=== PATIENT | female | born 1935 | race Caucasian/White ===

== ENCOUNTER 2019-03-16 01:47 | Observation (INO) | payer OTHER ==
--- OUTSIDE RECORDS SUMMARY | 2019-03-16 01:55 | XMS REPORT | Continuity of Care Document ---
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 [facility] Shoulder pain Resolved 09/05/20 Problem 04/05/2018 [facility] 16 Group,[facility] Screening for Resolved 02/03/20 Problem 04/05/2018 [facility] breast cancer 16 Group,[facility] Screen for colon Resolved 02/03/20 Problem 04/05/2018 Medical cancer 16 Group,[facility] POSTSURGICAL Inactive 05/13/20 Condition 07/08/2015 [facility] CATARACT 15 Group EXTRACTION STATUS OS SCREENING, Active 04/12/20 Condition 07/08/2015 [facility] DIABETIC 15 Group RETINOPATHY CATARACT, SENILE, Inactive 04/12/20 Condition 07/08/2015 [facility] CORTICAL OS 15 Group PSEUDOPHAKIA OU Active 04/12/20 Condition 07/08/2015 Medical 15 Group ELBOW PAIN, LEFT Inactive 07/17/20 Condition 07/08/2015 Medical 14 Group Pain in Resolved 07/17/20 Problem 04/05/2018 Data [facility] elbow<sup>12</sup 14 migrated Group,MH > from [facility] on 03/27/15. ROTATOR CUFF Active 06/19/20 Condition 07/08/2015 Medical INJURY, RIGHT 14 Group SHOULDER Injury of tendon Active 06/19/20 Problem 04/05/2018 Data Medical of the rotator 14 migrated Group cuff of from shoulder<sup>8</s Centricity up> on 03/27/15. Injury of tendon Active 06/19/20 Problem 02/10/2017 Data of the rotator 14 migrated [place] cuff of from shoulder<sup>10</ Centricity sup> on 03/27/15. BODY MASS INDEX Active 05/21/20 Condition 07/08/2015 Medical 37.0-37.9, ADULT 14 Group PAIN IN JOINT Inactive 05/21/20 Condition 07/08/2015 Medical INVOLVING 14 Group SHOULDER REGION Shoulder joint Active 05/21/20 Problem 04/05/2018 Data Medical pain<sup>15</sup> 14 migrated Group,MH from [facility] on 03/27/15. Body mass index Active 05/21/20 Problem 02/10/2017 Data 30+ - 14 migrated [facility] obesity<sup>2</esquivel from GE p> Centricity on 03/27/15. COUGH Inactive 10/17/20 Condition 07/08/2015 Medical 13 Group GASTRITIS Inactive 10/03/20 Condition 07/08/2015 Medical 13 Group HELICOBACTER Inactive 10/03/20 Condition 07/08/2015 Medical PYLORI INFECTION 13 Group GASTRIC ULCER Inactive 10/03/20 Condition 07/08/2015 Medical 13 Group DUODENITIS Active 10/03/20 Condition 07/08/2015 Medical 13 Group Duodenitis<sup>5< Resolved 10/03/20 Problem 04/05/2018 Data Medical /sup> 13 migrated Group from [facility] on 03/27/15. Duodenitis<sup>6< Resolved 10/03/20 Problem 02/10/2017 Data /sup> 13 migrated [facility] from [facility] on 03/27/15. DYSPNEA ON Active 09/16/20 Condition 07/08/2015 Medical EXERTION 13 Group CHEST PAIN Inactive 09/16/20 Condition 07/08/2015 Medical 13 Group TIREDNESS Active 09/16/20 Condition 07/08/2015 Medical 13 Group ABDOMINAL PAIN Inactive 09/16/20 Condition 07/08/2015 [facility] RIGHT UPPER 13 Group QUADRANT ABDOMINAL PAIN, Inactive 09/16/20 Condition 07/08/2015 [facility] EPIGASTRIC 13 Group NAUSEA Inactive 09/16/20 Condition 07/08/2015 Medical 13 Group ESOPHAGEAL REFLUX Active 09/16/20 Condition 07/08/2015 Medical 13 Group HEARTBURN Inactive 09/16/20 Condition 07/08/2015 Medical 13 Group Epigastric Resolved 09/16/20 Problem 04/05/2018 Data Medical pain<sup>6</sup> 13 migrated Group from [facility] on 03/27/15. Heartburn<sup>7</ Active 09/16/20 Problem 04/05/2018 Data Medical sup> 13 migrated Group from [facility] on 03/27/15. Nausea<sup>11</esquivel Resolved 09/16/20 Problem 04/05/2018 Data Medical p> 13 migrated Group from [facility] on 03/27/15. Right upper Active 09/16/20 Problem 04/05/2018 Data Medical quadrant 13 migrated [facility]sup[facility]. Epigastric Resolved 09/16/20 Problem 02/10/2017 Data pain<sup>7</sup> 13 [facility]. Heartburn<sup>8</ Active 09/16/20 Problem 02/10/2017 Data sup> [facility] CHRONIC KIDNEY Active 01/22/20 Condition 07/08/2015 Medical DISEASE STAGE III 13 Group MORBID OBESITY Active 01/22/20 Condition 07/08/2015 Medical 13 Group URINARY TRACT Inactive 01/22/20 Condition 07/08/2015 Medical INFECTION, HX OF 13 Group Chronic kidney Active 01/22/20 Problem 04/05/2018 Data Medical disease stage 13 migrated Group 3<sup>[facility]sup[facility]. Morbid Resolved 01/22/20 Problem 04/05/2018 Data Medical obesity<sup>10</s 13 [facility]. Chronic kidney Active 01/22/20 Problem 02/10/2017 Data disease stage 13 migrated [place] 3<sup>3</sup> [facility]. NEED PROPHYLACTIC Inactive 09/12/20 Condition 07/08/2015 Medical VACCINATION&INOCU 12 Group LATION FLU NEED PROPH Inactive 09/12/20 Condition 07/08/2015 Medical VACCINATION 12 Group AGAINST STREP PNEUMONE ASTHMA Active 09/12/20 Condition 07/08/2015 Medical 12 Group Asthma<sup>1</sup Active 09/12/20 Problem 04/05/2018 Data Medical > 12 migrated Group, from [facility] on 03/27/15. LONG-TERM USE OF Active 04/17/20 Condition 07/08/2015 Medical OTHER MEDICATIONS 12 Group OTHER SCREENING Active 04/17/20 Condition 07/08/2015 Medical BREAST 12 Group EXAMINATION PNEUMONIA Inactive 04/17/20 Condition 07/08/2015 Medical 12 Group Long-term drug Resolved 04/17/20 Problem 04/05/2018 Data Medical therapy<sup>9</esquivel 12 migrated Group p> from [facility] on 03/27/15. Long-term drug Resolved 04/17/20 Problem 02/10/2017 Data therapy<sup>11</s 12 migrated [place] up> from [facility] on 03/27/15. BRONCHITIS, ACUTE Inactive 04/15/20 Condition 07/08/2015 Medical 12 Group DIABETES Inactive 04/15/20 Condition 07/08/2015 Medical MELLITUS, TYPE II 12 Group HYPERTENSION Active 04/15/20 Condition 07/08/2015 Medical 12 Group HYPERLIPIDEMIA Active 04/15/20 Condition 07/08/2015 Medical 12 Group Hyperlipidemia<esquivel Active 04/15/20 Problem 02/10/2017 Data p>9</sup> 12 migrated [place] from [facility] on 03/27/15. Type 2 diabetes Active 04/15/20 Problem 02/10/2017 Data mellitus<sup>16</ 12 migrated [place] sup> from [facility] on 03/27/15. CAROTID ARTERY Active 10/29/19 Condition 07/08/2015 Medical DISEASE 04 Group CORONARY HEART Active 10/29/19 Condition 07/08/2015 Medical DISEASE 03 Group 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 Condition 07/08/2015 Medical Group DIABETES, TYPE 2 Inactive Condition 07/08/2015 Medical Group DIABETES Active Condition 07/08/2015 Medical MELLITUS, TYPE Group II, CONTROLLED W/ VASCULAR COMPLICATIONS Asthma Active Problem 04/05/2018 [facility] Carpal tunnel Active Problem 04/05/2018 Medical syndrome Group,[facility] Chest pain Resolved Problem 04/05/2018 [facility] Chronic CHF Active Problem 04/05/2018 Medical Group CKD stage 3, GFR Active Problem 04/05/2018 Medical 30-59 Group, ml/min(<span [facility] ID="[id number]" >Confirmed</span> ) Coronary Active Problem 04/05/2018 Data Medical arteriosclerosis< migrated Group sup>3</sup> from [facility] on 03/27/15. Coronary heart Active Problem 04/05/2018 Medical disease Group,[facility] Diabetes Active Problem 04/05/2018 [facility] Disorder of Active Problem 04/05/2018 Data Medical carotid migrated Group artery<sup>4</sup from [facility] > [facility]ity on 03/27/15. Drug therapy Active Problem 04/05/2018 [facility] Gastric ulcer Active Problem 04/05/2018 [facility] Ischemic Active Problem 04/05/2018 Medical cardiomyopathy Group GERD (<span Active Problem 04/05/2018 Medical ID="[id number]" Group, >Confirmed</span> [facility] ) Heart failure Active Problem 04/05/2018 [facility] Hypertension Active Problem 04/05/2018 [facility] Heart attack Resolved Problem 04/05/2018 [facility] Mixed Active Problem 04/05/2018 [facility] hyperlipidemia Group Osteopenia Active Problem 04/05/2018 [facility] Group[facility] Peripheral Active Problem 04/05/2018 Data Medical circulatory migrated Group, disorder from [facility] associated with Cent[facility]ity type 2 diabetes on 03/27/15. mellitus<sup>13</ sup> Coronary Active Problem 02/10/2017 Data arteriosclerosis< migrated [facility] sup>4</sup> from [facility] on 03/27/15. Disorder of Active Problem 02/10/2017 Data carotid migrated [facility] artery<sup>5</sup from [facility] > [facility] on 03/27/15. ATHSCL HEART Active DISEASE OF [place] [facility] CORONARY Medications Medication Details Route Status Patient Ordering Order Source Instructions Provider Date Metoprolol See Active Medical Succinate ER 50 Instructions, 2018 Group mg oral tablet, # 60 tab, extended Refill(s) 5, release TAKE ONE TABLET BY MOUTH TWICE DAILY, Pharmacy: [facility] Fish Oil 1 gm, 1 cap, No Longer Route: PO, Active 2016 [facility] Drug form: CAP, Daily, Dosing Weight 91.364, kg, Start date: 02/08/17 9:00:00 CDT, Duration: 30 day, Stop date: 03/09/17 9:00:00 CDTNotes: (Same as: [facility], [place] 3 fish oil ) Non-Formular y Drug Losartan 100 mg, 2 No Longer tab, Route: Active 2016 [facility] PO, Drug form: TAB, Daily, Dosing Weight 91.364, kg, Start date: 02/08/17 9:00:00 CDT, Duration: 30 day, Stop date: 03/09/17 9:00:00 CDTNotes: (Same as: Cozaar) Furosemide 20 20 mg, 1 tab, No Longer MG Oral Tablet Route: PO, Active 2016 [facility] Drug form: TAB, Daily, Dosing Weight 91.364, kg, Start date: 02/08/17 9:00:00 CDT, Duration: 30 day, Stop date: 03/09/17 9:00:00 CDTNotes: (Same as: Lasix) May cause GI upset. Give with food or milk. clopidogrel 75 mg, 1 tab, No Longer Route: PO, Active 2016 [facility] Drug form: TAB, Daily, Dosing Weight 91.364, kg, Start date: 02/08/17 9:00:00 CDT, Duration: 30 day, Stop date: 03/09/17 9:00:00 CDTNotes: (Same As: Plavix) metoprolol 25 mg, 1 tab, Inactive tartrate Route: PO, 2016 [facility] Drug form: TAB, Q12H, Dosing Weight 91.364, kg, Start date: 02/07/17 21:00:00 CDT, Duration: 30 day, Stop date: 03/09/17 9:00:00 CDTNotes: (Same as: Lopressor) famotidine 20 mg, 1 tab, Inactive Route: PO, 2016 [facility] Drug form: TAB, ONCE, Start date: 02/07/17 18:30:00 CDT, Stop date: 02/07/17 18:30:00 CDTNotes: (Same as: Pepcid) Ranitidine 150 150 mg, 1 Inactive MG Oral Tablet tab, Route: 2016 [facility] PO, ONCE, Dosing Weight 91.364, kg, Priority: NOW, Start date: 02/07/17 18:07:00 CDT, Stop date: 02/07/17 18:07:00 CDT Sodium Chloride 250 mL, Inactive 0.9% IV Route: IVPB, 2016 [facility] Start date: 02/07/17 16:03:00 CDT, Duration: 30 day, Stop date: 03/09/17 16:02:00 CDT, PRN Line Flush BD Normal 10 mL, Route: Inactive Saline Flush IVP, Drug 2016 [facility] Form: INJ, PRN, PRN Line Flush, Start date: 02/07/17 16:03:00 CDT, Duration: 30 day, Stop date: 03/09/17 16:02:00 CDTNotes: (Same as: BD Posiflush) Furosemide 20 20 mg=1 tab, Active MG Oral Tablet PO, Daily, 0 2016 [facility] Refill(s) clopidogrel 75 75 mg, PO, Active mg oral tablet Daily, 0 2016 [facility] Refill(s) Acetaminophen 650 mg, 2 Inactive tab, Route: 2016 [facility] PO, Drug form: TAB, Q4H, Dosing Weight 91.364, kg, PRN Pain Score 1-3, Start date: 02/07/17 14:36:00 CDT, Duration: 30 day, Stop date: 03/09/17 14:35:00 CDTNotes: Do not exceed 4 gm/day. (Same as: Tylenol) Acetaminophen 1 tab, Route: Inactive 325 MG / PO, Drug 2016 [facility] Hydrocodone Form: TAB, Bitartrate 5 MG Dosing Weight Oral Tablet 91.364, kg, Q4H, PRN Pain Score 4-6, Start date: 02/07/17 14:36:00 CDT, Duration: 30 day, Stop date: 03/09/17 14:35:00 CDTNotes: (Same as: [place] 325/5) Do not exceed 4gm/day of acetaminophen . Ondansetron 4 mg, 2 mL, Inactive Route: IVP, 2016 [facility] Drug form: INJ, Q8H, Dosing Weight 91.364, kg, PRN Nausea & Vomiting, Start date: 02/07/17 14:36:00 CDT, Duration: 30 day, Stop date: 03/09/17 14:35:00 CDTNotes: (Same as: Zofran) MEDICATION WASTE Product Size: 4 mg Product Wasted: _0__ mg Sodium Chloride 750 mL, Rate: Inactive 0.154 MEQ/ML 75 ml/hr, 2016 [facility] Injectable Infuse over: Solution 10 hr, Route: IV, Dosing Weight 91.364 kg, Total Volume: 750, Start date: 02/07/17 14:36:00 CDT, Duration: 10 hr, Stop date: 02/08/17 0:35:00 CDT sodium chloride 1,000 mL, Inactive 0.9% 1000 ml Rate: 100 2017 [facility] INJ 1,000 mL ml/hr, Infuse over: 10 hr, Route: IV, Dosing Weight 91.364 kg, Total Volume: 1,000, Start date: 02/07/17 10:58:00 CDT, Duration: 30 day, Stop date: 03/09/17 10:57:[address] 2 drops No Longer Medical HCL 0.3 % SOLN in the Active 2014 Group affected eye every 6 hours for PRED FORTE 1 % Instill 1 No Longer Medical SUSP drop: 4 Active 2014 Group times a day for 1 week, 3 times a day for 1 week, 2 times a day for 1 week, Once a day for 1 week to both eyes KETOROLAC 1 drop 2 No Longer Medical TROMETHAMINE times daily Active 2014 Group 0.4 % SOLN CIPROFLOXACIN Place 2 drops No Longer Medical HCL 0.3 % SOLN in the Active 2014 Group affected eye every 6 hours for SINGULAIR 10 MG 1 tablet at Active Medical TABS night 2014 Group LEVAQUIN 500 MG 1 tablet No Longer Medical TABS daily Active 2014 Group LEVAQUIN 500 MG 1 tablet No Longer Medical TABS daily Active 2014 Group CIPRO 250 MG one bid for 7 No Longer Medical TABS days Active 2014 Group CORTISPORIN Apply 2 drops Active Medical [id number] in nail 2013 Group SOLN border 2-3 times a day VOLTAREN 1 % 2 grams No Longer Medical GEL topically q6h Active 2013 Group prn pain HYDROCODONE-MAINE 1 tablet Active Medical TAMINOPHEN every 4-6 2013 Group 5-325 MG TABS hours as needed for pain HYDROCODONE-MAINE 1 tablet Active Medical TAMINOPHEN every 4-6 2013 Group 5-325 MG TABS hours as needed for pain HYDROCODONE-MAINE 1 tablet Active Medical TAMINOPHEN every 4-2013 Group 5-325 MG TABS hours as needed for pain HYDROCODONE-MAINE 1 tablet No Longer Medical TAMINOPHEN every 4-6 2013 Group 5-325 MG TABS hours as needed for pain HYDROCODONE-MAINE 1 tablet Active Medical TAMINOPHEN every 4-2013 Group 5-325 MG TABS hours as needed for pain HYDROCODONE-MAINE 1 tablet No Longer Medical TAMINOPHEN every 4-6 2013 Group 5-325 MG TABS hours as needed for pain PREDNISONE 10 40 mg po q No Longer Medical MG TABS day for four 2013 Group days, then 30 mg for 4 days then 20 mg for 4 days then 10 mg for 4 days then discontinue PREDNISONE 10 40 mg po q No Longer Medical MG TABS day for four Active 2013 Group days, then 30 mg for 4 days then 20 mg for 4 days then 10 mg for 4 days then discontinue PREDNISONE 10 40 mg po q No Longer Medical MG TABS day for four 2013 Group days, then 30 mg for 4 days then 20 mg for 4 days then 10 mg for 4 days then discontinue PREDNISONE 10 40 mg po q No Longer Medical MG TABS day for four Active 2013 Group days, then 30 mg for 4 days then 20 mg for 4 days then 10 mg for 4 days then discontinue PREDNISONE 10 40 mg po q No Longer Medical MG TABS day for four Active 2013 Group days, then 30 mg for 4 days then 20 mg for 4 days then 10 mg for 4 days then discontinue PREDNISONE 10 40 mg po q No Longer Medical MG TABS day for four Active 2013 Group days, then 30 mg for 4 days then 20 mg for 4 days then 10 mg for 4 days then discontinue CEFTIN 500 MG 1 tablet No Longer Medical TABS twice daily X Active 2013 Group 10 days SPIRIVA Inhale one No Longer Medical HANDIHALER 18 capsule daily Active 2013 Group MCG CAPS SPIRIVA Inhale one No Longer Medical HANDIHALER 18 capsule daily Active 2013 Group MCG CAPS LEVAQUIN TABS 1 tablet No Longer Medical 500 MG daily Active 2013 Group LEVAQUIN TABS 1 tablet No Longer Medical 500 MG daily Active 2013 Group LEVAQUIN TABS 1 tablet No Longer Medical 500 MG daily Active 2013 Group PROTONIX 40 MG 1 PO daily AT Active Medical EC TAB NIGHT 2013 Group PROTONIX 40 MG 1 PO daily AT Active Medical EC TAB NIGHT 2013 Group PROTONIX 40 MG 1 PO daily AT Active Medical EC TAB NIGHT 2013 Group PROTONIX 40 MG 1 tablet No Longer Medical TBEC daily. Active 2012 Group PROTONIX 40 MG 1 tablet No Longer Medical TBEC daily. Active 2012 Group PROTONIX 40 MG 1 tablet No Longer Medical TBEC daily. Active 2012 Group LEVAQUIN 500 MG 1 PO Daily No Longer Medical TABS Active 2012 Group PROAIR HFA 108 2 puffs q 4-6 Active 10/21[facility] Medical (90 BASE) hours prn 2012 Group MCG/ACT AERS cough,wheezin g SYMBICORT 2 puff bid No Longer Medical 160-4.5 MCG/ACT Active 2012 Group AERO SPIRIVA one cap for No Longer Medical HANDIHALER 18 inhalation Active 2012 Group MCG CAPS daily PROAIR HFA 108 2 puffs q 4-6 Active 10/21[facility] Medical (90 BASE) hours prn 2012 Group MCG/ACT AERS cough,wheezin g LEVAQUIN 500 MG 1 PO Daily No Longer Medical TABS Active 2012 Group SYMBICORT 2 puff bid Active Medical 160-4.5 MCG/ACT 2012 Group AERO PROAIR HFA 108 2 puffs q 4-6 Active 10/21[facility] Medical (90 BASE) hours prn 2012 Group MCG/ACT AERS cough,wheezin g SPIRIVA one cap for No Longer Medical HANDIHALER 18 inhalation Active 2012 Group MCG CAPS daily LEVAQUIN 500 MG 1 PO Daily No Longer Medical TABS Active 2012 Group SYMBICORT 2 puff bid No Longer 10/21[facility] Medical 160-4.5 MCG/ACT Active 2012 Group AERO ALIGN 4 MG CAPS 1 capsule No Longer Medical daily. Active 2012 Group OMECLAMOX-TAVO Take as No Longer Medical 500-500-20 MG directed for Active 2012 Group MISC 10 days. DICYCLOMINE HCL 1 tablet 4 No Longer Medical 10 MG CAPS times a day Active 2012 Group as needed for pain. FLAGYL 500 MG 1 tablet 3 No Longer Medical TABS times a day Active 2012 Group for 10 days. DICYCLOMINE HCL 1 tablet 4 No Longer Medical 10 MG CAPS times a day Active 2012 Group as needed for pain. DICYCLOMINE HCL 1 tablet 4 No Longer Medical 10 MG CAPS times a day Active 2012 Group as needed for pain. DICYCLOMINE HCL 1 tablet 4 No Longer Medical 10 MG CAPS times a day Active 2012 Group as needed for pain. CIPRO 500 MG 1 bid x 10 No Longer Medical TABS days Active 2012 Group SUCRALFATE 1 GM Take 1 tablet Active Medical TABS 30 minutes 2012 Group before each meal and at bedtime. TRAMADOL HCL 50 1 tablet No Longer Medical MG TABS every 6 hrs Active 2012 Group as needed for pain. CIPRO 500 MG 1 bid x 10 No Longer Medical TABS days Active 2012 Group SUCRALFATE 1 GM Take 1 tablet Active Medical TABS 30 minutes 2012 Group before each meal and at bedtime. TRAMADOL HCL 50 1 tablet No Longer Medical MG TABS every 6 hrs Active 2012 Group as needed for pain. TRAMADOL HCL 50 1 tablet No Longer Medical MG TABS every 6 hrs Active 2012 Group as needed for pain. TRAMADOL HCL 50 1 tablet No Longer Medical MG TABS every 6 hrs Active 2012 Group as needed for pain. SUCRALFATE 1 GM Take 1 tablet No Longer Medical TABS 30 minutes Active 2012 Group before each meal and at bedtime. TRAMADOL HCL 50 1 tablet No Longer 09/16/ Medical MG TABS every 6 hrs Active 2012 Group as needed for pain. TRAMADOL HCL 50 1 tablet No Longer 09/16/ Medical MG TABS every 6 hrs Active 2012 Group as needed for pain. NITROSTAT 0.[address] PL[address] 1 No Longer Medical MG SUBL TABLET UNDER Active 2012 Group THE TONGUE EVERY 5 MINUTES FOR UP TO 3 DOSES NEEDED FOR CHEST PAIN.CALL 911 IF PAIN PERSISTS NITROSTAT 0.4 PL[address] 1 No Longer Medical MG SUBL TABLET UNDER Active 2012 Group THE TONGUE EVERY 5 MINUTES FOR UP TO 3 DOSES NEEDED FOR CHEST PAIN.CALL 911 IF PAIN PERSISTS NITROSTAT 0.4 PL[address] 1 No Longer Medical MG SUBL TABLET UNDER Active 2012 Group THE TONGUE EVERY 5 MINUTES FOR UP TO 3 DOSES NEEDED FOR CHEST PAIN.CALL 911 IF PAIN PERSISTS SYMBICORT one puff No Longer Medical 160-4.5 MCG/ACT twice daily Active 2012 Group AERO as needed SYMBICORT one puff No Longer Medical 160-4.5 MCG/ACT twice daily Active 2012 Group AERO as needed SYMBICORT one puff No Longer Medical 160-4.5 MCG/ACT twice daily Active 2012 Group AERO as needed VORTEX VALVED Use with MDI Active Medical 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 CHAMBER 2011 Group EVI DUONEB 0.5-2.5 one via No Longer Medical (3) MG/3ML SOLN nebulizer Active 2011 Group every 4 hours as needed DUONEB 0.5-2.5 one via No Longer Medical (3) MG/3ML SOLN nebulizer Active 2011 Group every 4 hours as needed VITAMIN C 200MG 1 PO QD Active 2011 Group METFORMIN HCL 1 tab bid No Longer Medical 500 MG TABS Active 2011 Group METFORMIN HCL 1 tab bid No Longer Medical 500 MG TABS Active 2011 Group METFORMIN HCL 1 tab bid No Longer Medical 500 MG TABS Active 2011 Group METFORMIN HCL 1 tab bid No Longer Medical 500 MG TABS Active 2011 Group METFORMIN HCL 1 tab bid No Longer Medical 500 MG TABS Active 2011 Group METFORMIN HCL 1 tab bid No Longer Medical 500 MG TABS Active 2011 Group METFORMIN HCL 1 tab bid No Longer Medical 500 MG TABS Active 2011 Group LOSARTAN 1 po qd Active Medical POTASSIUM 100 2011 Group MG TABS WELCHOL 625 MG 3 po twice a No Longer Medical TABS day Active 2011 Group LOSARTAN Take one (1) Active Medical POTASSIUM 100 tablet po qd 2011 Group MG TABS LOSARTAN Take one (1) Active Medical POTASSIUM 100 tablet po qd 2011 Group MG TABS PLAVIX 75 MG 1 po qd Active Medical TABS 2011 Group FISH OIL 1000 1 cap qd Active Medical MG CAPS 2011 Group OSCAL 500/200 1 tab qd Active Medical D-3 [phone] Group MG-UNIT TABS ASPIRIN TAB 1 po qd No Longer Medical 81MG EC Active 2011 Group ASPIRIN TAB 1 po qd No Longer Medical 81MG EC Active 2011 Group PLAVIX 75 MG 1 po qd Active Medical TABS 2011 Group ASPIRIN TAB 1 po qd No Longer Medical 81MG EC Active 2011 Group Allergies, Adverse Reactions, Alerts Substance Category Reaction Severity Reaction Status Date Comments Source type Reported ZOCOR Drug ZOCOR allergy 2 Medical Group CRESTOR Drug CRESTOR allergy 2 Medical Group PRAVASTATIN Drug PRAVASTATIN SODIUM allergy SODIUM 2 Medical Group LIVALO Drug LIVALO allergy 2 Medical Group SULFA Drug SULFA allergy 2 Medical Group AMPICILLIN Drug AMPICILLIN allergy 2 Medical Group sulfa Assertion Swelling, Drug Active Data drugs<sup>1, NOS, allergy 2 migrated Medical 2</sup> Rash, NOS from [facility] on 05/27/15. Originally documented as SULFA. rash or swelling, cannot remember pravastatin< Assertion Muscle Drug Active Data sup>5</sup> pain allergy 2 migrated Medical (finding) from [facility] on 02/25/15. Originally documented as PRAVASTATI N SODIUM. severe muscle pain simvastatin< Assertion Muscle Drug Active Data sup>6</sup> pain allergy 2 migrated Medical (finding) from [facility] on 02/25/15. Originally documented as ZOCOR. severe muscle pain rosuvastatin Assertion Muscle Drug Active Data <sup>8</sup> pain allergy 2 migrated Medical (finding) from [facility] on 02/25/15. Originally documented as CRESTOR. severe muscle pain pitavastatin Assertion Muscle Drug Active Data <sup>9</sup> pain allergy 2 migrated Medical (finding) from [facility] on 02/25/15. Originally documented as LIVALO. severe muscle pain pitavastatin Assertion Muscle Drug Active Data MH <sup>4</sup> pain allergy 2 migrated [place] (finding) from [facility] on 02/25/15. Originally documented as LIVALO. severe muscle pain rosuvastatin Assertion Muscle Drug Active Data MH <sup>6</sup> pain allergy 2 migrated [place] (finding) from [facility] on 02/25/15. Originally documented as CRESTOR. severe muscle pain simvastatin< Assertion Muscle Drug Active Data MH sup>7</sup> pain allergy 2 migrated [place] (finding) from [facility] on 02/25/15. Originally documented as ZOCOR. severe muscle pain sulfa Assertion Rash, Drug Active Data drugs<sup>8, NOS, allergy 2 migrated [place] 9</sup> Swelling, from [facility] on 05/27/15. Originally documented as SULFA. rash or swelling, cannot remember ampicillin<s Assertion Swelling, Drug Active Data MH up>3, NOS, allergy 4 migrated Medical 4</sup> Rash, NOS from [facility] on 02/25/15. Originally documented as AMPICILLIN . RASH OR SWELLING, PATIENT CANT REMEMBER ampicillin<s Assertion Rash, Drug Active Data MH up>1, NOS, allergy 4 migrated [place] 2</sup> Swelling, from [facility] on 02/25/15. Originally documented as AMPICILLIN . RASH OR SWELLING, PATIENT CANT REMEMBER VOLTAREN Drug VOLTAREN MH allergy 5 Medical Group VOLTAREN GEL Drug VOLTAREN allergy GEL 5 Medical Group diclofenac<s Assertion Rash, NOS Drug Active Data MH up>7</sup> allergy 5 migrated Medical from [facility] on 05/06/15. Originally documented as VOLTAREN. rash diclofenac<s Assertion Rash, NOS Drug Active Data up>3</sup> allergy 5 migrated [place] from [employer] [facility] [employer] on 05/06/15. Originally documented as VOLTAREN. rash NKFA Assertion Food Active allergy Medical Group Immunizations Immunization Date Site Status Last Comments Source Given Updated pneumococcal Left completed [facility] 13-valent 6 Delto[facility] Group, vaccine [place] pneumococcal completed Medical immunization 2 Group administered pneumococcal Right completed [facility] 23-valent 2 Deltoid Comment: Group, vaccine<sup>1</s pneumovax. [place] up> Migrated from [facility] ; Data migrated from [employer] on 11/30/2015. Results Order Name Results Value Reference Date Interpretation Comments Source Range Chest 2 Chest 2 CLINICAL HISTORY: CHF 02/05 - [facility] views DX views /2016 - [facility] AGE: 81 years GENDER: Female Read by: Gopal Parr MD Dictated Date/time: 02/05/17 15:15 Electronically Signed by: Gopal Parr MD 02/05/17 15:18 FINAL REPORT TECHNIQUE: PA and lateral chest radiographs, 2 views. COMPARISON: 10/26/2016 FINDINGS: The cardiomediastinal silhouette demonstrates mild cardiomegaly. There is moderate bilateral hilar fullness with mild basilar septal thickening. Small bilateral pleural effusions, right greater than left. No pneumothorax. Surgical clips are again noted in the right neck. Chronic thoracic spine compression fractures, unchanged. IMPRESSION: Mild pulmonary edema. Spine Spine EXAMINATION: Thoracic spine - AP and lateral 10/26 - [facility] thoracic 3 thoracic - [facility] views DX views DX HISTORY: Thoracic back pain; thoracic compression fracture Read by: Tomas Sosa MD Dictated Date/time: 10/26/16 12:27 Electronically Signed by: Tomas Sosa MD 10/26/16 12:29 FINAL REPORT FINDINGS: Frontal and lateral views of the thoracic spine are performed and compared to left rib radiographs dated 05/09/2016. There is a severe T7 compression fracture deformity which appears unchanged compared to prior radiographs of the left ribs dated 05/09/2016. The remaining thoracic vertebral body heights are normal. The re is no listhesis. There is mild to moderate multilevel degenerative disc disease of the thoracic spine. An old mid left clavicular fracture deformity is partially visualized. IMPRESSION: 1. Unchanged chronic severe T7 compression fracture deformity, unchanged compared to prior radiographs of the left ribs dated 05/09/2016. 2. Mild to moderate multilevel degenerative disc disease of the thoracic spine. 3. Old mid left clavicular fracture deformity partially visualized. Chest 2 Chest 2 EXAM: 10/26 - [facility] views DX views DX /2015 - [place] 2 view(s) of the chest. Read by: Ronald Sandy MD Dictated Date/time: 10/26/16 11:01 CLINICAL HX: Electronically Signed by: Ronald Sandy MD 10/26/16 12:30 FINAL REPORT Chest pain. Cough. . COMPARISON: Chest x-ray: None. Left ribs: 05/09/2016. FINDINGS: Support apparatus: None. Cardiac silhouette: Mildly enlarged. Colette: Unremarkable. Consolidation: Mild bibasilar interstitial thickening. Pleural effusion: Mild left lateral pleural effusion versus pleural thickening. Pneumothorax: Negative. Other: Negative. Bones: Remote, ununited mid left clavicular fracture. Moderate to severe mid thoracic vertebral body compression deformity. Mild compression deformity of a vertebral body near the level of the thoracolumbar junction. Other: None. IMPRESSION: 1. Mild left basilar interstitial thickening which probably represent atelectasis or scarring/fibrosis. Differential also includes atypical infectious process and mild interstitial edema. 2. Possible mild left pleural effusion. 3. Vertebral body compression deformities which are technically age indeterminate but probably chronic. Spine Spine lumbar EXAMINATION: Lumbar spine series 10/26 - [facility] lumbar series DX /2015 - [facility] series DX HISTORY: Lumbar spondylosis; lumbar compression fracture Read by: Tomas Sosa MD Dictated Date/time: 10/26/16 12:35 Electronically Signed by: Tomas Sosa MD 10/26/16 12:44 FINAL REPORT FINDINGS: Frontal, lateral, and coned lateral of the lumbar spine are performed and compared to radiographs of the left ribs dated 05/09/2016. Attempted bilateral oblique views of the lumbar spine are also performed, but are suboptimal. There is a moderate L1 compression fracture deformity with loss of approximately 50% vertebral body height. This appears unchanged compared to prior radiographs of the left ribs dated 05/09/2016. The re maining lumbar vertebral body heights are normal. There is no listhesis of the lumbar spine. There is mild to moderate multilevel degenerative disc disease throughout the lumbar spine with multilevel fa cet osteoarthritis. The sacral ala appear intact. Arterial atherosclerotic calcifications are noted. IMPRESSION: 1. Moderate L1 compression fracture deformity which appears unchanged compared to prior radiographs from April 2016; however, correlation for focal point tenderness is recommended and MR may be performed to assess for underlying bone marrow edema as clinically indicated. 2. Mild to moderate multilevel degenerative disc disease throughout the lumbar spine with multilevel facet osteoarthritis. 3. Atherosclerotic abdominal aorta. Bone Bone Density - Bone Density DXA [employer] MA 05/23 - [facility] Density DXA DXA - [facility] [employer] MA BONE DENSITY EVALUATION: 02/03/2016 MA Read by: Ronald Sandy MD Dictated Date/time: 06/01/16 09:05 FINDINGS: Electronically Signed by: Ronald Sandy MD 06/01/16 09:05 FINAL REPORT Bone density evaluation was performed 05/23/2016 on the AP L1-L4 region of spine using a Hologic unit. The BMD average for the exam is 0.917 g/cm2. The T- score is -1.20. This matches the World Health Organization's criteria for osteopenia and places the patient at a medium risk for fracture. An additional bone density evaluation was performed 05/23/2016 on the left femur neck using a Hologic unit. The BMD average for the exam is 0.582 g/cm2. The T-score is -2.40. This matches the World He alth Organization's criteria for osteopenia and places the patient at a medium risk for fracture. An additional bone density evaluation was performed 05/23/2016 on the left total femur area using a Hologic unit. The BMD average for the exam is 0.745 g/ cm2. The T-score is -1.60. This matches the Wo rld Health Organization's criteria for osteopenia and places the patient at a medium risk for fracture. IMPRESSION: OSTEOPENIA Patient is at medium risk for fracture. Patient consult w/primary care provider is recommended. This exam was dictated and interpreted by [id number] for [facility]. Ronald butts/eber:06/01/2016 09:05:37 Music Autographer: Elise Edwards, [facility] Digital Digital - DIGITAL MAMMO SCREENING JEAN-CLAUDE MA 05/23 - [facility] Mammo Mammo /2016 - [place] Screening Screening BILATERAL DIGITAL SCREENING MAMMOGRAM WITH CAD: 2015 Jean-Claude MA Jean-Claude MA CLINICAL: Screening V76.12 Routine/Screening. Read by: Ronald Sandy MD Dictated Date/time: 06/01/16 15:43 Electronically Signed by: Ronald Sandy MD 06/01/16 15:43 FINAL REPORT Current study was evaluated with a Computer Aided Detection (CAD) system. Comparison is made to exam dated: 05/11/2015 mammogram - [facility]. There are scattered fibroglandular densities in both breasts. There are benign vascular calcifications in both breasts. No significant masses, calcifications, or other findings are seen in either breast. There has been no significant interval change. IMPRESSION: BENIGN There is no mammographic evidence of malignancy. A 1 year screening mammogram is recommended. Ronald Sandy M.D. srp/penrad:06/01/2016 15:43:09 Music Autographer: Nimisha Norman, [facility] This exam was dictated and interpreted by [id number] for [facility]. letter sent: Normal exam Mammogram BI-RADS: 2 Benign Ribs Ribs EXAM: Ribs unilateral DX 05/09 - [facility] unilateral unilateral /2015 - [facility] DX DX HISTORY: CHEST PAIN, FALL COMPARISON: None Read by: Juan Manuel Le MD Dictated Date/time: 05/10/16 10:05 Electronically Signed by: Juan Manuel Le MD 05/10/16 10:09 FINAL REPORT Multiple views of the left-sided ribs. IMPRESSION: No fracture or rib lesion is identified. There is a remote nonunited left clavicular fracture at the mid aspect. Chemistry HGBA1C 7.0 % - 5.6 06/25 Medical Group Chemistry CHOLESTEROL 217 mg/dl - 199 06/25 [facility] Group Chemistry TRIGLYCERIDE 230 mg/dl - 149 06/25 Medical Group Chemistry HDL 39 mg/dl >=61 06/25 [facility] Group Chemistry LDL 132 mg/dl - 99 06/25 [facility] Group Chemistry SODIUM 140 MEQ/L 135 - 145 06/25 mmol/L /2014 [facility] Chemistry POTASSIUM 4.6 MEQ/L 3.5 - 5.1 06/25 mmol/L /2014 [facility] Chemistry CREATININE 1.2 mg/dL 0.5 - 1.4 06/25 [facility] Chemistry BUN 21 mg/dL 7 - 22 06/25 [facility] Group Chemistry BUN/CREAT 18 6 - 25 06/25 [facility] Group Chemistry ALBUMIN 3.7 g/dL 3.5 - 5.0 06/25 [facility] Chemistry CALCIUM 9.1 mg/dL 8.5 - 10.5 06/25 [facility] Group Chemistry SGPT (ALT) 23 U/L 0 - 65 06/25 [facility] Group Chemistry SGOT (AST) 16 U/L 0 - 37 06/25 [facility] Group Chemistry ALK PHOS 96 U/L 39 - 136 06/25 [facility] Group Chemistry TSH 2.890 0.360 - 06/25 uIU/mL 3.740 /2014 [facility] Group Hematology HGB 14.4 g/dL 12.0 - 06/25 16.0 [facility] Hematology HCT 42.3 % 36.0 - 06/25 48.0 /2014 [facility] Hematology PLATELETS 260 K/CMM 133 - 450 06/25 /mm3 /2014 [facility] Chemistry URIC ACID 5.3 mg/dL 2.5 - 7.0 05/18 [facility] Group Chemistry BUN 23 mg/dL 7 - 05/18 [facility] Group Chemistry CREATININE 1.1 mg/dL 0.5 - 1.4 05/18 [facility] Group Chemistry URIC ACID 5.3 mg/dL 2.5 - 7.0 05/18 [facility] Group Chemistry BUN 23 mg/dL 7 - 05/18 [facility] Group Chemistry CREATININE 1.1 mg/dL 0.5 - 1.4 05/18 [facility] Group Chemistry SODIUM 140 MEQ/L 135 - 145 05/18 mmol/L /2014 [facility] Group Chemistry POTASSIUM 4.4 MEQ/L 3.5 - 5.1 05/18 mmol/L Medical Group Chemistry URIC ACID 5.3 mg/dL 2.5 - 7.0 05/18 [facility] Group Chemistry BUN 23 mg/dL 7 - 05/18 [facility] Chemistry CREATININE 1.1 mg/dL 0.5 - 1.4 05/18 [facility] Group Chemistry URIC ACID 5.3 mg/dL 2.5 - 7.0 05/18 [facility] Group Chemistry BUN 23 mg/dL 7 - 05/18 [facility] Group Chemistry CREATININE 1.1 mg/dL 0.5 - 1.4 05/18 [facility] Group Chemistry SODIUM 140 MEQ/L 135 - 145 05/18 mmol/L Medical Group Chemistry POTASSIUM 4.4 MEQ/L 3.5 - 5.1 05/18 mmol/L [facility] Group Chemistry CALCIUM 9.0 mg/dL 8.5 - 10.5 05/18 [facility] Chemistry PO4 3.3 mg/dL 2.5 - 4.5 05/18 [facility] Chemistry ALBUMIN 3.7 g/dL 3.5 - 5.0 05/18 [facility] Chemistry CALCIUM 9.0 mg/dL 8.5 - 10.5 05/18 [facility] Chemistry PO4 3.3 mg/dL 2.5 - 4.5 05/18 [facility] Chemistry ALBUMIN 3.7 g/dL 3.5 - 5.0 05/18 [facility] Group Chemistry HGBA1C 6.5 % 3.0 - 6.0 03/25 Medical Group Chemistry HGBA1C 6.5 % 3.0 - 6.0 03/25 Medical Group Chemistry HGBA1C 6.5 % 3.0 - 6.0 03/25 [facility] Group Chemistry SODIUM 140 mmol/L 136 - 142 12/14 Medical Group Chemistry POTASSIUM 4.4 mmol/L 3.3 - 5.0 12/14 [facility] Group Chemistry BUN 28 mg/dL - 12/14 [facility] Group Chemistry SODIUM 140 mmol/L 136 - 142 12/14 [facility] Group Chemistry POTASSIUM 4.4 mmol/L 3.3 - 5.0 12/14 [facility] Group Chemistry BUN 28 mg/dL 8 - 12/14 [facility] Group Chemistry SODIUM 140 mmol/L 136 - 142 12/14 [facility] Group Chemistry POTASSIUM 4.4 mmol/L 3.3 - 5.0 12/14 [facility] Group Chemistry BUN 28 mg/dL 8 - 12/14 [facility] Group Chemistry CREATININE 1.00 mg/dL 0.46 - 12/14 1. [facility] Group Chemistry CALCIUM 9.1 mg/dL 8.8 - 10.0 12/14 Medical Group Chemistry HGBA1C 6.8 % 3.0 - 6.0 12/14 [facility] Chemistry CREATININE 1.00 mg/dL 0.46 - 12/14 1. [facility] Chemistry CALCIUM 9.1 mg/dL 8.8 - 10.0 12/14 [facility] Group Chemistry HGBA1C 6.8 % 3.0 - 6.0 12/14 [facility] Group Chemistry SODIUM 140 mmol/L 136 - 142 09/17 [facility] Group Chemistry POTASSIUM 4.1 mmol/L 3.3 - 5.0 09/17 [facility] Group Chemistry BUN 24 mg/dL 8 - 09/17 [facility] Group Chemistry SODIUM 140 mmol/L 136 - 142 09/17 [facility] Group Chemistry POTASSIUM 4.1 mmol/L 3.3 - 5.0 09/17 [facility] Group Chemistry BUN 24 mg/dL 8 - 09/17 [facility] Group Chemistry SODIUM 140 mmol/L 136 - 142 09/17 [facility] Group Chemistry POTASSIUM 4.1 mmol/L 3.3 - 5.0 09/17 [facility] Group Chemistry BUN 24 mg/dL 8 - 09/17 [facility] Group Chemistry CREATININE 0.91 mg/dL 0.46 - 09/17 . [facility] Group Chemistry CALCIUM 9.3 mg/dL 8.8 - 10.0 09/17 Medical Group Chemistry HGBA1C 6.6 % 3.0 - 6.0 09/17 [facility] Group Chemistry CREATININE 0.91 mg/dL 0.46 - 09/17 . [facility] Group Chemistry CALCIUM 9.3 mg/dL 8.8 - 10.0 09/17 Medical Group Chemistry HGBA1C 6.6 % 3.0 - 6.0 09/17 [facility] Group Chemistry SODIUM 139 mmol/L 136 - 142 05/29 Medical Group Chemistry POTASSIUM 4.2 mmol/L 3.3 - 5.0 05/29 Medical Group Chemistry BUN 22 mg/dL 8 - 20 05/29 Medical Group Chemistry CREATININE 0.98 mg/dL 0.46 - 05/29 . [facility] Group Chemistry CALCIUM 9.4 mg/dL 8.8 - 10.0 05/29 [facility] Chemistry CHOLESTEROL 234 mg/dl 120 - 200 05/29 [facility] Group Chemistry HDL 42 mg/dl 31 - 79 05/29 [facility] Group Chemistry LDL 151 mg/dl 0 - 130 05/29 [facility] Group Chemistry SODIUM 139 mmol/L 136 - 142 05/29 [facility] Group Chemistry POTASSIUM 4.2 mmol/L 3.3 - 5.0 05/29 [facility] Group Chemistry BUN 22 mg/dL 8 - 05/29 [facility] Group Chemistry SODIUM 139 mmol/L 136 - 142 05/29 [facility] Group Chemistry POTASSIUM 4.2 mmol/L 3.3 - 5.0 05/29 [facility] Group Chemistry BUN 22 mg/dL 8 - 05/29 [facility] Group Chemistry CREATININE 0.98 mg/dL 0.46 - 05/29 . [facility] Chemistry CALCIUM 9.4 mg/dL 8.8 - 10.0 05/29 [facility] Chemistry CHOLESTEROL 234 mg/dl 120 - 200 05/29 [facility] Group Chemistry HDL 42 mg/dl 31 - 79 05/29 [facility] Chemistry LDL 151 mg/dl 0 - 130 05/29 [facility] Chemistry ALBUMIN 3.8 g/dL 3.5 - 5.0 05/29 [facility] Chemistry ALK PHOS 84 U/L 26 - 102 05/29 [facility] Group Chemistry SGOT (AST) 19 U/L 10 - 42 05/29 [facility] Group Chemistry SGPT (ALT) 16 U/L 11 - 43 05/29 [facility] Group Chemistry CPK 51 U/L 41 - 145 05/29 [facility] Group Hematology HGB 13.3 g/dL 12.0 - 05/29 15.0 [facility] Group Hematology HCT 38.4 % 35.0 - 05/29 43.8 Medical Group Chemistry HGBA1C 6.5 % 3.0 - 6.0 05/21 Medical Group Chemistry HGBA1C 6.5 % 3.0 - 6.0 05/21 [facility] Group Chemistry HGBA1C 6.5 % 3.0 - 6.0 05/21 [facility] Group Chemistry HGBA1C 6.5 % 3.0 - 6.0 05/21 [facility] Group Chemistry HGBA1C 6.8 % 10/28 [facility] Group Chemistry TSH 2.21 10/28 uIU/mL [facility] Group Chemistry HGBA1C 6.8 % 10/28 [facility] Group Chemistry TSH 2.21 10/28 uIU/mL /2012 [facility] Chemistry CHOLESTEROL 240 mg/dl 10/28 [facility] Chemistry LDL 161 mg/dl 10/28 [facility] Chemistry HDL 37 mg/dl 10/28 [facility] Chemistry TRIGLYCERIDE 212 mg/dl 10/28 [facility] Group Chemistry HGBA1C 6.8 % 10/28 [facility] Group Chemistry TSH 2.21 10/28 uIU/mL /2012 [facility] Chemistry CHOLESTEROL 240 mg/dl 10/28 [facility] Group Chemistry HGBA1C 6.8 % 10/28 [facility] Group Chemistry TSH 2.21 10/28 uIU/mL /2012 [facility] Chemistry CHOLESTEROL 240 mg/dl 10/28 [facility] Group Chemistry LDL 161 mg/dl 10/28 [facility] Group Chemistry HDL 37 mg/dl 10/28 [facility] Chemistry TRIGLYCERIDE 212 mg/dl 10/28 [facility] Group Chemistry HGBA1C 6.3 % 05/20 [facility] Group Chemistry HGBA1C 6.3 % 05/20 [facility] Group Chemistry HGBA1C 6.3 % 05/20 [facility] Group Chemistry HGBA1C 6.3 % 05/20 [facility] Chemistry CREATININE 1.03 mg/dL 03/12 [facility] Chemistry CREATININE 1.03 mg/dL 03/12 [facility] Chemistry CREATININE 1.03 mg/dL 03/12 [facility] Chemistry CREATININE 1.03 mg/dL 03/12 [facility] Chemistry HGBA1C 6.2 % 03/07 [facility] Chemistry CREATININE 1.11 mg/dL 03/07 [facility] Group Chemistry HGBA1C 6.2 % 03/07 [facility] Chemistry CREATININE 1.11 mg/dL 03/07 [facility] Chemistry TSH 1.83 03/07 uIU/mL [facility] Chemistry CHOLESTEROL 178 mg/dl 03/07 [facility] Chemistry LDL 98 mg/dl 03/07 [facility] Chemistry HDL 36 mg/dl 03/07 [facility] Chemistry TRIGLYCERIDE 218 mg/dl 03/07 [facility] Chemistry HGBA1C 6.2 % 03/07 [facility] Chemistry CREATININE 1.11 mg/dL 03/07 [facility] Chemistry TSH 1.83 03/07 uIU/mL [facility] Group Chemistry HGBA1C 6.2 % 03/07 [facility] Chemistry CREATININE 1.11 mg/dL 03/07 [facility] Group Chemistry TSH 1.83 03/07 uIU/mL [facility] Chemistry CHOLESTEROL 178 mg/dl 03/07 [facility] Chemistry LDL 98 mg/dl 03/07 [facility] Chemistry HDL 36 mg/dl 03/07 [facility] Chemistry TRIGLYCERIDE 218 mg/dl 03/07 Medical Group Urinalysis MICROALB URN 30 mg/l 03/07 [facility] Group Urinalysis MICROALB URN 30 mg/l 03/07 Medical Group Urinalysis MICROALB URN 30 mg/l 03/07 Medical Group Vital Signs Vital Sign Value Date Comments Source Temperature Oral (F) 97.9 F 02/07/2017 [facility] Systolic (mm Hg) 173 02/07/2017 [facility] Diastolic (mm Hg) 56 02/07/2017 [facility] Respitory Rate 24 02/07/2017 [facility] Heart Rate 83 02/07/2017 [facility] Height 152.4 cm 02/06/2017 [facility] Weight 91.364 02/06/2017 [facility] BMI Calculated 39.34 02/06/2017 [facility] Height 62 04/01/2015 [facility] Weight 207 04/01/2015 [facility] Temperature Oral (F) 98.2 F 04/01/2015 [facility] Group Respitory Rate 15 04/01/2015 [facility] Group Heart Rate 68 04/01/2015 [facility] Systolic (mm Hg) 140 04/01/2015 [facility] Group Diastolic (mm Hg) 80 04/01/2015 [facility] Group Height 62 12/17/2014 [facility] Weight 205 12/17/2014 [facility] Group Temperature Oral (F) 98.2 F 12/17/2014 [facility] Group Respitory Rate 18 12/17/2014 [facility] Group Heart Rate 60 12/17/2014 [facility] Systolic (mm Hg) 146 12/17/2014 [facility] Group Diastolic (mm Hg) 80 12/17/2014 [facility] Group Weight 205 12/07/2014 [facility] Group Systolic (mm Hg) 120 12/07/2014 [facility] Group Diastolic (mm Hg) 60 12/07/2014 [facility] Group Heart Rate 80 12/07/2014 [facility] Group Temperature Oral (F) 99.7 F 12/07/2014 [facility] Group Height 62 09/17/2014 [facility] Weight 207 09/17/2014 [facility] Group Temperature Oral (F) 98.6 F 09/17/2014 [facility] Group Respitory Rate 17 09/17/2014 [facility] Group Heart Rate 80 09/17/2014 [facility] Group Systolic (mm Hg) 138 09/17/2014 [facility] Group Diastolic (mm Hg) 78 09/17/2014 [facility] Group Height 62 07/17/2014 [facility] Group Weight 205 07/17/2014 [facility] Group Height 62 06/19/2014 [facility] Weight 205.4 06/19/2014 [facility] Weight 208 06/01/2014 [facility] Group Respitory Rate 18 06/01/2014 [facility] Temperature Oral (F) 97.7 F 06/01/2014 [facility] Systolic (mm Hg) 164 06/01/2014 [facility] Diastolic (mm Hg) 60 06/01/2014 [facility] Heart Rate 76 06/01/2014 [facility] Weight 206 05/21/2014 [facility] Temperature Oral (F) 98.9 F 05/21/2014 [facility] Group Respitory Rate 18 05/21/2014 [facility] Group Heart Rate 80 05/21/2014 [facility] Systolic (mm Hg) 122 05/21/2014 [facility] Diastolic (mm Hg) 68 05/21/2014 [facility] Weight 199 12/30/2013 [facility] Temperature Oral (F) 97.9 F 12/30/2013 [facility] Group Respitory Rate 18 12/30/2013 [facility] Heart Rate 68 12/30/2013 [facility] Systolic (mm Hg) 118 12/30/2013 [facility] Diastolic (mm Hg) 62 12/30/2013 [facility] Weight 198 12/16/2013 [facility] Temperature Oral (F) 99 F 12/16/2013 [facility] Respitory Rate 19 12/16/2013 [facility] Heart Rate 88 12/16/2013 [facility] Systolic (mm Hg) 140 12/16/2013 [facility] Diastolic (mm Hg) 78 12/16/2013 [facility] Weight 201.2 12/01/2013 [facility] Systolic (mm Hg) 120 12/01/2013 [facility] Diastolic (mm Hg) 60 12/01/2013 [facility] Heart Rate 88 12/01/2013 [facility] Respitory Rate 18 12/01/2013 [facility] Weight 201 10/21/2013 [facility] Temperature Oral (F) 98.8 F 10/21/2013 [facility] Respitory Rate 19 10/21/2013 [facility] Heart Rate 68 10/21/2013 [facility] Systolic (mm Hg) 118 10/21/2013 [facility] Diastolic (mm Hg) 70 10/21/2013 [facility] Weight 203 10/17/2013 [facility] Temperature Oral (F) 100.9 F 10/17/2013 [facility] Heart Rate 100 10/17/2013 [facility] Systolic (mm Hg) 130 10/17/2013 [facility] Diastolic (mm Hg) 60 10/17/2013 [facility] Weight 207 10/03/2013 [facility] Heart Rate 108 10/03/2013 [facility] Systolic (mm Hg) 166 10/03/2013 [facility] Diastolic (mm Hg) 76 10/03/2013 [facility] Weight 213 09/16/2013 [facility] Heart Rate 88 09/16/2013 [facility] Systolic (mm Hg) 162 09/16/2013 [facility] Diastolic (mm Hg) 80 09/16/2013 [facility] Weight 212 09/16/2013 [facility] Systolic (mm Hg) 120 09/16/2013 [facility] Diastolic (mm Hg) 90 09/16/2013 [facility] Heart Rate 100 09/16/2013 [facility] Weight 218 05/12/2013 [facility] Systolic (mm Hg) 130 05/12/2013 [facility] Diastolic (mm Hg) 60 05/12/2013 [facility] Heart Rate 80 05/12/2013 [facility] Height 62 01/21/2013 [facility] Weight 206.4 09/27/2012 [facility] Heart Rate 84 09/27/2012 [facility] Systolic (mm Hg) 140 09/27/2012 [facility] Diastolic (mm Hg) 64 09/27/2012 [facility] Weight 207.6 09/12/2012 [facility] Systolic (mm Hg) 120 09/12/2012 [facility] Diastolic (mm Hg) 62 09/12/2012 [facility] Temperature Oral (F) 98.5 F 09/12/2012 [facility] Heart Rate 78 09/12/2012 [facility] Height 60.5 04/17/2012 [facility] Weight 203 04/17/2012 [facility] Temperature Oral (F) 98.9 F 04/17/2012 [facility] Respitory Rate 20 04/17/2012 [facility] Heart Rate 80 04/17/2012 [facility] Systolic (mm Hg) 112 04/17/2012 [facility] Diastolic (mm Hg) 60 04/17/2012 [facility] Encounters Location Location Encounter Encounter Reason Attending ADM DC Status Source Details Type Number For Provider Date Date Visit [facility] [id number] Sharon Badillo, 11/24 11/24 [place] [facility] Office [id number] Sharon Badillo, 12/01 12/01 [place] Medical Visit 7040 Medical [facility] Cardiology [facility] [id number] Sharon Badillo, 12/16 12/16 [place] Medical Visit 6980 Medical [facility] Family Practice [facility] [id number] H Leyla, 12/30 12/30 [place] Medical Visit 6970 Medical [facility] Practice [facility] Lab Report [id number] Sharon Badillo, 05/18 05/18 [place] 1820 [facility] Lab Report [id number] Sharon Badillo, 05/21 05/21 [place] [facility] 7570 Medical [facility] Office [id number] Sharon Badillo, 05/21 05/21 [place] Medical Visit 7450 Medical [facility] Lab Report [id number] H Leyla, 05/29 05/29 [facility] [place] Medical 7200 MD /2013 Medical [facility] Cardiology [facility] [id number] H Leyla, 06/01 06/01 [facility] [place] Medical Visit 3270 MD /2013 Medical [facility] Cardiology [facility] [id number] H Leyla, 06/19 06/19 [facility] [place] Medical Visit 4030 MD /2013 Medical [facility] Orthopedics [facility] [id number] H Leyla, 07/17 07/17 [facility] [place] Medical Visit 4640 /2013 Medical [facility] Orthopedics [facility] Lab Report [id number] H Leyla, 09/17 09/17 [facility] [place] Medical 0060 /2013 Medical [facility] Practice [facility] [facility] [id number] H Leyla, 09/17 09/17 [place] Medical Visit 9970 /2013 Medical [facility] Office [id number] H Leyla, 12/07 12/07 [place] Medical Visit 7320 MD /2014 Medical [facility] Cardiology [facility] South Lab Report [id number] H Leyla, 12/14 12/14 [place] Medical 7160 PR /2014 Medical [facility] Office [id number] Jaleel 12/17 12/17 [place] Medical Visit 0050 [place], /2014 Kaelyn Zarate MD [facility] Lab Report [id number] Jaleel 03/25 03/25 [place] Medical 7140 [place], /2014 Kaelyn Zarate MD [facility] South Office [id number] Jaleel 04/01 04/01 [place] Medical Visit 8040 [place], /2014 Kaelyn Zarate MD [facility] Family [facility] Lab Report [id number] Jaleel 05/18 05/18 [place] Medical 8010 [place], /2014 Kaelyn Zarate MD [facility] Nephrology Outpatient [id number] VIRA 06/01 [facility] Out[facility] [id number] DARI 06/03 Active [facility] ISAC /2014 Tj [facility] South Office [id number] Jaleel 06/17 06/17 [place] Medical Visit 1150 Sariah, /2014 Kaelyn Zarate MD Group Ophthalmolo gy Outpatient [id number] DARI 06/17 Active [facility] ISAC /2014 Tj Outpatient [id number] PEPITO 07/01 Active [facility] SARIAH [facility] Sugar Lab Report [id number] Atniya 07/08 07/08 MH [place] 9160 MD Malachi /2014 Medical [facility] Urology Outpatient [id number] TANIYA 07/08 Active [facility] MUCHER [facility] Outpatient [id number] JOSIAS 07/19 Active [facility] NELY Tj Outpatient [id number] SHAWNA 08/09 Active [facility] MARTINEZ [facility] Outpatient [id number] DANIEL 09/07 Active [facility] TEYKL /2014 [facility] Outpatient [id number] PEPITO 10/04 Active [facility] SARIAH [facility] Outpatient [id number] VIRA 11/30 Active [facility] LEYLA [facility] Outpatient [id number] BRENDA 01/09 Active [facility] VISIT /2015 [facility] Outpatient [id number] JOSIAS 01/16 Active [facility] NELY [facility] Outpatient [id number] PEPITO 02/02 Active [facility] SARIAH [facility] Outpatient [id number] XRAY VISIT 05/09 Active [facility] Outpatient [id number] XRAY VISIT 05/09 Active [facility] Outpatient [id number] PEPITO 05/09 Active [facility] SARIAH Tj Outpatient [id number] MAMMO 05/23 Active [facility] VISIT /2015 Tj Outpatient [id number] DEXA VISIT 05/23 Active [facility] /2015 [facility] Outpatient [id number] PEPITO 06/06 Active [facility] SAR[facility]H [facility] Outpatient [id number] VIRA 06/06 Active [facility] LEYLA [facility] Outpatient [id number] VIRA 07/11 Active [facility] LEYLA [facility] Outpatient [id number] JOSIAS 07/20 Active [facility] NELY [facility] Outpatient [id number] PEPITO 09/05 Active [facility] SARIAH [facility] Outpatient [id number] VIRA 10/03 Active [facility] LEYLA [facility] Outpatient [id number] PEPITO 10/26 Active [facility] SARIAH T[facility] Outpatient [id number] XRAY VISIT 10/26 Active [facility] Tj Outpatient [id number] XRAY VISIT 10/26 Active [facility] Tj Outpatient [id number] PEPITO 11/09 Active [facility] SARIAH T[facility] Outpatient [id number] PEPITO 12/05 Active [facility] SARIAH [facility] Outpatient [id number] JOSIAS 01/18 Active [facility] NELY Tj Outpatient [id number] PEPITO 01/23 Active [facility] SAR[facility]H [facility] Outpatient [id number] [facility] 01/23 Active [facility] VISIT /2016 Tj Outpatient [id number] JOSIAS 02/05 Active [facility] NELY Tj Outpatient [id number] XRAY VISIT 02/05 Active [facility] Outpatient [id number] XRAY VISIT 02/05 Active [facility] [id number] Josias 02/07 02/08 [facility] Outpatient Nely /2016 [facility] Outpatient [id number] JOSIAS 03/05 Active [facility] NELY Tj Outpatient [id number] JOSIAS 03/15 Active [facility] NELY [facility] Outpatient [id number] VIRA 04/03 Active [facility] LEYLA Tj Outpatient [id number] JOSIAS04/12 Active [facility] NELY Tj Outpatient [id number] VIRA 04/17 Active [facility] LEYLA Tj Outpatient [id number] PEPITO 04/24 Active [facility] SARIAH Tj Outpatient [id number] [facility] 05/10 Active [facility] VISIT /2016 Tj Outpatient [id number] JOSIAS 05/10 Active [facility] NELY Tj Outpatient [id number] JOSIAS 05/21 Active [facility] NELY [facility] Outpatient [id number] [facility] 06/18 Active [facility] VISIT /2016 Tj Outpatient [id number] JOSIAS 06/18 Active [facility] NELY [facility] Outpatient [id number] VIRA 07/17 Active [facility] LEYLA [facility] Outpatient [id number] JOSIAS 07/23 Active [facility] NELY Tj Outpatient [id number] PEPITO 07/24 Active [facility] SARIAH [facility] Outpatient [id number] JOSIAS 09/24 Active [facility] NELY [facility] [id number] Josias 09/24 09/24 Cardiology Pre-Reg [facility] Outpatient [id number] VIRA 10/30 Active [facility] [id number] H Leyla 10/30 10/30 Nephrology Pre-Reg /2017 Medical [facility] Phone [phone] 12/10 12/12 Cardiology Message /2017 Medical [facility] Phone [phone] 12/10 12/12 Cardiology Message /2017 Medical [facility] Outpatient [id number] PEPITO 12/28 [facility] [id number] Pepito 12/28 12/28 Medicine Pre-Reg Sariah [facility] Procedures Procedure Code Date Perfomer Comments Source Cardiac [id number] Medical catheterisation, 7 Group left heart Cataract [id number] LEFT EYE Medical surgery<sup>1</sup> 5 Group Cataract [id number] LEFT EYE [facility]<sup>1</sup> 5 mammogram 39956 Completed Medical 5 Group smoking/tobacco 14 no Medical cessation, patient 5 Group education and counseling diabetic foot check [id number] yes Medical 5 Group smoking/tobacco 14 no Medical cessation, patient 5 Group education and counseling smoking/tobacco 14 no Medical cessation, patient 5 Group education and counseling smoking/tobacco 14 no Medical cessation, patient 4 Group education and counseling smoking/tobacco 14 no Medical cessation, patient 4 Group education and counseling diabetic foot check [id number] yes Medical 4 Group smoking/tobacco 14 no Medical cessation, patient 4 Group education and counseling diabetic eye exam 23004.1 performed Medical 2 Group diabetic foot check [phone] Diabetic Foot Medical 2 Exam Done Group Today echocardiogram, 08245 Complete Medical complete 2 Group Cataract [id number] RIGHT EYE Medical surgery<sup>2</sup> 2 Group Cataract [id number] RIGHT EYE [facility] surgery<sup>2</sup> 2 colonoscopy 97807 Complete Medical 8 Group Incidental [id number] REMOVED WITH [facility] appendectomy<sup>3</ 7 CYST Group sup> Incidental [id number] REMOVED WITH [facility] appendectomy<sup>3</ CYST sup> Excision of cyst of [id number] LEFT OVARY [facility] ovary<sup>4</sup> 6 Group Excision of cyst of [id number] LEFT OVARY [facility] ovary<sup>4</sup> 6 Carotid [id number] Medical endarterectomy Group Insertion of [id number] [facility] arterial stent Group PTCA - Percutaneous [id number] [facility] transluminal Group coronary angioplasty Carotid [id number] [facility] endarterectomy Insertion of [id number] [facility] arterial stent PTCA - Percutaneous [id number] [facility] transluminal coronary angioplasty
--- OUTSIDE RECORDS SUMMARY | 2019-03-16 01:56 | XMS REPORT | Continuity of Care Document ---
:1935 Author Organization [facility] Care Team Providers Name Role Phone MD Badillo H Unavailable Unavailable Insurance Providers Payer name Policy type / Policy ID Covered alliance party ID Policy Theodore Coverage type MEDICARE PRIMARY [place] [place] [employer] Encounters Encounter Performer Location Date Lab Report Sharon Badillo MD [facility] Nov 24, 2013 Allergies, Adverse Reactions, Alerts Type Substance Reaction Status Drug allergy ZOCOR severe muscle pain Active Drug allergy CRESTOR severe muscle pain Active Drug allergy PRAVASTATIN SODIUM severe muscle pain Active Drug allergy LIVALO severe muscle pain Active Drug allergy SULFA rash or swelling, cannot remember Active Drug allergy AMPICILLIN rash or swelling, cannot remember Active Problems Problem Effective Dates Problem Status BRONCHITIS, ACUTE Apr 15, 2012 Active DIABETES MELLITUS, TYPE II Apr 15, 2012 Active HYPERTENSION Apr 15, 2012 Active HYPERLIPIDEMIA Apr 15, 2012 Active LONG-TERM (CURRENT) USE OF OTHER MEDICATIONS Apr 17, 2012 Active OTHER SCREENING BREAST EXAMINATION Apr 17, 2012 Active PNEUMONIA Apr 17, 2012 Active FH HEART DISEASE Active NEED PROPHYLACTIC VACCINATION&INOCULATION FLU Sep 12, 2012 Active NEED PROPH VACCINATION AGAINST STREP PNEUMONE Sep 12, 2012 Active ASTHMA Sep 12, 2012 Active DIABETES, TYPE 2 Active CORONARY HEART DISEASE Active CAROTID ARTERY DISEASE Active DIABETES MELLITUS, TYPE II, CONTROLLED W/ VASCULAR Active COMPLICATIONS CHRONIC KIDNEY DISEASE STAGE III (MODERATE) Jan 21, 2013 Active MORBID OBESITY Jan 21, 2013 Active URINARY TRACT INFECTION, HX OF Jan 21, 2013 Active DYSPNEA ON EXERTION Sep 16, 2013 Active CHEST PAIN Sep 16, 2013 Active TIREDNESS Sep 16, 2013 Active ABDOMINAL PAIN RIGHT UPPER QUADRANT Sep 16, 2013 Active ABDOMINAL PAIN, EPIGASTRIC Sep 16, 2013 Active NAUSEA Sep 16, 2013 Active ESOPHAGEAL REFLUX Sep 16, 2013 Active HEARTBURN Sep 16, 2013 Active GASTRITIS Oct 03, 2013 Active HELICOBACTER PYLORI INFECTION Oct 03, 2013 Active GASTRIC ULCER Oct 03, 2013 Active DUODENITIS Oct 03, 2013 Active COUGH Oct 17, 2013 Active Procedures Date Description Comments Apr 17, 2012 smoking status former smoker Apr 17, 2012 diabetic foot check Diabetic Foot Exam Done Today Sep 12, 2012 smoking status former smoker Jun 17, 2012 diabetic eye exam performed May 12, 2013 smoking status former smoker Sep 16, 2013 smoking status former smoker Medications Medication Instructions Start Date Status PLAVIX 75 MG TABS 1 po qd Apr 15, 2012 Active FISH OIL 1000 MG CAPS 1 cap qd Apr 15, 2012 Active OSCAL 500/200 D-3 500-200 1 tab qd Apr 15, 2012 Active MG-UNIT TABS [place]AN POTASSIUM 100 MG TABS 1 po qd Apr 17, 2012 Active VITAMIN C 200MG 1 PO QD Sep 02, 2012 Active WELCHOL 625 MG TABS 3 po twice a day Apr 17, 2012 Inactive 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 TRAMADOL HCL 50 MG TABS 1 tablet every 6 hrs as needed Sep 16, 2013 Inactive for pain. DICYCLOMINE HCL 10 MG CAPS 1 tablet 4 times a day as needed Oct 03, 2013 Active for pain. FLAGYL 500 MG TABS 1 tablet 3 times a day for 10 Oct 03, 2013 Inactive days. OMECLAMOX-TAVO 500-500-20 MG Take as directed for 10 days. Oct 06, 2013 Inactive MISC ASPIRIN TAB 81MG EC 1 po qd Apr 15, 2012 Inactive LEVAQUIN 500 MG TABS 1 PO Daily Oct 21, 2013 Active PROAIR HFA 108 (90 BASE) 2 puffs q 4-6 hours prn Oct 21, 2013 Active MCG/ACT AERS cough,wheezing SYMBICORT 160-4.5 MCG/ACT AERO 2 puff bid Oct 21, 2013 Active PROTONIX 40 MG TBEC 1 tablet daily. Oct 27, 2013 Inactive ALIGN 4 MG CAPS 1 capsule daily. Oct 17, 2013 Inactive SPIRIVA HANDIHALER 18 MCG CAPS one cap for inhalation daily Oct 21, 2013 Inactive Immunizations Vaccine Date Status pneumococcal immunization administered Sep 12, 2012 completed Vital Signs Date Description Test Result Apr 17, 2012 height E&M - 8302-2 HEIGHT 60.5 in Apr 17, 2012 weight Maureen&M - 3141-9 WEIGHT 203 lb Apr 17, 2012 temperature E&M TEMPERATURE 98.9 deg f Apr 17, 2012 respiratory rate E&M - 9279-1 RESP RATE 20 /min Apr 17, 2012 pulse rate E&M - 8867-4 PULSE RATE 80 /min Apr 17, 2012 blood pressure, systolic - 8480-6 BP SYSTOLIC 112 mm Hg Apr 17, 2012 blood pressure, diastolic - 8462-4 BP DIASTOLIC 60 mm Hg Sep 12, 2012 weight Maureen&M - 3141-9 WEIGHT 207.6 lb Sep 12, 2012 blood pressure, systolic - 8480-6 BP SYSTOLIC 120 mm Hg Sep 12, 2012 blood pressure, diastolic - 8462-4 BP DIASTOLIC 62 mm Hg Sep 12, 2012 temperature E&M TEMPERATURE 98.5 deg f Sep 12, 2012 pulse rate E&M - 8867-4 PULSE RATE 78 /min Sep 27, 2012 weight Maureen&M - 3141-9 WEIGHT 206.4 lb Sep 27, 2012 pulse rate E&M - 8867-4 PULSE RATE 84 /min Sep 27, 2012 blood pressure, systolic, sitting, left arm BP SYS SIT L 140 mm Hg Sep 27, 2012 blood pressure, diastolic, sitting, left arm BP CHOCO SIT L 64 mm Hg Sep 27, 2012 blood pressure, systolic - 8480-6 BP SYSTOLIC 140 mm Hg Sep 27, 2012 blood pressure, diastolic - 8462-4 BP DIASTOLIC 64 mm Hg Jan 21, 2013 height Maureen&M - 8302-2 HEIGHT 62 in May 12, 2013 weight Maureen&M - 3141-9 WEIGHT 218 lb May 12, 2013 blood pressure, systolic, sitting, right arm BP SYS SIT R 130 null May 12, 2013 blood pressure, diastolic, sitting, right arm BP CHOCO SIT R 60 mmHg May 12, 2013 blood pressure, systolic, sitting, left arm BP SYS SIT L 130 mm Hg May 12, 2013 blood pressure, diastolic, sitting, left arm BP CHOCO SIT L 60 mm Hg May 12, 2013 pulse rate, sitting, right PULSE SIT R 80 /min May 12, 2013 blood pressure, systolic - 8480-6 BP SYSTOLIC 130 mm Hg May 12, 2013 pulse rate E&M - 8867-4 PULSE RATE 80 /min May 12, 2013 blood pressure, diastolic - 8462-4 BP DIASTOLIC 60 mm Hg Sep 16, 2013 weight E&M - 3141-9 WEIGHT 212 lb Sep 16, 2013 blood pressure, systolic, sitting, left arm BP SYS SIT L 120 mm Hg Sep 16, 2013 blood pressure, diastolic, sitting, left arm BP CHOCO SIT L 90 mm Hg Sep 16, 2013 pulse rate, sitting, left PULSE SIT L 100 /min Sep 16, 2013 blood pressure, systolic - 8480-6 BP SYSTOLIC 120 mm Hg Sep 16, 2013 pulse rate E&M - 8867-4 PULSE RATE 100 /min Sep 16, 2013 blood pressure, diastolic - 8462-4 BP DIASTOLIC 90 mm Hg Sep 16, 2013 weight E&M - 3141-9 WEIGHT 213 lb Sep 16, 2013 pulse rate E&M - 8867-4 PULSE RATE 88 /min Sep 16, 2013 blood pressure, systolic - 8480-6 BP SYSTOLIC 162 mm Hg Sep 16, 2013 blood pressure, diastolic - 8462-4 BP DIASTOLIC 80 mm Hg Oct 03, 2013 weight E&M - 3141-9 WEIGHT 207 lb Oct 03, 2013 pulse rate E&M - 8867-4 PULSE RATE 108 /min Oct 03, 2013 blood pressure, systolic - 8480-6 BP SYSTOLIC 166 mm Hg Oct 03, 2013 blood pressure, diastolic - 8462-4 BP DIASTOLIC 76 mm Hg Oct 17, 2013 weight E&M - 3141-9 WEIGHT 203 lb Oct 17, 2013 temperature E&M TEMPERATURE 100.9 deg f Oct 17, 2013 pulse rate E&M - 8867-4 PULSE RATE 100 /min Oct 17, 2013 blood pressure, systolic - 8480-6 BP SYSTOLIC 130 mm Hg Oct 17, 2013 blood pressure, diastolic - 8462-4 BP DIASTOLIC 60 mm Hg Oct 21, 2013 weight E&M - 3141-9 WEIGHT 201 lb Oct 21, 2013 temperature E&M TEMPERATURE 98.8 deg f Oct 21, 2013 respiratory rate E&M - 9279-1 RESP RATE 19 /min Oct 21, 2013 pulse rate E&M - 8867-4 PULSE RATE 68 /min Oct 21, 2013 blood pressure, systolic - 8480-6 BP SYSTOLIC 118 mm Hg Oct 21, 2013 blood pressure, diastolic - 8462-4 BP DIASTOLIC 70 mm Hg Results Date Description Test Name Value Reference Interpretation Status March 07, microalbumin/total MICROALB URN 30 mg/l 2010 urine volume March 12, creatinine, serum CREATININE 1.03 mg/dL 2011March 07, hemoglobin A1C, HGBA1C 6.2 % 2010 blood, as % of total hemoglobin March 07, creatinine, serum CREATININE 1.11 mg/dL 2010March 07, thyroid TSH 1.83 uIU/mL 2010 stimulating hormone, serum March 07, cholesterol, serum CHOLESTEROL 178 mg/dl 2010March 07, LDL cholesterol, LDL 98 mg/dl 2010 serum March 07, HDL cholesterol, HDL 36 mg/dl 2010 serum March 07, triglyceride, TRIGLYCERIDE 218 mg/dl 2010 serum, fasting May 20, hemoglobin A1C, HGBA1C 6.3 % 2011 blood, as % of total hemoglobin Oct 27, hemoglobin A1C, HGBA1C 6.8 % 2012 blood, as % of total hemoglobin Oct 27, thyroid TSH 2.21 uIU/mL 2012 stimulating hormone, serum Oct 27, cholesterol, serum CHOLESTEROL 240 mg/dl 2012Oct 27, LDL cholesterol, LDL 161 mg/dl 2012 serum Oct 27, HDL cholesterol, HDL 37 mg/dl 2012 serum Oct 27, triglyceride, TRIGLYCERIDE 212 mg/dl 2012 serum, fasting
--- OUTSIDE RECORDS SUMMARY | 2019-03-16 01:57 | XMS REPORT | Continuity of Care Document ---
:1935 Author Organization [facility] Care Team Providers Name Role Phone MD Badillo H Unavailable Unavailable Insurance Providers Payer name Policy type / Policy ID Covered alliance party ID Policy Theodore Coverage type MEDICARE PRIMARY [place] MED[place]: [place] Encounters Encounter Performer Location Date Office Visit Sharon Badillo MD [facility] Medical [place] [facility] Dec 01, 2013 Allergies, Adverse Reactions, Alerts Type Substance [...] Sep 16, 2013 smoking status former smoker Dec 01, 2013 smoking status former smoker Medications Medication [...] Use with MDI Sep 12, 2012 Active EVI DUONEB 0.5-2.5 (3) MG/3ML SOLN one via [...] needed Sep 16, 2013 Inactive for pain. FLAGYL 500 MG TABS 1 tablet 3 times a day for 10 Oct 03, 2013 Inactive days. OMECLAMOX-TAVO 500-500-20 MG Take as directed for 10 days. Oct 06, 2013 Inactive MISC ASPIRIN TAB 81MG EC 1 po qd Apr 15, 2012 Inactive PROAIR HFA 108 (90 BASE) 2 puffs [...] for inhalation daily Oct 21, 2013 Inactive PROTONIX 40 MG EC TAB 1 PO daily AT NIGHT Nov 30, 2013 Active DICYCLOMINE HCL 10 MG CAPS 1 tablet 4 times a day as needed Oct 03, 2013 Inactive for pain. LEVAQUIN 500 MG TABS 1 PO Daily Oct 21, 2013 Inactive Immunizations Vaccine Date Status pneumococcal immunization administered Sep 12, 2012 completed Vital Signs Date Description Test Result Apr 17, 2012 height E&M - 8302-2 HEIGHT 60.5 in Apr 17, 2012 weight E&M - 3141-9 WEIGHT 203 lb Apr 17, [...] 60 mm Hg Sep 12, 2012 weight E&M - 3141-9 WEIGHT 207.6 lb Sep 12, 2012 blood pressure, systolic - 8480-6 BP SYSTOLIC 120 mm Hg Sep 12, 2012 blood pressure, diastolic - 8462-4 BP DIASTOLIC 62 mm Hg Sep 12, 2012 temperature E&M TEMPERATURE 98.5 deg f Sep 12, 2012 pulse rate E&M - 8867-4 PULSE RATE 78 /min Sep 27, 2012 weight E&M - 3141-9 WEIGHT 206.4 lb Sep 27, [...] 64 mm Hg Jan 21, 2013 height E&M - 8302-2 HEIGHT 62 in May 12, 2013 weight E&M - 3141-9 WEIGHT 218 lb May 12, [...] - 8462-4 BP DIASTOLIC 70 mm Hg Dec 01, 2013 weight E&M - 3141-9 WEIGHT 201.2 lb Dec 01, 2013 blood pressure, systolic, sitting, right arm BP SYS SIT R 120 null Dec 01, 2013 blood pressure, diastolic, sitting, right arm BP CHOCO SIT R 60 mmHg Dec 01, 2013 pulse rate, sitting, right PULSE SIT R 88 /min Dec 01, 2013 respiratory rate E&M - 9279-1 RESP RATE 18 /min Dec 01, 2013 blood pressure, systolic - 8480-6 BP SYSTOLIC 120 mm Hg Dec 01, 2013 pulse rate E&M - 8867-4 PULSE RATE 88 /min Dec 01, 2013 blood pressure, diastolic - 8462-4 BP DIASTOLIC 60 mm Hg Results Date Description Test Name [...]
--- OUTSIDE RECORDS SUMMARY | 2019-03-16 01:57 | XMS REPORT | Continuity of Care Document ---
:1935 Author Organization [facility] Care Team Providers Name Role Phone MD Badillo H Unavailable Unavailable Insurance Providers Payer name Policy type / Policy ID Covered constitution party ID Policy Theodore Coverage type MEDICARE PRIMARY [place] B-[place]: Room 21 [employer] MEDICARE [place]: [employer] Encounters Encounter Performer Location Date Office Visit Sharon Badillo MD [facility] Dec 16, 2013 Allergies, Adverse Reactions, Alerts Type Substance [...] 1 PO Daily Oct 21, 2013 Inactive LEVAQUIN TABS 500 MG 1 tablet daily Dec 16, 2013 Active Immunizations Vaccine Date Status pneumococcal immunization administered [...] - 8462-4 BP DIASTOLIC 60 mm Hg Dec 16, 2013 weight E&M - 3141-9 WEIGHT 198 lb Dec 16, 2013 temperature E&M TEMPERATURE 99 deg f Dec 16, 2013 respiratory rate E&M - 9279-1 RESP RATE 19 /min Dec 16, 2013 pulse rate E&M - 8867-4 PULSE RATE 88 /min Dec 16, 2013 blood pressure, systolic - 8480-6 BP SYSTOLIC 140 mm Hg Dec 16, 2013 blood pressure, diastolic - 8462-4 BP DIASTOLIC 78 mm Hg Results Date Description Test Name [...]
--- OUTSIDE RECORDS SUMMARY | 2019-03-16 01:58 | XMS REPORT | Continuity of Care Document ---
:1935 Author Organization [facility] Care Team Providers Name Role Phone MD Badillo H Unavailable Unavailable Insurance Providers Payer name Policy type / Policy ID Covered libertarian ID Policy Theodore Coverage type MEDICARE PRIMARY MEDIC[place]: [employer] MEDICARE [place]: [employer] Encounters Encounter Performer Location Date Lab Report Sharon Badillo MD [facility] Apr Allergies, Adverse Reactions, Alerts Type Substance Reaction Status Drug allergy ZOCOR severe muscle pain Active Drug allergy CRESTOR severe muscle pain Active Drug allergy PRAVASTATIN SODIUM severe muscle pain Active Drug allergy LIVALO severe muscle pain Active Drug allergy SULFA rash or swelling, cannot remember Active Drug allergy AMPICILLIN rash or swelling, cannot remember Inactive Drug allergy AMPICILLIN RASH OR SWELLING, 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 Problems Problem Effective Dates Problem Status [...] 2013 Active COUGH Oct 17, 2013 Active BODY MASS INDEX 37.0-37.9, ADULT May 21, 2014 Active PAIN IN JOINT INVOLVING SHOULDER REGION May 21, 2014 Active Procedures Date Description Comments Apr 17, 2012 smoking status former smoker Apr 17, 2012 diabetic foot check Diabetic Foot Exam Done Today Sep 12, 2012 smoking status former smoker Jun 17, 2012 diabetic eye exam performed May 12, 2013 smoking status former smoker Sep 16, 2013 smoking status former smoker Dec 01, 2013 smoking status former smoker March 22, 2012 echocardiogram, complete Complete May 21, 2014 smoking status Former smoker May 21, 2014 diabetic foot check yes May 21, 2014 smoking/tobacco cessation, patient no education and counseling Medications Medication Instructions Start Date Status PLAVIX [...] TABLET UNDER THE TONGUE May 12, 2013 Inactive EVERY 5 MINUTES FOR UP TO 3 [...] MG 1 tablet daily Dec 16, 2013 Inactive CEFTIN 500 MG TABS 1 tablet twice daily X 10 days Dec 30, 2013 Inactive SPIRIVA HANDIHALER 18 MCG CAPS Inhale one capsule daily Dec 30, 2013 Active PREDNISONE 10 MG TABS 40 mg po q day for four days, Jan 16, 2014 Inactive then 30 mg for 4 days then 20 mg for 4 days then 10 mg for 4 days then discontinue HYDROCODONE-ACETAMINOPHEN 5-325 1 tablet every 4-6 hours as May 21, 2014 Active MG TABS needed for pain Immunizations Vaccine Date Status pneumococcal immunization administered Sep 12, 2012 completed Vital Signs Date Description Test Result Apr 17, 2012 height E&M HEIGHT 60.5 in Apr 17, 2012 weight E&M WEIGHT 203 lb Apr 17, 2012 temperature E&M TEMPERATURE 98.9 deg f Apr 17, 2012 respiratory rate E&M RESP RATE 20 /min Apr 17, 2012 pulse rate E&M PULSE RATE 80 /min Apr 17, 2012 blood pressure, systolic BP SYSTOLIC 112 mm Hg Apr 17, 2012 blood pressure, diastolic BP DIASTOLIC 60 mm Hg Sep 12, 2012 weight E&M WEIGHT 207.6 lb Sep 12, 2012 blood pressure, systolic BP SYSTOLIC 120 mm Hg Sep 12, 2012 blood pressure, diastolic BP DIASTOLIC 62 mm Hg Sep 12, 2012 temperature E&M TEMPERATURE 98.5 deg f Sep 12, 2012 pulse rate E&M PULSE RATE 78 /min Sep 27, 2012 weight E&M WEIGHT 206.4 lb Sep 27, 2012 pulse rate E&M PULSE RATE 84 /min Sep 27, 2012 blood pressure, systolic, sitting, left arm BP SYS SIT L 140 mm Hg Sep 27, 2012 blood pressure, diastolic, sitting, left arm BP CHOCO SIT L 64 mm Hg Sep 27, 2012 blood pressure, systolic BP SYSTOLIC 140 mm Hg Sep 27, 2012 blood pressure, diastolic BP DIASTOLIC 64 mm Hg Jan 21, 2013 height E&M HEIGHT 62 in May 12, 2013 weight E&M WEIGHT 218 lb May 12, 2013 blood [...] /min May 12, 2013 blood pressure, systolic BP SYSTOLIC 130 mm Hg May 12, 2013 pulse rate E&M PULSE RATE 80 /min May 12, 2013 blood pressure, diastolic BP DIASTOLIC 60 mm Hg Sep 16, 2013 weight E&M WEIGHT 212 lb Sep 16, 2013 blood pressure, systolic, sitting, left arm BP SYS SIT L 120 mm Hg Sep 16, 2013 blood pressure, diastolic, sitting, left arm BP CHOCO SIT L 90 mm Hg Sep 16, 2013 pulse rate, sitting, left PULSE SIT L 100 /min Sep 16, 2013 blood pressure, systolic BP SYSTOLIC 120 mm Hg Sep 16, 2013 pulse rate E&M PULSE RATE 100 /min Sep 16, 2013 blood pressure, diastolic BP DIASTOLIC 90 mm Hg Sep 16, 2013 weight E&M WEIGHT 213 lb Sep 16, 2013 pulse rate E&M PULSE RATE 88 /min Sep 16, 2013 blood pressure, systolic BP SYSTOLIC 162 mm Hg Sep 16, 2013 blood pressure, diastolic BP DIASTOLIC 80 mm Hg Oct 03, 2013 weight E&M WEIGHT 207 lb Oct 03, 2013 pulse rate E&M PULSE RATE 108 /min Oct 03, 2013 blood pressure, systolic BP SYSTOLIC 166 mm Hg Oct 03, 2013 blood pressure, diastolic BP DIASTOLIC 76 mm Hg Oct 17, 2013 weight E&M WEIGHT 203 lb Oct 17, 2013 temperature E&M TEMPERATURE 100.9 deg f Oct 17, 2013 pulse rate E&M PULSE RATE 100 /min Oct 17, 2013 blood pressure, systolic BP SYSTOLIC 130 mm Hg Oct 17, 2013 blood pressure, diastolic BP DIASTOLIC 60 mm Hg Oct 21, 2013 weight E&M WEIGHT 201 lb Oct 21, 2013 temperature E&M TEMPERATURE 98.8 deg f Oct 21, 2013 respiratory rate E&M RESP RATE 19 /min Oct 21, 2013 pulse rate E&M PULSE RATE 68 /min Oct 21, 2013 blood pressure, systolic BP SYSTOLIC 118 mm Hg Oct 21, 2013 blood pressure, diastolic BP DIASTOLIC 70 mm Hg Dec 01, 2013 weight E&M WEIGHT 201.2 lb Dec 01, 2013 blood pressure, systolic, sitting, right arm BP SYS SIT R 120 null Dec 01, 2013 blood pressure, diastolic, sitting, right arm BP CHOCO SIT R 60 mmHg Dec 01, 2013 pulse rate, sitting, right PULSE SIT R 88 /min Dec 01, 2013 respiratory rate E&M RESP RATE 18 /min Dec 01, 2013 blood pressure, systolic BP SYSTOLIC 120 mm Hg Dec 01, 2013 pulse rate E&M PULSE RATE 88 /min Dec 01, 2013 blood pressure, diastolic BP DIASTOLIC 60 mm Hg Dec 16, 2013 weight E&M WEIGHT 198 lb Dec 16, 2013 temperature E&M TEMPERATURE 99 deg f Dec 16, 2013 respiratory rate E&M RESP RATE 19 /min Dec 16, 2013 pulse rate E&M PULSE RATE 88 /min Dec 16, 2013 blood pressure, systolic BP SYSTOLIC 140 mm Hg Dec 16, 2013 blood pressure, diastolic BP DIASTOLIC 78 mm Hg Dec 30, 2013 weight E&M WEIGHT 199 lb Dec 30, 2013 temperature E&M TEMPERATURE 97.9 deg f Dec 30, 2013 respiratory rate E&M RESP RATE 18 /min Dec 30, 2013 pulse rate E&M PULSE RATE 68 /min Dec 30, 2013 blood pressure, systolic BP SYSTOLIC 118 mm Hg Dec 30, 2013 blood pressure, diastolic BP DIASTOLIC 62 mm Hg May 21, 2014 weight E&M WEIGHT 206 lb May 21, 2014 temperature E&M TEMPERATURE 98.9 deg f May 21, 2014 respiratory rate E&M RESP RATE 18 /min May 21, 2014 pulse rate E&M PULSE RATE 80 /min May 21, 2014 blood pressure, systolic BP SYSTOLIC 122 mm Hg May 21, 2014 blood pressure, diastolic BP DIASTOLIC 68 mm Hg Results Date Description Test Name [...] triglyceride, TRIGLYCERIDE 212 mg/dl 2012 serum, fasting May 21, hemoglobin A1C, HGBA1C 6.5 % 3.0-6.0 High 2013 blood, as % of total hemoglobin
--- OUTSIDE RECORDS SUMMARY | 2019-03-16 01:58 | XMS REPORT | Continuity of Care Document ---
:1935 Author Organization [facility] Care Team Providers Name Role Phone MD Badillo H Unavailable Unavailable Insurance Providers Payer name Policy type / Policy ID Covered constitution party ID Policy Theodore Coverage type MEDICARE PRIMARY MEDIC[place]: [employer] MEDICARE [place]: [employer] Encounters Encounter Performer Location Date Lab Report Sharon Badillo MD [facility] May 18, 2014 Allergies, Adverse Reactions, Alerts Type Substance Reaction [...] smoker March 22, 2012 echocardiogram, complete Complete Medications Medication Instructions Start Date Status PLAVIX [...] 10 mg for 4 days then discontinue Immunizations Vaccine Date Status pneumococcal immunization administered [...] pressure, diastolic BP DIASTOLIC 62 mm Hg Results Date Description Test Name [...]
--- OUTSIDE RECORDS SUMMARY | 2019-03-16 01:58 | XMS REPORT | Continuity of Care Document ---
:1935 Author Organization [facility] Care Team Providers Name Role Phone MD Badillo H Unavailable Unavailable Insurance Providers Payer name Policy type / Policy ID Covered libertarian ID Policy Theodore Coverage type MEDICARE PRIMARY MEDIC[place]: [employer] MEDICARE [place]: [employer] Encounters Encounter Performer Location Date Office Visit Sharon Badillo MD [facility] Dec 30, 2013 Allergies, Adverse Reactions, Alerts Type Substance [...] daily X 10 days Dec 30, 2013 Active SPIRIVA HANDIHALER 18 MCG CAPS Inhale one capsule daily Dec 30, 2013 Active Immunizations Vaccine Date Status pneumococcal [...] 70 mm Hg Dec 01, 2013 weight Maureen&Rasheed - 3141-9 WEIGHT 201.2 lb Dec 01, [...] 60 mm Hg Dec 16, 2013 weight Maureen&Rasheed - 3141-9 WEIGHT 198 lb Dec 16, [...] - 8462-4 BP DIASTOLIC 78 mm Hg Dec 30, 2013 weight Maureen&Rasheed - 3141-9 WEIGHT 199 lb Dec 30, 2013 temperature E&M TEMPERATURE 97.9 deg f Dec 30, 2013 respiratory rate E&M - 9279-1 RESP RATE 18 /min Dec 30, 2013 pulse rate E&M - 8867-4 PULSE RATE 68 /min Dec 30, 2013 blood pressure, systolic - 8480-6 BP SYSTOLIC 118 mm Hg Dec 30, 2013 blood pressure, diastolic - 8462-4 BP DIASTOLIC 62 mm Hg Results Date [...]
--- OUTSIDE RECORDS SUMMARY | 2019-03-16 01:59 | XMS REPORT | Continuity of Care Document ---
:[address] [facility] Care Team Providers Name Role Phone MD Badillo H Unavailable Unavailable Insurance Providers Payer name Policy type / Policy ID Covered democrat ID Policy Theodore Coverage type MEDICARE PRIMARY MEDIC[place]: [employer] MEDICARE B-[place]: [employer] Encounters Encounter Performer Location Date Office Visit Sharon Badillo MD [facility] [place] [facility] Jun 01, 2014 Allergies, Adverse Reactions, Alerts Type Substance [...] smoking/tobacco cessation, patient no education and counseling Jun 01, 2014 smoking status Former smoker Jun 01, 2014 smoking/tobacco cessation, patient no education and [...] pressure, diastolic BP DIASTOLIC 68 mm Hg Jun 01, 2014 weight E&M WEIGHT 208 lb Jun 01, 2014 respiratory rate E&M RESP RATE 18 /min Jun 01, 2014 temperature E&M TEMPERATURE 97.7 deg f Jun 01, 2014 blood pressure, systolic, sitting, left arm BP SYS SIT L 164 mm Hg Jun 01, 2014 blood pressure, diastolic, sitting, left arm BP CHOCO SIT L 60 mm Hg Jun 01, 2014 pulse rate, sitting, left PULSE SIT L 76 /min Jun 01, 2014 blood pressure, systolic BP SYSTOLIC 164 mm Hg Jun 01, 2014 pulse rate E&M PULSE RATE 76 /min Jun 01, 2014 blood pressure, diastolic BP DIASTOLIC 60 mm Hg Results Date Description Test Name Value Reference Interpretation Status May 29, hemoglobin, blood HGB 13.3 g/dL 12.0-15.0 2013May 29, hematocrit, blood HCT 38.4 % 35.0-43.8 2013March 07, microalbumin/total MICROALB URN 30 mg/l 2010 urine volume March 12, creatinine, serum CREATININE 1.03 mg/dL 2011March 07, hemoglobin A1C, HGBA1C 6.2 % 2010 blood, as % of total hemoglobin March 07, creatinine, serum CREATININE 1.11 mg/dL 2010March 07, thyroid stimulating TSH 1.83 2010 hormone, serum uIU/mL March 07, cholesterol, serum CHOLESTEROL 178 mg/dl 2010March 07, LDL cholesterol, LDL 98 mg/dl 2010 serum March 07, HDL cholesterol, HDL 36 mg/dl 2010March 07, triglyceride, serum, TRIGLYCERIDE 218 mg/dl 2010 fasting May 20, hemoglobin A1C, HGBA1C 6.3 % 2011 blood, as % of total hemoglobin Oct 27, hemoglobin A1C, HGBA1C 6.8 % 2012 blood, as % of total hemoglobin Oct 27, thyroid stimulating TSH 2.21 2012 hormone, serum uIU/mL Oct 27, cholesterol, serum CHOLESTEROL 240 mg/dl 2012Oct 27, LDL cholesterol, LDL 161 mg/dl 2012 serum Oct 27, HDL cholesterol, HDL 37 mg/dl 2012 serum Oct 27, triglyceride, serum, TRIGLYCERIDE 212 mg/dl 2012 fasting May 21, hemoglobin A1C, HGBA1C 6.5 % 3.0-6.0 High 2013 blood, as % of total hemoglobin May 29, sodium, serum SODIUM 139 mmol/L [phone] May 29, potassium, serum POTASSIUM 4.2 mmol/L 3.3-5.0 2013May 29, urea nitrogen, blood BUN 22 mg/dL 8-20 High 2013May 29, creatinine, serum CREATININE 0.98 mg/dL 0.46-1.20 2013May 29, calcium, serum CALCIUM 9.4 mg/dL 8.8-10.0 2013May 29, cholesterol, serum CHOLESTEROL 234 mg/dl 120-200 High 2013May 29, HDL cholesterol, HDL 42 mg/dl 31-79 2013 serum May 29, LDL cholesterol, LDL 151 mg/dl 0-130 High 2014 serum May 29, albumin, serum ALBUMIN 3.8 g/dL 3.5-5.0 2013May 29, alkaline phosphatase, ALK PHOS 84 U/L 26-102 2013 serum May 29, aspartate SGOT (AST) 19 U/L 10-42 2013 aminotransferase (SGOT), serum May 29, alanine SGPT (ALT) 16 U/L 11-43 2013 aminotransferase (SGPT), serum May 29, creatine kinase, CPK 51 U/L 41-145 2013 serum
--- OUTSIDE RECORDS SUMMARY | 2019-03-16 01:59 | XMS REPORT | Continuity of Care Document ---
:[address] [facility] Care Team Providers Name Role Phone MD Badillo H Unavailable Unavailable Insurance Providers Payer name Policy type / Policy ID Covered constitution party ID Policy Theodore Coverage type MEDICARE PRIMARY MEDICARE [place]: [employer] MEDICARE B-[place]: [employer] Encounters Encounter Performer Location Date Lab Report Sharon Badillo MD [facility] [place] [facility] May 29, 2014 Allergies, Adverse Reactions, Alerts Type Substance [...] 36 mg/dl 2010 serum March 07, triglyceride, serum, TRIGLYCERIDE 218 mg/dl 2010 [...] hemoglobin A1C, HGBA1C 6.5 % 3.0-6.0 High 2014 blood, as % of total hemoglobin May 29, sodium, serum SODIUM 139 mmol/L [phone] May 29, potassium, serum POTASSIUM 4.2 mmol/L 3.3-5.0 2013May 29, urea nitrogen, blood BUN 22 mg/dL 8-20 High 2013May 29, creatinine, serum CREATININE 0.98 mg/dL 0.46-1.20 2013May 29, calcium, serum CALCIUM 9.4 mg/dL 8.8-10.0 2013May 29, cholesterol, serum CHOLESTEROL 234 mg/dl 120-200 High 2013May 29, HDL cholesterol, HDL 42 mg/dl 31-79 2013May 29, LDL cholesterol, LDL 151 mg/dl 0-130 High 2013May 29, albumin, serum ALBUMIN 3.8 g/dL 3.5-5.0 2013May 29, alkaline phosphatase, ALK PHOS 84 U/L 26-102 2013 serum May 29, aspartate SGOT (AST) 19 U/L 10-42 2013 aminotransferase (SGOT), serum May 29, alanine SGPT (ALT) 16 U/L 11-43 2013 aminotransferase (SGPT), serum May 29, creatine kinase, CPK 51 U/L 41-145 2013 serum
--- OUTSIDE RECORDS SUMMARY | 2019-03-16 01:59 | XMS REPORT | Continuity of Care Document ---
:1935 Author Organization [facility] Care Team Providers Name Role Phone MD Badillo H Unavailable Unavailable Insurance Providers Payer name Policy type / Policy ID Covered republican ID Policy Theodore Coverage type MEDICARE PRIMARY MEDICARE [place]: [employer] MEDICARE [place]: [employer] Encounters Encounter Performer Location Date Office Visit Sharon Badillo MD [facility] May 21, 2014 Allergies, Adverse Reactions, Alerts Type Substance [...]
--- OUTSIDE RECORDS SUMMARY | 2019-03-16 02:00 | XMS REPORT | Continuity of Care Document ---
:1935 Author Organization [facility] Care Team Providers Name Role Phone MD Badillo H Unavailable Unavailable Insurance Providers Payer name Policy type / Policy ID Covered constitution party ID Policy Theodore Coverage type MEDICARE PRIMARY MEDICARE B-[place]: [employer] MEDICARE B-[place]: [employer] Encounters Encounter Performer Location Date Office Visit Sharon Badillo MD [facility] Jun 19, 2014 Allergies, Adverse Reactions, Alerts Type Substance [...] INVOLVING SHOULDER REGION May 21, 2014 Active ROTATOR CUFF INJURY, RIGHT SHOULDER Jun 19, 2014 Active Procedures Date Description Comments Apr [...] 2014 Active MG TABS needed for pain VOLTAREN 1 % GEL 2 grams topically q6h prn pain Jun 19, 2014 Active Immunizations Vaccine Date Status pneumococcal immunization [...] blood pressure, diastolic, sitting, left arm BP COHCO SIT L 60 mm Hg Jun 01, 2014 pulse rate, sitting, left PULSE SIT L 76 /min Jun 01, 2014 blood pressure, systolic BP SYSTOLIC 164 mm Hg Jun 01, 2014 pulse rate E&M PULSE RATE 76 /min Jun 01, 2014 blood pressure, diastolic BP DIASTOLIC 60 mm Hg Jun 19, 2014 height E&M HEIGHT 62 in Jun 19, 2014 weight E&M WEIGHT 205.4 lb Results Date Description Test Name Value Reference [...] May 29, sodium, serum SODIUM 139 mmol/L [phone] May 29, potassium, serum POTASSIUM 4.2 mmol/L 3.3-5.0 2013May 29, urea nitrogen, blood BUN 22 mg/dL 8-20 High 2013May 29, creatinine, serum CREATININE 0.98 mg/dL 0.46-1.20 2013May 29, calcium, serum CALCIUM 9.4 mg/dL 8.8-10.0 2013May 29, cholesterol, serum CHOLESTEROL 234 mg/dl 120-200 High 2013May 29, HDL cholesterol, HDL 42 mg/dl 31-79 2013May 29, LDL cholesterol, LDL 151 mg/dl 0-130 High 2013 serum May 29, albumin, serum ALBUMIN 3.8 g/dL 3.5-5.0 2013May 29, alkaline phosphatase, ALK PHOS 84 U/L 26-102 2013 serum May 29, aspartate SGOT (AST) 19 U/L 10-42 2013 aminotransferase (SGOT), serum May 29, alanine SGPT (ALT) 16 U/L 11-43 2013 aminotransferase (SGPT), serum May 29, creatine kinase, CPK 51 U/L 41-145 2013 serum
--- OUTSIDE RECORDS SUMMARY | 2019-03-16 02:01 | XMS REPORT | Continuity of Care Document ---
:1935 Author Organization [facility] Care Team Providers Name Role Phone MD Badillo H Unavailable Unavailable Insurance Providers Payer name Policy type / Policy ID Covered libertarian ID Policy Theodore Coverage type MEDICARE PRIMARY MEDICARE B-[place]: [employer] MEDICARE B-[place]: [employer] Encounters Encounter Performer Location Date Lab Report Sharon Badillo MD [facility] Aug Allergies, Adverse Reactions, Alerts Type Substance Reaction [...] INJURY, RIGHT SHOULDER Jun 19, 2014 Active ELBOW PAIN, LEFT Jul 17, 2014 Active Procedures Date Description Comments Apr [...] smoking/tobacco cessation, patient no education and counseling Sep 17, 2014 smoking status Former smoker Sep 17, 2014 smoking/tobacco cessation, patient no education and [...] q6h prn pain Jun 19, 2014 Active CORTISPORIN 3.5-21045-3 SOLN Apply 2 drops in nail border 2-3 Sep 17, 2014 Active times a day Immunizations Vaccine Date Status pneumococcal immunization administered [...] mm Hg Dec 30, 2013 weight E&M - 3141-9 WEIGHT 199 lb Dec 30, [...] - 8462-4 BP DIASTOLIC 62 mm Hg May 21, 2014 weight E&M - 3141-9 WEIGHT 206 lb May 21, 2014 temperature E&M TEMPERATURE 98.9 deg f May 21, 2014 respiratory rate E&M - 9279-1 RESP RATE 18 /min May 21, 2014 pulse rate E&M - 8867-4 PULSE RATE 80 /min May 21, 2014 blood pressure, systolic - 8480-6 BP SYSTOLIC 122 mm Hg May 21, 2014 blood pressure, diastolic - 8462-4 BP DIASTOLIC 68 mm Hg Jun 01, 2014 weight E&M - 3141-9 WEIGHT 208 lb Jun 01, 2014 respiratory rate E&M - 9279-1 RESP RATE 18 /min Jun 01, 2014 temperature E&M TEMPERATURE 97.7 deg f Jun 01, 2014 blood pressure, systolic, sitting, left arm BP SYS SIT L 164 mm Hg Jun 01, 2014 blood pressure, diastolic, sitting, left arm BP CHOCO SIT L 60 mm Hg Jun 01, 2014 pulse rate, sitting, left PULSE SIT L 76 /min Jun 01, 2014 blood pressure, systolic - 8480-6 BP SYSTOLIC 164 mm Hg Jun 01, 2014 pulse rate E&M - 8867-4 PULSE RATE 76 /min Jun 01, 2014 blood pressure, diastolic - 8462-4 BP DIASTOLIC 60 mm Hg Jun 19, 2014 height E&M - 8302-2 HEIGHT 62 in Jun 19, 2014 weight E&M - 3141-9 WEIGHT 205.4 lb Jul 17, 2014 height E&M - 8302-2 HEIGHT 62 in Jul 17, 2014 weight E&M - 3141-9 WEIGHT 205 lb Sep 17, 2014 height E&M - 8302-2 HEIGHT 62 in Sep 17, 2014 weight E&M - 3141-9 WEIGHT 207 lb Sep 17, 2014 temperature E&M TEMPERATURE 98.6 deg f Sep 17, 2014 respiratory rate E&M - 9279-1 RESP RATE 17 /min Sep 17, 2014 pulse rate E&M - 8867-4 PULSE RATE 80 /min Sep 17, 2014 blood pressure, systolic - 8480-6 BP SYSTOLIC 138 mm Hg Sep 17, 2014 blood pressure, diastolic - 8462-4 BP DIASTOLIC [...] May 29, sodium, serum SODIUM 139 mmol/L [phone] May 29, potassium, serum POTASSIUM 4.2 mmol/L [...] alkaline phosphatase, ALK PHOS 84 U/L 26-102 2013May 29, aspartate SGOT (AST) 19 U/L 10-42 2013 aminotransferase (SGOT), serum May 29, alanine SGPT (ALT) 16 U/L 11-43 2013 aminotransferase (SGPT), serum May 29, creatine kinase, CPK 51 U/L 41-145 2013Sep 17, sodium, serum SODIUM 140 mmol/L [phone] Sep 17, potassium, serum POTASSIUM 4.1 mmol/L 3.3-5.0 2013Sep 17, urea nitrogen, blood BUN 24 mg/dL 8-20 High 2013Sep 17, creatinine, serum CREATININE 0.91 mg/dL 0.46-1.20 2013Sep 17, calcium, serum CALCIUM 9.3 mg/dL 8.8-10.0 2013Sep 17, hemoglobin A1C, HGBA1C 6.6 % 3.0-6.0 High 2013 blood, as % of total hemoglobin
--- OUTSIDE RECORDS SUMMARY | 2019-03-16 02:01 | XMS REPORT | Continuity of Care Document ---
:1935 Author Organization [facility] Care Team Providers Name Role Phone MD Badillo H Unavailable Unavailable Insurance Providers Payer name Policy type / Policy ID Covered republican ID Policy Theodore Coverage type MEDICARE PRIMARY MEDICARE B-[place]: [employer] MEDICARE B-[place]: [employer] Encounters Encounter Performer Location Date Office Visit Sharon Badillo MD [facility] Jul 17, 2014 Allergies, Adverse Reactions, Alerts Type Substance [...] 70 mm Hg Dec 01, 2013 weight Maureen&M - 3141-9 WEIGHT 201.2 lb Dec 01, [...] weight E&M - 3141-9 WEIGHT 205 lb Results Date Description Test Name Value [...] May 29, sodium, serum SODIUM 139 mmol/L [phone] May 29, potassium, serum POTASSIUM 4.2 mmol/L [...] May 29, alanine SGPT (ALT) 16 U/L -43 2013 aminotransferase (SGPT), serum May 29, creatine kinase, CPK 51 U/L 41-145 2013 serum
--- OUTSIDE RECORDS SUMMARY | 2019-03-16 02:02 | XMS REPORT | Continuity of Care Document ---
:1935 Author Organization [facility] Care Team Providers Name Role Phone MD Leblanc Tom Unavailable Unavailable Insurance Providers Payer name Policy type / Policy ID Covered republican ID Policy Theodore Coverage type MEDICARE PRIMARY MEDICARE B-[place]: [employer] MEDICARE B-[place]: CME Encounters Encounter Performer Location Date Office Visit Jaleel Leblanc MD [facility] [place] [facility] Dec 17, 2014 Practice Allergies, Adverse Reactions, Alerts Type Substance Reaction Status Drug allergy ZOCOR severe muscle pain Active Drug allergy CRESTOR severe muscle pain Active Drug allergy PRAVASTATIN SODIUM severe muscle pain Active Drug allergy LIVALO severe muscle pain Active Drug allergy AMPICILLIN rash or swelling, cannot remember Inactive Drug allergy SULFA rash or swelling, cannot remember Active Drug allergy AMPICILLIN RASH OR SWELLING, 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 Drug allergy VOLTAREN rash Active Problems Problem Effective Dates Problem Status [...] patient no education and counseling Jun 01, 2008 colonoscopy Complete Dec 07, 2014 smoking status Former smoker Dec 07, 2014 smoking/tobacco cessation, patient no education and counseling Dec 17, 2014 smoking status Former smoker Dec 17, 2014 smoking/tobacco cessation, patient no education and counseling Medications Medication Instructions Start Date Status PLAVIX 75 MG TABS 1 po qd Apr 15, 2012 Active FISH OIL 1000 MG CAPS 1 cap qd Apr 15, 2012 Active OSCAL 500/200 D-3 500-200 1 tab qd Apr 15, 2012 Active MG-UNIT TABS VITAMIN C 200MG 1 PO QD Sep [...] daily as needed Mar 29, 2013 Inactive TRAMADOL HCL 50 MG TABS 1 tablet [...] Oct 21, 2013 Active MCG/ACT AERS cough,wheezing PROTONIX 40 MG TBEC 1 tablet daily. [...] X 10 days Dec 30, 2013 Inactive PREDNISONE 10 MG TABS 40 mg po q day for four days, Jan 16, 2014 Inactive then 30 mg for 4 days then 20 mg for 4 days then 10 mg for 4 days then discontinue CORTISPORIN 3.5-45411-2 SOLN Apply 2 drops in nail border 2-3 Sep 17, 2014 Active times a day CIPRO 250 MG TABS one bid for 7 days Nov 17, 2014 Inactive LOSARTAN POTASSIUM 100 MG TABS Take one (1) tablet po qd Apr 17, 2012 Active SUCRALFATE 1 GM TABS Take 1 tablet 30 minutes before Sep 16, 2013 Inactive each meal and at bedtime. SYMBICORT 160-4.5 MCG/ACT AERO 2 puff bid Oct 21, 2013 Inactive SPIRIVA HANDIHALER 18 MCG CAPS Inhale one capsule daily Dec 30, 2013 Inactive HYDROCODONE-ACETAMINOPHEN 5-325 1 tablet every 4-6 hours as May 21, 2014 Inactive MG TABS needed for pain VOLTAREN 1 % GEL 2 grams topically q6h prn pain Jun 19, 2014 Inactive SINGULAIR 10 MG TABS 1 tablet at night Dec 17, 2014 Active LEVAQUIN 500 MG TABS 1 tablet daily Dec 17, 2014 Active Immunizations Vaccine Date Status pneumococcal [...] 8462-4 BP DIASTOLIC 78 mm Hg Dec 07, 2014 weight E&M - 3141-9 WEIGHT 205 lb Dec 07, 2014 blood pressure, systolic, sitting, right arm BP SYS SIT R 120 null Dec 07, 2014 blood pressure, diastolic, sitting, right arm BP CHOCO SIT R 60 mmHg Dec 07, 2014 blood pressure, systolic, sitting, left arm BP SYS SIT L 120 mm Hg Dec 07, 2014 blood pressure, diastolic, sitting, left arm BP CHOCO SIT L 60 mm Hg Dec 07, 2014 pulse rate, sitting, left PULSE SIT L 80 /min Dec 07, 2014 temperature E&M TEMPERATURE 99.7 deg f Dec 07, 2014 blood pressure, systolic - 8480-6 BP SYSTOLIC 120 mm Hg Dec 07, 2014 pulse rate E&M - 8867-4 PULSE RATE 80 /min Dec 07, 2014 blood pressure, diastolic - 8462-4 BP DIASTOLIC 60 mm Hg Dec 17, 2014 height E&M - 8302-2 HEIGHT 62 in Dec 17, 2014 weight E&M - 3141-9 WEIGHT 205 lb Dec 17, 2014 temperature E&M TEMPERATURE 98.2 deg f Dec 17, 2014 respiratory rate E&M - 9279-1 RESP RATE 18 /min Dec 17, 2014 pulse rate E&M - 8867-4 PULSE RATE 60 /min Dec 17, 2014 blood pressure, systolic - 8480-6 BP SYSTOLIC 146 mm Hg Dec 17, 2014 blood pressure, diastolic - 8462-4 BP DIASTOLIC 80 mm Hg Results Date Description Test Name [...] May 29, sodium, serum SODIUM 139 mmol/L [phone] May 29, potassium, serum POTASSIUM 4.2 mmol/L [...] 2013Sep 17, sodium, serum SODIUM 140 mmol/L [phone] Sep 17, potassium, serum POTASSIUM 4.1 mmol/L 3.3-5.0 2013Sep 17, urea nitrogen, blood BUN 24 mg/dL 8-20 High 2013Sep 17, creatinine, serum CREATININE 0.91 mg/dL 0.46-1.20 2013Sep 17, calcium, serum CALCIUM 9.3 mg/dL 8.8-10.0 2013Sep 17, hemoglobin A1C, HGBA1C 6.6 % 3.0-6.0 High 2013 blood, as % of total hemoglobin Dec 14, sodium, serum SODIUM 140 mmol/L [phone] Dec 14, potassium, serum POTASSIUM 4.4 mmol/L 3.3-5.0 2014Dec 14, urea nitrogen, blood BUN 28 mg/dL 8-20 High 2014Dec 14, creatinine, serum CREATININE 1.00 mg/dL 0.46-1.20 2014Dec 14, calcium, serum CALCIUM 9.1 mg/dL 8.8-10.0 2014Dec 14, hemoglobin A1C, HGBA1C 6.8 % 3.0-6.0 High 2014 blood, as % of total hemoglobin
--- OUTSIDE RECORDS SUMMARY | 2019-03-16 02:02 | XMS REPORT | Continuity of Care Document ---
:1935 Author Organization [facility] Care Team Providers Name Role Phone MD Badillo H Unavailable Unavailable Insurance Providers Payer name Policy type / Policy ID Covered green party ID Policy Theodore Coverage type MEDICARE PRIMARY MEDICARE B-[place]: [employer] MEDICARE B-[place]: [employer] Encounters Encounter Performer Location Date Office Visit Sharon Badillo MD [facility] Sep 17, 2014 Allergies, Adverse Reactions, Alerts Type [...] prn pain Jun 19, 2014 Active CORTISPORIN 3.5-33677-8 SOLN Apply 2 drops in nail border [...] May 29, sodium, serum SODIUM 139 mmol/L [phone] May 29, potassium, serum POTASSIUM 4.2 mmol/L [...] 2013Sep 17, sodium, serum SODIUM 140 mmol/L [phone] Sep 17, potassium, serum POTASSIUM 4.1 mmol/L 3.3-5.0 2013Sep 17, urea nitrogen, blood BUN 24 mg/dL 8-20 High 2013Sep 17, creatinine, serum CREATININE 0.91 mg/dL 0.46-1.20 2013Sep 17, calcium, serum CALCIUM 9.3 mg/dL 8.8-10.0 2013Sep 17, hemoglobin A1C, HGBA1C 6.6 % 3.0-6.0 High 2013 blood, as % of total hemoglobin
--- OUTSIDE RECORDS SUMMARY | 2019-03-16 02:02 | XMS REPORT | Continuity of Care Document ---
:1935 Author Organization [facility] Care Team Providers Name Role Phone MD Leblanc Tom Unavailable Unavailable Insurance Providers Payer name Policy type / Policy ID Covered constitution party ID Policy Theodore Coverage type MEDICARE PRIMARY MEDICARE B-[place]: [employer] MEDICARE B-[place]: [employer] Encounters Encounter Performer Location Date Lab Report Jaleel Leblanc MD [facility] [place] [facility] May 18, 2015 Allergies, Adverse Reactions, Alerts Type Substance Reaction [...] Problem Status BRONCHITIS, ACUTE Apr 15, 2012 Inactive DIABETES MELLITUS, TYPE II Apr 15, 2012 Inactive HYPERTENSION Apr 15, 2012 Active HYPERLIPIDEMIA Apr 15, 2012 Active LONG-TERM (CURRENT) USE OF OTHER MEDICATIONS Apr 17, 2012 Active OTHER SCREENING BREAST EXAMINATION Apr 17, 2012 Active PNEUMONIA Apr 17, 2012 Inactive 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 NEED PROPHYLACTIC VACCINATION&INOCULATION FLU Sep 12, 2012 Inactive NEED PROPH VACCINATION AGAINST STREP PNEUMONE Sep 12, 2012 Inactive ASTHMA Sep 12, 2012 Active DIABETES, TYPE 2 Inactive CORONARY HEART DISEASE Active CAROTID ARTERY DISEASE Active DIABETES MELLITUS, TYPE II, CONTROLLED W/ VASCULAR Active COMPLICATIONS CHRONIC KIDNEY DISEASE STAGE III (MODERATE) Jan 21, 2013 Active MORBID OBESITY Jan 21, 2013 Active URINARY TRACT INFECTION, HX OF Jan 21, 2013 Inactive DYSPNEA ON EXERTION Sep 16, 2013 Active CHEST PAIN Sep 16, 2013 Inactive TIREDNESS Sep 16, 2013 Active ABDOMINAL PAIN RIGHT UPPER QUADRANT Sep 16, 2013 Inactive ABDOMINAL PAIN, EPIGASTRIC Sep 16, 2013 Inactive NAUSEA Sep 16, 2013 Inactive ESOPHAGEAL REFLUX Sep 16, 2013 Active HEARTBURN Sep 16, 2013 Inactive GASTRITIS Oct 03, 2013 Inactive HELICOBACTER PYLORI INFECTION Oct 03, 2013 Inactive GASTRIC ULCER Oct 03, 2013 Inactive DUODENITIS Oct 03, 2013 Active COUGH Oct 17, 2013 Inactive BODY MASS INDEX 37.0-37.9, ADULT May 21, 2014 Active PAIN IN JOINT INVOLVING SHOULDER REGION May 21, 2014 Inactive ROTATOR CUFF INJURY, RIGHT SHOULDER Jun 19, 2014 Active ELBOW PAIN, LEFT Jul 17, 2014 Inactive SCREENING, DIABETIC RETINOPATHY Apr 12, 2015 Active CATARACT, SENILE, CORTICAL OS Apr 12, 2015 Inactive PSEUDOPHAKIA OU Apr 12, 2015 Active PREOPERATIVE EXAMINATION May 07, 2015 Inactive POSTSURGICAL CATARACT EXTRACTION STATUS OS May 13, 2015 Active Procedures Date Description Comments Apr 17, [...] smoking/tobacco cessation, patient no education and counseling Apr 01, 2015 smoking/tobacco cessation, patient no education and counseling Apr 01, 2015 smoking status Former smoker Apr 01, 2015 diabetic foot check yes May 11, 2015 mammogram Completed Medications Medication Instructions Start Date Status PLAVIX [...] 03, 2013 Inactive days. OMECLAMOX-TAVO 500-500-20 MG MISC Take as directed for 10 days. Oct 06, 2013 Inactive ASPIRIN TAB 81MG EC 1 po qd Apr 15, 2012 Inactive PROTONIX 40 MG TBEC 1 tablet daily. Oct 27, 2013 Inactive ALIGN 4 MG CAPS 1 capsule daily. Oct 17, 2013 Inactive SPIRIVA HANDIHALER 18 MCG CAPS one cap for inhalation daily Oct 21, 2013 Inactive PROTONIX 40 MG EC TAB 1 PO daily AT NIGHT Nov 30, 2013 Active DICYCLOMINE HCL 10 MG CAPS 1 tablet 4 times a day as Oct 03, 2013 Inactive needed for pain. LEVAQUIN 500 MG TABS 1 [...] mg for 4 days then discontinue CORTISPORIN 3.5-28410-8 SOLN Apply 2 drops in nail border Sep 17, 2014 Active 2-3 times a day CIPRO 250 MG TABS [...] TABS 1 tablet daily Dec 17, 2014 Inactive PROAIR HFA 108 (90 BASE) MCG/ACT 2 puffs q 4-6 hours prn Oct 21, 2013 Active AERS cough,wheezing CIPROFLOXACIN HCL 0.3 % SOLN Place 2 drops in the affected May 13, 2015 Inactive eye every 6 hours for PRED FORTE 1 % SUSP Instill 1 drop: 4 times a day May 13, 2015 Active for 1 week, 3 times a day for 1 week, 2 times a day for 1 week, Once a day for 1 week to both eyes KETOROLAC TROMETHAMINE 0.4 % 1 drop 4 times daily May 13, 2015 Active SOLN Immunizations Vaccine Date Status pneumococcal immunization administered [...] - 8462-4 BP DIASTOLIC 80 mm Hg Apr 01, 2015 height E&M - 8302-2 HEIGHT 62 in Apr 01, 2015 weight E&M - 3141-9 WEIGHT 207 lb Apr 01, 2015 temperature E&M TEMPERATURE 98.2 deg f Apr 01, 2015 respiratory rate E&M - 9279-1 RESP RATE 15 /min Apr 01, 2015 pulse rate E&M - 8867-4 PULSE RATE 68 /min Apr 01, 2015 blood pressure, systolic - 8480-6 BP SYSTOLIC 140 mm Hg Apr 01, 2015 blood pressure, diastolic - 8462-4 BP DIASTOLIC 80 mm Hg Results Date Description Test Name Value Reference Interpretation Status May 29, hemoglobin, blood HGB 13.3 g/dL 12.0-15.0 2013May 29, hematocrit, blood HCT 38.4 % 35.0-43.8 2013March 07, microalbumin/total MICROALB URN 30 mg/l 2010 urine volume May 18, uric acid, serum URIC ACID 5.3 mg/dL 2.5-7.0 2014May 18, urea nitrogen, blood BUN 23 mg/dL 7-22 High 2014May 18, creatinine, serum CREATININE 1.1 mg/dL 0.5-1.4 2014May 18, sodium, serum SODIUM 140 MEQ/L [phone] mmol/L May 18, potassium, serum POTASSIUM 4.4 MEQ/L 3.5-5.1 2014 mmol/L May 18, calcium, serum CALCIUM 9.0 mg/dL 8.5-10.5 2014May 18, phosphate, serum PO4 3.3 mg/dL 2.5-4.5 2014May 18, albumin, serum ALBUMIN 3.7 g/dL 3.5-5.0 2014March 12, creatinine, serum CREATININE 1.03 mg/dL 2011March 07, hemoglobin A1C, HGBA1C 6.2 % 2010 blood, as % of total hemoglobin March 07, creatinine, serum CREATININE 1.11 mg/dL 2010March 07, thyroid stimulating TSH 1.83 2010 hormone, serum uIU/mL March 07, cholesterol, serum CHOLESTEROL 178 mg/dl 2010March 07, LDL cholesterol, LDL 98 mg/dl 2010March 07, HDL cholesterol, HDL 36 mg/dl 2010March 07, triglyceride, serum, TRIGLYCERIDE 218 mg/dl 2010May 20, hemoglobin A1C, HGBA1C 6.3 % 2011 blood, as % of total hemoglobin Oct 27, hemoglobin A1C, HGBA1C 6.8 % 2012 blood, as % of total hemoglobin Oct 27, thyroid stimulating TSH 2.21 2012 hormone, serum uIU/mL Oct 27, cholesterol, serum CHOLESTEROL 240 mg/dl 2012Oct 27, LDL cholesterol, LDL 161 mg/dl 2012 serum Oct 27, HDL cholesterol, HDL 37 mg/dl 2012Oct 27, triglyceride, serum, TRIGLYCERIDE 212 mg/dl 2012 fasting May 21, hemoglobin A1C, HGBA1C 6.5 % 3.0-6.0 High 2013 blood, as % of total hemoglobin May 29, sodium, serum SODIUM 139 mmol/L [phone] May 29, potassium, serum POTASSIUM 4.2 mmol/L [...] 2013Sep 17, sodium, serum SODIUM 140 mmol/L [phone] Sep 17, potassium, serum POTASSIUM 4.1 mmol/L 3.3-5.0 2013Sep 17, urea nitrogen, blood BUN 24 mg/dL 8-20 High 2013Sep 17, creatinine, serum CREATININE 0.91 mg/dL 0.46-1.20 2013Sep 17, calcium, serum CALCIUM 9.3 mg/dL 8.8-10.0 2013Sep 17, hemoglobin A1C, HGBA1C 6.6 % 3.0-6.0 High 2013 blood, as % of total hemoglobin Dec 14, sodium, serum SODIUM 140 mmol/L [phone] Dec 14, potassium, serum POTASSIUM 4.4 mmol/L 3.3-5.0 2014Dec 14, urea nitrogen, blood BUN 28 mg/dL 8-20 High 2014Dec 14, creatinine, serum CREATININE 1.00 mg/dL 0.46-1.20 2014Dec 14, calcium, serum CALCIUM 9.1 mg/dL 8.8-10.0 2014Dec 14, hemoglobin A1C, HGBA1C 6.8 % 3.0-6.0 High 2014 blood, as % of total hemoglobin March 25, hemoglobin A1C, HGBA1C 6.5 % 3.0-6.0 High 2014 blood, as % of total hemoglobin May 18, uric acid, serum URIC ACID 5.3 mg/dL 2.5-7.0 2014May 18, urea nitrogen, blood BUN 23 mg/dL 7-22 High 2014May 18, creatinine, serum CREATININE 1.1 mg/dL 0.5-1.4 2014May 18, sodium, serum SODIUM 140 MEQ/L [phone] mmol/L May 18, potassium, serum POTASSIUM 4.4 MEQ/L 3.5-5.1 2014 mmol/L May 18, calcium, serum CALCIUM 9.0 mg/dL 8.5-10.5 2014May 18, phosphate, serum PO4 3.3 mg/dL 2.5-4.5 2014May 18, albumin, serum ALBUMIN 3.7 g/dL 3.5-5.0 2014
--- OUTSIDE RECORDS SUMMARY | 2019-03-16 02:03 | XMS REPORT | Continuity of Care Document ---
:1935 Author Organization [facility] Care Team Providers Name Role Phone MD Badillo H Unavailable Unavailable Insurance Providers Payer name Policy type / Policy ID Covered democrat ID Policy Theodore Coverage type MEDICARE PRIMARY MEDIC[place]: [employer] MEDICARE B-[place]: [employer] Encounters Encounter Performer Location Date Office Visit Sharon Badillo MD [facility] [place] [facility] Dec 07, 2014 Allergies, Adverse Reactions, Alerts Type Substance [...] 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 Drug allergy VOLTAREN GEL rash Active Problems Problem Effective Dates Problem [...] mg for 4 days then discontinue CORTISPORIN 3.5-64729-7 SOLN Apply 2 drops in nail border [...] q6h prn pain Jun 19, 2014 Inactive Immunizations Vaccine Date Status pneumococcal immunization [...] May 29, sodium, serum SODIUM 139 mmol/L [phone] May 29, potassium, serum POTASSIUM 4.2 mmol/L [...] 29, aspartate SGOT (AST) 19 U/L 10-42 2014 aminotransferase (SGOT), serum May 29, alanine SGPT (ALT) 16 U/L 11-43 2013 aminotransferase (SGPT), serum May 29, creatine kinase, CPK 51 U/L 41-145 2013Sep 17, sodium, serum SODIUM 140 mmol/L [phone] Sep 17, potassium, serum POTASSIUM 4.1 mmol/L 3.3-5.0 2013Sep 17, urea nitrogen, blood BUN 24 mg/dL 8-20 High 2013Sep 17, creatinine, serum CREATININE 0.91 mg/dL 0.46-1.20 2013Sep 17, calcium, serum CALCIUM 9.3 mg/dL 8.8-10.0 2013Sep 17, hemoglobin A1C, HGBA1C 6.6 % 3.0-6.0 High 2013 blood, as % of total hemoglobin
--- OUTSIDE RECORDS SUMMARY | 2019-03-16 02:03 | XMS REPORT | Continuity of Care Document ---
:1935 Author Organization [facility] Care Team Providers Name Role Phone MD Badillo H Unavailable Unavailable Insurance Providers Payer name Policy type / Policy ID Covered constitution party ID Policy Theodore Coverage type MEDICARE PRIMARY MEDIC[place]: [employer] MEDICARE [place]: [employer] Encounters Encounter Performer Location Date Lab Report Sharon Badillo MD [facility] Allergies, Adverse Reactions, Alerts Type Substance Reaction [...] mg for 4 days then discontinue CORTISPORIN 3.5-14079-0 SOLN Apply 2 drops in nail border [...] May 29, sodium, serum SODIUM 139 mmol/L [phone] May 29, potassium, serum POTASSIUM 4.2 mmol/L [...] 2013Sep 17, sodium, serum SODIUM 140 mmol/L [phone] Sep 17, potassium, serum POTASSIUM 4.1 mmol/L 3.3-5.0 2013Sep 17, urea nitrogen, blood BUN 24 mg/dL 8- High 2013Sep 17, creatinine, serum CREATININE 0.91 mg/dL 0.46-1.20 2013Sep 17, calcium, serum CALCIUM 9.3 mg/dL 8.8-10.0 2013Sep 17, hemoglobin A1C, HGBA1C 6.6 % 3.0-6.0 High 2013 blood, as % of total hemoglobin Dec 14, sodium, serum SODIUM 140 mmol/L [phone] Dec 14, potassium, serum POTASSIUM 4.4 mmol/L 3.3-5.0 2014Dec 14, urea nitrogen, blood BUN 28 mg/dL - High 2014Dec 14, creatinine, serum CREATININE 1.00 mg/dL 0.46-1.20 2014Dec 14, calcium, serum CALCIUM 9.1 mg/dL 8.8-10.0 2014Dec 14, hemoglobin A1C, HGBA1C 6.8 % 3.0-6.0 High 2014 blood, as % of total hemoglobin
--- OUTSIDE RECORDS SUMMARY | 2019-03-16 02:04 | XMS REPORT | Continuity of Care Document ---
:1935 Author Organization [facility] Care Team Providers Name Role Phone MD Leblanc Tom Unavailable Unavailable Insurance Providers Payer name Policy type / Policy ID Covered constitution party ID Policy Theodore Coverage type MEDICARE PRIMARY MEDIC[place]: [employer] MEDICARE [place]: [employer] Encounters Encounter Performer Location Date Office Visit Jaleel Leblanc MD [facility] [place] [facility] Apr 01, 2015 Practice Allergies, Adverse Reactions, Alerts Type Substance [...] Inactive HELICOBACTER PYLORI INFECTION Oct 03, 2013 Active [...] Apr 01, 2015 diabetic foot check yes Medications Medication Instructions Start Date Status PLAVIX [...] mg for 4 days then discontinue CORTISPORIN 3.5-72182-4 SOLN Apply 2 drops in nail border [...] 2014 Inactive PROAIR HFA 108 (90 BASE) 2 puffs q 4-6 hours prn Oct 21, 2013 Active MCG/ACT AERS cough,wheezing Immunizations Vaccine Date Status pneumococcal immunization administered [...] May 29, sodium, serum SODIUM 139 mmol/L [phone] May 29, potassium, serum POTASSIUM 4.2 mmol/L [...] 2013Sep 17, sodium, serum SODIUM 140 mmol/L [phone] Sep 17, potassium, serum POTASSIUM 4.1 mmol/L 3.3-5.0 2013Sep 17, urea nitrogen, blood BUN 24 mg/dL 8-20 High 2013Sep 17, creatinine, serum CREATININE 0.91 mg/dL 0.46-1.20 2013Sep 17, calcium, serum CALCIUM 9.3 mg/dL 8.8-10.0 2013Sep 17, hemoglobin A1C, HGBA1C 6.6 % 3.0-6.0 High 2013 blood, as % of total hemoglobin Dec 14, sodium, serum SODIUM 140 mmol/L [phone] Dec 14, potassium, serum POTASSIUM 4.4 mmol/L [...]
--- OUTSIDE RECORDS SUMMARY | 2019-03-16 02:04 | XMS REPORT | Continuity of Care Document ---
:1935 Author Organization [facility] Care Team Providers Name Role Phone MD Leblanc Tom Unavailable Unavailable Insurance Providers Payer name Policy type / Policy ID Covered green party ID Policy Theodore Coverage type MEDICARE PRIMARY MEDICARE [place]: [employer] MEDICARE B-[place]: [employer] Encounters Encounter Performer Location Date Lab Report Jaleel Leblanc MD [facility] March 25, 2015 Allergies, Adverse Reactions, Alerts Type Substance [...] mg for 4 days then discontinue CORTISPORIN 3.5-00128-5 SOLN Apply 2 drops in nail border [...] 1 tablet daily Dec 17, 2014 Inactive Immunizations Vaccine Date Status pneumococcal [...] May 29, sodium, serum SODIUM 139 mmol/L [phone] May 29, potassium, serum POTASSIUM 4.2 mmol/L [...] 2013Sep 17, sodium, serum SODIUM 140 mmol/L [phone] Sep 17, potassium, serum POTASSIUM 4.1 mmol/L 3.3-5.0 2013Sep 17, urea nitrogen, blood BUN 24 mg/dL 8-20 High 2013Sep 17, creatinine, serum CREATININE 0.91 mg/dL 0.46-1.20 2013Sep 17, calcium, serum CALCIUM 9.3 mg/dL 8.8-10.0 2013Sep 17, hemoglobin A1C, HGBA1C 6.6 % 3.0-6.0 High 2013 blood, as % of total hemoglobin Dec 14, sodium, serum SODIUM 140 mmol/L [phone] Dec 14, potassium, serum POTASSIUM 4.4 mmol/L [...]
[2019-03-16] MEDS ORDERED: ALBUTEROL 2.5 MG/3 ML NEB SOL ONE (02:05)
[2019-03-16] MEDS ORDERED: IPRATROPIUM BROM 0.5MG/2.5ML ONE (02:05)
--- OUTSIDE RECORDS SUMMARY | 2019-03-16 02:05 | XMS REPORT | Continuity of Care Document ---
:1935 Author Organization [facility] Care Team Providers Name Role Phone MD Leblanc Tom Unavailable Unavailable Insurance Providers Payer name Policy type / Policy ID Covered constitution party ID Policy Theodore Coverage type MEDICARE PRIMARY MEDICARE [place]: [employer] MEDICARE B-[place]: [employer] Encounters Encounter Performer Location Date Office Visit Jaleel Leblanc MD [facility] [place] [facility] Jun 17, 2015 Allergies, Adverse Reactions, Alerts Type Substance [...] CATARACT EXTRACTION STATUS OS May 13, 2015 Inactive Procedures Date Description Comments Apr 17, 2012 [...] mg for 4 days then discontinue CORTISPORIN 3.5-13733-9 SOLN Apply 2 drops in nail border [...] 2015 Inactive eye every 6 hours for days PRED FORTE 1 % SUSP Instill 1 drop: 4 times a day May 13, 2015 Inactive for 1 week, 3 times a day for 1 week, 2 times a day for 1 week, Once a day for 1 week to both eyes KETOROLAC TROMETHAMINE 0.4 % 1 drop 2 times daily May 13, 2015 Inactive SOLN Immunizations Vaccine Date Status pneumococcal immunization [...] 2014May 18, sodium, serum SODIUM 140 MEQ/L [phone] mmol/L May 18, potassium, serum POTASSIUM 4.4 [...] May 29, sodium, serum SODIUM 139 mmol/L [phone] May 29, potassium, serum POTASSIUM 4.2 mmol/L [...] 2013Sep 17, sodium, serum SODIUM 140 mmol/L [phone] Sep 17, potassium, serum POTASSIUM 4.1 mmol/L 3.3-5.0 2013Sep 17, urea nitrogen, blood BUN 24 mg/dL 8-20 High 2013Sep 17, creatinine, serum CREATININE 0.91 mg/dL 0.46-1.20 2013Sep 17, calcium, serum CALCIUM 9.3 mg/dL 8.8-10.0 2013Sep 17, hemoglobin A1C, HGBA1C 6.6 % 3.0-6.0 High 2013 blood, as % of total hemoglobin Dec 14, sodium, serum SODIUM 140 mmol/L [phone] Dec 14, potassium, serum POTASSIUM 4.4 mmol/L [...] 2014May 18, sodium, serum SODIUM 140 MEQ/L [phone] mmol/L May 18, potassium, serum POTASSIUM 4.4 MEQ/L 3.5-5.1 2014 mmol/L May 18, calcium, serum CALCIUM 9.0 mg/dL 8.5-10.5 2014May 18, phosphate, serum PO4 3.3 mg/dL 2.5-4.5 2014May 18, albumin, serum ALBUMIN 3.7 g/dL 3.5-5.0 2014
--- OUTSIDE RECORDS SUMMARY | 2019-03-16 02:05 | XMS REPORT | Continuity of Care Document ---
:1935 Author Organization [facility] Care Team Providers Name Role Phone MD Ly Zachary Unavailable Unavailable Insurance Providers Payer name Policy type / Policy ID Covered alliance party ID Policy Theodore Coverage type MEDICARE PRIMARY [place] Encounters Encounter Performer Location Date Lab Report Geronimo Ly MD [facility] Jul 08, 2015 ([facility]) Urology Allergies, Adverse Reactions, Alerts Type Substance Reaction [...] mg for 4 days then discontinue CORTISPORIN [id number] SOLN Apply 2 drops in nail border [...] 29, hematocrit, blood HCT 38.4 % 35.0-43.8 2013Jun 25, hemoglobin, blood HGB 14.4 g/dL 12.0-16.0 2014Jun 25, hematocrit, blood HCT 42.3 % 36.0-48.0 2014Jun 25, platelet count PLATELETS 260 K/CMM [phone] /mm3 March 07, microalbumin/total MICROALB URN 30 mg/l 2010 urine volume May 18, uric acid, serum URIC ACID 5.3 mg/dL 2.5-7.0 2014May 18, urea nitrogen, blood BUN 23 mg/dL 7-22 High 2014May 18, creatinine, serum CREATININE 1.1 mg/dL 0.5-1.4 2014May 18, sodium, serum SODIUM 140 MEQ/L [phone] mmol/L May 18, potassium, serum POTASSIUM 4.4 MEQ/L 3.5-5.1 2014 mmol/L May 18, calcium, serum CALCIUM 9.0 mg/dL 8.5-10.5 2014May 18, phosphate, serum PO4 3.3 mg/dL 2.5-4.5 2014May 18, albumin, serum ALBUMIN 3.7 g/dL 3.5-5.0 2014March 12, creatinine, serum CREATININE 1.03 2011 mg/dL March 07, hemoglobin A1C, HGBA1C 6.2 % 2010 blood, as % of total hemoglobin March 07, creatinine, serum CREATININE 1.11 2010 mg/dL March 07, thyroid stimulating TSH 1.83 2010 hormone, [...] hemoglobin May 29, sodium, serum SODIUM [phone] mmol/L May 29, potassium, serum POTASSIUM 4.2 3.3-5.0 2013 mmol/L May 29, urea nitrogen, blood BUN 22 mg/dL 8-20 High 2013May 29, creatinine, serum CREATININE 0.98 0.46-1.20 2013 mg/dL May 29, calcium, serum CALCIUM 9.4 mg/dL 8.8-10.0 2013May 29, cholesterol, serum CHOLESTEROL 234 mg/dl 120-200 High 2013May 29, HDL cholesterol, HDL 42 mg/dl 31-79 2013May 29, LDL cholesterol, LDL 151 mg/dl 0-130 High 2013May 29, albumin, serum ALBUMIN 3.8 g/dL 3.5-5.0 2013May 29, alkaline ALK PHOS 84 U/L 26-102 2013 phosphatase, serum May 29, aspartate SGOT (AST) 19 U/L 10-42 2013 aminotransferase (SGOT), serum May 29, alanine SGPT (ALT) 16 U/L 11-43 2013 aminotransferase (SGPT), serum May 29, creatine kinase, CPK 51 U/L 41-145 2013Sep 17, sodium, serum SODIUM [phone] 4955 mmol/L Sep 17, potassium, serum POTASSIUM 4.1 3.3-5.0 2013 mmol/L Sep 17, urea nitrogen, blood BUN 24 mg/dL -20 High 2013Sep 17, creatinine, serum CREATININE 0.91 0.46-1.20 2013 mg/dL Sep 17, calcium, serum CALCIUM 9.3 mg/dL 8.8-10.0 2013Sep 17, hemoglobin A1C, HGBA1C 6.6 % 3.0-6.0 High 2013 blood, as % of total hemoglobin Dec 14, sodium, serum SODIUM [phone] 6339 mmol/L Dec 14, potassium, serum POTASSIUM 4.4 3.3-5.0 2014 mmol/L Dec 14, urea nitrogen, blood BUN 28 mg/dL -20 High 2014Dec 14, creatinine, serum CREATININE 1.00 0.46-1.20 2014 mg/dL Dec 14, calcium, serum CALCIUM 9.1 mg/dL 8.8-10.0 [...] 2014May 18, sodium, serum SODIUM 140 MEQ/L [phone] mmol/L May 18, potassium, serum POTASSIUM 4.4 MEQ/L 3.5-5.1 2014 mmol/L May 18, calcium, serum CALCIUM 9.0 mg/dL 8.5-10.5 2014May 18, phosphate, serum PO4 3.3 mg/dL 2.5-4.5 2014May 18, albumin, serum ALBUMIN 3.7 g/dL 3.5-5.0 2014Jun 25, hemoglobin A1C, HGBA1C 7.0 % <=5.6 High 2014 blood, as % of total hemoglobin Jun 25, cholesterol, serum CHOLESTEROL 217 mg/dl <=199 High 2014Jun 25, triglyceride, serum, TRIGLYCERIDE 230 mg/dl <=149 High 2014 fasting Jun 25, HDL cholesterol, HDL 39 mg/dl >=61 Low 2014Jun 25, LDL cholesterol, LDL 132 mg/dl <=99 High 2014 serum Jun 25, sodium, serum SODIUM 140 MEQ/L [phone] mmol/L Jun 25, potassium, serum POTASSIUM 4.6 MEQ/L 3.5-5.1 2014 mmol/L Jun 25, creatinine, serum CREATININE 1.2 mg/dL 0.5-1.4 2014Jun 25, urea nitrogen, blood BUN 21 mg/dL -2014Jun 25, urea BUN/CREAT 18 null 6-25 2014 nitrogen/creatinine ratio, serum Jun 25, albumin, serum ALBUMIN 3.7 g/dL 3.5-5.0 2014Jun 25, calcium, serum CALCIUM 9.1 mg/dL 8.5-10.5 2014Jun 25, alanine SGPT (ALT) 23 U/L 0-65 2014 aminotransferase (SGPT), serum Jun 25, aspartate SGOT (AST) 16 U/L 0-37 2014 aminotransferase (SGOT), serum Jun 25, alkaline ALK PHOS 96 U/L 39-136 2014 phosphatase, serum Jun 25, thyroid stimulating TSH 2.890 0.360-3.740 2015 hormone, serum uIU/mL
--- OUTSIDE RECORDS SUMMARY | 2019-03-16 02:10 | XMS REPORT ---
:1935 Author Organization [facility] Address [address] [place] [address] [address]. Rangel [address] [place] [address] Care Team Providers Name Role Phone TIMOTHY, DR CRUZ Unavailable Unavailable DR NOREEN PADILLA Unavailable Unavailable Problems This patient has no known problems. Allergies, Adverse Reactions, Alerts This patient has no known allergies or adverse reactions. Medications This patient has no known medications. Encounters Start End Encounter Admission Attending Care Care Encounter Date/Time Date/Time Type Type Clinicians Facility Department ID 2017-12-31 2018-01-11 Inpatient Avi TIMOTHY [facility] [id number] 21:30:00 14:30:00 ANTHONY 2017-12-25 2017-12-31 Inpatient Avi AGUIRRE [facility] [id number] 07:44:00 18:00:00 ANTHONY 2017-12-19 2017-12-24 Inpatient Avi PADILLA [facility] [id number] 17:27:00 17:15:00 NOREEN 2017-12-16 2017-12-19 [facility] [id number] 21:47:00 17:33:00 NOREEN Results Test Description Test Time Test Comments Text Results Atomic Results Result Comments GLUCOMETER GLUCOSE- LAB USE ONLY 2018-01-11 12:08:00 Test Item Value Reference Range Comments GLUCOMETER (test code=GMG) 149 mg/dL 70-100 Meter ID: [id number]: 4170 FERNANDO MENDOZA GLUCOMETER GLUCOSE- LAB USE [id number] 07:53:00 Test Item Value Reference Range Comments GLUCOMETER (test code=GMG) 125 mg/dL 70-100 Meter ID: [id number]: 4170 FERNANDO MENDOZA BASIC METABOLIC [id number] 06:54:00 Test Item Value Reference Range Comments GLUCOSE (test code=06D) 106 mg/dL 75-100 SODIUM (test code=01A) 134 mmol/L 136-145 POTASSIUM (test code=01B) 3.9 mmol/L 3.6-5.1 CHLORIDE (test code=04A) 92 mmol/L 98-107 CO2 (test code=02A) 34 mmol/L 22-32 ANION GAP (test code=ANG) 11.9 mmol/L BUN (test code=05D) 25 mg/dL 7-18 CREATININE (test code=03E) 1.1 mg/dL 0.4-1.1 BUN/CREA (test code=BCR) 22 12-20 CALCIUM (test code=09D) 7.8 mg/dL 8.3-9.5 [id number] 06:34:00 Test Item Value Reference Range Comments MAGNESIUM (test code=48A) 1.7 mg/dL 1.8-2.4 HEMOGRAM (CBC WITHOUT DIFFERENTIAL)2018-01-11 06:29:00 Test Item Value Reference Range Comments WBC (test code=WBC) 9.9 10\S\3/uL 4.5-11.0 RBC (test code=RBC) 2.80 10\S\6/uL 3.80-5.80 HGB (test code=HBG) 8.8 g/dL 12.0-15.5 HCT (test code=HCT) 26.5 % 35.0-44.0 MCV (test code=MCV) 94.6 fL 81.0-99.0 MCH (test code=MCH) 31.4 pg 27.0-31.0 MCHC (test code=MCHC) 33.2 g/dL 32.0-36.0 RDW (test code=RDW) 14.6 % 11.5-14.5 PLT (test code=PLT) 442 10\S\3/uL 130-400 MPV (test code=MPV) 9.9 fL 9.4-12.4 GLUCOMETER GLUCOSE- LAB USE [id number] 20:41:00 Test Item Value Reference Range Comments GLUCOMETER (test code=GMG) 224 mg/dL 70-100 Meter ID: [id number]: 9130 CHEVYMARY FERMIN GLUCOMETER GLUCOSE- LAB USE [id number] 17:09:00 Test Item Value Reference Range Comments GLUCOMETER (test code=GMG) 163 mg/dL 70-100 CLEANED METERMeter ID: [id number]: 3950 DANN SHINE GLUCOMETER GLUCOSE- LAB USE [id number] 10:43:00 Test Item Value Reference Range Comments GLUCOMETER (test code=GMG) 186 mg/dL 70-100 CLEANED METERMeter ID: [id number]: 3950 DANN SHINE GLUCOMETER GLUCOSE- LAB USE [id number] 08:01:00 Test Item Value Reference Range Comments GLUCOMETER (test code=GMG) 118 mg/dL 70-100 CLEANED METERMeter ID: [id number]: 3950 DANN SHINE [id number] 06:37:00 Test Item Value Reference Range Comments MAGNESIUM (test code=48A) 1.3 mg/dL 1.8-2.4 BASIC METABOLIC [id number] 06:33:00 Test Item Value Reference Range Comments GLUCOSE (test code=06D) 126 mg/dL 75-100 SODIUM (test code=01A) 134 mmol/L 136-145 POTASSIUM (test code=01B) 3.9 mmol/L 3.6-5.1 CHLORIDE (test code=04A) 94 mmol/L 98-107 CO2 (test code=02A) 33 mmol/L 22-32 ANION GAP (test code=ANG) 10.9 mmol/L BUN (test code=05D) 24 mg/dL 7-18 CREATININE (test code=03E) 1.2 mg/dL 0.4-1.1 BUN/CREA (test code=BCR) 19 12-20 CALCIUM (test code=09D) 7.9 mg/dL 8.3-9.5 HEMOGRAM (CBC WITHOUT DIFFERENTIAL)2018-01-10 06:25:00 Test Item Value Reference Range Comments WBC (test code=WBC) 10.3 10\S\3/uL 4.5-11.0 RBC (test code=RBC) 2.95 10\S\6/uL 3.80-5.80 HGB (test code=HBG) 9.1 g/dL 12.0-15.5 HCT (test code=HCT) 28.1 % 35.0-44.0 MCV (test code=MCV) 95.3 fL 81.0-99.0 MCH (test code=MCH) 30.8 pg 27.0-31.0 MCHC (test code=MCHC) 32.4 g/dL 32.0-36.0 RDW (test code=RDW) 14.6 % 11.5-14.5 PLT (test code=PLT) 438 10\S\3/uL 130-400 MPV (test code=MPV) 9.7 fL 9.4-12.4 GLUCOMETER GLUCOSE- LAB USE [id number] 20:39:00 Test Item Value Reference Range Comments GLUCOMETER (test code=GMG) 210 mg/dL 70-100 Meter ID: [id number]: 3465 GORGE CADE GLUCOMETER GLUCOSE- LAB USE [id number] 15:41:00 Test Item Value Reference Range Comments GLUCOMETER (test code=GMG) 137 mg/dL 70-100 CLEANED METERMeter ID: [id number]: 3950 DANN SHINE GLUCOMETER GLUCOSE- LAB USE [id number] 11:25:00 Test Item Value Reference Range Comments GLUCOMETER (test code=GMG) 166 mg/dL 70-100 CLEANED METERMeter ID: [id number]: 3950 DANN SHINE GLUCOMETER GLUCOSE- LAB USE [id number] 08:08:00 Test Item Value Reference Range Comments GLUCOMETER (test code=GMG) 124 mg/dL 70-100 CLEANED METERMeter ID: [id number]: 3950 DANN SHINE HEMOGRAM (CBC WITHOUT DIFFERENTIAL)2018-01-09 05:06:00 Test Item Value Reference Range Comments WBC (test code=WBC) 9.6 10\S\3/uL 4.5-11.0 RBC (test code=RBC) 2.95 10\S\6/uL 3.80-5.80 HGB (test code=HBG) 9.3 g/dL 12.0-15.5 HCT (test code=HCT) 28.0 % 35.0-44.0 MCV (test code=MCV) 94.9 fL 81.0-99.0 MCH (test code=MCH) 31.5 pg 27.0-31.0 MCHC (test code=MCHC) 33.2 g/dL 32.0-36.0 RDW (test code=RDW) 14.6 % 11.5-14.5 PLT (test code=PLT) 432 10\S\3/uL 130-400 MPV (test code=MPV) 10.1 fL 9.4-12.4 BASIC METABOLIC [id number] 04:57:00 Test Item Value Reference Range Comments GLUCOSE (test code=06D) 113 mg/dL 75-100 SODIUM (test code=01A) 135 mmol/L 136-145 POTASSIUM (test code=01B) 3.3 mmol/L 3.6-5.1 CHLORIDE (test code=04A) 95 mmol/L 98-107 CO2 (test code=02A) 33 mmol/L 22-32 ANION GAP (test code=ANG) 10.3 mmol/L BUN (test code=05D) 25 mg/dL 7-18 CREATININE (test code=03E) 1.3 mg/dL 0.4-1.1 BUN/CREA (test code=BCR) 20 12-20 CALCIUM (test code=09D) 8.2 mg/dL 8.3-9.5 GLUCOMETER GLUCOSE- LAB USE [id number] 20:08:00 Test Item Value Reference Range Comments GLUCOMETER (test code=GMG) 142 mg/dL 70-100 Meter ID: [id number]: 4233 CYNTHIA MARGO THOMPSON GLUCOMETER GLUCOSE- LAB USE [id number] 16:20:00 Test Item Value Reference Range Comments GLUCOMETER (test code=GMG) 121 mg/dL 70-100 Meter ID: [id number]: 9218 YASMINE PEÑA GLUCOMETER GLUCOSE- LAB USE [id number] 11:03:00 Test Item Value Reference Range Comments GLUCOMETER (test code=GMG) 204 mg/dL 70-100 Meter ID: [id number]: 5[address] [facility] GLUCOMETER GLUCOSE- LAB USE [id number] 07:11:00 Test Item Value Reference Range Comments GLUCOMETER (test code=GMG) 123 mg/dL 70-100 Meter ID: [id number]: 5[address] [facility] BASIC METABOLIC [id number] 05:06:00 Test Item Value Reference Range Comments GLUCOSE (test code=06D) 127 mg/dL 75-100 SODIUM (test code=01A) 133 mmol/L 136-145 POTASSIUM (test code=01B) 3.7 mmol/L 3.6-5.1 CHLORIDE (test code=04A) 92 mmol/L 98-107 CO2 (test code=02A) 32 mmol/L 22-32 ANION GAP (test code=ANG) 12.7 mmol/L BUN (test code=05D) 25 mg/dL 7-18 CREATININE (test code=03E) 1.1 mg/dL 0.4-1.1 BUN/CREA (test code=BCR) 23 12-20 CALCIUM (test code=09D) 8.6 mg/dL 8.3-9.5 HEMOGRAM (CBC WITHOUT DIFFERENTIAL)2018-01-08 04:39:00 Test Item Value Reference Range Comments WBC (test code=WBC) 10.7 10\S\3/uL 4.5-11.0 RBC (test code=RBC) 3.17 10\S\6/uL 3.80-5.80 HGB (test code=HBG) 9.8 g/dL 12.0-15.5 HCT (test code=HCT) 30.0 % 35.0-44.0 MCV (test code=MCV) 94.6 fL 81.0-99.0 MCH (test code=MCH) 30.9 pg 27.0-31.0 MCHC (test code=MCHC) 32.7 g/dL 32.0-36.0 RDW (test code=RDW) 14.6 % 11.5-14.5 PLT (test code=PLT) 475 10\S\3/uL 130-400 MPV (test code=MPV) 10.3 fL 9.4-12.4 GLUCOMETER GLUCOSE- LAB USE [id number] 20:15:00 Test Item Value Reference Range Comments GLUCOMETER (test code=GMG) 135 mg/dL 70-100 Meter ID: [id number]: 5331 DIANA LINDSAY GLUCOMETER GLUCOSE- LAB USE [id number] 16:04:00 Test Item Value Reference Range Comments GLUCOMETER (test code=GMG) 124 mg/dL 70-100 Meter ID: [id number]: 5[address] [facility] GLUCOMETER GLUCOSE- LAB USE [id number] 11:11:00 Test Item Value Reference Range Comments GLUCOMETER (test code=GMG) 168 mg/dL 70-100 CLEANED METERMeter ID: [id number]: 4941 MARLEEN PATINO URINE [id number] 09:07:00 Test Item Value Reference Range Comments Culture Observations (test NO GROWTH (<1,000 CFU/ML) code=COB1) GLUCOMETER GLUCOSE- LAB USE [id number] 07:26:00 Test Item Value Reference Range Comments GLUCOMETER (test code=GMG) 140 mg/dL 70-100 Meter ID: [id number]: 5[address] [facility] BASIC METABOLIC [id number] 06:19:00 Test Item Value Reference Range Comments GLUCOSE (test code=06D) 142 mg/dL 75-100 SODIUM (test code=01A) 134 mmol/L 136-145 POTASSIUM (test code=01B) 3.9 mmol/L 3.6-5.1 CHLORIDE (test code=04A) 95 mmol/L 98-107 CO2 (test code=02A) 30 mmol/L 22-32 ANION GAP (test code=ANG) 12.9 mmol/L BUN (test code=05D) 30 mg/dL 7-18 CREATININE (test code=03E) 1.1 mg/dL 0.4-1.1 BUN/CREA (test code=BCR) 28 12-20 CALCIUM (test code=09D) 8.3 mg/dL 8.3-9.5 HEMOGRAM (CBC WITHOUT DIFFERENTIAL)2018-01-07 06:08:00 Test Item Value Reference Range Comments WBC (test code=WBC) 11.1 10\S\3/uL 4.5-11.0 RBC (test code=RBC) 2.99 10\S\6/uL 3.80-5.80 HGB (test code=HBG) 9.3 g/dL 12.0-15.5 HCT (test code=HCT) 28.4 % 35.0-44.0 MCV (test code=MCV) 95.0 fL 81.0-99.0 MCH (test code=MCH) 31.1 pg 27.0-31.0 MCHC (test code=MCHC) 32.7 g/dL 32.0-36.0 RDW (test code=RDW) 14.4 % 11.5-14.5 PLT (test code=PLT) 419 10\S\3/uL 130-400 MPV (test code=MPV) 10.3 fL 9.4-12.4 GLUCOMETER GLUCOSE- LAB USE [id number] 20:31:00 Test Item Value Reference Range Comments GLUCOMETER (test code=GMG) 187 mg/dL 70-100 Meter ID: [id number]: 9130 RUIZ FERMIN GLUCOMETER GLUCOSE- LAB USE [id number] 16:15:00 Test Item Value Reference Range Comments GLUCOMETER (test code=GMG) 134 mg/dL 70-100 CLEANED METERMeter ID: [id number]: 3950 DANN SHINE GLUCOMETER GLUCOSE- LAB USE [id number] 11:44:00 Test Item Value Reference Range Comments GLUCOMETER (test code=GMG) 146 mg/dL 70-100 CLEANED METERMeter ID: [id number]: 3950 DANN SHINE XR CHEST 1 VIEW [id number] 08:41:28Exam: Chest portable erectLocation: N9Zzxpawr: R05: COUGHComparison: 01/05/2018Findings:No change has occurred in the aeration of the lungs. The heart size is mildlyenlarged. The mediastinal silhouetteis unremarkable. The bony thorax isintact. A right arm PICC line remains in place.Impression:Stable chest/no change.GLUCOMETER GLUCOSE- LAB USE [id number] 07:50:00 Test Item Value Reference Range Comments GLUCOMETER (test code=GMG) 232 mg/dL 70-100 CLEANED METERMeter ID: [id number]: 3950 DANN SHINE BASIC METABOLIC [id number] 06:14:00 Test Item Value Reference Range Comments GLUCOSE (test code=06D) 120 mg/dL 75-100 SODIUM (test code=01A) 130 mmol/L 136-145 POTASSIUM (test code=01B) 4.1 mmol/L 3.6-5.1 CHLORIDE (test code=04A) 95 mmol/L 98-107 CO2 (test code=02A) 30 mmol/L 22-32 ANION GAP (test code=ANG) 9.1 mmol/L BUN (test code=05D) 33 mg/dL 7-18 CREATININE (test code=03E) 1.0 mg/dL 0.4-1.1 BUN/CREA (test code=BCR) 33 12-20 CALCIUM (test code=09D) 8.8 mg/dL 8.3-9.5 HEMOGRAM (CBC WITHOUT DIFFERENTIAL)2018-01-06 06:09:00 Test Item Value Reference Range Comments WBC (test code=WBC) 10.8 10\S\3/uL 4.5-11.0 RBC (test code=RBC) 2.87 10\S\6/uL 3.80-5.80 HGB (test code=HBG) 9.2 g/dL 12.0-15.5 HCT (test code=HCT) 27.3 % 35.0-44.0 MCV (test code=MCV) 95.1 fL 81.0-99.0 MCH (test code=MCH) 32.1 pg 27.0-31.0 MCHC (test code=MCHC) 33.7 g/dL 32.0-36.0 RDW (test code=RDW) 14.5 % 11.5-14.5 PLT (test code=PLT) 352 10\S\3/uL 130-400 MPV (test code=MPV) 10.3 fL 9.4-12.4 GLUCOMETER GLUCOSE- LAB USE [id number] 20:07:00 Test Item Value Reference Range Comments GLUCOMETER (test code=GMG) 156 mg/dL 70-100 Meter ID: [id number]: 3465 GORGE CADE GLUCOMETER GLUCOSE- LAB USE [id number] 16:18:00 Test Item Value Reference Range Comments GLUCOMETER (test code=GMG) 167 mg/dL 70-100 CLEANED METERMeter ID: [id number]: 3958 DANN SHINE URINALYSIS WITH [id number] 14:56:00 Test Item Value Reference Range Comments COLOR (test code=COLU) YELLOW YELLOW CLARITY (test code=CLA) CLOUDY CLEAR GLUCOSE UR (test code=UA GLUCOSE) NEGATIVE NEGATIVE BILI UR (test code=BILE) NEGATIVE NEGATIVE KETONES UR (test code=MAINE) NEGATIVE NEGATIVE SP GRAVITY (test code=SPGR) 1.018 1.005-1.030 PH UR (test code=PH) 6.0 4.5-8.0 PROTEIN UR (test code=PU) 1+ NEGATIVE UROBIL UR (test code=UROQ) 0.2 EU/dL 0.2-1.0 NITRITE UR (test code=NITRITE) NEGATIVE NEGATIVE BLOOD UR (test code=UA BLOOD) 3+ NEGATIVE LEUK ES UR (test code=LEUK) 2+ NEGATIVE WBC UR (test code=UWBC) 10 /HPF 0-5 RBC UR (test code=URBC) 85 /HPF 0-2 EPITH UR (test code=UEPC) MODERATE /LPF FEW BACTERIA UR (test code=UBACT) MODERATE /HPF NONE CAST UR (test code=CAST) COARSELY GRANULAR FEW /LPF NONE CRYSTAL UR (test code=CRYU) / LPF NONE MUCUS UR (test code=MUC) / HPF NONE AMORPH UR (test code=VALENTINA) / HPF NONE TRICH UR (test code=UTRICH) /HPF NONE YEAST UR (test code=UY) /HPF NONE SPERM UR (test code=USPERM) /HPF NONE GLUCOMETER GLUCOSE- LAB USE [id number] 11:39:00 Test Item Value Reference Range Comments GLUCOMETER (test code=GMG) 182 mg/dL 70-100 CLEANED METERMeter ID: [id number]: 3955 RAINAMedesen XR CHEST 1 VIEW [id number] 11:15:45Exam: Chest portable erectLocation: D4.History: R05: COUGHComparison: 12/24/2017Findings:Bibasilar infiltrates are present. Central pulmonary congestion is seen due toa shallow inspiration. The heart size is mildly enlarged. Atherosclerosisinvolves the aorta. The mediastinal silhouette is unremarkable. The bony thoraxis intact with degenerative changes noted. A right arm PICC line is in place.Impression: Bibasilar infiltrates.GLUCOMETER GLUCOSE- LAB USE [id number] 07:57:00 Test Item Value Reference Range Comments GLUCOMETER (test code=GMG) 120 mg/dL 70-100 CLEANED METERMeter ID: [id number]: 3957 DANN [place] BASIC METABOLIC [id number] 06:30:00 Test Item Value Reference Range Comments GLUCOSE (test code=06D) 109 mg/dL 75-100 SODIUM (test code=01A) 132 mmol/L 136-145 POTASSIUM (test code=01B) 3.9 mmol/L 3.6-5.1 CHLORIDE (test code=04A) 94 mmol/L 98-107 CO2 (test code=02A) 29 mmol/L 22-32 ANION GAP (test code=ANG) 12.9 mmol/L BUN (test code=05D) 39 mg/dL 7-18 CREATININE (test code=03E) 1.1 mg/dL 0.4-1.1 BUN/CREA (test code=BCR) 34 12-20 CALCIUM (test code=09D) 8.9 mg/dL 8.3-9.5 HEMOGRAM (CBC WITHOUT DIFFERENTIAL)2018-01-05 06:28:00 Test Item Value Reference Range Comments WBC (test code=WBC) 11.2 10\S\3/uL 4.5-11.0 RBC (test code=RBC) 2.88 10\S\6/uL 3.80-5.80 HGB (test code=HBG) 9.1 g/dL 12.0-15.5 HCT (test code=HCT) 27.3 % 35.0-44.0 MCV (test code=MCV) 94.8 fL 81.0-99.0 MCH (test code=MCH) 31.6 pg 27.0-31.0 MCHC (test code=MCHC) 33.3 g/dL 32.0-36.0 RDW (test code=RDW) 14.5 % 11.5-14.5 PLT (test code=PLT) 319 10\S\3/uL 130-400 MPV (test code=MPV) 10.4 fL 9.4-12.4 NM LUNG (V/Q ) SCAN W [id number] 21:37:00HISTORY: Shortness of breath, new onset A. fibLocation: K5Ctglgzzuza to a chest x-ray 12/24/2017TECHNIQUE: 5.9 mCi of xenon-133 was given for the ventilation portion of thestudy. 6.2 mCi of Tc 99m MAA was given for the perfusion portion of the exam.Standard scintigraphic images were obtained.FINDINGS: The perfusion images demonstrate no significant perfusionabnormality. The ventilation images show normal washout of radioisotope. Thereis no evidence of ventilation/perfusion mismatch.IMPRESSION: Low probability for pulmonary embolismGLUCOMETER GLUCOSE- LAB USE [id number] 21:10:00 Test Item Value Reference Range Comments GLUCOMETER (test code=GMG) 132 mg/dL 70-100 Meter ID: [id number]: 3465 GORGE CADE GLUCOMETER GLUCOSE- LAB USE [id number] 16:04:00 Test Item Value Reference Range Comments GLUCOMETER (test code=GMG) 119 mg/dL 70-100 Meter ID: [id number]: 3950 DANN SHINE GLUCOMETER GLUCOSE- LAB USE [id number] 11:28:00 Test Item Value Reference Range Comments GLUCOMETER (test code=GMG) 251 mg/dL 70-100 CLEANED METERMeter ID: [id number]: 3950 DANN SHINE GLUCOMETER GLUCOSE- LAB USE [id number] 08:00:00 Test Item Value Reference Range Comments GLUCOMETER (test code=GMG) 155 mg/dL 70-100 CLEANED METERMeter ID: [id number]: 3950 DANN SHINE [id number] 06:32:00 Test Item Value Reference Range Comments D-DIMER (test code=DDI) 4017 ng/mL D-DU 0-234 D-DIMER COMMENT (test *Level to rule out DVT or PE: code=DDCOM) <235 ng/mL D-DU* BASIC METABOLIC [id number] 04:44:00 Test Item Value Reference Range Comments GLUCOSE (test code=06D) 117 mg/dL 75-100 SODIUM (test code=01A) 131 mmol/L 136-145 POTASSIUM (test code=01B) 3.6 mmol/L 3.6-5.1 CHLORIDE (test code=04A) 96 mmol/L 98-107 CO2 (test code=02A) 29 mmol/L 22-32 ANION GAP (test code=ANG) 9.6 mmol/L BUN (test code=05D) 44 mg/dL 7-18 CREATININE (test code=03E) 1.5 mg/dL 0.4-1.1 BUN/CREA (test code=BCR) 30 12-20 CALCIUM (test code=09D) 8.3 mg/dL 8.3-9.5 HEMOGRAM (CBC WITHOUT DIFFERENTIAL)2018-01-04 04:28:00 Test Item Value Reference Range Comments WBC (test code=WBC) 12.7 10\S\3/uL 4.5-11.0 RBC (test code=RBC) 2.86 10\S\6/uL 3.80-5.80 HGB (test code=HBG) 9.0 g/dL 12.0-15.5 HCT (test code=HCT) 26.9 % 35.0-44.0 MCV (test code=MCV) 94.1 fL 81.0-99.0 MCH (test code=MCH) 31.5 pg 27.0-31.0 MCHC (test code=MCHC) 33.5 g/dL 32.0-36.0 RDW (test code=RDW) 14.3 % 11.5-14.5 PLT (test code=PLT) 267 10\S\3/uL 130-400 MPV (test code=MPV) 10.5 fL 9.4-12.4 GLUCOMETER GLUCOSE- LAB USE [id number] 20:16:00 Test Item Value Reference Range Comments GLUCOMETER (test code=GMG) 179 mg/dL 70-100 CLEANED METERMeter ID: [id number]: 4233 FEBRU[address] MARGO THOMPSON CARDIAC [id number] 20:13:00 Test Item Value Reference Range Comments TROPONIN I (test code=A84) 0.179 ng/mL 0.000-0.045 CKMB (test code=A49) 1.0 ng/mL <=3.6 CPK (test code=32A) 40 IU/L 26-192 GLUCOMETER GLUCOSE- LAB USE [id number] 16:13:00 Test Item Value Reference Range Comments GLUCOMETER (test code=GMG) 205 mg/dL 70-100 Meter ID: [id number]: 5231 [facility] GLUCOMETER GLUCOSE- LAB USE [id number] 11:20:00 Test Item Value Reference Range Comments GLUCOMETER (test code=GMG) 227 mg/dL 70-100 CLEANED METERMeter ID: [id number]: 4941 MARLEEN PATINO GLUCOMETER GLUCOSE- LAB USE [id number] 07:17:00 Test Item Value Reference Range Comments GLUCOMETER (test code=GMG) 165 mg/dL 70-100 Meter ID: [id number]: 5[address] [facility] GLUCOMETER GLUCOSE- LAB USE [id number] 06:50:00 Test Item Value Reference Range Comments GLUCOMETER (test code=GMG) 169 mg/dL 70-100 BASIC METABOLIC [id number] 04:47:00 Test Item Value Reference Range Comments GLUCOSE (test code=06D) 127 mg/dL 75-100 SODIUM (test code=01A) 130 mmol/L 136-145 POTASSIUM (test code=01B) 4.2 mmol/L 3.6-5.1 CHLORIDE (test code=04A) 94 mmol/L 98-107 CO2 (test code=02A) 27 mmol/L 22-32 ANION GAP (test code=ANG) 13.2 mmol/L BUN (test code=05D) 46 mg/dL 7-18 CREATININE (test code=03E) 1.6 mg/dL 0.4-1.1 BUN/CREA (test code=BCR) 28 12-20 CALCIUM (test code=09D) 8.6 mg/dL 8.3-9.5 HEMOGRAM (CBC WITHOUT DIFFERENTIAL)2018-01-03 04:39:00 Test Item Value Reference Range Comments WBC (test code=WBC) 18.5 10\S\3/uL 4.5-11.0 RBC (test code=RBC) 3.15 10\S\6/uL 3.80-5.80 HGB (test code=HBG) 9.8 g/dL 12.0-15.5 HCT (test code=HCT) 29.6 % 35.0-44.0 MCV (test code=MCV) 94.0 fL 81.0-99.0 MCH (test code=MCH) 31.1 pg 27.0-31.0 MCHC (test code=MCHC) 33.1 g/dL 32.0-36.0 RDW (test code=RDW) 14.6 % 11.5-14.5 PLT (test code=PLT) 246 10\S\3/uL 130-400 MPV (test code=MPV) 10.9 fL 9.4-12.4 GLUCOMETER GLUCOSE- LAB USE [id number] 20:33:00 Test Item Value Reference Range Comments GLUCOMETER (test code=GMG) 134 mg/dL 70-100 Meter ID: [id number]: [id number] FEBRUARY MARGO THOMPSON GLUCOMETER GLUCOSE- LAB USE [id number] 16:10:00 Test Item Value Reference Range Comments GLUCOMETER (test code=GMG) 156 mg/dL 70-100 Meter ID: [id number]: [id number] DENISE VICKI GLUCOMETER GLUCOSE- LAB USE [id number] 11:09:00 Test Item Value Reference Range Comments GLUCOMETER (test code=GMG) 199 mg/dL 70-100 Meter ID: [id number]: [id number] DENISE VICKI GLUCOMETER GLUCOSE- LAB USE [id number] 07:58:00 Test Item Value Reference Range Comments GLUCOMETER (test code=GMG) 154 mg/dL 70-100 Meter ID: [id number]: [id number] DENISE VICKI BLOOD [id number] 07:42:00 Test Item Value Reference Range Comments Culture Observations (test code=COB1) NO GROWTH AFTER 5 DAYS HEMOGRAM (CBC WITHOUT DIFFERENTIAL)2018-01-02 06:08:00 Test Item Value Reference Range Comments WBC (test code=WBC) 22.3 10\S\3/uL 4.5-11.0 RBC (test code=RBC) 3.06 10\S\6/uL 3.80-5.80 HGB (test code=HBG) 9.7 g/dL 12.0-15.5 HCT (test code=HCT) 29.0 % 35.0-44.0 MCV (test code=MCV) 94.8 fL 81.0-99.0 MCH (test code=MCH) 31.7 pg 27.0-31.0 MCHC (test code=MCHC) 33.4 g/dL 32.0-36.0 RDW (test code=RDW) 14.6 % 11.5-14.5 PLT (test code=PLT) 216 10\S\3/uL 130-400 MPV (test code=MPV) 10.7 fL 9.4-12.4 BASIC METABOLIC [id number] 06:04:00 Test Item Value Reference Range Comments GLUCOSE (test code=06D) 143 mg/dL 75-100 SODIUM (test code=01A) 129 mmol/L 136-145 POTASSIUM (test code=01B) 4.2 mmol/L 3.6-5.1 CHLORIDE (test code=04A) 94 mmol/L 98-107 CO2 (test code=02A) 26 mmol/L 22-32 ANION GAP (test code=ANG) 13.2 mmol/L BUN (test code=05D) 43 mg/dL 7-18 CREATININE (test code=03E) 2.1 mg/dL 0.4-1.1 BUN/CREA (test code=BCR) 21 12-20 CALCIUM (test code=09D) 8.5 mg/dL 8.3-9.5 U/S VENOUS DOPPLER YUNI LOW [id number] 19:10:07HISTORY: leg swellingLocation : [id number]: Real time banegas scale, color flow and Doppler spectral imagingof the bilateral lower extremity was performed revealing patent deep venoussystem with no evidence of deep venous thrombosis of obstruction. There isnormal augmentation of flow with compression of calf veins. IMPRESSION:1. No evidence of bilateral deep venous thrombosis. Incidental note of aleft-sided Gustafson's cyst measuring 5.1 x 2.8 x 4 cm. ExtremityGLUCOMETER GLUCOSE- LAB USE [id number] 16:09:00 Test Item Value Reference Range Comments GLUCOMETER (test code=GMG) 158 mg/dL 70-100 CLEANED METERMeter ID: [id number]: [id number] DENZEL CRUZ C-REACTIVE PROTEIN [id number] 12:07:00 Test Item Value Reference Range Comments CARDIO CRP(R) (test 358.0 mg/L Verified by repeat [id number]) analysis.Persistent elevation, upon retesting, may be associatedwith infection and inflammation according to AHA/CDCguidelines.For ages >17 Years:hs-CRP mg/L Risk According to AHA/CDC Guidelines<1.0 Lower relative cardiovascular risk.1.0-3.0 Average relative cardiovascular risk.3.1-10.0 Higher relative cardiovascular risk. Consider retesting in 1 to 2 weeks to exclude a benign transient elevation in the baseline CRP value secondary to infection or inflammation.>10.0 Persistent elevation, upon retesting, may be associated with infection and inflammation.TEST PERFORMED AT:[place]-[id number] [facility].RUDI LUND [id number] JOSEPH MD GLUCOMETER GLUCOSE- LAB USE [id number] 11:11:00 Test Item Value Reference Range Comments GLUCOMETER (test code=GMG) 243 mg/dL 70-100 CLEANED METERMeter ID: [id number]: [id number] RAINA KUBAN HEMOGRAM (CBC WITHOUT DIFFERENTIAL)2018-01-01 09:47:00 Test Item Value Reference Range Comments WBC (test code=WBC) 21.2 10\S\3/uL 4.5-11.0 RBC (test code=RBC) 3.58 10\S\6/uL 3.80-5.80 HGB (test code=HBG) 11.2 g/dL 12.0-15.5 HCT (test code=HCT) 34.1 % 35.0-44.0 MCV (test code=MCV) 95.3 fL 81.0-99.0 MCH (test code=MCH) 31.3 pg 27.0-31.0 MCHC (test code=MCHC) 32.8 g/dL 32.0-36.0 RDW (test code=RDW) 14.3 % 11.5-14.5 PLT (test code=PLT) 193 10\S\3/uL 130-400 MPV (test code=MPV) 11.0 fL 9.4-12.4 GLUCOMETER GLUCOSE- LAB USE [id number] 07:13:00 Test Item Value Reference Range Comments GLUCOMETER (test code=GMG) 172 mg/dL 70-100 CLEANED METERMeter ID: [id number]: [id number] DENZEL CRUZ GLUCOMETER GLUCOSE- LAB USE [id number] 07:02:00 Test Item Value Reference Range Comments GLUCOMETER (test code=GMG) 183 mg/dL 70-100 GLUCOMETER GLUCOSE- LAB USE [id number] 15:18:00 Test Item Value Reference Range Comments GLUCOMETER (test code=GMG) 181 mg/dL 70-100 DAILY MAINTENANCECLEANED METERMeter ID: [id number]: 9102 MANDEEP HAWTHORNE GLUCOMETER GLUCOSE- LAB USE [id number] 05:48:00 Test Item Value Reference Range Comments GLUCOMETER (test code=GMG) 125 mg/dL 70-100 CLEANED METERMeter ID: [id number]: [id number] JAM ROBERT BASIC METABOLIC [id number] 04:52:00 Test Item Value Reference Range Comments GLUCOSE (test code=06D) 128 mg/dL 75-100 SODIUM (test code=01A) 133 mmol/L 136-145 POTASSIUM (test code=01B) 3.6 mmol/L 3.6-5.1 CHLORIDE (test code=04A) 99 mmol/L 98-107 CO2 (test code=02A) 27 mmol/L 22-32 ANION GAP (test code=ANG) 10.6 mmol/L BUN (test code=05D) 26 mg/dL 7-18 CREATININE (test code=03E) 1.3 mg/dL 0.4-1.1 BUN/CREA (test code=BCR) 20 12-20 CALCIUM (test code=09D) 8.4 mg/dL 8.3-9.5 CBC (INCLUDES AUTOMATED DIFFERENTIAL)2017-12-31 04:36:00 Test Item Value Reference Range Comments WBC (test code=WBC) 14.2 10\S\3/uL 4.5-11.0 RBC (test code=RBC) 3.22 10\S\6/uL 3.80-5.80 HGB (test code=HBG) 10.0 g/dL 12.0-15.5 HCT (test code=HCT) 31.3 % 35.0-44.0 MCV (test code=MCV) 97.2 fL 81.0-99.0 MCH (test code=MCH) 31.1 pg 27.0-31.0 MCHC (test code=MCHC) 31.9 g/dL 32.0-36.0 RDW (test code=RDW) 14.5 % 11.5-14.5 PLT (test code=PLT) 176 10\S\3/uL 130-400 MPV (test code=MPV) 11.1 fL 9.4-12.4 NEUTROP # (test code=NE#) 10.4 10\S\3/uL 1.6-8.0 LYMPH # (test code=LY#) 1.9 10\S\3/uL 1.1-3.5 MONOCYTE # (test code=MO#) 1.5 10\S\3/uL 0.0-1.1 EOSINOPH # (test code=EO#) 0.1 10\S\3/uL 0.0-0.7 BASOPHIL # (test code=BA#) 0.0 10\S\3/uL 0.0-0.3 IG # (test code=IG#) 0.16 10\S\3/uL 0.00-0.06 NRBC # (test code=NRBC#) 0.00 10\S\3/uL 0.00-0.01 NEUTROPH % (test code=NE%) 73.7 % 35.0-73.0 LYMPH % (test code=LY%) 13.2 % 20.0-55.0 MONO % (test code=MO%) 10.7 % 2.5-10.0 EOSINOPH % (test code=EO%) 1.0 % 0.0-5.0 BASOPHIL % (test code=BA%) 0.3 % 0.0-2.0 IG % (test code=IG%) 1.1 % 0.0-0.8 NRBC% (test code=NRBC%) 0.0 % 0.0-0.2 MANDIFF (test code=MDIFF) NO NO RBC MORPH (test code=RBCMOR) NORMAL GLUCOMETER GLUCOSE- LAB USE [id number] 19:55:00 Test Item Value Reference Range Comments GLUCOMETER (test code=GMG) 246 mg/dL 70-100 Meter ID: [id number]: 9227 [facility] GLUCOMETER GLUCOSE- LAB USE [id number] 16:06:00 Test Item Value Reference Range Comments GLUCOMETER (test code=GMG) 187 mg/dL 70-100 CLEANED METERMeter ID: [id number]: 9253 MONCARLAA MINGER GLUCOMETER GLUCOSE- LAB USE [id number] 11:26:00 Test Item Value Reference Range Comments GLUCOMETER (test code=GMG) 261 mg/dL 70-100 CLEANED METERMeter ID: [id number]: [address] CERVICAL SPINE W/O [id number] 10:17:46CT cervical spine without contrastHISTORY: Neck pain, arthritisCOMMENT: Multidetector noncontrast slices through the cervical spine wereobtained without intravenous contrast and sagittal and coronal reformattingperformed.The bony cervical canal is intact with no evidence of cervical spine fracture. There is normal vertebral body alignment and vertebral body height. Minimalreversal of the cervical lordosis.Mild disc space narrowing at C5-6 present. Arthritis at the atlantodentalinterface. No soft tissue swelling is present. C2-3: There is a normal diameter spinal canal with no significant spinal orneuroforaminal stenosis.C3-4: 2.5 mm broad-based bulge indents the ventral thecal sac, contributing tomild foraminal narrowing. Patent canal.C4-5: There is a normal diameter spinal canal with no significant spinal orneuroforaminal stenosis.C5-6 : 3 mm right lateralizing disc herniation blends in withmoderate rightuncinate arthrosis resulting in moderate to severe right foraminal stenosis.Patent canal and left foramen.C6-7: 2 mm right lateralizing disc herniation blends in with mild uncinatearthrosis mildly narrowing the foramen. Patent canalC7-T1: There is a normal diameter spinal canal with nosignificant spinal orneuroforaminal stenosis.IMPRESSION: 1. No acute osseous abnormality.2. At C5-6,a right lateralizing disc herniation blends in with moderateuncinate arthrosis resulting in moderately severe right foraminal stenosis.3. Mild spondylosis at C3-4 and C6-7URINE [id number] 10:09:00 Test Item Value Reference Range Comments Culture Observations (test NO GROWTH (<1,000 CFU/ML) code=COB1) CT HEAD W/O [id number] 09:31:29CT brain without contrastHISTORY: Headache COMPARISON: CT scan 12/24/17Location code: Y8TESUUMKYJ: Contiguous 5 mm axial images of the head were obtained from theskullbase to the vertex.Dose lowering technique with automatic exposure control utilized.FINDINGS : There is mild to moderate central andcortical atrophy. Mild areas of decreased attenuation are seen in the subcortical andperiventricularwhite matter consistent with chronic microvascular ischemicchanges. There is no space- occupying mass, mass effect or midline shift. No intra-axialor extra-axial fluid accumulation is seen. No calvarialosseous or scalp soft tissue abnormalities are noted.IMPRESSION: 1. No acute intracranial process. 2. Mild to moderate senescent changes, with sequelae of microvascular ischemicdisease.BASIC METABOLIC [id number] 05:51:00 Test Item Value Reference Range Comments GLUCOSE (test code=06D) 149 mg/dL 75-100 SODIUM (test code=01A) 133 mmol/L 136-145 POTASSIUM (test code=01B) 3.5 mmol/L 3.6-5.1 CHLORIDE (test code=04A) 96 mmol/L 98-107 CO2 (test code=02A) 29 mmol/L 22-32 ANION GAP (test code=ANG) 11.5 mmol/L BUN (test code=05D) 21 mg/dL 7-18 CREATININE (test code=03E) 1.0 mg/dL 0.4-1.1 BUN/CREA (test code=BCR) 21 12-20 CALCIUM (test code=09D) 8.5 mg/dL 8.3-9.5 CBC (INCLUDES AUTOMATED DIFFERENTIAL)2017-12-30 05:32:00 Test Item Value Reference Range Comments WBC (test code=WBC) 20.3 10\S\3/uL 4.5-11.0 RBC (test code=RBC) 3.23 10\S\6/uL 3.80-5.80 HGB (test code=HBG) 10.4 g/dL 12.0-15.5 HCT (test code=HCT) 31.6 % 35.0-44.0 MCV (test code=MCV) 97.8 fL 81.0-99.0 MCH (test code=MCH) 32.2 pg 27.0-31.0 MCHC (test code=MCHC) 32.9 g/dL 32.0-36.0 RDW (test code=RDW) 14.6 % 11.5-14.5 PLT (test code=PLT) 171 10\S\3/uL 130-400 MPV (test code=MPV) 12.0 fL 9.4-12.4 NEUTROP # (test code=NE#) 15.9 10\S\3/uL 1.6-8.0 LYMPH # (test code=LY#) 2.1 10\S\3/uL 1.1-3.5 MONOCYTE # (test code=MO#) 1.9 10\S\3/uL 0.0-1.1 EOSINOPH # (test code=EO#) 0.1 10\S\3/uL 0.0-0.7 BASOPHIL # (test code=BA#) 0.1 10\S\3/uL 0.0-0.3 IG # (test code=IG#) 0.29 10\S\3/uL 0.00-0.06 NRBC # (test code=NRBC#) 0.00 10\S\3/uL 0.00-0.01 NEUTROPH % (test code=NE%) 78.4 % 35.0-73.0 LYMPH % (test code=LY%) 10.2 % 20.0-55.0 MONO % (test code=MO%) 9.4 % 2.5-10.0 EOSINOPH % (test code=EO%) 0.3 % 0.0-5.0 BASOPHIL % (test code=BA%) 0.3 % 0.0-2.0 IG % (test code=IG%) 1.4 % 0.0-0.8 NRBC% (test code=NRBC%) 0.0 % 0.0-0.2 MANDIFF (test code=MDIFF) NO NO RBC MORPH (test code=RBCMOR) NORMAL GLUCOMETER GLUCOSE- LAB USE [id number] 05:23:00 Test Item Value Reference Range Comments GLUCOMETER (test code=GMG) 172 mg/dL 70-100 CLEANED METERMeter ID: [id number]: 9227 [employer] GLUCOMETER GLUCOSE- LAB USE [id number] 20:23:00 Test Item Value Reference Range Comments GLUCOMETER (test code=GMG) 190 mg/dL 70-100 CLEANED METERMeter ID: [id number]: 9227 Codig[employer]IW[employer] ERYTHROCYTE SED [id number] 18:23:00 Test Item Value Reference Range Comments SED RATE (test code=SEDR) 120 mm/hr 0-30 URIC [id number] 17:50:00 Test Item Value Reference Range Comments URIC ACID (test code=41A) 5.5 mg/dL 2.6-6.0 CT EXTREM UPPER W/O CONTR [id number] 16:34:13CT left upper extremity without contrastIndication: Pain, fractureTechnique: Axial 2.5 mm images through the elbow obtained with coronal andsagittal reformats rendered.Findings: There is moderate arthritis visualized at the elbow, with moderatemedial and lateral compartment joint space narrowing and bulky marginalosteophytes. There is slight motion artifact at this level and slightly limitsevaluation. The olecranon and coronoid processes appear intact along with theradial head. There is a 2.5 x 2.1 cm calcific density, likely a loose bodywithin the anterior joint space centrally.There is mild posterior soft tissue edema. There is a small joint effusionpresent.Impression:1. No definite fractures seen.2. Moderate arthritis noted.3. Suspected 2.5 cm loose body within the anterior joint space.GLUCOMETER GLUCOSE- LAB USE [id number] 15:39:00 Test Item Value Reference Range Comments GLUCOMETER (test code=GMG) 191 mg/dL 70-100 CLEANED METERMeter ID: [id number]: [address] [facility] [address] LUMBAR SPINE W/O [id number] 13:35:26CT OF THE lumbar spine without contrastLocation code:S 17CLINICAL HISTORY:R41.82: ALTERED MENTAL STATUS, UNSPECIFIED COMPARISON: 12/13/2017 TECHNIQUE: Axial images of the lumbar spine were obtained without contrast. Coronal and sagittal reformatted images were obtained. One or more of thefollowingdose reduction techniques were used: Automatic exposure control,adjustment of the mA and/or kV according to patient size, and/or utilization ofiterative reconstruction technique.FINDINGS: There is milddextroconvex curvature of the lumbar spine centered at L3.Thereis transitional vertebra at the lumbosacral junction which is labeled alumbarized S1 vertebral body for counting purposes of this study. There isdiffuse osteopenia. There is demonstration of chronic compression deformity ofL1 with minimal retropulsion of posterior superior endplate. No furtherfracture or dislocation is seen. Vacuum disc phenomena are redemonstrated theL2-L3 and L3- L4 levels. Sclerosis and pseudoarthrosis between spinous processesfrom L2 through L5 is noted compatible with Baastrup's pathology. There is mildatrophy of paraspinal muscles. There is atrophy of the left kidney. Extensivecalcifications are identified withinthe abdominal aorta.T12-L1: Retropulsion posterior superior endplate into the central canal x 4 mm.Moderate canal stenosis. Mild foraminal narrowing.L1-L2: Annular disc bulge measuring 2 to 3 mm. Moderate bilateral facetarthropathy. Mild to moderate foraminal narrowing. Mild canal stenosis.L2-L3: Annular disc bulge measuring up to 3 to 4 mm. Moderate bilateral facetarthropathy. Moderate canal stenosis. Moderate to severe foraminal narrowing.L3-L4: Annular disc bulge eccentric to the left measuring up to 4 mm. Moderatebullous arthropathy. Moderate canal stenosis. Severe left and moderate rightforaminal narrowing.L4-L5: Annular disc bulge eccentric to the left measuring up to 4 molars.Moderate bilateral facet arthropathy. Moderate canal stenosis. Moderateforaminal narrowing.L5-S1: Grade 1 anterolisthesis secondary to severe facet arthropathy. Severeforaminal narrowing. Moderate canal stenosis.IMPRESSION: 1. Stable, chronic compression deformity of L1 with minimal retropulsioncontributing to mild T12-L1 canal stenosis.2. No acute fracture or dislocation.3. Levoconvex curvature centered at L3.4. Grade 1 anterolisthesis of L5 on S1 secondary to facet arthropathy. There isresultant moderate canal stenosis and severe foraminal narrowing. 5. Spondylosis and facet arthrosis from L1-L2 through L4-L5 contributing tomild/ moderate canal stenosis and moderate to severe foraminal narrowing.6. 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.GLUCOMETER GLUCOSE- LAB USE [id number] 11:48 :00 Test Item Value Reference Range Comments GLUCOMETER (test code=GMG) 222 mg/dL 70-100 CLEANED METERMeter ID: [id number]: [address] [place] [address] CBC WITH MANUAL [id number] 05:43:00 Test Item Value Reference Range Comments WBC (test code=WBC) 24.9 10\S\3/uL 4.5-11.0 RBC (test code=RBC) 3.22 10\S\6/uL 3.80-5.80 HGB (test code=HBG) 10.3 g/dL 12.0-15.5 HCT (test code=HCT) 31.3 % 35.0-44.0 MCV (test code=MCV) 97.2 fL 81.0-99.0 MCH (test code=MCH) 32.0 pg 27.0-31.0 MCHC (test code=MCHC) 32.9 g/dL 32.0-36.0 RDW (test code=RDW) 14.6 % 11.5-14.5 PLT (test code=PLT) 186 10\S\3/uL 130-400 MPV (test code=MPV) 11.5 fL 9.4-12.4 NEUTROP # (test code=NE#) 20.2 10\S\3/uL 1.6-8.0 LYMPH # (test code=LY#) 2.2 10\S\3/uL 1.1-3.5 MONOCYTE # (test code=MO#) 2.2 10\S\3/uL 0.0-1.1 EOSINOPH # (test code=EO#) 0.0 10\S\3/uL 0.0-0.7 BASOPHIL # (test code=BA#) 0.1 10\S\3/uL 0.0-0.3 IG # (test code=IG#) 0.32 10\S\3/uL 0.00-0.06 NRBC # (test code=NRBC#) 0.00 10\S\3/uL 0.00-0.01 NEUTROPH % (test code=NE%) 81.0 % 35.0-73.0 LYMPH % (test code=LY%) 8.7 % 20.0-55.0 MONO % (test code=MO%) 8.7 % 2.5-10.0 EOSINOPH % (test code=EO%) 0.1 % 0.0-5.0 BASOPHIL % (test code=BA%) 0.2 % 0.0-2.0 IG % (test code=IG%) 1.3 % 0.0-0.8 NRBC% (test code=NRBC%) 0.0 % 0.0-0.2 MAN DIFF (test code=HMDIFF) MANUAL DIFFERENTIAL SEG (test code=SEG) 79 % 42-75 BAND (test code=BAND) 0 % 0-8 LYMPH (test code=LYMPH) 6 % 20-51 MONO (test code=MONO) 8 % 3-11 EOS (test code=EOS) 0 % 0-10 BASO (test code=BASO) 0 % 0-2 RBC MORPH (test code=RBCMORN) ABNORMAL NORMAL PLT EST (test code=PLTEST) ADEQUATE ADEQUATE PLT MORPH (test code=PLTMOR) LARGE (4-7 um) NORMAL GLUCOMETER GLUCOSE- LAB USE [id number] 05:38:00 Test Item Value Reference Range Comments GLUCOMETER (test code=GMG) 135 mg/dL 70-100 CLEANED METERMeter ID: [id number]: 9227 [facility] BASIC METABOLIC [id number] 05:22:00 Test Item Value Reference Range Comments GLUCOSE (test code=06D) 145 mg/dL 75-100 SODIUM (test code=01A) 135 mmol/L 136-145 POTASSIUM (test code=01B) 3.5 mmol/L 3.6-5.1 CHLORIDE (test code=04A) 101 mmol/L 98-107 CO2 (test code=02A) 29 mmol/L 22-32 ANION GAP (test code=ANG) 8.5 mmol/L BUN (test code=05D) 21 mg/dL 7-18 CREATININE (test code=03E) 0.9 mg/dL 0.4-1.1 BUN/CREA (test code=BCR) 25 12-20 CALCIUM (test code=09D) 8.3 mg/dL 8.3-9.5 PRO TIME AND [id number] 05:04:00 Test Item Value Reference Range Comments PT (test code=TT) 13.1 s 9.8-13.6 INR (test code=INR) 1.2 INRH (test code=INRH) SUGGESTED THERAPEUTIC RANGE FOR INR: 2.5 - 3.5 For Patients with Prosthetic Valves or Patients with recurrent Thromboembolic Events 2.0 - 3.0 For Most Other Applications PTT (test code=PTT) 31.8 s 20.2-38.0 PTTH (test code=PTTH) To monitor the effectiveness of heparin, we offer the Anti-Xa (Heparin Assay). It can be used for either unfractionated or LMW Heparin. Order Code is ANTI-XA BLOOD [id number] 03:37:00 Test Item Value Reference Range Comments Culture Observations (test code=COB1) NO GROWTH AFTER 5 DAYS GLUCOMETER GLUCOSE- LAB USE [id number] 20:32:00 Test Item Value Reference Range Comments GLUCOMETER (test code=GMG) 191 mg/dL 70-100 CLEANED METERMeter ID: [id number]: 9227 WEINI LUIS [facility]ERTOOH[facility] GLUCOMETER GLUCOSE- LAB USE [id number] 16:04:00 Test Item Value Reference Range Comments GLUCOMETER (test code=GMG) 199 mg/dL 70-100 CLEANED METERMeter ID: [id number]: 9253 KARELY MINGER U/S [id number] 15:51:42EXAMINATION: Fluoroscopic and ultrasound-guided PICC line placement.LOCATION: D4.HISTORY: picc line insertionSEDATION: The patient did not require conscious sedation for the procedure.RADIATION DOSE: Fluoroscopy time:6.7 sec. Images obtained: 1.ANTIBIOTICS: None. Not indicated.TECHNIQUE: The risks, benefits, and alternatives were discussed and informedconsent was obtained. Prior to beginning the procedure, [place] Protocol wasused to confirm the patient's identity and planned procedure. Maximum sterilebarriers including cap, mask, hand hygiene, sterile gloves, sterile gown, largesterile drapeand cutaneous antisepsis were used.The skin over the right basilic vein was sterilely prepped, draped, andinfiltrated with lidocaine.Prior to the procedure, the target vessel was evaluated by ultrasound. Animage of the patent vessel was recorded and saved to PACS. After sterile prep,this vessel was accessed with a micropuncture needle using real-time ultrasoundguidance. A guidewire and catheter were then passed centrally using fluoroscopicguidance. The intravascular length from the access site to the right atriumwas assessed. The catheter was trimmed at 40 cm.After dilating the tract, a dual lumen PICC was inserted over the guidewire andthrough a peel away sheath. The catheter was flushed andsecured in place withnonabsorbable suture. A sterile dressing was applied. ESTIMATED BLOOD LOSS : Less than 10 milliliters.COMPLICATIONS: None.DISCHARGED TO: Inpatient unit.FINDINGS: Ultrasound demonstrates a patent right basilic vein.The final fluoroscopic image demonstrates the catheter with its tip at thecavoatrial junction / upper right atrium. No complications are seen.IMPRESSION: Successful non-tunneled right upper extremity PICC line placement.PLAN: The catheter is ready for immediate use. When treatment is completed,this catheter can be removed at the bedside according to standard hospitalprotocol.XR PICC LINE INSERTION [id number] 15:51:42EXAMINATION: Fluoroscopic and ultrasound-guided PICC line placement.LOCATION: D4.HISTORY: picc line insertionSEDATION: The patient did not require conscious sedation for the procedure.RADIATION DOSE: Fluoroscopy time:6.7 sec. Images obtained: 1.ANTIBIOTICS: None. Not indicated.TECHNIQUE: The risks, benefits, and alternatives were discussed and informedconsent was obtained. Prior to beginning the procedure, [place] Protocol wasused to confirm the patient's identity and planned procedure. Maximum sterilebarriers including cap, mask, hand hygiene, sterile gloves, sterile gown, largesterile drapeand cutaneous antisepsis were used.The skin over the right basilic vein was sterilely prepped, draped, andinfiltrated with lidocaine.Prior to the procedure, the target vessel was evaluated by ultrasound. Animage of the patent vessel was recorded and saved to PACS. After sterile prep,this vessel was accessed with a micropuncture needle using real-time ultrasoundguidance. A guidewire and catheter were then passed centrally using fluoroscopicguidance. The intravascular length from the access site to the right atriumwas assessed. The catheter was trimmed at 40 cm.After dilating the tract, a dual lumen PICC was inserted over the guidewire andthrough a peel away sheath. The catheter was flushed andsecured in place withnonabsorbable suture. A sterile dressing was applied. ESTIMATED BLOOD LOSS : Less than 10 milliliters.COMPLICATIONS: None.DISCHARGED TO: Inpatient unit.FINDINGS: Ultrasound demonstrates a patent right basilic vein.The final fluoroscopic image demonstrates the catheter with its tip at thecavoatrial junction / upper right atrium. No complications are seen.IMPRESSION: Successful non-tunneled right upper extremity PICC line placement.PLAN: The catheter is ready for immediate use. When treatment is completed,this catheter can be removed at the bedside according to standard hospitalprotocol.CT ABDOMEN AND PELVIS W/O [id number] 15:15:33CT abdomen and pelvis without contrastLocation Code: H1PANRGZIW HISTORY: R41.82: ALTERED MENTAL STATUS, UNSPECIFIED, N15.1: RENAL ANDPERINEPHRIC ABSCESSCOMPARISON: CT chest dated 1979Technique: Helical CT of the abdomen and pelvis was performed without contrast.Thin section axial, sagittal and coronal images were obtained. Automaticexposure control was utilized. Total DLP: 868 mGycmFINDINGS: Mildairspace disease and trace pleural effusions present bilaterally, newcompared to 12/26/2017.Left renal atrophy again noted. The unenhanced liver, gallbladder, adrenalglands, right kidney, pancreas, and spleen are unremarkable. There is noperinephric fluid collection to suggest an abscess.The unopacified loops of bowel demonstrate no focal thickening or dilatation.The appendix is visualized and is normal. There is no free peritoneal air orfluid. Calcified atherosclerotic plaque is present throughout the abdominal aortawithout aneurysm. There is no retroperitoneal mass or fluid collection. Theurinarybladder is compressed by an indwelling Silver catheter.. There is nopelvic mass or fluid collection. Degenerative changes are noted throughout the spine. There is a chronicappearing mild compression deformity along the superior endplate of L1. Theskin and surrounding soft tissues are unremarkable.IMPRESSION:1. No perinephric abscess or hydronephrosis. The left kidney is atrophic.2. Interval development of bibasilar atelectasis and/or pneumonia with traceeffusions.GLUCOMETER GLUCOSE- LAB USE [id number] 12:55: 00 Test Item Value Reference Range Comments GLUCOMETER (test code=GMG) 182 mg/dL 70-100 CLEANED METERMeter ID: [id number]: 9253 KARELY INGRAM GLUCOMETER GLUCOSE- LAB USE [id number] 06:00:00 Test Item Value Reference Range Comments GLUCOMETER (test code=GMG) 142 mg/dL 70-100 Meter ID: [id number]: 5935 MÓNICA CHRISTOPHER CBC WITH MANUAL [id number] 05:40:00 Test Item Value Reference Range Comments WBC (test code=WBC) 28.0 10\S\3/uL 4.5-11.0 RBC (test code=RBC) 3.85 10\S\6/uL 3.80-5.80 HGB (test code=HBG) 12.2 g/dL 12.0-15.5 HCT (test code=HCT) 37.6 % 35.0-44.0 MCV (test code=MCV) 97.7 fL 81.0-99.0 MCH (test code=MCH) 31.7 pg 27.0-31.0 MCHC (test code=MCHC) 32.4 g/dL 32.0-36.0 RDW (test code=RDW) 14.5 % 11.5-14.5 PLT (test code=PLT) 188 10\S\3/uL 130-400 MPV (test code=MPV) 11.0 fL 9.4-12.4 NEUTROP # (test code=NE#) 22.9 10\S\3/uL 1.6-8.0 LYMPH # (test code=LY#) 2.4 10\S\3/uL 1.1-3.5 MONOCYTE # (test code=MO#) 2.2 10\S\3/uL 0.0-1.1 EOSINOPH # (test code=EO#) 0.0 10\S\3/uL 0.0-0.7 BASOPHIL # (test code=BA#) 0.1 10\S\3/uL 0.0-0.3 IG # (test code=IG#) 0.37 10\S\3/uL 0.00-0.06 NRBC # (test code=NRBC#) 0.00 10\S\3/uL 0.00-0.01 NEUTROPH % (test code=NE%) 81.8 % 35.0-73.0 LYMPH % (test code=LY%) 8.7 % 20.0-55.0 MONO % (test code=MO%) 7.8 % 2.5-10.0 EOSINOPH % (test code=EO%) 0.1 % 0.0-5.0 BASOPHIL % (test code=BA%) 0.3 % 0.0-2.0 IG % (test code=IG%) 1.3 % 0.0-0.8 NRBC% (test code=NRBC%) 0.0 % 0.0-0.2 MAN DIFF (test code=HMDIFF) MANUAL DIFFERENTIAL SEG (test code=SEG) 80 % 42-75 BAND (test code=BAND) 0 % 0-8 LYMPH (test code=LYMPH) 11 % 20-51 MONO (test code=MONO) 8 % 3-11 EOS (test code=EOS) 1 % 0-10 BASO (test code=BASO) 0 % 0-2 RBC MORPH (test code=RBCMORN) ABNORMAL NORMAL PLT EST (test code=PLTEST) ADEQUATE ADEQUATE PLT MORPH (test code=PLTMOR) LARGE (4-7 um) NORMAL CRENATED (test code=CRENA) 1+ NONE GLUCOMETER GLUCOSE- LAB USE [id number] 01:20:00 Test Item Value Reference Range Comments GLUCOMETER (test code=GMG) 127 mg/dL 70-100 Meter ID: [id number]: [id number] MÓNICA ASHWIN GLUCOMETER GLUCOSE- LAB USE [id number] 01:19:00 Test Item Value Reference Range Comments GLUCOMETER (test code=GMG) 201 mg/dL 70-100 CLEANED METERMeter ID: [id number]: [id number] DENZEL CRUZ GLUCOMETER GLUCOSE- LAB USE [id number] 01:18:00 Test Item Value Reference Range Comments GLUCOMETER (test code=GMG) 250 mg/dL 70-100 CLEANED METERMeter ID: [id number]: [id number] DENZEL CRUZ URINE [id number] 08:30:00 Test Item Value Reference Range Comments Isolate 1 (test GRAM NEGATIVE [place] SENSITIVITY NOT INDICATED code=ISO1) GLUCOMETER GLUCOSE- LAB USE [id number] 06:34:00 Test Item Value Reference Range Comments GLUCOMETER (test code=GMG) 134 mg/dL 70-100 Meter ID: [id number]: [id number] GORGE CADE CBC (INCLUDES AUTOMATED DIFFERENTIAL)2017-12-27 05:58:00 Test Item Value Reference Range Comments WBC (test code=WBC) 21.5 10\S\3/uL 4.5-11.0 RBC (test code=RBC) 3.98 10\S\6/uL 3.80-5.80 HGB (test code=HBG) 12.6 g/dL 12.0-15.5 HCT (test code=HCT) 37.9 % 35.0-44.0 MCV (test code=MCV) 95.2 fL 81.0-99.0 MCH (test code=MCH) 31.7 pg 27.0-31.0 MCHC (test code=MCHC) 33.2 g/dL 32.0-36.0 RDW (test code=RDW) 14.2 % 11.5-14.5 PLT (test code=PLT) 259 10\S\3/uL 130-400 MPV (test code=MPV) 10.9 fL 9.4-12.4 NEUTROP # (test code=NE#) 16.0 10\S\3/uL 1.6-8.0 LYMPH # (test code=LY#) 3.1 10\S\3/uL 1.1-3.5 MONOCYTE # (test code=MO#) 2.0 10\S\3/uL 0.0-1.1 EOSINOPH # (test code=EO#) 0.0 10\S\3/uL 0.0-0.7 BASOPHIL # (test code=BA#) 0.1 10\S\3/uL 0.0-0.3 IG # (test code=IG#) 0.27 10\S\3/uL 0.00-0.06 NRBC # (test code=NRBC#) 0.00 10\S\3/uL 0.00-0.01 NEUTROPH % (test code=NE%) 74.7 % 35.0-73.0 LYMPH % (test code=LY%) 14.5 % 20.0-55.0 MONO % (test code=MO%) 9.1 % 2.5-10.0 EOSINOPH % (test code=EO%) 0.1 % 0.0-5.0 BASOPHIL % (test code=BA%) 0.3 % 0.0-2.0 IG % (test code=IG%) 1.3 % 0.0-0.8 NRBC% (test code=NRBC%) 0.0 % 0.0-0.2 MANDIFF (test code=MDIFF) NO NO RBC MORPH (test code=RBCMOR) NORMAL BASIC METABOLIC [id number] 05:58:00 Test Item Value Reference Range Comments GLUCOSE (test code=06D) 127 mg/dL 75-100 SODIUM (test code=01A) 135 mmol/L 136-145 POTASSIUM (test code=01B) 3.9 mmol/L 3.6-5.1 CHLORIDE (test code=04A) 100 mmol/L 98-107 CO2 (test code=02A) 29 mmol/L 22-32 ANION GAP (test code=ANG) 9.9 mmol/L BUN (test code=05D) 46 mg/dL 7-18 CREATININE (test code=03E) 1.1 mg/dL 0.4-1.1 BUN/CREA (test code=BCR) 42 12-20 CALCIUM (test code=09D) 9.0 mg/dL 8.3-9.5 GLUCOMETER GLUCOSE- LAB USE [id number] 20:40:00 Test Item Value Reference Range Comments GLUCOMETER (test code=GMG) 179 mg/dL 70-100 Meter ID: [id number]: 34[address] G[address] CADE LACTIC [id number] 16:09:00 Test Item Value Reference Range Comments LACTIC ACD (test code=LA) 1.5 mmol/L 0.4-2.0 GLUCOMETER GLUCOSE- LAB USE [id number] 16:03:00 Test Item Value Reference Range Comments GLUCOMETER (test code=GMG) 161 mg/dL 70-100 Meter ID: [id number]: 5354 [facility] CHEST W/O [id number] 13:58:45CT chest without contrastLocation Code: [id number] HISTORY: CoughCOMPARISON: NoneTechnique: Helical CT of the chest was performed without contrast. Thin sectionaxial, sagittal and coronal images were obtained. Automatic exposure controlwas utilized. Total DLP: 845 mGycmFINDINGS: Mild atelectasis is present within the lung bases. The lungs are otherwiseclear. There is no nodule, mass, consolidation or effusion. The central airwaysare patent. There is no mediastinal, hilar, or axillary adenopathy. There is no pericardialeffusion. The heart is mildly enlarged atherosclerotic calcifications are notedthroughout the coronary vessels and at the aortic arch. There is no mediastinalhematoma or fluid collection.The left kidney is markedly atrophic. Images through the upper abdomen areotherwise unremarkable.There are chronic appearing compression fractures involving T7, T9 , and L1.There is no visualized acute appearing compression fracture. The skin andsurrounding soft tissues are unremarkable.IMPRESSION:1. No acute intrathoracic abnormality.2. Mild cardiomegaly with coronary and aortic atherosclerosis.3. Multiple chronic-appearing thoracic compression fractures.4. Left renal atrophy.GLUCOMETER GLUCOSE- LAB USE [id number] 11:50:00 Test Item Value Reference Range Comments GLUCOMETER (test code=GMG) 193 mg/dL 70-100 DAILY MAINTENANCEMeter ID: [id number]: 5354 [facility] BASIC METABOLIC [id number] 06:24:00 Test Item Value Reference Range Comments GLUCOSE (test code=06D) 146 mg/dL 75-100 SODIUM (test code=01A) 135 mmol/L 136-145 POTASSIUM (test code=01B) 4.8 mmol/L 3.6-5.1 CHLORIDE (test code=04A) 97 mmol/L 98-107 CO2 (test code=02A) 29 mmol/L 22-32 ANION GAP (test code=ANG) 13.8 mmol/L BUN (test code=05D) 62 mg/dL 7-18 CREATININE (test code=03E) 1.5 mg/dL 0.4-1.1 BUN/CREA (test code=BCR) 41 12-20 CALCIUM (test code=09D) 8.6 mg/dL 8.3-9.5 GLUCOMETER GLUCOSE- LAB USE [id number] 05:53:00 Test Item Value Reference Range Comments GLUCOMETER (test code=GMG) 161 mg/dL 70-100 CLEANED METERMeter ID: [id number]: 4538 CHAGO VÁSQUEZ CBC (INCLUDES AUTOMATED DIFFERENTIAL)2017-12-26 05:05:00 Test Item Value Reference Range Comments WBC (test code=WBC) 23.6 10\S\3/uL 4.5-11.0 RBC (test code=RBC) 4.59 10\S\6/uL 3.80-5.80 HGB (test code=HBG) 14.6 g/dL 12.0-15.5 HCT (test code=HCT) 44.0 % 35.0-44.0 MCV (test code=MCV) 95.9 fL 81.0-99.0 MCH (test code=MCH) 31.8 pg 27.0-31.0 MCHC (test code=MCHC) 33.2 g/dL 32.0-36.0 RDW (test code=RDW) 13.8 % 11.5-14.5 PLT (test code=PLT) 313 10\S\3/uL 130-400 MPV (test code=MPV) 10.8 fL 9.4-12.4 NEUTROP # (test code=NE#) 16.5 10\S\3/uL 1.6-8.0 LYMPH # (test code=LY#) 4.4 10\S\3/uL 1.1-3.5 MONOCYTE # (test code=MO#) 2.0 10\S\3/uL 0.0-1.1 EOSINOPH # (test code=EO#) 0.1 10\S\3/uL 0.0-0.7 BASOPHIL # (test code=BA#) 0.1 10\S\3/uL 0.0-0.3 IG # (test code=IG#) 0.41 10\S\3/uL 0.00-0.06 NRBC # (test code=NRBC#) 0.00 10\S\3/uL 0.00-0.01 NEUTROPH % (test code=NE%) 70.1 % 35.0-73.0 LYMPH % (test code=LY%) 18.7 % 20.0-55.0 MONO % (test code=MO%) 8.4 % 2.5-10.0 EOSINOPH % (test code=EO%) 0.5 % 0.0-5.0 BASOPHIL % (test code=BA%) 0.6 % 0.0-2.0 IG % (test code=IG%) 1.7 % 0.0-0.8 NRBC% (test code=NRBC%) 0.0 % 0.0-0.2 MANDIFF (test code=MDIFF) NO NO RBC MORPH (test code=RBCMOR) NORMAL GLUCOMETER GLUCOSE- LAB USE [id number] 20:55:00 Test Item Value Reference Range Comments GLUCOMETER (test code=GMG) 164 mg/dL 70-100 Meter ID: [id number]: 4538 CHAGO CHOWDARYO GLUCOMETER GLUCOSE- LAB USE [id number] 15:37:00 Test Item Value Reference Range Comments GLUCOMETER (test code=GMG) 128 mg/dL 70-100 Meter ID: [id number]: 5354 [email or web address] GLUCOMETER GLUCOSE- LAB USE [id number] 11:57:00 Test Item Value Reference Range Comments GLUCOMETER (test code=GMG) 200 mg/dL 70-100 Meter ID: [id number]: 5354 [email or web address] GLUCOMETER GLUCOSE- LAB USE [id number] 08:24:00 Test Item Value Reference Range Comments GLUCOMETER (test code=GMG) 319 mg/dL 70-100 URINE [id number] 08:21:00 Test Item Value Reference Range Comments Culture Observations (test THREE OR MORE SPECIES OF code=COB1) BACTERIA ISOLATED. PROBABLE CONTAMINATION. Culture Observations (test IDENTIFICATION AND code=COB17) SUSCEPTIBILITY NOT INDICATED. RECOLLECTION RECOMMENDED CBC (INCLUDES AUTOMATED DIFFERENTIAL)2017-12-25 07:52:00 Test Item Value Reference Range Comments WBC (test code=WBC) 20.3 10\S\3/uL 4.5-11.0 RBC (test code=RBC) 4.27 10\S\6/uL 3.80-5.80 HGB (test code=HBG) 14.0 g/dL 12.0-15.5 HCT (test code=HCT) 42.1 % 35.0-44.0 MCV (test code=MCV) 98.6 fL 81.0-99.0 MCH (test code=MCH) 32.8 pg 27.0-31.0 MCHC (test code=MCHC) 33.3 g/dL 32.0-36.0 RDW (test code=RDW) 14.3 % 11.5-14.5 PLT (test code=PLT) 251 10\S\3/uL 130-400 MPV (test code=MPV) 10.8 fL 9.4-12.4 NEUTROP # (test code=NE#) 15.8 10\S\3/uL 1.6-8.0 LYMPH # (test code=LY#) 2.4 10\S\3/uL 1.1-3.5 MONOCYTE # (test code=MO#) 1.6 10\S\3/uL 0.0-1.1 EOSINOPH # (test code=EO#) 0.0 10\S\3/uL 0.0-0.7 BASOPHIL # (test code=BA#) 0.1 10\S\3/uL 0.0-0.3 IG # (test code=IG#) 0.40 10\S\3/uL 0.00-0.06 NRBC # (test code=NRBC#) 0.00 10\S\3/uL 0.00-0.01 NEUTROPH % (test code=NE%) 77.6 % 35.0-73.0 LYMPH % (test code=LY%) 11.6 % 20.0-55.0 MONO % (test code=MO%) 8.1 % 2.5-10.0 EOSINOPH % (test code=EO%) 0.0 % 0.0-5.0 BASOPHIL % (test code=BA%) 0.7 % 0.0-2.0 IG % (test code=IG%) 2.0 % 0.0-0.8 NRBC% (test code=NRBC%) 0.0 % 0.0-0.2 MANDIFF (test code=MDIFF) NO NO RBC MORPH (test code=RBCMOR) NORMAL U/S KIDNEY (RENAL)2017-12-25 07:22:26Renal ultrasound bilateralHISTORY: Altered mental statusLocation: L1 1COMMENT: Real-time sonographicimages of both kidneys reveals normal sizekidneys bilaterally with right kidney measuring 10.7 x 4.4x 4.4 and the leftkidney is only partially seen due to bowel gas. No hydronephrosis orhydroureter ispresent in either kidney. No abnormal masses are associated withthe right kidney. The visualized portions of the left kidney are unremarkable.A Silver catheter is present in the urinary bladder bladder is decompressed.IMPRESSION: No hydronephrosis or hydroureter. The right kidney is unremarkable.Left kidney is poorly seen due to bowel gas. Silver catheter in place.GLUCOMETER GLUCOSE- LAB USE [id number] 04:56:00 Test Item Value Reference Range Comments GLUCOMETER (test code=GMG) 120 mg/dL 70-100 CLEANED METERMeter ID: [id number]: 9250 [facility] BASIC METABOLIC [id number] 00:58:00 Test Item Value Reference Range Comments GLUCOSE (test code=06D) 165 mg/dL 75-100 SODIUM (test code=01A) 132 mmol/L 136-145 POTASSIUM (test code=01B) 4.7 mmol/L 3.6-5.1 CHLORIDE (test code=04A) 93 mmol/L 98-107 CO2 (test code=02A) 34 mmol/L 22-32 ANION GAP (test code=ANG) 9.7 mmol/L BUN (test code=05D) 91 mg/dL 7-18 CREATININE (test code=03E) 2.1 mg/dL 0.4-1.1 BUN/CREA (test code=BCR) 43 12-20 CALCIUM (test code=09D) 8.9 mg/dL 8.3-9.5 XR CHEST 2 [id number] 21:57:12LOCATION: [id number]: 82-year-old female who presents with a cough.COMMENT:Frontal and lateral chestradiographs are compared to a prior study of12/18/17.Patchy atelectasis is seen in the lung bases. The cardiac silhouette is mildlyenlarged with a left ventricular configuration. A mildly prominent aortic archis again noted. The skeleton and soft tissues are unremarkable.monitoring specialist leads are present.IMPRESSION:Patchy atelectasis is seen in this patient's lung bases.CT HEAD W/O [id number] 21:47: 34LOCATION: [id number]: 82-year-old female who presents with alteration of awareness.COMMENT: Axial imaging of the patient's brain was obtained without IV contrast. Softtissue and bone window images were provided. Coronal and sagittalreconstructions were included.The study was obtained while the patient was hospitalized.One or more of the following dose reduction techniques were used: Automatedexposure control, adjustment of the mA and/or kV according to patient size,and/or utilization of iterative reconstruction technique.DLP: 885 mGy-cmCONTRAST: None.FINDINGS:There is no evidence of acute mass effect, midline shift, hemorrhage, orherniation. The ventricles, sulci, and cisterns are within normal limits. Thereis no CT evidence of an acute infarct.The skeleton is intact. The visualized paranasalsinuses and air cells areclear. The soft tissues are unremarkable.IMPRESSION: Unremarkable noncontrast head CT examination.GLUCOMETER GLUCOSE- LAB USE [id number] 16:32:00 Test Item Value Reference Range Comments GLUCOMETER (test code=GMG) 131 mg/dL 70-100 CLEANED METERMeter ID: [id number]: 4941 MARLEEN PATINO GLUCOMETER GLUCOSE- LAB USE [id number] 11:21:00 Test Item Value Reference Range Comments GLUCOMETER (test code=GMG) 215 mg/dL 70-100 CLEANED METERMeter ID: [id number]: 2471 FRANCIS PATHAK GLUCOMETER GLUCOSE- LAB USE [id number] 08:25:00 Test Item Value Reference Range Comments GLUCOMETER (test code=GMG) 173 mg/dL 70-100 CLEANED METERMeter ID: [id number]: 2471 FRANCIS PATHAK COMPREHENSIVE METABOLIC [id number] 06:35:00 Test Item Value Reference Range Comments GLUCOSE (test code=06D) 137 mg/dL 75-100 SODIUM (test code=01A) 135 mmol/L 136-145 POTASSIUM (test code=01B) 4.1 mmol/L 3.6-5.1 CHLORIDE (test code=04A) 92 mmol/L 98-107 CO2 (test code=02A) 35 mmol/L 22-32 ANION GAP (test code=ANG) 12.1 mmol/L BUN (test code=05D) 94 mg/dL 7-18 CREATININE (test code=03E) 2.0 mg/dL 0.4-1.1 BUN/CREA (test code=BCR) 47 12-20 CALCIUM (test code=09D) 8.9 mg/dL 8.3-9.5 BILI TOTAL (test code=11A) 0.8 mg/dL 0.2-1.0 PROTEIN (test code=07D) 6.6 g/dL 6.4-8.2 ALBUMIN (test code=08D) 2.9 g/dL 3.5-4.8 GLOBULIN (test code=GLB) 3.7 g/dL 1.5-3.8 ALB/GLOB (test code=AGRR) 0.8 1.0-2.6 ALK PHOS (test code=35A) 108 IU/L 42-121 AST (test code=30A) 16 IU/L <=42 ALT (test code=31A) 19 IU/L <=78 CBC (INCLUDES AUTOMATED DIFFERENTIAL)2017-12-24 06:17:00 Test Item Value Reference Range Comments WBC (test code=WBC) 21.3 10\S\3/uL 4.5-11.0 RBC (test code=RBC) 4.25 10\S\6/uL 3.80-5.80 HGB (test code=HBG) 13.3 g/dL 12.0-15.5 HCT (test code=HCT) 40.7 % 35.0-44.0 MCV (test code=MCV) 95.8 fL 81.0-99.0 MCH (test code=MCH) 31.3 pg 27.0-31.0 MCHC (test code=MCHC) 32.7 g/dL 32.0-36.0 RDW (test code=RDW) 14.1 % 11.5-14.5 PLT (test code=PLT) 370 10\S\3/uL 130-400 MPV (test code=MPV) 10.9 fL 9.4-12.4 NEUTROP # (test code=NE#) 16.9 10\S\3/uL 1.6-8.0 LYMPH # (test code=LY#) 2.1 10\S\3/uL 1.1-3.5 MONOCYTE # (test code=MO#) 1.7 10\S\3/uL 0.0-1.1 EOSINOPH # (test code=EO#) 0.0 10\S\3/uL 0.0-0.7 BASOPHIL # (test code=BA#) 0.1 10\S\3/uL 0.0-0.3 IG # (test code=IG#) 0.58 10\S\3/uL 0.00-0.06 NRBC # (test code=NRBC#) 0.00 10\S\3/uL 0.00-0.01 NEUTROPH % (test code=NE%) 79.1 % 35.0-73.0 LYMPH % (test code=LY%) 9.8 % 20.0-55.0 MONO % (test code=MO%) 8.0 % 2.5-10.0 EOSINOPH % (test code=EO%) 0.0 % 0.0-5.0 BASOPHIL % (test code=BA%) 0.4 % 0.0-2.0 IG % (test code=IG%) 2.7 % 0.0-0.8 NRBC% (test code=NRBC%) 0.0 % 0.0-0.2 MANDIFF (test code=MDIFF) NO NO RBC MORPH (test code=RBCMOR) NORMAL GLUCOMETER GLUCOSE- LAB USE [id number] 20:09:00 Test Item Value Reference Range Comments GLUCOMETER (test code=GMG) 258 mg/dL 70-100 Meter ID: [id number]: [address] GORGE CADE GLUCOMETER GLUCOSE- LAB USE [id number] 16:29:00 Test Item Value Reference Range Comments GLUCOMETER (test code=GMG) 210 mg/dL 70-100 CLEANED METERMeter ID: [id number]: 39[address] DANN SHINE [id number] 15:07:00 Test Item Value Reference Range Comments COLOR (test code=COLU) YELLOW YELLOW CLARITY (test code=CLA) CLEAR CLEAR GLUCOSE UR (test code=UA GLUCOSE) NEGATIVE NEGATIVE BILI UR (test code=BILE) NEGATIVE NEGATIVE KETONES UR (test code=MAINE) NEGATIVE NEGATIVE SP GRAVITY (test code=SPGR) 1.010 1.005-1.030 PH UR (test code=PH) 6.0 4.5-8.0 PROTEIN UR (test code=PU) NEGATIVE NEGATIVE UROBIL UR (test code=UROQ) 0.2 EU/dL 0.2-1.0 NITRITE UR (test code=NITRITE) NEGATIVE NEGATIVE BLOOD UR (test code=UA BLOOD) NEGATIVE NEGATIVE LEUK ES UR (test code=LEUK) NEGATIVE NEGATIVE GLUCOMETER GLUCOSE- LAB USE [id number] 11:45:00 Test Item Value Reference Range Comments GLUCOMETER (test code=GMG) 239 mg/dL 70-100 CLEANED METERMeter ID: [id number]: 39[address] DANN SHINE GLUCOMETER GLUCOSE- LAB USE [id number] 07:56:00 Test Item Value Reference Range Comments GLUCOMETER (test code=GMG) 118 mg/dL 70-100 CLEANED METERMeter ID: [id number]: 39[address] DANN SHINE GLUCOMETER GLUCOSE- LAB USE [id number] 20:43:00 Test Item Value Reference Range Comments GLUCOMETER (test code=GMG) 203 mg/dL 70-100 Meter ID: [id number]: 9130 RUIZ FERMIN GLUCOMETER GLUCOSE- LAB USE [id number] 16:44:00 Test Item Value Reference Range Comments GLUCOMETER (test code=GMG) 168 mg/dL 70-100 CLEANED METERMeter ID: [id number]: 3953 RAINA CRAVEN GLUCOMETER GLUCOSE- LAB USE [id number] 11:39:00 Test Item Value Reference Range Comments GLUCOMETER (test code=GMG) 245 mg/dL 70-100 CLEANED METERMeter ID: [id number]: 39[address] DANN SHINE GLUCOMETER GLUCOSE- LAB USE [id number] 07:55:00 Test Item Value Reference Range Comments GLUCOMETER (test code=GMG) 96 mg/dL 70-100 CLEANED METERMeter ID: [id number]: 39[address] DANN SHINE COMPREHENSIVE METABOLIC [id number] 06:23:00 Test Item Value Reference Range Comments GLUCOSE (test code=06D) 101 mg/dL 75-100 SODIUM (test code=01A) 134 mmol/L 136-145 POTASSIUM (test code=01B) 4.4 mmol/L 3.6-5.1 CHLORIDE (test code=04A) 93 mmol/L 98-107 CO2 (test code=02A) 34 mmol/L 22-32 ANION GAP (test code=ANG) 11.4 mmol/L BUN (test code=05D) 63 mg/dL 7-18 CREATININE (test code=03E) 1.7 mg/dL 0.4-1.1 BUN/CREA (test code=BCR) 37 12-20 CALCIUM (test code=09D) 8.8 mg/dL 8.3-9.5 BILI TOTAL (test code=11A) 0.6 mg/dL 0.2-1.0 PROTEIN (test code=07D) 6.9 g/dL 6.4-8.2 ALBUMIN (test code=08D) 3.1 g/dL 3.5-4.8 GLOBULIN (test code=GLB) 3.8 g/dL 1.5-3.8 ALB/GLOB (test code=AGRR) 0.8 1.0-2.6 ALK PHOS (test code=35A) 96 IU/L 42-121 AST (test code=30A) 16 IU/L <=42 ALT (test code=31A) 24 IU/L <=78 CBC (INCLUDES AUTOMATED DIFFERENTIAL)2017-12-22 06:10:00 Test Item Value Reference Range Comments WBC (test code=WBC) 23.7 10\S\3/uL 4.5-11.0 RBC (test code=RBC) 4.19 10\S\6/uL 3.80-5.80 HGB (test code=HBG) 13.5 g/dL 12.0-15.5 HCT (test code=HCT) 39.8 % 35.0-44.0 MCV (test code=MCV) 95.0 fL 81.0-99.0 MCH (test code=MCH) 32.2 pg 27.0-31.0 MCHC (test code=MCHC) 33.9 g/dL 32.0-36.0 RDW (test code=RDW) 13.7 % 11.5-14.5 PLT (test code=PLT) 382 10\S\3/uL 130-400 MPV (test code=MPV) 10.7 fL 9.4-12.4 NEUTROP # (test code=NE#) 18.2 10\S\3/uL 1.6-8.0 LYMPH # (test code=LY#) 3.1 10\S\3/uL 1.1-3.5 MONOCYTE # (test code=MO#) 1.7 10\S\3/uL 0.0-1.1 EOSINOPH # (test code=EO#) 0.0 10\S\3/uL 0.0-0.7 BASOPHIL # (test code=BA#) 0.1 10\S\3/uL 0.0-0.3 IG # (test code=IG#) 0.66 10\S\3/uL 0.00-0.06 NRBC # (test code=NRBC#) 0.00 10\S\3/uL 0.00-0.01 NEUTROPH % (test code=NE%) 76.7 % 35.0-73.0 LYMPH % (test code=LY%) 12.9 % 20.0-55.0 MONO % (test code=MO%) 7.1 % 2.5-10.0 EOSINOPH % (test code=EO%) 0.0 % 0.0-5.0 BASOPHIL % (test code=BA%) 0.5 % 0.0-2.0 IG % (test code=IG%) 2.8 % 0.0-0.8 NRBC% (test code=NRBC%) 0.0 % 0.0-0.2 MANDIFF (test code=MDIFF) NO NO RBC MORPH (test code=RBCMOR) NORMAL GLUCOMETER GLUCOSE- LAB USE [id number] 22:14:00 Test Item Value Reference Range Comments GLUCOMETER (test code=GMG) 214 mg/dL 70-100 Meter ID: [id number]: [address] GORGE CADE GLUCOMETER GLUCOSE- LAB USE [id number] 16:35:00 Test Item Value Reference Range Comments GLUCOMETER (test code=GMG) 181 mg/dL 70-100 CLEANED METERMeter ID: [id number]: 3950 DANN SHINE GLUCOMETER GLUCOSE- LAB USE [id number] 11:22:00 Test Item Value Reference Range Comments GLUCOMETER (test code=GMG) 222 mg/dL 70-100 CLEANED METERMeter ID: [id number]: 39[address] DANN SHINE GLUCOMETER GLUCOSE- LAB USE [id number] 07:59:00 Test Item Value Reference Range Comments GLUCOMETER (test code=GMG) 142 mg/dL 70-100 CLEANED METERMeter ID: [id number]: 39[address] DANN SHINE GLUCOMETER GLUCOSE- LAB USE [id number] 19:57:00 Test Item Value Reference Range Comments GLUCOMETER (test code=GMG) 222 mg/dL 70-100 Meter ID: [id number]: 4233 CYNTHIA BAHENAIOAmy GLUCOMETER GLUCOSE- LAB USE [id number] 16:10:00 Test Item Value Reference Range Comments GLUCOMETER (test code=GMG) 196 mg/dL 70-100 Meter ID: [id number]: 5231 [facility] GLUCOMETER GLUCOSE- LAB USE [id number] 12:19:00 Test Item Value Reference Range Comments GLUCOMETER (test code=GMG) 144 mg/dL 70-100 Meter ID: [id number]: 5231 [facility] COMPREHENSIVE METABOLIC [id number] 04:45:00 Test Item Value Reference Range Comments GLUCOSE (test code=06D) 142 mg/dL 75-100 SODIUM (test code=01A) 136 mmol/L 136-145 POTASSIUM (test code=01B) 4.4 mmol/L 3.6-5.1 CHLORIDE (test code=04A) 98 mmol/L 98-107 CO2 (test code=02A) 32 mmol/L 22-32 ANION GAP (test code=ANG) 10.4 mmol/L BUN (test code=05D) 48 mg/dL 7-18 CREATININE (test code=03E) 1.3 mg/dL 0.4-1.1 BUN/CREA (test code=BCR) 38 12-20 CALCIUM (test code=09D) 8.9 mg/dL 8.3-9.5 BILI TOTAL (test code=11A) 1.1 mg/dL 0.2-1.0 PROTEIN (test code=07D) 6.6 g/dL 6.4-8.2 ALBUMIN (test code=08D) 2.8 g/dL 3.5-4.8 GLOBULIN (test code=GLB) 3.8 g/dL 1.5-3.8 ALB/GLOB (test code=AGRR) 0.7 1.0-2.6 ALK PHOS (test code=35A) 91 IU/L 42-121 AST (test code=30A) 18 IU/L <=42 ALT (test code=31A) 28 IU/L <=78 CBC (INCLUDES AUTOMATED DIFFERENTIAL)2017-12-20 04:34:00 Test Item Value Reference Range Comments WBC (test code=WBC) 15.3 10\S\3/uL 4.5-11.0 RBC (test code=RBC) 4.07 10\S\6/uL 3.80-5.80 HGB (test code=HBG) 12.8 g/dL 12.0-15.5 HCT (test code=HCT) 38.4 % 35.0-44.0 MCV (test code=MCV) 94.3 fL 81.0-99.0 MCH (test code=MCH) 31.4 pg 27.0-31.0 MCHC (test code=MCHC) 33.3 g/dL 32.0-36.0 RDW (test code=RDW) 13.5 % 11.5-14.5 PLT (test code=PLT) 355 10\S\3/uL 130-400 MPV (test code=MPV) 10.5 fL 9.4-12.4 NEUTROP # (test code=NE#) 12.0 10\S\3/uL 1.6-8.0 LYMPH # (test code=LY#) 2.1 10\S\3/uL 1.1-3.5 MONOCYTE # (test code=MO#) 0.8 10\S\3/uL 0.0-1.1 EOSINOPH # (test code=EO#) 0.0 10\S\3/uL 0.0-0.7 BASOPHIL # (test code=BA#) 0.1 10\S\3/uL 0.0-0.3 IG # (test code=IG#) 0.36 10\S\3/uL 0.00-0.06 NRBC # (test code=NRBC#) 0.00 10\S\3/uL 0.00-0.01 NEUTROPH % (test code=NE%) 78.4 % 35.0-73.0 LYMPH % (test code=LY%) 13.4 % 20.0-55.0 MONO % (test code=MO%) 5.2 % 2.5-10.0 EOSINOPH % (test code=EO%) 0.1 % 0.0-5.0 BASOPHIL % (test code=BA%) 0.5 % 0.0-2.0 IG % (test code=IG%) 2.4 % 0.0-0.8 NRBC% (test code=NRBC%) 0.0 % 0.0-0.2 MANDIFF (test code=MDIFF) NO NO RBC MORPH (test code=RBCMOR) NORMAL GLUCOMETER GLUCOSE- LAB USE [id number] 20:58:00 Test Item Value Reference Range Comments GLUCOMETER (test code=GMG) 168 mg/dL 70-100 Meter ID: [id number]: [id number] [facility] JAY GLUCOMETER GLUCOSE- LAB USE [id number] 15:23:00 Test Item Value Reference Range Comments GLUCOMETER (test code=GMG) 225 mg/dL 70-100 CLEANED METERMeter ID: [id number]: [id number] [facility] GLUCOMETER GLUCOSE- LAB USE [id number] 11:46:00 Test Item Value Reference Range Comments GLUCOMETER (test code=GMG) 145 mg/dL 70-100 CLEANED METERMeter ID: [id number]: [id number] [facility] BASIC METABOLIC [id number] 07:03:00 Test Item Value Reference Range Comments GLUCOSE (test code=06D) 111 mg/dL 75-100 SODIUM (test code=01A) 137 mmol/L 136-145 POTASSIUM (test code=01B) 4.2 mmol/L 3.6-5.1 CHLORIDE (test code=04A) 99 mmol/L 98-107 CO2 (test code=02A) 32 mmol/L 22-32 ANION GAP (test code=ANG) 10.2 mmol/L BUN (test code=05D) 49 mg/dL 7-18 CREATININE (test code=03E) 1.5 mg/dL 0.4-1.1 BUN/CREA (test code=BCR) 33 12-20 CALCIUM (test code=09D) 8.8 mg/dL 8.3-9.5 CBC (INCLUDES AUTOMATED DIFFERENTIAL)2017-12-19 06:45:00 Test Item Value Reference Range Comments WBC (test code=WBC) 17.1 10\S\3/uL 4.5-11.0 RBC (test code=RBC) 3.80 10\S\6/uL 3.80-5.80 HGB (test code=HBG) 12.1 g/dL 12.0-15.5 HCT (test code=HCT) 36.2 % 35.0-44.0 MCV (test code=MCV) 95.3 fL 81.0-99.0 MCH (test code=MCH) 31.8 pg 27.0-31.0 MCHC (test code=MCHC) 33.4 g/dL 32.0-36.0 RDW (test code=RDW) 14.1 % 11.5-14.5 PLT (test code=PLT) 320 10\S\3/uL 130-400 MPV (test code=MPV) 11.0 fL 9.4-12.4 NEUTROP # (test code=NE#) 12.0 10\S\3/uL 1.6-8.0 LYMPH # (test code=LY#) 3.0 10\S\3/uL 1.1-3.5 MONOCYTE # (test code=MO#) 1.6 10\S\3/uL 0.0-1.1 EOSINOPH # (test code=EO#) 0.0 10\S\3/uL 0.0-0.7 BASOPHIL # (test code=BA#) 0.1 10\S\3/uL 0.0-0.3 IG # (test code=IG#) 0.41 10\S\3/uL 0.00-0.06 NRBC # (test code=NRBC#) 0.00 10\S\3/uL 0.00-0.01 NEUTROPH % (test code=NE%) 70.3 % 35.0-73.0 LYMPH % (test code=LY%) 17.3 % 20.0-55.0 MONO % (test code=MO%) 9.2 % 2.5-10.0 EOSINOPH % (test code=EO%) 0.2 % 0.0-5.0 BASOPHIL % (test code=BA%) 0.6 % 0.0-2.0 IG % (test code=IG%) 2.4 % 0.0-0.8 NRBC% (test code=NRBC%) 0.0 % 0.0-0.2 MANDIFF (test code=MDIFF) NO NO RBC MORPH (test code=RBCMOR) NORMAL GLUCOMETER GLUCOSE- LAB USE [id number] 05:44:00 Test Item Value Reference Range Comments GLUCOMETER (test code=GMG) 116 mg/dL 70-100 CLEANED METERMeter ID: [id number]: [id number] [facility] GLUCOMETER GLUCOSE- LAB USE [id number] 20:45:00 Test Item Value Reference Range Comments GLUCOMETER (test code=GMG) 188 mg/dL 70-100 CLEANED METERMeter ID: [id number]: [id number] [facility] GLUCOMETER GLUCOSE- LAB USE [id number] 15:49:00 Test Item Value Reference Range Comments GLUCOMETER (test code=GMG) 262 mg/dL 70-100 CLEANED METERMeter ID: [id number]: [id number] [facility] GLUCOMETER GLUCOSE- LAB USE [id number] 10:35:00 Test Item Value Reference Range Comments GLUCOMETER (test code=GMG) 173 mg/dL 70-100 CLEANED METERMeter ID: [id number]: [id number] [facility] XR CHEST 1 VIEW [id number] 08:15:56Portable AP chest, 1 viewLocation Code: [id number] HISTORY: R05: COUGHCOMPARISON: 12/16/17COMMENT: The heart size is enlarged with diffuse pulmonary edema pattern along withpatchy bibasilar infiltratesand effusions, greatest in the left lung basewithout significant interval change.IMPRESSION: No significant change in CHF with bibasilar infiltrates andeffusions, greatest on the left.CBC (INCLUDES AUTOMATED DIFFERENTIAL)2017-12-18 07:15:00 Test Item Value Reference Range Comments WBC (test code=WBC) 14.3 10\S\3/uL 4.5-11.0 RBC (test code=RBC) 3.56 10\S\6/uL 3.80-5.80 HGB (test code=HBG) 11.4 g/dL 12.0-15.5 HCT (test code=HCT) 34.5 % 35.0-44.0 MCV (test code=MCV) 96.9 fL 81.0-99.0 MCH (test code=MCH) 32.0 pg 27.0-31.0 MCHC (test code=MCHC) 33.0 g/dL 32.0-36.0 RDW (test code=RDW) 14.2 % 11.5-14.5 PLT (test code=PLT) 273 10\S\3/uL 130-400 MPV (test code=MPV) 11.0 fL 9.4-12.4 NEUTROP # (test code=NE#) 10.1 10\S\3/uL 1.6-8.0 LYMPH # (test code=LY#) 2.4 10\S\3/uL 1.1-3.5 MONOCYTE # (test code=MO#) 1.3 10\S\3/uL 0.0-1.1 EOSINOPH # (test code=EO#) 0.0 10\S\3/uL 0.0-0.7 BASOPHIL # (test code=BA#) 0.0 10\S\3/uL 0.0-0.3 IG # (test code=IG#) 0.34 10\S\3/uL 0.00-0.06 NRBC # (test code=NRBC#) 0.00 10\S\3/uL 0.00-0.01 NEUTROPH % (test code=NE%) 70.9 % 35.0-73.0 LYMPH % (test code=LY%) 16.9 % 20.0-55.0 MONO % (test code=MO%) 9.4 % 2.5-10.0 EOSINOPH % (test code=EO%) 0.1 % 0.0-5.0 BASOPHIL % (test code=BA%) 0.3 % 0.0-2.0 IG % (test code=IG%) 2.4 % 0.0-0.8 NRBC% (test code=NRBC%) 0.0 % 0.0-0.2 MANDIFF (test code=MDIFF) NO NO RBC MORPH (test code=RBCMOR) NORMAL BASIC METABOLIC [id number] 07:04:00 Test Item Value Reference Range Comments GLUCOSE (test code=06D) 107 mg/dL 75-100 SODIUM (test code=01A) 140 mmol/L 136-145 POTASSIUM (test code=01B) 4.4 mmol/L 3.6-5.1 CHLORIDE (test code=04A) 105 mmol/L 98-107 CO2 (test code=02A) 32 mmol/L 22-32 ANION GAP (test code=ANG) 7.4 mmol/L BUN (test code=05D) 39 mg/dL 7-18 CREATININE (test code=03E) 1.2 mg/dL 0.4-1.1 BUN/CREA (test code=BCR) 32 12-20 CALCIUM (test code=09D) 8.9 mg/dL 8.3-9.5 GLUCOMETER GLUCOSE- LAB USE [id number] 05:39:00 Test Item Value Reference Range Comments GLUCOMETER (test code=GMG) 115 mg/dL 70-100 CLEANED METERMeter ID: [id number]: [id number] SHAN REKHA GLUCOMETER GLUCOSE- LAB USE [id number] 19:48:00 Test Item Value Reference Range Comments GLUCOMETER (test code=GMG) 171 mg/dL 70-100 CLEANED METERMeter ID: [id number]: [id number] SHAN ERKHA GLUCOMETER GLUCOSE- LAB USE [id number] 15:46:00 Test Item Value Reference Range Comments GLUCOMETER (test code=GMG) 269 mg/dL 70-100 CLEANED METERMeter ID: [id number]: [id number] STEVEN SHEEHAN GLUCOMETER GLUCOSE- LAB USE [id number] 11:10:00 Test Item Value Reference Range Comments GLUCOMETER (test code=GMG) 174 mg/dL 70-100 CLEANED METERMeter ID: [id number]: [id number] STEVEN SHEEHAN CBC (INCLUDES AUTOMATED DIFFERENTIAL)2017-12-17 06:07:00 Test Item Value Reference Range Comments WBC (test code=WBC) 17.9 10\S\3/uL 4.5-11.0 RBC (test code=RBC) 3.69 10\S\6/uL 3.80-5.80 HGB (test code=HBG) 11.8 g/dL 12.0-15.5 HCT (test code=HCT) 35.9 % 35.0-44.0 MCV (test code=MCV) 97.3 fL 81.0-99.0 MCH (test code=MCH) 32.0 pg 27.0-31.0 MCHC (test code=MCHC) 32.9 g/dL 32.0-36.0 RDW (test code=RDW) 14.1 % 11.5-14.5 PLT (test code=PLT) 274 10\S\3/uL 130-400 MPV (test code=MPV) 10.7 fL 9.4-12.4 NEUTROP # (test code=NE#) 13.5 10\S\3/uL 1.6-8.0 LYMPH # (test code=LY#) 2.5 10\S\3/uL 1.1-3.5 MONOCYTE # (test code=MO#) 1.7 10\S\3/uL 0.0-1.1 EOSINOPH # (test code=EO#) 0.0 10\S\3/uL 0.0-0.7 BASOPHIL # (test code=BA#) 0.0 10\S\3/uL 0.0-0.3 IG # (test code=IG#) 0.19 10\S\3/uL 0.00-0.06 NRBC # (test code=NRBC#) 0.00 10\S\3/uL 0.00-0.01 NEUTROPH % (test code=NE%) 74.9 % 35.0-73.0 LYMPH % (test code=LY%) 14.2 % 20.0-55.0 MONO % (test code=MO%) 9.5 % 2.5-10.0 EOSINOPH % (test code=EO%) 0.1 % 0.0-5.0 BASOPHIL % (test code=BA%) 0.2 % 0.0-2.0 IG % (test code=IG%) 1.1 % 0.0-0.8 NRBC% (test code=NRBC%) 0.0 % 0.0-0.2 MANDIFF (test code=MDIFF) NO NO RBC MORPH (test code=RBCMOR) NORMAL BASIC METABOLIC [id number] 06:06:00 Test Item Value Reference Range Comments GLUCOSE (test code=06D) 124 mg/dL 75-100 SODIUM (test code=01A) 142 mmol/L 136-145 POTASSIUM (test code=01B) 4.2 mmol/L 3.6-5.1 CHLORIDE (test code=04A) 110 mmol/L 98-107 CO2 (test code=02A) 26 mmol/L 22-32 ANION GAP (test code=ANG) 10.2 mmol/L BUN (test code=05D) 37 mg/dL 7-18 CREATININE (test code=03E) 1.2 mg/dL 0.4-1.1 BUN/CREA (test code=BCR) 32 12-20 CALCIUM (test code=09D) 8.7 mg/dL 8.3-9.5 GLUCOMETER GLUCOSE- LAB USE [id number] 05:14:00 Test Item Value Reference Range Comments GLUCOMETER (test code=GMG) 129 mg/dL 70-100 Meter ID: [id number]: [id number] [facility] GLUCOMETER GLUCOSE- LAB USE [id number] 19:53:00 Test Item Value Reference Range Comments GLUCOMETER (test code=GMG) 128 mg/dL 70-100 Meter ID: [id number]: [id number] [facility] LUNG (V/Q ) SCAN W [id number] 19:30:38VENTILATION PERFUSION LUNG SCANLOCATION: [id number] INFORMATION: [id number]: DyspneaCOMPARISON STUDIES: Chest radiograph 12/16/2017DISCUSSION: Xenon-133 gas 12.5 mCi was administered via inhalation. Dynamicimages of the lungs in the posterior projection were obtained through singlebreath, equilibriumand washout phases. Distribution of radiotracer is normal.[place] is normal with mild air trapping.Perfusion images of the lungs in multiple projections were obtained followingintravenous administration of 5.8 mCi of Tc-99m MAA. Distribution of tracer isnormal throughout the lungs. There are no segmental perfusion defects of anysize. The contours of the lungs are well demarcated.The cardiac silhouette is unremarkable.IMPRESSION: Scan findings represent a LOW probability for acute pulmonary embolic disease.GLUCOMETER GLUCOSE- LAB USE [id number] 16:22:00 Test Item Value Reference Range Comments GLUCOMETER (test code=GMG) 199 mg/dL 70-100 Meter ID: [id number]: [id number] [id number] 11:29:00 Test Item Value Reference Range Comments GLUCOMETER (test code=GMG) 198 mg/dL 70-100 Meter ID: [id number]: [id number] ARIANA RAJU BASIC METABOLIC [id number] 07:10:00 Test Item Value Reference Range Comments GLUCOSE (test code=06D) 142 mg/dL 75-100 SODIUM (test code=01A) 138 mmol/L 136-145 POTASSIUM (test code=01B) 4.6 mmol/L 3.6-5.1 CHLORIDE (test code=04A) 109 mmol/L 98-107 CO2 (test code=02A) 20 mmol/L 22-32 ANION GAP (test code=ANG) 13.6 mmol/L BUN (test code=05D) 44 mg/dL 7-18 CREATININE (test code=03E) 1.3 mg/dL 0.4-1.1 BUN/CREA (test code=BCR) 35 12-20 CALCIUM (test code=09D) 8.3 mg/dL 8.3-9.5 XR CHEST 1 [id number] 07:03:23Portable AP chest, 1 viewLocation Code: [id number] HISTORY: [id number]: DyspneaCOMPARISON: 12/13/17COMMENT: Mild central congestion remains. There is slight worsening of bibasilarairspace disease with development of likely small effusions. Thecardiomediastinal silhouette is unchanged. There is no acute osseousabnormality.IMPRESSION: 1. Interval development of bibasilar atelectasis and/or pneumonia and likelysmall effusions.2. Cardiomegaly with mild central congestion.GLUCOMETER GLUCOSE- LAB USE [id number] 05:51:00 Test Item Value Reference Range Comments GLUCOMETER (test code=GMG) 145 mg/dL 70-100 CLEANED METERMeter ID: [id number]: [id number] JOVAN PATHAK CBC (INCLUDES AUTOMATED DIFFERENTIAL)2017-12-16 05:18:00 Test Item Value Reference Range Comments WBC (test code=WBC) 16.4 10\S\3/uL 4.5-11.0 RBC (test code=RBC) 3.59 10\S\6/uL 3.80-5.80 HGB (test code=HBG) 11.4 g/dL 12.0-15.5 HCT (test code=HCT) 34.9 % 35.0-44.0 MCV (test code=MCV) 97.2 fL 81.0-99.0 MCH (test code=MCH) 31.8 pg 27.0-31.0 MCHC (test code=MCHC) 32.7 g/dL 32.0-36.0 RDW (test code=RDW) 14.1 % 11.5-14.5 PLT (test code=PLT) 288 10\S\3/uL 130-400 MPV (test code=MPV) 10.7 fL 9.4-12.4 NEUTROP # (test code=NE#) 14.5 10\S\3/uL 1.6-8.0 LYMPH # (test code=LY#) 1.3 10\S\3/uL 1.1-3.5 MONOCYTE # (test code=MO#) 0.4 10\S\3/uL 0.0-1.1 EOSINOPH # (test code=EO#) 0.0 10\S\3/uL 0.0-0.7 BASOPHIL # (test code=BA#) 0.0 10\S\3/uL 0.0-0.3 IG # (test code=IG#) 0.20 10\S\3/uL 0.00-0.06 NRBC # (test code=NRBC#) 0.00 10\S\3/uL 0.00-0.01 NEUTROPH % (test code=NE%) 88.2 % 35.0-73.0 LYMPH % (test code=LY%) 7.9 % 20.0-55.0 MONO % (test code=MO%) 2.5 % 2.5-10.0 EOSINOPH % (test code=EO%) 0.0 % 0.0-5.0 BASOPHIL % (test code=BA%) 0.2 % 0.0-2.0 IG % (test code=IG%) 1.2 % 0.0-0.8 NRBC% (test code=NRBC%) 0.0 % 0.0-0.2 MANDIFF (test code=MDIFF) NO NO RBC MORPH (test code=RBCMOR) NORMAL GLUCOMETER GLUCOSE- LAB USE [id number] 19:53:00 Test Item Value Reference Range Comments GLUCOMETER (test code=GMG) 219 mg/dL 70-100 CLEANED METERMeter ID: [id number]: [id number] GRAEME RoomReveal GLUCOMETER GLUCOSE- LAB USE [id number] 16:11:00 Test Item Value Reference Range Comments GLUCOMETER (test code=GMG) 186 mg/dL 70-100 Meter ID: [id number]: 3966 ARIANA RAJU GLUCOMETER GLUCOSE- LAB USE [id number] 11:42:00 Test Item Value Reference Range Comments GLUCOMETER (test code=GMG) 145 mg/dL 70-100 Meter ID: [id number]: 3966 ARIANA RAJU CBC WITH MANUAL [id number] 07:49:00 Test Item Value Reference Range Comments WBC (test code=WBC) 17.6 10\S\3/uL 4.5-11.0 pt RBC (test code=RBC) 3.16 10\S\6/uL 3.80-5.80 HGB (test code=HBG) 10.3 g/dL 12.0-15.5 HCT (test code=HCT) 30.6 % 35.0-44.0 MCV (test code=MCV) 96.8 fL 81.0-99.0 MCH (test code=MCH) 32.6 pg 27.0-31.0 MCHC (test code=MCHC) 33.7 g/dL 32.0-36.0 RDW (test code=RDW) 13.9 % 11.5-14.5 PLT (test code=PLT) 242 10\S\3/uL 130-400 MPV (test code=MPV) 11.2 fL 9.4-12.4 NEUTROP # (test code=NE#) 15.2 10\S\3/uL 1.6-8.0 LYMPH # (test code=LY#) 1.4 10\S\3/uL 1.1-3.5 MONOCYTE # (test code=MO#) 0.8 10\S\3/uL 0.0-1.1 EOSINOPH # (test code=EO#) 0.0 10\S\3/uL 0.0-0.7 BASOPHIL # (test code=BA#) 0.0 10\S\3/uL 0.0-0.3 IG # (test code=IG#) 0.17 10\S\3/uL 0.00-0.06 NRBC # (test code=NRBC#) 0.00 10\S\3/uL 0.00-0.01 NEUTROPH % (test code=NE%) 86.2 % 35.0-73.0 LYMPH % (test code=LY%) 7.9 % 20.0-55.0 MONO % (test code=MO%) 4.7 % 2.5-10.0 EOSINOPH % (test code=EO%) 0.1 % 0.0-5.0 BASOPHIL % (test code=BA%) 0.1 % 0.0-2.0 IG % (test code=IG%) 1.0 % 0.0-0.8 NRBC% (test code=NRBC%) 0.0 % 0.0-0.2 MAN DIFF (test code=HMDIFF) MANUAL DIFFERENTIAL SEG (test code=SEG) 82 % 42-75 BAND (test code=BAND) 2 % 0-8 LYMPH (test code=LYMPH) 12 % 20-51 MONO (test code=MONO) 4 % 3-11 EOS (test code=EOS) 0 % 0-10 BASO (test code=BASO) 0 % 0-2 RBC MORPH (test code=RBCMORN) NORMAL NORMAL PLT EST (test code=PLTEST) ADEQUATE ADEQUATE PLT MORPH (test code=PLTMOR) NORMAL (1.5-3 um) NORMAL GLUCOMETER GLUCOSE- LAB USE [id number] 05:43:00 Test Item Value Reference Range Comments GLUCOMETER (test code=GMG) 172 mg/dL 70-100 CLEANED METERMeter ID: [id number]: 2417 GRAEME MOTA BASIC METABOLIC [id number] 05:30:00 Test Item Value Reference Range Comments GLUCOSE (test code=06D) 149 mg/dL 75-100 SODIUM (test code=01A) 139 mmol/L 136-145 POTASSIUM (test code=01B) 4.4 mmol/L 3.6-5.1 CHLORIDE (test code=04A) 106 mmol/L 98-107 CO2 (test code=02A) 25 mmol/L 22-32 ANION GAP (test code=ANG) 12.4 mmol/L BUN (test code=05D) 41 mg/dL 7-18 CREATININE (test code=03E) 1.6 mg/dL 0.4-1.1 BUN/CREA (test code=BCR) 27 12-20 CALCIUM (test code=09D) 8.4 mg/dL 8.3-9.5 GLUCOMETER GLUCOSE- LAB USE [id number] 20:07:00 Test Item Value Reference Range Comments GLUCOMETER (test code=GMG) 324 mg/dL 70-100 CLEANED METERMeter ID: [id number]: [id number] GRAEME MOTA GLUCOMETER GLUCOSE- LAB USE [id number] 16:25:00 Test Item Value Reference Range Comments GLUCOMETER (test code=GMG) 153 mg/dL 70-100 Meter ID: [id number]: 3966 ARIANA RAJU GLUCOMETER GLUCOSE- LAB USE [id number] 12:03:00 Test Item Value Reference Range Comments GLUCOMETER (test code=GMG) 215 mg/dL 70-100 Meter ID: [id number]: 3966 ARIANA RAJU [id number] 11:16:00 Test Item Value Reference Range Comments Hb A1C % (test code=HBA) 6.8 % 4.2-6.3 GLUCOMETER GLUCOSE- LAB USE [id number] 05:42:00 Test Item Value Reference Range Comments GLUCOMETER (test code=GMG) 202 mg/dL 70-100 CLEANED METERMeter ID: [id number]: 4074 SHAN DA SILVA BASIC METABOLIC [id number] 04:07:00 Test Item Value Reference Range Comments GLUCOSE (test code=06D) 202 mg/dL 75-100 SODIUM (test code=01A) 136 mmol/L 136-145 POTASSIUM (test code=01B) 4.3 mmol/L 3.6-5.1 CHLORIDE (test code=04A) 103 mmol/L 98-107 CO2 (test code=02A) 28 mmol/L 22-32 ANION GAP (test code=ANG) 9.3 mmol/L BUN (test code=05D) 29 mg/dL 7-18 CREATININE (test code=03E) 1.7 mg/dL 0.4-1.1 BUN/CREA (test code=BCR) 17 12-20 CALCIUM (test code=09D) 8.6 mg/dL 8.3-9.5 CBC (INCLUDES AUTOMATED DIFFERENTIAL)2017-12-14 04:05:00 Test Item Value Reference Range Comments WBC (test code=WBC) 8.6 10\S\3/uL 4.5-11.0 RBC (test code=RBC) 3.41 10\S\6/uL 3.80-5.80 HGB (test code=HBG) 10.9 g/dL 12.0-15.5 HCT (test code=HCT) 32.5 % 35.0-44.0 MCV (test code=MCV) 95.3 fL 81.0-99.0 MCH (test code=MCH) 32.0 pg 27.0-31.0 MCHC (test code=MCHC) 33.5 g/dL 32.0-36.0 RDW (test code=RDW) 13.6 % 11.5-14.5 PLT (test code=PLT) 242 10\S\3/uL 130-400 MPV (test code=MPV) 10.7 fL 9.4-12.4 NEUTROP # (test code=NE#) 7.5 10\S\3/uL 1.6-8.0 LYMPH # (test code=LY#) 0.9 10\S\3/uL 1.1-3.5 MONOCYTE # (test code=MO#) 0.2 10\S\3/uL 0.0-1.1 EOSINOPH # (test code=EO#) 0.0 10\S\3/uL 0.0-0.7 BASOPHIL # (test code=BA#) 0.0 10\S\3/uL 0.0-0.3 IG # (test code=IG#) 0.07 10\S\3/uL 0.00-0.06 NRBC # (test code=NRBC#) 0.00 10\S\3/uL 0.00-0.01 NEUTROPH % (test code=NE%) 86.4 % 35.0-73.0 LYMPH % (test code=LY%) 10.5 % 20.0-55.0 MONO % (test code=MO%) 2.1 % 2.5-10.0 EOSINOPH % (test code=EO%) 0.0 % 0.0-5.0 BASOPHIL % (test code=BA%) 0.2 % 0.0-2.0 IG % (test code=IG%) 0.8 % 0.0-0.8 NRBC% (test code=NRBC%) 0.0 % 0.0-0.2 MANDIFF (test code=MDIFF) NO NO RBC MORPH (test code=RBCMOR) NORMAL CT LUMBAR SPINE W/O [id number] 23:38:57CT LUMBAR SPINE W/O CONTRASTLocation:A2Vhvqn hours services are provided 12/13/2017 11:29 PMIndication:M54.16: RADICULOPATHY, LUMBAR REGIONComparison: Not availableTechnique: Axial CT images of the lumbar spine all CT scans at this facilityuse dose modulation, iterative reconstruction, and or weight-based dosing whenappropriate to reduce radiation dose to as low as reasonably achievable.Findings: Chronic appearing compression deformity of the T1 vertebral body isidentified with no evidence of retropulsion or spinal canal stenosis. Severeosteopenia is present. The remaining vertebral bodies demonstrate normalheight. Vacuum disc phenomenon present at L2/3 and L3/4. Posterior disc bulgesare identifiedat L1/2 L3/4 L4/5 and L5/S1 which produce mild narrowing of theinferior aspect of the neuroforamina.No evidence of central canal stenosis.Facet hypertrophic changes are present from L4 through S1. Degenerative changesare identified between the spinous processes with bone- on-bone contact andsubchondral sclerotic changes. No acute abnormality is visualized. Calcifiedtalus plaquing is noted within the arteries.Impression:1. Multilevel degenerative disc disease with posterior disc bulges narrowingthe inferior aspects of the neural foramina. No evidence of spinal canalstenosis.2. Chronic-appearing compression deformity of the L1 vertebral body with noevidence of retropulsion.3. Multilevel facet and spinous process degenerative changesGLUCOMETER GLUCOSE- LAB USE [id number] 23:26:00 Test Item Value Reference Range Comments GLUCOMETER (test code=GMG) 230 mg/dL 70-100 CLEANED METERMeter ID: [id number]: 4074 SHAN DA SILVA CARDIAC [id number] 21:53:00 Test Item Value Reference Range Comments TROPONIN I (test code=A84) 0.278 ng/mL 0.000-0.045 CKMB (test code=A49) 1.8 ng/mL <=3.6 CPK (test code=32A) 46 IU/L 26-192 XR CHEST 1 [id number] 21:44:22EXAM: Portable chest x-rayLocation: [id number]: NoneINDICATION: R05: COUGHDISCUSSION:No consolidation or pleural effusion is seen. The cardiac silhouette is withinnormal limits. Mild central vascular congestion is noted. No acute bonyabnormalities are identified. There is a remote ununited mid shaft leftclavicular fracture.IMPRESSION: Mild central vascular congestion. No evidence of pneumonia orpleural effusion.BRAIN NATRIURETIC [id number] 16:58:00 Test Item Value Reference Range Comments proBNP (test code=PBNP) 4167 pg/mL <=450 [id number] 15:52:00 Test Item Value Reference Range Comments CPK (test code=32A) 51 IU/L 26-192 AMYLASE AND [id number] 15:52:00 Test Item Value Reference Range Comments AMYLASE (test code=10A) 36 U/L 28-100 LIPASE (test code=60A) 114 IU/L 73-393 COMPREHENSIVE METABOLIC [id number] 15:52:00 Test Item Value Reference Range Comments GLUCOSE (test code=06D) 161 mg/dL 75-100 SODIUM (test code=01A) 139 mmol/L 136-145 POTASSIUM (test code=01B) 3.7 mmol/L 3.6-5.1 CHLORIDE (test code=04A) 105 mmol/L 98-107 CO2 (test code=02A) 24 mmol/L 22-32 ANION GAP (test code=ANG) 13.7 mmol/L BUN (test code=05D) 20 mg/dL 7-18 CREATININE (test code=03E) 1.3 mg/dL 0.4-1.1 BUN/CREA (test code=BCR) 15 12-20 CALCIUM (test code=09D) 9.1 mg/dL 8.3-9.5 BILI TOTAL (test code=11A) 1.5 mg/dL 0.2-1.0 PROTEIN (test code=07D) 7.0 g/dL 6.4-8.2 ALBUMIN (test code=08D) 3.3 g/dL 3.5-4.8 GLOBULIN (test code=GLB) 3.7 g/dL 1.5-3.8 ALB/GLOB (test code=AGRR) 0.9 1.0-2.6 ALK PHOS (test code=35A) 112 IU/L 42-121 AST (test code=30A) 22 IU/L <=42 ALT (test code=31A) 13 IU/L <=78 CT PELVIS BONE [id number] 15:48:45EXAM: CT pelvis without contrastLocation: [id number]: Fracture, painTECHNIQUE: Axial 2 mm images of the pelvis were obtained, with coronal andsagittal reformats.DISCUSSION:Osseous structures: No fracture is identified. No bony mass lesion is seen.Degenerative disease and facet arthrosis are seen atL4-5 and L5-S1. 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 Moderate to markedatherosclerotic calcification is seen. No hernias identified.IMPRESSION: 1. No acute bony abnormalities.2. Degenerative changes in the hips, pubic symphysis, and lower lumbar spine.One or more of the following dose reduction techniques were used: Automatedexposure control, adjustment of the mA and/or kV according to patient size,and/or utilization of iterative reconstruction technique.DLP: 548 mGy-cm CTDI 19 mGyTROPONIN [id number] 15:48:00 Test Item Value Reference Range Comments TROPONIN I (test code=A84) 0.278 ng/mL 0.000-0.045 PRO TIME AND [id number] 15:38:00 Test Item Value Reference Range Comments PT (test code=TT) 11.4 s 9.8-13.6 INR (test code=INR) 1.0 INRH (test code=INRH) SUGGESTED THERAPEUTIC RANGE FOR INR: 2.5 - 3.5 For Patients with Prosthetic Valves or Patients with recurrent Thromboembolic Events 2.0 - 3.0 For Most Other Applications PTT (test code=PTT) 31.8 s 20.2-38.0 PTTH (test code=PTTH) To monitor the effectiveness of heparin, we offer the Anti-Xa (Heparin Assay). It can be used for either unfractionated or LMW Heparin. Order Code is ANTI-XA CBC (INCLUDES AUTOMATED DIFFERENTIAL)2017-12-13 15:30:00 Test Item Value Reference Range Comments WBC (test code=WBC) 13.2 10\S\3/uL 4.5-11.0 RBC (test code=RBC) 3.85 10\S\6/uL 3.80-5.80 HGB (test code=HBG) 12.4 g/dL 12.0-15.5 HCT (test code=HCT) 36.8 % 35.0-44.0 MCV (test code=MCV) 95.6 fL 81.0-99.0 MCH (test code=MCH) 32.2 pg 27.0-31.0 MCHC (test code=MCHC) 33.7 g/dL 32.0-36.0 RDW (test code=RDW) 13.8 % 11.5-14.5 PLT (test code=PLT) 250 10\S\3/uL 130-400 MPV (test code=MPV) 10.6 fL 9.4-12.4 NEUTROP # (test code=NE#) 9.8 10\S\3/uL 1.6-8.0 LYMPH # (test code=LY#) 2.0 10\S\3/uL 1.1-3.5 MONOCYTE # (test code=MO#) 1.1 10\S\3/uL 0.0-1.1 EOSINOPH # (test code=EO#) 0.1 10\S\3/uL 0.0-0.7 BASOPHIL # (test code=BA#) 0.1 10\S\3/uL 0.0-0.3 IG # (test code=IG#) 0.09 10\S\3/uL 0.00-0.06 NRBC # (test code=NRBC#) 0.00 10\S\3/uL 0.00-0.01 NEUTROPH % (test code=NE%) 73.7 % 35.0-73.0 LYMPH % (test code=LY%) 15.3 % 20.0-55.0 MONO % (test code=MO%) 8.6 % 2.5-10.0 EOSINOPH % (test code=EO%) 1.1 % 0.0-5.0 BASOPHIL % (test code=BA%) 0.6 % 0.0-2.0 IG % (test code=IG%) 0.7 % 0.0-0.8 NRBC% (test code=NRBC%) 0.0 % 0.0-0.2 MANDIFF (test code=MDIFF) NO NO RBC MORPH (test code=RBCMOR) NORMAL
[2019-03-16 02:15] LABS: Absolute Monocytes 1.1 K/uL (0.1-1.3); Absolute Neutrophil 6.8 K/uL (1.8-8.0); Eosinophils % 3.8 % (0-4.4); Hematocrit 41.1 % (36.0-45.0); Lymphocytes % 26.3 % (15.3-44.8); MPV 9.5 fL (7.6-11.3); Monocytes % 9.9 % (3.3-12.3); RBC Red Blood Cell Count 4.41 M/uL (3.86-4.86)
[2019-03-16 02:16] LABS: Protime INR 1.26
[2019-03-16 02:33] LABS: Albumin 3.8 g/dL (3.4-5.0); Bilirubin Direct 0.3 mg/dL (0-0.2); Bilirubin Total 0.8 mg/dL (0.2-1.0); Magnesium 2.3 mg/dL (1.8-2.4); Potassium 4.1 mmol/L (3.5-5.1); Protein, Total 8.2 g/dL (6.4-8.2); Troponin (Emerg Dept Use Only) 0.39 ng/mL (0.0-0.045)
--- NOTE | 2019-03-16 03:43 | ER ---
Nurse's Notes [facility] Name: Goldie Martinez Age: 83 yrs Sex: Female : 1935 Arrival Date: 03/16/2019 Time: 01:48 Bed 5 Private MD: Diagnosis: Unspecified diastolic (congestive) heart failure;Chest pain, unspecified Presentation: 03/16 01:53 Presenting complaint: EMS states: toned out for Chest pain that started Sunday. pt c/o ak1 upper back pain radiates to left chest wall and epigastric area. pt c/o SOB X2 weeks intermittent. pt FSBG 138. pt wheezing upon arrival. pt PCP Dr. Guajardo, Grid Trimmer Dr. Bryant. Transition of care: patient was not received from another setting of care. Onset of symptoms is unknown. Risk Assessment: Do you want to hurt yourself or someone else? Patient reports no desire to harm self or others. Care prior to arrival: albuterol and atrovent neb. 01:53 Acuity: ZAIRE 2 ak1 01:53 Method Of Arrival: EMS: [facility] ak1 02:00 Initial Sepsis Screen: Does the patient meet any 2 criteria? No. Patient's initial cc3 sepsis screen is negative. Does the patient have a suspected source of infection? No. Patient's initial sepsis screen is negative. Triage Assessment: 02:00 General: Appears uncomfortable, Behavior is calm, cooperative. Pain: Complains of pain ak1 in back and chest. EENT: No signs and/or symptoms were reported regarding the EENT system. Neuro: No deficits noted. Cardiovascular: Reports chest pain. Respiratory: Reports shortness of breath Breath sounds with wheezes bilaterally. GI: No signs and/or symptoms were reported involving the gastrointestinal system. : No signs and/or symptoms were reported regarding the genitourinary system. Derm: No signs and/or symptoms reported regarding the dermatologic system. Musculoskeletal: No signs and/or symptoms reported regarding the musculoskeletal system. Historical: - Allergies: :59 Sulfa (Sulfonamide Antibiotics); ak1 - Home Meds: 01:59 furosemide 40 mg Oral tab 1 tab once daily [Active]; potassium chloride 10 mEq Oral ak1 cpER 1 cap once daily [Active]; metoprolol tartrate 25 mg Oral tab 1 tab 2 times per day [Active]; Eliquis 2.5 mg oral tab 1 tab 2 times per day [Active]; sertraline 50 mg oral tab 1 tab once daily [Active]; Protonix 40 mg Oral grps 1 packet once daily [Active]; Lyrica 50mg Oral 1 cap 3 times per day [Active]; tramadol 50 mg Oral tab 1 tab 3 times daily PRN [Active]; calcitonin [Active]; Vitamin D 5000 unit Oral twice a day [Active]; - PMHx: 01:59 CHF; Asthma; ak1 - PSHx: 01:59 left kidney removed; Heart stents; Appendectomy; left ovary removed; ak1 - Immunization history:: Adult Immunizations unknown. - Social history:: Smoking status: Patient/guardian denies using tobacco, the patient reports quitting approximately 20 years ago. - Ebola Screening: : No symptoms or risks identified at this time. Screenin:00 Abuse screen: Denies threats or abuse. Denies injuries from another. Nutritional cc3 screening: No deficits noted. Tuberculosis screening: No symptoms or risk factors identified. Fall Risk Ambulatory Aid- None/Bed Rest/Nurse Assist (0 pts). Gait- Normal/Bed Rest/Wheelchair (0 pts) Mental Status- Oriented to own ability (0 pts). Assessment: 02:00 Reassessment: Patient and/or family updated on plan of care and expected duration. Pain cc3 level reassessed. Patient is alert, oriented x 3, equal unlabored respirations, skin warm/dry/pink. 03:20 Reassessment: Patient appears in no apparent distress at this time. Patient and/or cc3 family updated on plan of care and expected duration. Pain level reassessed. Patient is alert, oriented x 3, equal unlabored respirations, skin warm/dry/pink. 04:20 Reassessment: Patient appears in no apparent distress at this time. Patient and/or cc3 family updated on plan of care and expected duration. Pain level reassessed. Patient is alert, oriented x 3, equal unlabored respirations, skin warm/dry/pink. Patient's son named Markus left his mobile number [phone] in case he needs to be called then he left. 05:22 Reassessment: Patient appears in no apparent distress at this time. Patient and/or cc3 family updated on plan of care and expected duration. Pain level reassessed. Patient is alert, oriented x 3, equal unlabored respirations, skin warm/dry/pink. Room available at 422, called for report but as per their in charge the nurse who will receive will just call me back. Vital Signs: 01:52 BP 148 / 136; Pulse 67; Resp 22; Temp 98.7(TE); Pulse Ox 96% on R/A; Weight 83.91 kg ak1 (R); Height 5 ft. 1 in. (154.94 cm) (R); Pain 10/10; 02:09 BP 151 / 98; Pulse 72; Resp 18 S; Temp 98.2(O); Pulse Ox 95% on R/A; cc3 03:26 BP 150 / 61; Pulse 65; Resp 18 S; Temp 98.3(O); Pulse Ox 97% on 2 lpm NC; cc3 04:15 BP 105 / 63; Pulse 66; Resp 16 S; Temp 98.1(O); Pulse Ox 98% on 2 lpm NC; cc3 05:09 BP 109 / 49; Pulse 63; Resp 14 S; Temp 98(O); Pulse Ox 99% on 2 lpm NC; cc3 01:52 Body Mass Index 34.96 (83.91 kg, 154.94 cm) ak1 ED Course: 01:48 Patient arrived in ED. ds1 01:50 Rogers Gloria MD is Attending Physician. tw4 01:50 Nell Bean is Primary Nurse. cc3 01:55 Triage completed. ak1 02:00 Arm band placed on Patient placed in an exam room, on a stretcher, on oxygen, on ak1 cardiac catheterization technician, on pulse oximetry, Patient notified of wait time. 02:00 Patient has correct armband on for positive identification. Placed in gown. Bed in low cc3 position. Call light in reach. Side rails up X2. nurse monitoring on. Pulse ox on. NIBP on. 02:00 Inserted saline lock: 20 gauge in right antecubital area, using aseptic technique. cc3 Blood collected. 02:02 X-ray completed. Portable x-ray completed in exam room. Patient tolerated procedure kw well. 02:03 XRAY Chest (1 view) In Process Unspecified. EDMS 03:36 Lenny Castaneda MD is Hospitalizing Provider. tw4 05:45 No provider procedures requiring assistance completed. Patient admitted, IV remains in bb place. 06:00 Assisted to bedside commode. bb Administered Medications: 01:50 Drug: DuoNeb (3:1) (2.5 mg - 0.5 mg) 3 ml Route: Nebulizer; cc3 02:26 Follow up: Response: No adverse reaction cc3 04:15 Drug: Lasix 40 mg Route: IVP; Site: right antecubital; cc3 04:30 Follow up: Response: No adverse reaction cc3 Output: 04:30 Urine: 130ml (Voided); Total: 130ml. cc3 Outcome: 03:42 Decision to Hospitalize by Provider. tw4 05:44 Admitted to Tele accompanied by tech, via stretcher, room 422, with chart, Report bb called to Pilar JEAN 05:45 Condition: stable bb 05:45 Instructed on the need for admit. 06:00 Patient left the ED. bb Signatures: Dispatcher [employer] EDWI Za Mauro ds1 Jaqueline Helm, RN RN bb Shannan Sy Amber, RN RN ak1 Rogers Gloria MD MD tw4 Nell Bean cc3 Corrections: (The following items were deleted from the chart) 06:42 02:09 BP 151 / 98; Pulse 72bpm; Resp 18bpm; Spontaneous; Pulse Ox 95% RA; cc3 cc3 06:42 03:26 BP 150 / 61; Pulse 65bpm; Resp 18bpm; Spontaneous; Pulse Ox 97% 2 lpm Nasal cc3 Cannula; cc3 06:42 05:09 BP 109 / 49; Pulse 63bpm; Resp 14bpm; Spontaneous; Pulse Ox 99% 2 lpm Nasal cc3 Cannula; cc3 06:42 04:15 BP 105 / 63; Pulse 66bpm; Resp 16bpm; Spontaneous; Pulse Ox 98% 2 lpm Nasal cc3 Cannula; cc3
--- NOTE | 2019-03-16 03:43 | EDPHYS ---
Physician Documentation [facility] Name: Goldie Martinez Age: 83 yrs Sex: Female : 1935 Arrival Date: 03/16/2019 Time: 01:48 Bed 5 Private MD: ED Physician Rogers Gloria HPI: 03/16 23:07 This 83 yrs old Female presents to ER via EMS with complaints of SOB. tw4 23:07 The patient has shortness of breath at rest. Duration: The symptoms are continuous. tw4 23:07 Onset: The symptoms/episode began/occurred 1 week(s) ago. The patient's shortness of tw4 breath is aggravated by exertion, is alleviated by rest. Associated signs and symptoms: Pertinent positives: chest pain, non-productive cough. Severity of symptoms: At their worst the symptoms were moderate in the emergency department the symptoms are unchanged. The patient has not experienced similar symptoms in the past. Historical: - Allergies: 01:59 Sulfa (Sulfonamide Antibiotics); ak1 - Home Meds: 01:59 furosemide 40 mg Oral tab 1 tab once daily [Active]; potassium chloride 10 mEq Oral ak1 cpER 1 cap once daily [Active]; metoprolol tartrate 25 mg Oral tab 1 tab 2 times per day [Active]; Eliquis 2.5 mg oral tab 1 tab 2 times per day [Active]; sertraline 50 mg oral tab 1 tab once daily [Active]; Protonix 40 mg Oral grps 1 packet once daily [Active]; Lyrica 50mg Oral 1 cap 3 times per day [Active]; tramadol 50 mg Oral tab 1 tab 3 times daily PRN [Active]; calcitonin [Active]; Vitamin D 5000 unit Oral twice a day [Active]; - PMHx: 01:59 CHF; Asthma; ak1 - PSHx: 01:59 left kidney removed; Heart stents; Appendectomy; left ovary removed; ak1 - Immunization history:: Adult Immunizations unknown. - Social history:: Smoking status: Patient/guardian denies using tobacco, the patient reports quitting approximately 20 years ago. - Ebola Screening: : No symptoms or risks identified at this time. ROS: 23:07 Constitutional: Negative for fever, chills, and weight loss, Eyes: Negative for injury, tw4 pain, redness, and discharge, Cardiovascular: Negative for chest pain, palpitations, and edema, Abdomen/GI: Negative for abdominal pain, nausea, vomiting, diarrhea, and constipation, Back: Negative for injury and pain. 23:07 MS/Extremity: Negative for injury and deformity, Skin: Negative for injury, rash, and discoloration, Neuro: Negative for headache, weakness, numbness, tingling, and seizure. 23:07 Respiratory: Positive for cough, shortness of breath, Negative for dyspnea on exertion, hemoptysis, orthopnea, pleurisy. Exam: 23:07 Constitutional: This is a well developed, well nourished patient who is awake, alert, tw4 and in no acute distress. Head/Face: Normocephalic, atraumatic. Chest/axilla: Normal chest wall appearance and motion. Nontender with no deformity. No lesions are appreciated. Cardiovascular: Regular rate and rhythm with a normal S1 and S2. No gallops, murmurs, or rubs. Normal PMI, no JVD. No pulse deficits. 23:07 Abdomen/GI: Soft, non-tender, with normal bowel sounds. No distension or tympany. No guarding or rebound. No evidence of tenderness throughout. Back: No spinal tenderness. No costovertebral tenderness. Full range of motion. MS/ Extremity: Pulses equal, no cyanosis. Neurovascular intact. Full, normal range of motion. Neuro: Awake and alert, GCS 15, oriented to person, place, time, and situation. Cranial nerves II-XII grossly intact. Motor strength 5/5 in all extremities. Sensory grossly intact. Cerebellar exam normal. Normal gait. Psych: Awake, alert, with orientation to person, place and time. Behavior, mood, and affect are within normal limits. 23:07 Respiratory: the patient does not display signs of respiratory distress, Respirations: normal, Breath sounds: rales, that are moderate, are located in both bases. Vital Signs: 01:52 BP 148 / 136; Pulse 67; Resp 22; Temp 98.7(TE); Pulse Ox 96% on R/A; Weight 83.91 kg ak1 (R); Height 5 ft. 1 in. (154.94 cm) (R); Pain 10/10; 02:09 BP 151 / 98; Pulse 72; Resp 18 S; Temp 98.2(O); Pulse Ox 95% on R/A; cc3 03:26 BP 150 / 61; Pulse 65; Resp 18 S; Temp 98.3(O); Pulse Ox 97% on 2 lpm NC; cc3 04:15 BP 105 / 63; Pulse 66; Resp 16 S; Temp 98.1(O); Pulse Ox 98% on 2 lpm NC; cc3 05:09 BP 109 / 49; Pulse 63; Resp 14 S; Temp 98(O); Pulse Ox 99% on 2 lpm NC; cc3 01:52 Body Mass Index 34.96 (83.91 kg, 154.94 cm) ak1 MDM: 01:50 Patient medically screened. tw4 23:07 Differential diagnosis: Anemia asthma, Bronchitis CHF exacerbation, Myocardial tw4 Infarction pneumonia, pulmonary edema, Pulmonary Embolism. Antibiotic administration: Not indicated. Data reviewed: vital signs, nurses notes. Data interpreted: hall monitor: rhythm is normal sinus rhythm, Pulse oximetry: Interpretation: hypoxia. Plan: O2 by NC applied. Test interpretation: by ED physician or midlevel provider: ECG, plain radiologic studies. Counseling: I had a detailed discussion with the patient and/or guardian regarding: the historical points, exam findings, and any diagnostic results supporting the discharge/admit diagnosis. Physician consultation: Lenny Castaneda MD was contacted at 07:00, regarding admission, patient's condition, and will see patient in inpatient room. Admission orders: after a detailed discussion of the patient's condition and case, the admit orders are written by me. Special discussion:. 03/16 01:51 Order name: Basic Metabolic Panel tw4 03/16 01:51 Order name: CBC with Diff tw4 03/16 01:51 Order name: LFT's tw4 03/16 01:51 Order name: Magnesium tw4 03/16 01:51 Order name: NT PRO-BNP tw4 03/16 01:51 Order name: PT-INR tw4 03/16 01:51 Order name: Troponin (emerg Dept Use Only) tw4 03/16 01:53 Order name: Basic Metabolic Panel EDNC 03/16 01:53 Order name: CBC with Automated Diff EDMS 03/16 01:53 Order name: Liver (Hepatic) Function; Complete Time: 03:26 EDMS 03/16 03:26 Interpretation: Normal except: ALK 159; BILID 0.3; GLOB 4.4; A/G 0.9. 03/16 01:53 Order name: Magnesium; Complete Time: 03:29 [facility] 03/16 01:53 Order name: NT PRO-BNP; Complete Time: 03:26 [facility] 03/16 03:27 Interpretation: Normal except. 03/16 04:58 Order name: Basic Metabolic Panel [facility] 03/16 04:58 Order name: Basic Metabolic Panel [facility] 03/16 01:51 Order name: XRAY Chest (1 view) 03/16 01:51 Order name: EKG; Complete Time: 01:53 03/16 01:51 Order name: Cardiac monitoring; Complete Time: 01:57 03/16 01:51 Order name: EKG - Nurse/Tech; Complete Time: 02:11 03/16 01:51 Order name: IV Saline Lock; Complete Time: 02:11 [facility] 03/16 01:51 Order name: Labs collected and sent; Complete Time: 02:11 [facility] 03/16 04:58 Order name: CBC with Automated Diff [facility] 03/16 04:58 Order name: CBC with Automated Diff [facility] 03/16 04:58 Order name: NT PRO-BNP [facility] 03/16 04:58 Order name: NT PRO-BNP [facility] 03/16 04:58 Order name: Troponin I [facility] 03/16 04:58 Order name: Troponin I [facility] 03/16 04:58 Order name: Troponin I [facility] 03/16 05:59 Order name: Urine Dipstick--Ancillary (enter results) [facility] 03/16 01:51 Order name: O2 Per Protocol; Complete Time: 01:58 [facility] 03/16 01:51 Order name: O2 Sat Monitoring; Complete Time: 01:58 tw Administered Medications: 01:50 Drug: DuoNeb (3:1) (2.5 mg - 0.5 mg) 3 ml Route: Nebulizer; cc3 02:26 Follow up: Response: No adverse reaction cc3 04:15 Drug: Lasix 40 mg Route: IVP; Site: right antecubital; cc3 04:30 Follow up: Response: No adverse reaction cc3 Disposition: 03/16/19 03:42 Hospitalization ordered by Lenny Castaneda for Observation. Preliminary diagnosis are Unspecified diastolic (congestive) heart failure, Chest pain, unspecified. - Bed requested for Telemetry/MedSurg (observation). - Status is Observation. bb - Condition is Stable. - Problem is new. - Symptoms have improved. UTI on Admission? No Signatures: Dispatcher [employer] EDMS Jaqueline Helm, RN RN bb Yuki Burton, RN RN ak1 Selina King, RN RN cg Rogers Gloria MD MD tw4 Nell Bean cc3 Corrections: (The following items were deleted from the chart) 05:04 03:42 Hospitalization Ordered by Lenny Castaneda MD for Observation. Preliminary diagnosis cg is Unspecified diastolic (congestive) heart failure; Chest pain, unspecified. Bed requested for Telemetry/MedSurg (observation). Status is Observation. Condition is Stable. Problem is new. Symptoms have improved. UTI on Admission? No. tw4 06:00 05:04 03/16/2019 03:42 Hospitalization Ordered by Lenny Castaneda MD for Observation. bb Preliminary diagnosis is Unspecified diastolic (congestive) heart failure; Chest pain, unspecified. Bed requested for Telemetry/MedSurg (observation). Status is Observation. Condition is Stable. Problem is new. Symptoms have improved. UTI on Admission? No. cg 23:07 23:07 Onset: The symptoms/episode began/occurred today, tw4 tw4
[2019-03-16] MEDS ORDERED: FUROSEMIDE 40 MG/4 ML VIAL ONE (04:23)
[2019-03-16] MEDS ORDERED: ALBUTEROL 2.5 MG/3 ML NEB SOL NEB PRN (04:55)
[2019-03-16] MEDS ORDERED: IPRATROPIUM BROM 0.5MG/2.5ML NEB PRN (04:55)
[2019-03-16 06:15] LABS: Urine Blood TRACE (NEG); Urine Glucose NEGATIVE (NEG); Urine Protein NEGATIVE (NEG); Urine pH 5.5 (5.0-7.0)
--- NOTE | 2019-03-16 06:19 | EKG ---
Test Date: 2019-03-16 Test Time: 02:05:11 Manager Lsw: MARIA DE JESUS MEASUREMENT RESULTS: Intervals: Rate: 65 MS: 160 QRSD: 162 QT: 434 QTc: 451 [place]: P: 70 MS: 160 QRS: -55 T: 82 INTERPRETIVE STATEMENTS: Normal sinus rhythm Possible Left atrial enlargement Left axis deviation Left bundle branch block Abnormal ECG No previous ECG available for comparison Electronically Signed On 03-16-19 06:18:25 CDT by Ronni Bryant
[2019-03-16] MEDS: ACETAMINOPHEN 500 MG TAB PO PRN (07:54)
[2019-03-16] MEDS: FUROSEMIDE 20 MG/ 2ML VIAL IV SCH ×2 (09:15→16:31)
[2019-03-16] MEDS ORDERED: METOPROLOL TAR 25 MG TAB PO ONE (11:00)
--- NOTE | 2019-03-16 12:38 | RAD REPORT ---
EXAM DESCRIPTION: RAD - Chest Single View - 03/16/2019 2:04 am CLINICAL HISTORY: CHEST PAIN Chest pain. COMPARISON: No comparisonsNo comparisonsChest For Pe Angio dated 12/07/2016No comparisons FINDINGS: Portable technique limits examination quality. Mild interstitial pulmonary edema suspected. The heart is moderately enlarged in size. Trace left ple ural fluid.Old left clavicular fracture. IMPRESSION: Mild CHF suspected.
[2019-03-16] MEDS: TRAMADOL HCL 50 MG TAB PO PRN ×2 (12:52→19:36)
[2019-03-16] MEDS: PREGABALIN 50 MG CAP PO SCH ×2 (13:31→20:14)
[2019-03-16] MEDS: IPRATROPIUM BROM 0.5MG/2.5ML NEB PRN (15:50)
[2019-03-16] MEDS: ALBUTEROL 2.5 MG/3 ML NEB SOL NEB PRN (15:50)
[2019-03-16] MEDS ORDERED: METHYLPREDNISOLONE 40 MG INJ IV ONE (16:42)
--- NOTE | 2019-03-16 19:43 | EKG ---
Test Date: 2019-03-16 Test Time: 10:12:46 Health/Safety Job Titles: MEASUREMENT RESULTS: Intervals: Rate: 74 TX: 158 QRSD: 162 QT: 422 QTc: 468 [place]: P: 48 TX: 158 QRS: -56 T: 71 INTERPRETIVE STATEMENTS: Normal sinus rhythm Left axis deviation Left bundle branch block Abnormal ECG Compared to ECG 03/16/2019 09:04:21 Atrial fibrillation no longer present Ventricular premature complex(es) no longer present Electronically Signed On 03-16-19 19:42:53 CDT by Ronni Bryant
--- NOTE | 2019-03-16 19:43 | EKG ---
Test Date: 2019-03-16 Test Time: 09:04:21 Rides Supervisor: MEASUREMENT RESULTS: Intervals: Rate: 85 NM: QRSD: 168 QT: 402 QTc: 478 [place]: P: NM: QRS: -52 T: 77 INTERPRETIVE STATEMENTS: Atrial fibrillation with premature ventricular or aberrantly conducted complexes Left axis deviation Left bundle branch block Abnormal ECG Compared to ECG 03/16/2019 02:05:11 Ventricular premature complex(es) now present Sinus rhythm no longer present Electronically Signed On 03-16-19 19:42:56 CDT by Ronni Bryant
[2019-03-16] MEDS: APIXABAN 2.5 MG TABLET PO SCH (20:13)
[2019-03-16] MEDS: METOPROLOL TAR 25 MG TAB PO SCH (20:13)
[2019-03-16] MEDS: VITAMIN D 5,000 UNIT CAP PO SCH (20:13)
--- NOTE | 2019-03-16 22:32 | HP ---
Date of Admission: 03/16/2019 Chief Complaint: Chest pain, shortness of breath, and wheezing. History Of Present Illness: An 83-year-old female was brought to the emergency room with multiple co mplaints including chest pain and wheezing. The patient had workup done in the emergency room and is admitted with a diagnosis of congestive heart failure, chest pain. The patient denied any history o f fever, chills, rigors. No history of nausea or vomiting. Past Medical History: Positive for coronary angioplasty, congestive heart failure, and asthma. Past Surgical History: Positive for appendectomy, left ovariectomy, left kidney removal. Allergies: SULFA DRUGS. Home Medicines: Please refer to the chart. Review of Systems: The patient had no fever, chills, rigors. Physical Examination: General: Revealed an 83-year-old female, alert for her age. HEENT: Negative. Neck: Supple. JVD negative. Chest: She has few basal crackles. Heart: Irregularity noted. Abdomen: Soft, pendulous. Extremities: No edema. Laboratory Data: White count normal. Chem profile showed elevation of BNP to 3000. Troponin 0.36. BUN 40, creatinine 1.47. Assessment: 1.Chronic renal insufficiency. 2.Congestive heart failure decompensation. 3.Known coronary artery disease. Plan: The patient received IV Lasix. She has a cardiology consultation. The patient generally look s stable. CHELSIE/MAGALY Voice ID: [id number]
[2019-03-17] MEDS: TRAMADOL HCL 50 MG TAB PO PRN ×2 (08:54→21:56)
[2019-03-17] MEDS: VITAMIN D 5,000 UNIT CAP PO SCH ×2 (08:55→21:54)
[2019-03-17] MEDS: SERTRALINE HCL 50 MG TAB PO SCH (08:55)
[2019-03-17] MEDS: POTASSIUM CL SA 10 MEQ TAB PO SCH (08:55)
[2019-03-17] MEDS: APIXABAN 2.5 MG TABLET PO SCH ×2 (08:55→21:54)
[2019-03-17] MEDS: PANTOPRAZOLE 40MG TABLET PO SCH (08:55)
[2019-03-17] MEDS: PREGABALIN 50 MG CAP PO SCH ×3 (08:56→21:53)
[2019-03-17] MEDS: FUROSEMIDE 20 MG/ 2ML VIAL IV SCH ×2 (08:56→18:04)
[2019-03-17] MEDS: METOPROLOL TAR 25 MG TAB PO SCH ×2 (08:57→21:54)
[2019-03-17] MEDS: ACETAMINOPHEN 500 MG TAB PO PRN (11:28)
[2019-03-17] MEDS: IPRATROPIUM BROM 0.5MG/2.5ML NEB PRN ×2 (11:34→21:55)
[2019-03-17] MEDS: ALBUTEROL 2.5 MG/3 ML NEB SOL NEB PRN ×2 (11:34→21:55)
[2019-03-17] MEDS: GUAIFENESIN/CODEINE 5ML UCUP PO PRN ×2 (12:34→21:52)
[2019-03-18] MEDS: IPRATROPIUM BROM 0.5MG/2.5ML NEB PRN (01:35)
[2019-03-18] MEDS: ALBUTEROL 2.5 MG/3 ML NEB SOL NEB PRN (01:35)
--- NOTE | 2019-03-18 02:11 | PN ---
The patient still complains of shortness of breath. She has few basal crackles and scattered wheezes . In view of her continued symptoms, I consulted Cardiology Services. She has been following with Garcia Bryant in the office. She also will have echocardiogram to see if there is any other issue relate d to her symptoms. CHELSIE/MAGALY Voice ID: [id number] Report ID: [id number]
[2019-03-18] MEDS: GUAIFENESIN/CODEINE 5ML UCUP PO PRN ×2 (05:21→15:57)
[2019-03-18] MEDS: METOPROLOL TAR 25 MG TAB PO SCH ×2 (08:26→20:11)
[2019-03-18] MEDS: PREGABALIN 50 MG CAP PO SCH ×3 (08:26→20:08)
[2019-03-18] MEDS: PANTOPRAZOLE 40MG TABLET PO SCH (08:26)
[2019-03-18] MEDS: POTASSIUM CL SA 10 MEQ TAB PO SCH (08:26)
[2019-03-18] MEDS: APIXABAN 2.5 MG TABLET PO SCH ×2 (08:26→20:09)
[2019-03-18] MEDS: VITAMIN D 5,000 UNIT CAP PO SCH ×2 (08:26→20:09)
[2019-03-18] MEDS: TRAMADOL HCL 50 MG TAB PO PRN ×2 (08:27→15:56)
[2019-03-18] MEDS: FUROSEMIDE 20 MG/ 2ML VIAL IV SCH ×2 (08:27→17:40)
[2019-03-18] MEDS: SERTRALINE HCL 50 MG TAB PO SCH (08:33)
--- NOTE | 2019-03-18 14:44 | ECHO ---
HEIGHT: 5 ft 1 in WEIGHT: 185 lb 9.6 oz DATE OF STUDY: 03/18/[address]: Lenny Castaneda MD 2-DIMENSIONAL: YES M.MODE: YES DOPPLER: YES COLOR FLOW: YES TDS: NO PORTABLE: NO DEFINITY: NO BUBBLE STUDY: NO DIAGNOSIS: CONGESTIVE HEART FAILURE CARDIAC HISTORY: CATHERIZATION: YES SURGERY: NO PROSTHETIC VALVE: NO PACEMAKER: NO MEASUREMENTS (cm) DIASTOLIC (NORMALS) SYSTOLIC (NORMALS) IVSd 1.0 (0.6-1.2) LA Diam 4.7 (1.9-4.0) LVEF 51% LVIDd 5.7 (3.5-5.7) LVIDs 4.4 (2.0-3.5) %FS 27% LVPWd 1.1 (0.6-1.2) Ao Diam 2.6 (2.0-3.7) 2 DIMENSIONAL ASSESSMENT: RIGHT ATRIUM: NORMAL LEFT ATRIUM: DILATED RIGHT VENTRICLE: NORMAL LEFT VENTRICLE: NORMAL TRICUSPID VALVE: NORMAL MITRAL VALVE: MITRAL ANNULAR CALCIFICATION PULMONIC VALVE: NORMAL AORTIC VALVE: NORMAL PERICARDIAL EFFUSION: NONE AORTIC ROOT: NORMAL LEFT VENTRICULAR WALL MOTION: DECREASED LEFT VENTRICULAR COMPLIANCE. DOPPLER/COLOR FLOW: MILD MITRAL AND TRICUSPID REGURGITATION. COMMENTS: MILD MITRAL AND TRICUSPID REGURGITATION. DECREASED LEFT VENTRICULAR COMPLIANCE. NORMAL LEFT VENTRICULAR EJECTION FRACTION. MITRAL ANNULAR CALCIFICATION. LEFT ATRIAL ENLARGEMENT. TECHNOLOGIST: Adán VALDEZ
[2019-03-19] MEDS: TRAMADOL HCL 50 MG TAB PO PRN (00:54)
[2019-03-19] MEDS: GUAIFENESIN/CODEINE 5ML UCUP PO PRN (00:54)
--- NOTE | 2019-03-19 01:17 | CON ---
Date of Consultation: 03/18/[address] Castaneda's service on 03/16/2019, I saw the patient today 03/18/2019. Reason For Consultation: Congestive heart failure. History Of Present Illness: The patient is an 83-year-old woman, who has a past medical history of C HF, asthma, CAD, PCI, and SFA stent. She came in with shortness of breath, PND, pedal edema. She de nied any chest pain, nausea, vomiting, diaphoresis. She denied any palpitation or syncope. Denied a ny fever, chills or cough. Past Medical History: As stated above. Allergies: SHE IS ALLERGIC TO SULFA. Review of Systems: Negative. Social History: Negative. Family History: Noncontributory. Medications: At home include Lasix, potassium, metoprolol, Eliquis, and Protonix. Physical Examination: Vital Signs: Stable, afebrile and she was feeling better already. She was diuresed significantly. HEENT: Exam was negative. Neck: Supple without any bruit, lymphadenopathy, JVD, or thyromegaly. Chest: Revealed some rales at both bases. Cardiac Exam: Revealed a regular rhythm and rate with S4 gallops, aortic sclerosis, murmur. No rubs . Abdomen: Benign. Extremities: Revealed 1+ edema with chronic venous changes. Skin: Dry and intact. Neurologic: She was nonfocal. Diagnostic Data: EKG showed left bundle-branch block. Chest x-ray showed mild congestive heart fail ure. The rest of her blood work is fairly unremarkable. Impression And Plan: 1.Acute exacerbation of chronic diastolic congestive heart failure. 2.Asthma. 3.Coronary artery disease, status post proton pump inhibitor. 4.Peripheral artery disease, status post superficial femoral artery stent. 5.Left bundle branch block. I agree with her present regimen with beta-blockers, statin, Lasix, and salt restriction. I am not really sure why the patient is on Eliquis as she did not tell me. I am assuming she has had issues with either PVC or atrial fibrillation, but she could not tell me why she is taking it. Nevertheless, an echocardiogram is pending. I agree with the present regimen. No ne ed for stress testing at this point. We will continue to follow the patient. MYRANDA/MAGALY Voice ID: [id number] Report ID: [id number]
--- NOTE | 2019-03-19 02:17 | PN ---
The patient still has basal wheezes. Her echocardiogram shows LVH, however, there is no hypokinesis. The patient is doing better. I will talk to the family and probably discharge her tomorrow. CHELSIE/MAGALY Voice ID: [id number] Report ID: [id number]
[2019-03-19 05:03] VITALS: BMI 33.6
[2019-03-19] MEDS: POTASSIUM CL SA 10 MEQ TAB PO SCH (08:54)
[2019-03-19] MEDS: VITAMIN D 5,000 UNIT CAP PO SCH (08:54)
[2019-03-19] MEDS: PANTOPRAZOLE 40MG TABLET PO SCH (08:54)
[2019-03-19] MEDS: PREGABALIN 50 MG CAP PO SCH ×2 (08:54→13:47)
[2019-03-19] MEDS: METOPROLOL TAR 25 MG TAB PO SCH (08:55)
[2019-03-19] MEDS: SERTRALINE HCL 50 MG TAB PO SCH (08:55)
[2019-03-19] MEDS: APIXABAN 2.5 MG TABLET PO SCH (08:55)
[2019-03-19] MEDS: FUROSEMIDE 20 MG/ 2ML VIAL IV SCH (08:56)
[2019-03-19 12:12] VITALS: O2SAT 97
[2019-03-19 14:25] VITALS: BP 140/70; TEMP 97.6
== END 2019-03-19 15:45 | disposition home or self-care (01) ==
LOC: ER 01:47 → ERHOLD 05:11 → 4TH 05:42
PROVIDERS: ADMIT Internal Medicine; ATTEND Internal Medicine
DX: I50.33 Acute on chronic diastolic (congestive) heart failure (principal); J45.909 Unspecified asthma, uncomplicated; I25.10 Atherosclerotic heart disease of native coronary artery without angina pectoris; I73.9 Peripheral vascular disease, unspecified; I44.7 Left bundle-branch block, unspecified; I08.1 Rheumatic disorders of both mitral and tricuspid valves; I48.91 Unspecified atrial fibrillation; I49.3 Ventricular premature depolarization; N18.9 Chronic kidney disease, unspecified; R94.31 Abnormal electrocardiogram [ECG] [EKG]; Z79.01 Long term (current) use of anticoagulants; Z79.899 Other long term (current) drug therapy; Z95.5 Presence of coronary angioplasty implant and graft
CPT/HCPCS: 93005 ×3; 93306; 85025; 80048; 36415; 83735; 85610; 82962; 80076; 81003; 84484 ×3; 83880; 71045; 94640 ×2; 96374; 99285; J1940 ×8; J2920; G0378 ×2

== ENCOUNTER 2019-03-20 11:03 | Inpatient (IN) | payer OTHER ==
--- OUTSIDE RECORDS SUMMARY | 2019-03-20 11:12 | XMS REPORT | Continuity of Care Document ---
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 17 [facility] Shoulder pain Resolved 09/05/20 Problem 04/05/2018 Medical 16 Group,[facility] Screening for Resolved 02/03/20 Problem 04/05/2018 [facility] breast cancer 16 Group,[facility] Screen for colon Resolved 02/03/20 Problem 04/05/2018 Medical cancer 16 Group,[facility] POSTSURGICAL Inactive 05/13/20 Condition 07/08/2015 [facility] CATARACT 15 Group EXTRACTION STATUS OS SCREENING, Active 04/12/20 Condition 07/08/2015 [facility] DIABETIC 15 Group RETINOPATHY CATARACT, SENILE, Inactive 04/12/20 Condition 07/08/2015 [facility] CORTICAL OS 15 Group PSEUDOPHAKIA OU Active 04/12/20 Condition 07/08/2015 Medical 15 Group ELBOW PAIN, LEFT Inactive 07/17/20 Condition 07/08/2015 Medical 14 Group Pain in Resolved 07/17/20 Problem 04/05/2018 Data [facility] elbow<sup>12</sup 14 migrated Group,MH > from [facility] on 03/27/15. ROTATOR CUFF Active [...] Data Medical pain<sup>15</sup> 14 migrated Group,MH from [facility] on 03/27/15. Body mass index Active 05/21/20 Problem 02/10/2017 Data 30+ - 14 migrated [facility] obesity<sup>2</esquivel from GE p> Centricity on [...] 10/03/20 Problem 02/10/2017 Data /sup> 13 migrated [facility] from [facility] on 03/27/15. DYSPNEA ON Active 09/16/20 Condition 07/08/2015 Medical EXERTION 13 Group CHEST PAIN Inactive 09/16/20 Condition 07/08/2015 Medical 13 Group TIREDNESS Active 09/16/20 Condition 07/08/2015 Medical 13 Group ABDOMINAL PAIN Inactive 09/16/20 Condition 07/08/2015 [facility] RIGHT UPPER 13 Group QUADRANT ABDOMINAL PAIN, Inactive 09/16/20 Condition 07/08/2015 [facility] EPIGASTRIC 13 Group NAUSEA Inactive 09/16/20 [...] Medical quadrant 13 migrated Group, pain<sup>14</sup> from [facility]note 3[facility]city on 03/27/15. Epigastric Resolved 09/16/20 Problem 02/10/2017 Data pain<sup>7</sup> 13 [facility]. Heartburn<sup>8</ Active 09/16/20 Problem 02/10/2017 Data sup> 13 migrated [facility] 03/[facility]15. CHRONIC KIDNEY Active 01/22/20 Condition 07/08/2015 Medical DISEASE STAGE III 13 Group MORBID OBESITY Active 01/22/20 Condition 07/08/2015 Medical 13 Group URINARY TRACT Inactive 01/22/20 Condition 07/08/2015 Medical INFECTION, HX OF 13 Group Chronic kidney Active 01/22/20 Problem 04/05/2018 Data Medical disease stage 13 migrated Group 3<sup>2</sup> [facility] 03/27/15. Morbid Resolved 01/22/20 Problem 04/05/2018 Data Medical obesity<sup>10</s 13 migrated Group up> from [facility] on 03/27/15. Chronic kidney Active 01/22/20 Problem 02/10/2017 Data disease stage 13 migrated [place] 3<sup>3</sup> [facility] 03/27/15. NEED PROPHYLACTIC Inactive 09/12/20 Condition 07/08/2015 Medical VACCINATION&INOCU 12 Group LATION FLU NEED PROPH Inactive 09/12/20 Condition 07/08/2015 Medical VACCINATION 12 Group AGAINST STREP PNEUMONE ASTHMA Active 09/12/20 Condition 07/08/2015 Medical 12 Group Asthma<sup>1</sup Active 09/12/20 Problem 04/05/2018 Data Medical > 12 migrated Group, from [facility] on 03/27/15. LONG-TERM USE OF Active 04/17/20 [...] VASCULAR COMPLICATIONS Asthma Active Problem 04/05/2018 Medical Group,[facility] Carpal tunnel Active Problem 04/05/2018 Medical syndrome Group,[facility] Chest pain Resolved Problem 04/05/2018 Medical Group,[facility] Chronic CHF Active Problem 04/05/2018 Medical Group CKD stage 3, GFR Active Problem 04/05/2018 Medical 30-59 Group, ml/min(<span [facility] ID="[id number]" >Confirmed</span> ) Coronary Active Problem 04/05/2018 Data Medical arteriosclerosis< migrated Group sup>3</sup> from [facility] on 03/27/15. 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 Drug therapy Active Problem 04/05/2018 Medical Group,[facility] Gastric ulcer Active Problem 04/05/2018 Medical Group,[facility] Ischemic Active Problem 04/05/2018 Medical cardiomyopathy Group GERD (<span Active Problem 04/05/2018 Medical ID="[id number]" Group, >Confirmed</span> [facility] ) Heart failure Active Problem 04/05/2018 Medical Group,[facility] Hypertension Active Problem 04/05/2018 Medical Group,[facility] Heart attack Resolved Problem 04/05/2018 Medical Group,[facility] Mixed Active Problem 04/05/2018 [facility] hyperlipidemia Group Osteopenia Active Problem 04/05/2018 Medical Group,[facility] Peripheral Active Problem 04/05/2018 Data Medical circulatory migrated Group, disorder from [facility] associated with [facility] type 2 diabetes on 03/27/15. mellitus<sup>13</ sup> Coronary Active Problem 02/10/2017 Data arteriosclerosis< migrated [facility] sup>4</sup> from [facility] on 03/27/15. Disorder of Active Problem 02/10/2017 Data carotid migrated [facility] artery<sup>5</sup from GE > [facility] on 03/27/15. ATHSCL HEART Active DISEASE OF HUGHES [facility] CORONARY Medications Medication Details Route Status Patient Ordering Order Source Instructions Provider Date Metoprolol See Active Medical Succinate ER 50 Instructions, 2018 Group mg oral tablet, # 60 tab, extended Refill(s) 5, release TAKE ONE TABLET BY MOUTH TWICE DAILY, Pharmacy: [facility] Fish Oil 1 gm, 1 cap, No Longer Route: PO, Active 2016 [facility] Drug form: CAP, Daily, Dosing Weight 91.364, kg, Start date: 02/08/17 9:00:00 CDT, Duration: 30 day, Stop date: 03/09/17 9:00:00 CDTNotes: (Same as: MaxEPA, [place] 3 fish oil ) Non-Formular y Drug Losartan 100 mg, 2 No Longer tab, Route: Active 2016 [facility] PO, Drug form: TAB, Daily, Dosing Weight 91.364, kg, Start date: 02/08/17 9:00:00 CDT, Duration: 30 day, Stop date: 03/09/17 9:00:00 CDTNotes: (Same as: Cozaar) Furosemide 20 20 mg, 1 tab, No Longer MG Oral Tablet Route: PO, Active 2016 [facility] Drug form: TAB, Daily, Dosing Weight 91.364, kg, Start date: 02/08/17 9:00:00 CDT, Duration: 30 day, Stop date: 03/09/17 9:00:00 CDTNotes: (Same as: Lasix) May cause GI upset. Give with food or milk. clopidogrel 75 mg, 1 tab, No Longer Route: PO, Active 2016 [facility] Drug form: TAB, Daily, Dosing Weight 91.364, kg, Start date: 02/08/17 9:00:00 CDT, Duration: 30 day, Stop date: 03/09/17 9:00:00 CDTNotes: (Same As: Plavix) metoprolol 25 mg, 1 tab, Inactive tartrate Route: PO, 2016 [facility] Drug form: TAB, Q12H, Dosing Weight 91.364, kg, Start date: 02/07/17 21:00:00 CDT, Duration: 30 day, Stop date: 03/09/17 9:00:00 CDTNotes: (Same as: Lopressor) famotidine 20 mg, 1 tab, Inactive Route: PO, 2016 [facility] Drug form: TAB, ONCE, Start date: 02/07/17 18:30:00 CDT, Stop date: 02/07/17 18:30:00 CDTNotes: (Same as: Pepcid) Ranitidine 150 150 mg, 1 Inactive MG Oral Tablet tab, Route: 2016 [facility] PO, ONCE, Dosing Weight 91.364, kg, Priority: NOW, Start date: 02/07/17 18:07:00 CDT, Stop date: 02/07/17 18:07:00 CDT Sodium Chloride 250 mL, Inactive 0.9% IV Route: IVPB, 2016 [facility] Start date: 02/07/17 16:03:00 CDT, Duration: 30 day, Stop date: 03/09/17 16:02:00 CDT, PRN Line Flush BD Normal 10 mL, Route: Inactive Saline Flush IVP, Drug 2016 [facility] Form: INJ, PRN, PRN Line Flush, Start date: 02/07/17 16:03:00 CDT, Duration: 30 day, Stop date: 03/09/17 16:02:00 CDTNotes: (Same as: BD Posiflush) Furosemide 20 20 mg=1 tab, Active MG Oral Tablet PO, Daily, 0 2016 [facility] Refill(s) clopidogrel 75 75 mg, PO, Active mg oral tablet Daily, 0 2016 [facility] Refill(s) Acetaminophen 650 mg, 2 Inactive tab, Route: 2016 [facility] PO, Drug form: TAB, Q4H, Dosing Weight 91.364, kg, PRN Pain Score 1-3, Start date: 02/07/17 14:36:00 CDT, Duration: 30 day, Stop date: 03/09/17 14:35:00 CDTNotes: Do not exceed 4 gm/day. (Same as: Tylenol) Acetaminophen 1 tab, Route: Inactive 325 MG / PO, Drug 2016 [facility] Hydrocodone Form: TAB, Bitartrate 5 MG Dosing Weight Oral Tablet 91.364, kg, Q4H, PRN Pain Score 4-6, Start date: 02/07/17 14:36:00 CDT, Duration: 30 day, Stop date: 03/09/17 14:35:00 CDTNotes: (Same as: [place] 325/5) Do not exceed 4gm/day of acetaminophen . Ondansetron 4 mg, 2 mL, Inactive Route: IVP, 2016 [facility] Drug form: INJ, Q8H, Dosing Weight 91.364, kg, PRN Nausea & Vomiting, Start date: 02/07/17 14:36:00 CDT, Duration: 30 day, Stop date: 03/09/17 14:35:00 CDTNotes: (Same as: Zofran) MEDICATION WASTE Product Size: 4 mg Product Wasted: _0__ mg Sodium Chloride 750 mL, Rate: Inactive 0.154 MEQ/ML 75 ml/hr, 2016 [facility] Injectable Infuse over: Solution 10 hr, [...] Group CORTISPORIN Apply 2 drops Active Medical [id number] in nail 2013 Group SOLN border 2-3 [...] HFA 108 2 puffs q 4-6 Active 10/21[facility] Medical (90 BASE) hours prn 2012 Group MCG/ACT AERS cough,wheezin g SYMBICORT 2 puff bid No Longer Medical 160-4.5 MCG/ACT Active 2012 Group AERO SPIRIVA one cap for No Longer Medical HANDIHALER 18 inhalation Active 2012 Group MCG CAPS daily PROAIR HFA 108 2 puffs q 4-6 Active 10/21[facility] Medical (90 BASE) hours prn 2012 Group MCG/ACT AERS cough,wheezin g LEVAQUIN 500 MG 1 PO Daily No Longer Medical TABS Active 2012 Group SYMBICORT 2 puff bid Active Medical 160-4.5 MCG/ACT 2012 Group AERO PROAIR HFA 108 2 puffs q 4-6 Active 10/21[facility] Medical (90 BASE) hours prn 2012 Group MCG/ACT AERS cough,wheezin g SPIRIVA one cap for No Longer Medical HANDIHALER 18 inhalation Active 2012 Group MCG CAPS daily LEVAQUIN 500 MG 1 PO Daily No Longer Medical TABS Active 2012 Group SYMBICORT 2 puff bid No Longer 10/21[facility] Medical 160-4.5 MCG/ACT Active 2012 Group AERO [...] 500/200 1 tab qd Active Medical D-3 [phone] Group MG-UNIT TABS ASPIRIN TAB 1 po [...] 2 migrated Medical 2</sup> Rash, NOS from [facility] on 05/27/15. Originally documented as SULFA. rash or swelling, cannot remember pravastatin< Assertion Muscle Drug Active Data sup>5</sup> pain allergy 2 migrated Medical (finding) from [facility] on 02/25/15. Originally documented as PRAVASTATI N SODIUM. severe muscle pain simvastatin< Assertion Muscle Drug Active Data sup>6</sup> pain allergy 2 migrated Medical (finding) from [facility] on 02/25/15. Originally documented as ZOCOR. severe muscle pain rosuvastatin Assertion Muscle Drug Active Data <sup>8</sup> pain allergy 2 migrated Medical (finding) from [facility] on 02/25/15. Originally documented as CRESTOR. severe muscle pain pitavastatin Assertion Muscle Drug Active Data <sup>9</sup> pain allergy 2 migrated Medical (finding) from [facility] on 02/25/15. Originally documented as LIVALO. severe muscle pain pitavastatin Assertion Muscle Drug Active Data MH <sup>4</sup> pain allergy 2 migrated [place] (finding) from [facility] on 02/25/15. Originally documented as LIVALO. severe muscle pain rosuvastatin Assertion Muscle Drug Active Data MH <sup>6</sup> pain allergy 2 migrated [place] (finding) from [facility] on 02/25/15. Originally documented as CRESTOR. severe muscle pain simvastatin< Assertion Muscle Drug Active Data MH sup>7</sup> pain allergy 2 migrated [place] (finding) from [facility] on 02/25/15. Originally documented as ZOCOR. severe muscle pain sulfa Assertion Rash, Drug Active Data drugs<sup>8, NOS, allergy 2 migrated [place] 9</sup> Swelling, from [facility] on 05/27/15. Originally documented as SULFA. rash or swelling, cannot remember ampicillin<s Assertion Swelling, Drug Active Data MH up>3, NOS, allergy 4 migrated Medical 4</sup> Rash, NOS from [facility] on 02/25/15. Originally documented as AMPICILLIN . RASH OR SWELLING, PATIENT CANT REMEMBER ampicillin<s Assertion Rash, Drug Active Data MH up>1, NOS, allergy 4 migrated [place] 2</sup> Swelling, from [facility] on 02/25/15. Originally documented as AMPICILLIN . RASH OR SWELLING, PATIENT CANT REMEMBER VOLTAREN Drug VOLTAREN MH allergy 5 Medical Group VOLTAREN GEL Drug VOLTAREN allergy GEL 5 Medical Group diclofenac<s Assertion Rash, NOS Drug Active Data MH up>7</sup> allergy 5 migrated Medical from [facility] on 05/06/15. Originally documented as VOLTAREN. rash diclofenac<s Assertion Rash, NOS Drug Active Data up>3</sup> allergy 5 migrated [place] from [employer] on 05/06/15. Originally documented as VOLTAREN. rash NKFA Assertion Food Active allergy Medical Group Immunizations Immunization Date Site Status Last Comments Source Given Updated pneumococcal Left completed [facility] 13-valent 6 Deltoid Group, vaccine [place] pneumococcal completed Medical immunization 2 Group administered pneumococcal Right completed [facility] 23-valent 2 Deltoid Comment: Group, vaccine<sup>1</s pneumovax. [place] up> Migrated from [facility] ; Data migrated from Between on 11/30/2015. Results Order Name Results Value Reference Date Interpretation Comments Source Range Chest 2 Chest 2 CLINICAL HISTORY: CHF 02/05 - [facility] views DX views /2016 - [facility] AGE: 81 years GENDER: Female Read by: [...] spine - AP and lateral 10/26 - [facility] thoracic 3 thoracic - T[facility] views DX [...] Chest 2 Chest 2 EXAM: 10/26 - [facility] views DX views DX /2015 - [facility] 2 view(s) of the chest. Read by: [...] lumbar EXAMINATION: Lumbar spine series 10/26 - [facility] lumbar series DX /2015 - [facility] series DX HISTORY: Lumbar spondylosis; lumbar compression [...] 05/23 - [facility] Density DXA DXA - [facility] [employer] MA BONE DENSITY EVALUATION: [...] This exam was dictated and interpreted by [id number] for [facility]. Ronald butts/eber:06/01/2016 09:05:37 Student Financial Services Counselor: Elise Edwards, [facility] [employer] - DIGITAL MAMMO SCREENING JEAN-CLAUDE MA 05/23 - [facility] Mammo Mammo /2016 - [facility] Screening Screening BILATERAL DIGITAL SCREENING MAMMOGRAM WITH CAD: 2015 Jean-Claude MA Jean-Claude MA CLINICAL: Screening V76.12 Routine/Screening. Read by: Ronald Sandy MD Dictated Date/time: 06/01/16 15:43 Electronically Signed by: Ronald Sandy MD 06/01/16 15:43 FINAL REPORT Current study was evaluated with a Computer Aided Detection (CAD) system. Comparison is made to exam dated: 05/11/2015 mammogram - [facility]. There are scattered fibroglandular densities in both breasts. There are benign vascular calcifications in both breasts. No significant masses, calcifications, or other findings are seen in either breast. There has been no significant interval change. IMPRESSION: BENIGN There is no mammographic evidence of malignancy. A 1 year screening mammogram is recommended. Ronald Sandy M.D. srp/penrad:06/01/2016 15:43:09 Student Financial Services Counselor: Nimisha Norman, [facility] This exam was dictated and interpreted by [id number] for [facility]. letter sent: Normal exam Mammogram BI-RADS: 2 Benign Ribs Ribs EXAM: Ribs unilateral DX 05/09 - [facility] unilateral unilateral /2015 - [facility] DX DX HISTORY: CHEST PAIN, FALL COMPARISON: [...] Source Temperature Oral (F) 97.9 F 02/07/2017 [facility] Systolic (mm Hg) 173 02/07/2017 [facility] Diastolic (mm Hg) 56 02/07/2017 [facility] Respitory Rate 24 02/07/2017 [facility] Heart Rate 83 02/07/2017 [facility] Height 152.4 cm 02/06/2017 [facility] Weight 91.364 02/06/2017 [facility] BMI Calculated 39.34 02/06/2017 [facility] Height 62 04/01/2015 Medical Group Weight 207 [...] Provider Date Date Visit [facility] Lab Report [id number] Sharon Badillo, 11/24 11/24 [place] 7400 Medical Medical Group Group [facility] South Office [id number] Sharon Badillo, 12/01 12/01 [place] Medical Visit 7040 Medical [facility] Cardiology [facility] South Office [id number] Sharon Badillo, 12/16 12/16 [place] Medical Visit 6980 Medical [facility] Family Practice [facility] South Office [id number] H Leyla, 12/30 12/30 [place] Medical Visit [address] [facility] Practice [facility] Lab Report [id number] Sharon Badillo, 05/18 05/18 Tj 1820 Medical Medical Group Group [facility] Lab Report [id number] Sharon Badillo, 05/21 05/21 [place] Medical 7570 Medical [facility] Family Practice [facility] South Office [id number] Sharon Badillo, 05/21 05/21 [place] Medical Visit [address] [facility] [place] Lab Report [id number] H Leyla, 05/29 05/29 [place] Medical 7200 MD /2013 Medical [facility] Cardiology [facility] South Office [id number] H Leyla, 06/01 06/01 MH [place] Medical Visit 3270 MD /2013 Medical [facility] Cardiology [facility] South Office [id number] H Leyla, 06/19 06/19 [place] Medical Visit 4030 MD /2013 Medical [facility] Orthopedics [facility] South Office [id number] H Leyla, 07/17 07/17 [place] Medical Visit 4640 /2013 Medical [facility] Orthopedics [facility] South Lab Report [id number] H Leyla, 09/17 09/17 MH [place] Medical 0060 /[address] [facility] Practice [facility] South Office [id number] H Leyla, 09/17 09/17 [place] Medical Visit 9970 /[address] [facility] Office [id number] H Leyla, 12/07 12/07 [place] Medical Visit 7320 MD /2014 Medical [facility] Cardiology [facility] South Lab Report [id number] H Leyla, 12/14 12/14 [place] Medical 7160 [place] /[address] [facility] South Office [id number] Jaleel 12/17 12/17 [place] Medical Visit 0050 [place], /2014 Kaelyn Zarate MD [facility] Lab Report [id number] Jaleel 03/25 03/25 [place] Medical 7140 [place], /2014 Kaelyn Zarate MD [facility] Family Practice [facility] South Office [id number] Jaleel 04/01 04/01 [place] Medical Visit 8040 [place], /2014 Kaelyn Zarate MD [facility] Family [facility] [place] Lab Report [id number] Jaleel 05/18 05/18 [place] Medical 8010 [place], /2014 Kaelyn Zarate MD Group Nephrology Outpatient [id number] VIRA 06/01 Active [facility] LEYLA /2014 [facility] Outpatient [id number] DARI 06/03 Active [facility] ISAC /2014 Tj [facility] South Office [id number] Jaleel 06/17 06/17 [place] Medical Visit 1150 [place], /2014 Kaelyn Zarate MD Group Ophthalmolo gy Outpatient [id number] DARI 06/17 Active [facility] ISAC /2014 Tj Outpatient [id number] PEPITO 07/01 Active [facility] SARIAH [facility] Sugar Lab Report [id number] Taniya 07/08 07/08 [place] 9160 MD Malachi /2014 Medical [facility] Urology Outpatient [id number] TANIYA 07/08 Active [facility] MUCHER [facility] Outpatient [id number] JOSIAS 07/19 Active [facility] NELY Tj Outpatient [id number] SHAWNA 08/09 Active [facility] MARTINEZ [facility]j Outpatient [id number] DANIEL 09/07 Active [facility] TEYKL /2014 [facility] Outpatient [id number] PEPITO 10/04 Active [facility] SARIAH Tj Outpatient [id number] VIRA 11/30 Active [facility] LEYLA [facility] [id number] BRENDA 01/09 Active [facility] VISIT /2015 [facility] Out[facility] [id number] JOSIAS 01/16 Active [facility] NELY [facility] Outpatient [id number] PEPITO 02/02 Active [facility] SARIAH [facility] Outpatient [id number] XRAY VISIT 05/09 Active [facility] Outpatient [id number] XRAY VISIT 05/09 Active [facility] [place] Outpatient [id number] PEPITO 05/09 Active [facility] SARIAH Tj Outpatient [id number] MAMMO 05/23 Active [facility] VISIT /2015 Tj Outpatient [id number] DEXA VISIT 05/23 Active [facility] /2015 [place] Outpatient [id number] PEPITO 06/06 Active [facility] SARIAH [facility] Outpatient [id number] VIRA 06/06 Active [facility] LEYLA Tj Outpatient [id number] VIRA 07/11 Active [facility] LEYLA [facility]j Outpatient [id number] JOSIAS 07/20 Active [facility] NELY Tj Outpatient [id number] PEPITO 09/05 Active [facility] SARIAH Tj Outpatient [id number] VIRA 10/03 Active [facility] LEYLA Tj Outpatient [id number] PEPITO 10/26 Active [facility] SARIAH Tj Outpatient [id number] XRAY VISIT 10/26 Active [facility] Tj Outpatient [id number] XRAY VISIT 10/26 Active [facility] Tj Outpatient [id number] PEPITO 11/09 Active [facility] SARIAH Tj Outpatient [id number] PEPITO 12/05 Active [facility] SARIAH Tj Outpatient [id number] JOSIAS 01/18 Active [facility] NELY Tj Outpatient [id number] PEPITO 01/23 Active [facility] SARIAH [facility] Outpatient [id number] [facility] 01/23 Active Memorial VISIT /2016 Tj Outpatient [id number] JOSIAS 02/05 Active [facility] NELY Tj Outpatient [id number] XRAY VISIT 02/05 Active [facility] Outpatient [id number] XRAY VISIT 02/05 Active [facility] [id number] Josias 02/07 02/08 [facility] Out[facility] Nely /2016 [facility] Outpatient [id number] JOSIAS 03/05 Active [facility] NELY Tj Outpatient [id number] JOSIAS 03/15 Active [facility] NELY [facility] Outpatient [id number] VIRA 04/03 Active [facility] LEYLA Tj Outpatient [id number] JOSIAS04/12 Active [facility] NELY Tj Outpatient [id number] VIRA 04/17 Active [facility] LEYLA Tj Outpatient [id number] PEPITO 04/24 Active [facility] SARIAH Tj Outpatient [id number] [facility] 05/10 Active [facility] VISIT /2016 Tj Outpatient [id number] JOSIAS 05/10 Active [facility] NELY Tj Outpatient [id number] JOSIAS 05/21 Active [facility] NELY [facility] Outpatient [id number] [facility] 06/18 Active [facility] VISIT /2016 Tj Outpatient [id number] JOSIAS 06/18 Active [facility] NELY [facility] Outpatient [id number] VIRA 07/17 Active [facility] LEYLA [facility] Outpatient [id number] JOSIAS 07/23 Active [facility] NELY Tj Outpatient [id number] PEPITO 07/24 Active [facility] SARIAH [facility] Outpatient [id number] JOSIAS 09/24 Active [facility] NELY [facility] [id number] Josias 09/24 09/24 Cardiology Pre-Reg [facility] Outpatient [id number] VIRA 10/30 [facility] [id number] H Leyla 10/30 10/30 Nephrology Pre-Reg /2017 Medical [place] [facility] MG Phone [id number] 12/10 12/12 Cardiology Message /2017 Medical [place] [facility] Phone [id number] 12/10 12/12 Cardiology Message /2017 Medical [place] [facility] Outpatient [id number] PEPITO 12/28 [facility] [id number] Pep[place] 12/28 12/28 Medicine Pre-Reg [place] Medical [place] [facility] Procedures Procedure Code Date Perfomer Comments [facility] [id number] Medical catheterisation, 7 Group left heart Cataract [id number] LEFT EYE Medical surgery<sup>1</sup> 5 Group Cataract [id number] LEFT EYE [facility]<sup>1</sup> 5 mammogram 04004 Completed Medical 5 Group smoking/tobacco 14 no Medical cessation, patient 5 Group education and counseling diabetic foot check [id number] yes Medical 5 Group smoking/tobacco 14 no Medical cessation, patient 5 Group education and counseling smoking/tobacco 14 no Medical cessation, patient 5 Group education and counseling smoking/tobacco 14 no Medical cessation, patient 4 Group education and counseling smoking/tobacco 14 no Medical cessation, patient 4 Group education and counseling diabetic foot check [id number] yes Medical 4 Group smoking/tobacco 14 no Medical cessation, patient 4 Group education and counseling diabetic eye exam 10482.1 performed Medical 2 Group diabetic foot check [id number] Diabetic Foot Medical 2 Exam Done Group Today echocardiogram, 80672 Complete Medical complete 2 Group Cataract [id number] RIGHT EYE Medical surgery<sup>2</sup> 2 Group Cataract [id number] RIGHT EYE [facility] surgery<sup>2</sup> 2 colonoscopy 61057 Complete Medical 8 Group Incidental [id number] REMOVED WITH [facility] appendectomy<sup>3</ 7 CYST Group sup> Incidental [id number] REMOVED WITH [facility] appendectomy<sup>3</ CYST sup> Excision of cyst of [id number] LEFT OVARY [facility] ovary<sup>4</sup> 6 Group Excision of cyst of [id number] LEFT OVARY [facility] ovary<sup>4</sup> 6 Carotid [id number] Medical endarterectomy Group Insertion of [id number] [facility] arterial stent Group PTCA - Percutaneous [id number] [facility] transluminal Group coronary angioplasty Carotid [id number] [facility] endarterectomy Insertion of [id number] [facility] arterial stent PTCA - Percutaneous [id number] [facility] transluminal coronary angioplasty
--- OUTSIDE RECORDS SUMMARY | 2019-03-20 11:13 | XMS REPORT | Continuity of Care Document ---
:[address] [facility] Care Team Providers Name Role Phone MD Badillo H Unavailable Unavailable Insurance Providers Payer name Policy type / Policy ID Covered green party ID Policy Theodore Coverage type MEDICARE PRIMARY MEDIC[place]: [employer] MEDICARE B-[place]: SeniorSource Encounters Encounter Performer Location Date Lab Report Sharon Badillo MD [facility] Nov 24, 2013 Allergies, Adverse Reactions, Alerts [...]
--- OUTSIDE RECORDS SUMMARY | 2019-03-20 11:13 | XMS REPORT | Continuity of Care Document ---
:1935 Author Organization [facility] Care Team Providers Name Role Phone MD Badillo H Unavailable Unavailable Insurance Providers Payer name Policy type / Policy ID Covered democrat ID Policy Theodore Coverage type MEDICARE PRIMARY MEDICARE B-[place]: [employer] MEDICARE B-[place]: [employer] Encounters Encounter Performer Location Date Office Visit Sharon Badillo MD [facility] Dec 16, 2013 Allergies, Adverse Reactions, Alerts [...]
--- OUTSIDE RECORDS SUMMARY | 2019-03-20 11:14 | XMS REPORT | Continuity of Care Document ---
:1935 Author Organization [facility] Care Team Providers Name Role Phone MD Badillo H Unavailable Unavailable Insurance Providers Payer name Policy type / Policy ID Covered constitution party ID Policy Theodore Coverage type MEDICARE PRIMARY MEDICARE B-[place]: Sidewalk[employer]Kiki MEDICARE B-[place]: Sidewalk[employer] Encounters Encounter Performer Location Date Office Visit Sharon Badillo MD [facility] Dec 30, 2013 Allergies, Adverse Reactions, [...]
--- OUTSIDE RECORDS SUMMARY | 2019-03-20 11:14 | XMS REPORT | Continuity of Care Document ---
:1935 Author Organization [facility] Care Team Providers Name Role Phone MD Badillo H Unavailable Unavailable Insurance Providers Payer name Policy type / Policy ID Covered republican ID Policy Theodore Coverage type MEDICARE PRIMARY MEDICARE B-[place]: [employer]ral[employer]izi MEDICARE B-[place]: [employer] Encounters Encounter Performer Location Date Lab Report Sharon Badillo MD [facility] Apr Allergies, Adverse Reactions, Alerts Type [...]
--- OUTSIDE RECORDS SUMMARY | 2019-03-20 11:14 | XMS REPORT | Continuity of Care Document ---
:1935 Author Organization [facility] Care Team Providers Name Role Phone MD Badillo H Unavailable Unavailable Insurance Providers Payer name Policy type / Policy ID Covered green party ID Policy Theodore Coverage type MEDICARE PRIMARY MEDICARE B-[place]: [employer] MEDICARE B-[place]: [employer] Encounters Encounter Performer Location Date Office Visit Sharon Badillo MD [facility] [place] [facility] Dec 01, 2013 Allergies, Adverse Reactions, [...]
--- OUTSIDE RECORDS SUMMARY | 2019-03-20 11:15 | XMS REPORT | Continuity of Care Document ---
:1935 Author Organization [facility] Care Team Providers Name Role Phone MD Badillo H Unavailable Unavailable Insurance Providers Payer name Policy type / Policy ID Covered libertarian ID Policy Theodore Coverage type MEDICARE PRIMARY MEDICARE B-[place]: [email or web address] [employer] MEDICARE B-[place]: [employer]ak[employer] Encounters Encounter Performer Location Date Office Visit Sharon Badillo MD [facility] May 21, 2014 Allergies, Adverse Reactions, Alerts [...]
--- OUTSIDE RECORDS SUMMARY | 2019-03-20 11:15 | XMS REPORT | Continuity of Care Document ---
:1935 Author Organization [facility] Care Team Providers Name Role Phone MD Badillo H Unavailable Unavailable Insurance Providers Payer name Policy type / Policy ID Covered democrat ID Policy Theodore Coverage type MEDICARE PRIMARY MEDICARE B-[place]: SH[employer] Akella MEDICARE B-[place]: AnybodyOutThere Encounters Encounter Performer Location Date Lab Report Sharon Badillo MD [facility] May 18, 2014 Allergies, [...]
--- OUTSIDE RECORDS SUMMARY | 2019-03-20 11:16 | XMS REPORT | Continuity of Care Document ---
:1935 Author Organization [facility] Care Team Providers Name Role Phone MD Badillo H Unavailable Unavailable Insurance Providers Payer name Policy type / Policy ID Covered green party ID Policy Theodore Coverage type MEDICARE PRIMARY MEDICARE B-[place]: [employer] MEDICARE B-[place]: [employer] Encounters Encounter Performer Location Date Office Visit Sharon Badillo MD [facility] [place] [facility] Jun 01, 2014 Allergies, Adverse Reactions, [...] May 29, sodium, serum SODIUM 139 mmol/L [phone] May 29, potassium, serum POTASSIUM 4.2 mmol/L [...]
--- OUTSIDE RECORDS SUMMARY | 2019-03-20 11:16 | XMS REPORT | Continuity of Care Document ---
:1935 Author Organization [facility] Care Team Providers Name Role Phone MD Badillo H Unavailable Unavailable Insurance Providers Payer name Policy type / Policy ID Covered constitution party ID Policy Theodore Coverage type MEDICARE PRIMARY MEDICARE B-[place]: [employer] MEDICARE B-[place]: Cubicl Encounters Encounter Performer Location Date Lab Report Sharon Badillo MD [facility] [place] [facility] May 29, 2014 Allergies, Adverse Reactions, [...] May 29, sodium, serum SODIUM 139 mmol/L [phone] May 29, potassium, serum POTASSIUM 4.2 mmol/L [...]
--- OUTSIDE RECORDS SUMMARY | 2019-03-20 11:16 | XMS REPORT | Continuity of Care Document ---
:1935 Author Organization [facility] Care Team Providers Name Role Phone MD Badillo H Unavailable Unavailable Insurance Providers Payer name Policy type / Policy ID Covered democrat ID Policy Theodore Coverage type MEDICARE PRIMARY MEDICARE B-[place]: [email or web address] MEDICARE B-[place]: [email or web address] Encounters Encounter Performer Location Date Office Visit Sharon Badillo MD [facility] Jun 19, 2014 Allergies, Adverse Reactions, [...] May 29, sodium, serum SODIUM 139 mmol/L [phone] May 29, potassium, serum POTASSIUM 4.2 mmol/L [...]
--- OUTSIDE RECORDS SUMMARY | 2019-03-20 11:17 | XMS REPORT | Continuity of Care Document ---
:1935 Author Organization [facility] Care Team Providers Name Role Phone MD Badillo H Unavailable Unavailable Insurance Providers Payer name Policy type / Policy ID Covered alliance party ID Policy Theodore Coverage type MEDICARE PRIMARY MEDICARE B-[place]: ID AMERICA MEDICARE B-TX: ID AMERICA Encounters Encounter Performer Location Date Office Visit Sharon Badillo MD [facility] [place] [facility] Jul 17, 2014 Allergies, Adverse Reactions, [...] May 29, sodium, serum SODIUM 139 mmol/L [phone] May 29, potassium, serum POTASSIUM 4.2 mmol/L [...]
--- OUTSIDE RECORDS SUMMARY | 2019-03-20 11:17 | XMS REPORT | Continuity of Care Document ---
:1935 Author Organization [facility] Care Team Providers Name Role Phone MD Badillo H Unavailable Unavailable Insurance Providers Payer name Policy type / Policy ID Covered republican ID Policy Theodore Coverage type MEDICARE PRIMARY MEDICARE B-[place]: BurstPoint [employer]S Apisphere MEDICARE B-[place]: [employer] Encounters Encounter Performer Location Date Lab Report Sharon Badillo MD [facility] [place] Aug Allergies, Adverse Reactions, Alerts Type Substance [...] prn pain Jun 19, 2014 Active CORTISPORIN 3.5-77695-4 SOLN Apply 2 drops in nail border [...] May 29, sodium, serum SODIUM 139 mmol/L [phone] May 29, potassium, serum POTASSIUM 4.2 mmol/L [...] 2013Sep 17, sodium, serum SODIUM 140 mmol/L [phone] Sep 17, potassium, serum POTASSIUM 4.1 mmol/L 3.3-5.0 2013Sep 17, urea nitrogen, blood BUN 24 mg/dL 8-20 High 2013Sep 17, creatinine, serum CREATININE 0.91 mg/dL 0.46-1.20 2013Sep 17, calcium, serum CALCIUM 9.3 mg/dL 8.8-10.0 2013Sep 17, hemoglobin A1C, HGBA1C 6.6 % 3.0-6.0 High 2013 blood, as % of total hemoglobin
--- OUTSIDE RECORDS SUMMARY | 2019-03-20 11:18 | XMS REPORT | Continuity of Care Document ---
:1935 Author Organization [facility] Care Team Providers Name Role Phone MD Badillo H Unavailable Unavailable Insurance Providers Payer name Policy type / Policy ID Covered libertarian ID Policy Theodore Coverage type MEDICARE PRIMARY MEDICARE B-[place]: H[employer]book MEDICARE B-[place]: Hitsbook Encounters Encounter Performer Location Date Office Visit Sharon Badillo MD [facility] Sep 17, 2014 Allergies, Adverse Reactions, Alerts [...] prn pain Jun 19, 2014 Active CORTISPORIN 3.5-47807-5 SOLN Apply 2 drops in nail border [...] May 29, sodium, serum SODIUM 139 mmol/L [phone] May 29, potassium, serum POTASSIUM 4.2 mmol/L [...] 2013Sep 17, sodium, serum SODIUM 140 mmol/L [phone] Sep 17, potassium, serum POTASSIUM 4.1 mmol/L 3.3-5.0 2013Sep 17, urea nitrogen, blood BUN 24 mg/dL 8-20 High 2013Sep 17, creatinine, serum CREATININE 0.91 mg/dL 0.46-1.20 2013Sep 17, calcium, serum CALCIUM 9.3 mg/dL 8.8-10.0 2013Sep 17, hemoglobin A1C, HGBA1C 6.6 % 3.0-6.0 High 2013 blood, as % of total hemoglobin
--- OUTSIDE RECORDS SUMMARY | 2019-03-20 11:18 | XMS REPORT | Continuity of Care Document ---
:1935 Author Organization [facility] Care Team Providers Name Role Phone MD Leblanc Tom Unavailable Unavailable Insurance Providers Payer name Policy type / Policy ID Covered republican ID Policy Theodore Coverage type MEDICARE PRIMARY MEDICARE B-[place]: [email or web address] MEDICARE B-[place]: [employer]illian [email or web address] Encounters Encounter Performer Location Date Lab Report Jaleel Leblanc MD [facility] [place] [facility] May 18, 2015 Allergies, Adverse Reactions, [...] mg for 4 days then discontinue CORTISPORIN 3.5-44489-2 SOLN Apply 2 drops in nail border [...] 2014May 18, sodium, serum SODIUM 140 MEQ/L [phone] mmol/L May 18, potassium, serum POTASSIUM 4.4 [...] May 29, sodium, serum SODIUM 139 mmol/L [phone] May 29, potassium, serum POTASSIUM 4.2 mmol/L [...] 2013Sep 17, sodium, serum SODIUM 140 mmol/L [phone] Sep 17, potassium, serum POTASSIUM 4.1 mmol/L 3.3-5.0 2013Sep 17, urea nitrogen, blood BUN 24 mg/dL 8-20 High 2013Sep 17, creatinine, serum CREATININE 0.91 mg/dL 0.46-1.20 2013Sep 17, calcium, serum CALCIUM 9.3 mg/dL 8.8-10.0 2013Sep 17, hemoglobin A1C, HGBA1C 6.6 % 3.0-6.0 High 2013 blood, as % of total hemoglobin Dec 14, sodium, serum SODIUM 140 mmol/L [phone] Dec 14, potassium, serum POTASSIUM 4.4 mmol/L [...] 2014May 18, sodium, serum SODIUM 140 MEQ/L [phone] mmol/L May 18, potassium, serum POTASSIUM 4.4 MEQ/L 3.5-5.1 2014 mmol/L May 18, calcium, serum CALCIUM 9.0 mg/dL 8.5-10.5 2014May 18, phosphate, serum PO4 3.3 mg/dL 2.5-4.5 2014May 18, albumin, serum ALBUMIN 3.7 g/dL 3.5-5.0 2014
--- OUTSIDE RECORDS SUMMARY | 2019-03-20 11:19 | XMS REPORT | Continuity of Care Document ---
:1935 Author Organization [facility] Care Team Providers Name Role Phone MD Leblanc Tom Unavailable Unavailable Insurance Providers Payer name Policy type / Policy ID Covered alliance party ID Policy Theodore Coverage type MEDICARE PRIMARY MEDICARE B-[place]: [employer] MEDICARE B-[place]: [employer] Encounters Encounter Performer Location Date Office Visit Jaleel Leblanc MD [facility] Dec 17, 2014 Practice [...] mg for 4 days then discontinue CORTISPORIN 3.5-94813-8 SOLN Apply 2 drops in nail border [...] May 29, sodium, serum SODIUM 139 mmol/L [phone] May 29, potassium, serum POTASSIUM 4.2 mmol/L [...] 2013Sep 17, sodium, serum SODIUM 140 mmol/L [phone] Sep 17, potassium, serum POTASSIUM 4.1 mmol/L 3.3-5.0 2013Sep 17, urea nitrogen, blood BUN 24 mg/dL 8-20 High 2013Sep 17, creatinine, serum CREATININE 0.91 mg/dL 0.46-1.20 2013Sep 17, calcium, serum CALCIUM 9.3 mg/dL 8.8-10.0 2013Sep 17, hemoglobin A1C, HGBA1C 6.6 % 3.0-6.0 High 2013 blood, as % of total hemoglobin Dec 14, sodium, serum SODIUM 140 mmol/L [phone] Dec 14, potassium, serum POTASSIUM 4.4 mmol/L 3.3-5.0 2014Dec 14, urea nitrogen, blood BUN 28 mg/dL 8-20 High 2014Dec 14, creatinine, serum CREATININE 1.00 mg/dL 0.46-1.20 2014Dec 14, calcium, serum CALCIUM 9.1 mg/dL 8.8-10.0 2014Dec 14, hemoglobin A1C, HGBA1C 6.8 % 3.0-6.0 High 2014 blood, as % of total hemoglobin
--- OUTSIDE RECORDS SUMMARY | 2019-03-20 11:19 | XMS REPORT | Continuity of Care Document ---
:1935 Author Organization [facility] Care Team Providers Name Role Phone MD Badillo H Unavailable Unavailable Insurance Providers Payer name Policy type / Policy ID Covered green party ID Policy Theodore Coverage type MEDICARE PRIMARY MEDICARE B-[place]: Ens[employer] MEDICARE B-[place]: Ens[employer] Encounters Encounter Performer Location Date Lab Report Sharon Badillo MD [facility] Nov Allergies, Adverse Reactions, Alerts Type Substance [...] mg for 4 days then discontinue CORTISPORIN 3.5-60175-5 SOLN Apply 2 drops in nail border [...] May 29, sodium, serum SODIUM 139 mmol/L [phone] May 29, potassium, serum POTASSIUM 4.2 mmol/L [...] 2013Sep 17, sodium, serum SODIUM 140 mmol/L [phone] Sep 17, potassium, serum POTASSIUM 4.1 mmol/L 3.3-5.0 2013Sep 17, urea nitrogen, blood BUN 24 mg/dL 8- High 2013Sep 17, creatinine, serum CREATININE 0.91 mg/dL 0.46-1.20 2013Sep 17, calcium, serum CALCIUM 9.3 mg/dL 8.8-10.0 2013Sep 17, hemoglobin A1C, HGBA1C 6.6 % 3.0-6.0 High 2013 blood, as % of total hemoglobin Dec 14, sodium, serum SODIUM 140 mmol/L [phone] Dec 14, potassium, serum POTASSIUM 4.4 mmol/L 3.3-5.0 2014Dec 14, urea nitrogen, blood BUN 28 mg/dL - High 2014Dec 14, creatinine, serum CREATININE 1.00 mg/dL 0.46-1.20 2014Dec 14, calcium, serum CALCIUM 9.1 mg/dL 8.8-10.0 2014Dec 14, hemoglobin A1C, HGBA1C 6.8 % 3.0-6.0 High 2014 blood, as % of total hemoglobin
--- OUTSIDE RECORDS SUMMARY | 2019-03-20 11:20 | XMS REPORT | Continuity of Care Document ---
:1935 Author Organization [facility] Care Team Providers Name Role Phone MD Leblanc Tom Unavailable Unavailable Insurance Providers Payer name Policy type / Policy ID Covered libertarian ID Policy Theodore Coverage type MEDICARE PRIMARY MEDICARE B-[place]: [employer] MEDICARE B-[place]: [employer] Encounters Encounter Performer Location Date Lab Report Jaleel Leblanc MD [facility] March 25, 2015 Allergies, Adverse Reactions, Alerts [...] mg for 4 days then discontinue CORTISPORIN 3.5-74238-3 SOLN Apply 2 drops in nail border [...] May 29, sodium, serum SODIUM 139 mmol/L [phone] May 29, potassium, serum POTASSIUM 4.2 mmol/L [...] 2013Sep 17, sodium, serum SODIUM 140 mmol/L [phone] Sep 17, potassium, serum POTASSIUM 4.1 mmol/L 3.3-5.0 2013Sep 17, urea nitrogen, blood BUN 24 mg/dL 8-20 High 2013Sep 17, creatinine, serum CREATININE 0.91 mg/dL 0.46-1.20 2013Sep 17, calcium, serum CALCIUM 9.3 mg/dL 8.8-10.0 2013Sep 17, hemoglobin A1C, HGBA1C 6.6 % 3.0-6.0 High 2013 blood, as % of total hemoglobin Dec 14, sodium, serum SODIUM 140 mmol/L [phone] Dec 14, potassium, serum POTASSIUM 4.4 mmol/L [...]
--- OUTSIDE RECORDS SUMMARY | 2019-03-20 11:20 | XMS REPORT | Continuity of Care Document ---
:1935 Author Organization [facility] Care Team Providers Name Role Phone MD Badillo H Unavailable Unavailable Insurance Providers Payer name Policy type / Policy ID Covered republican ID Policy Theodore Coverage type MEDICARE PRIMARY MEDICARE B-[place]: [employer] MEDICARE B-[place]: [employer] Encounters Encounter Performer Location Date Office Visit Sharon Badillo MD [facility] [place] [facility] Dec 07, 2014 Allergies, Adverse Reactions, [...] mg for 4 days then discontinue CORTISPORIN 3.5-01033-5 SOLN Apply 2 drops in nail border [...] May 29, sodium, serum SODIUM 139 mmol/L [phone] May 29, potassium, serum POTASSIUM 4.2 mmol/L [...] 2013Sep 17, sodium, serum SODIUM 140 mmol/L [phone] Sep 17, potassium, serum POTASSIUM 4.1 mmol/L 3.3-5.0 2013Sep 17, urea nitrogen, blood BUN 24 mg/dL 8-20 High 2013Sep 17, creatinine, serum CREATININE 0.91 mg/dL 0.46-1.20 2013Sep 17, calcium, serum CALCIUM 9.3 mg/dL 8.8-10.0 2013Sep 17, hemoglobin A1C, HGBA1C 6.6 % 3.0-6.0 High 2013 blood, as % of total hemoglobin
--- OUTSIDE RECORDS SUMMARY | 2019-03-20 11:21 | XMS REPORT | Continuity of Care Document ---
:1935 Author Organization [facility] Care Team Providers Name Role Phone MD Leblanc Tom Unavailable Unavailable Insurance Providers Payer name Policy type / Policy ID Covered democrat ID Policy Theodore Coverage type MEDICARE PRIMARY MEDICARE B-[place]: [employer] MEDICARE B-[place]: [employer] Encounters Encounter Performer Location Date Office Visit Jaleel Leblanc MD [facility] [place] [facility] Jun 17, 2015 Allergies, Adverse Reactions, [...] mg for 4 days then discontinue CORTISPORIN 3.5-95246-6 SOLN Apply 2 drops in nail border [...] 2014May 18, sodium, serum SODIUM 140 MEQ/L [phone] mmol/L May 18, potassium, serum POTASSIUM 4.4 [...] May 29, sodium, serum SODIUM 139 mmol/L [phone] May 29, potassium, serum POTASSIUM 4.2 mmol/L [...] 2013Sep 17, sodium, serum SODIUM 140 mmol/L [phone] Sep 17, potassium, serum POTASSIUM 4.1 mmol/L 3.3-5.0 2013Sep 17, urea nitrogen, blood BUN 24 mg/dL 8-20 High 2013Sep 17, creatinine, serum CREATININE 0.91 mg/dL 0.46-1.20 2013Sep 17, calcium, serum CALCIUM 9.3 mg/dL 8.8-10.0 2013Sep 17, hemoglobin A1C, HGBA1C 6.6 % 3.0-6.0 High 2013 blood, as % of total hemoglobin Dec 14, sodium, serum SODIUM 140 mmol/L [phone] Dec 14, potassium, serum POTASSIUM 4.4 mmol/L [...] 2014May 18, sodium, serum SODIUM 140 MEQ/L [phone] mmol/L May 18, potassium, serum POTASSIUM 4.4 MEQ/L 3.5-5.1 2014 mmol/L May 18, calcium, serum CALCIUM 9.0 mg/dL 8.5-10.5 2014May 18, phosphate, serum PO4 3.3 mg/dL 2.5-4.5 2014May 18, albumin, serum ALBUMIN 3.7 g/dL 3.5-5.0 2014
--- OUTSIDE RECORDS SUMMARY | 2019-03-20 11:21 | XMS REPORT | Continuity of Care Document ---
:1935 Author Organization [facility] Care Team Providers Name Role Phone MD Leblanc Tom Unavailable Unavailable Insurance Providers Payer name Policy type / Policy ID Covered constitution party ID Policy Theodore Coverage type MEDICARE PRIMARY MEDICARE B-[place]: L[employer]X MEDICARE B-[place]: LIFX Encounters Encounter Performer Location Date Office Visit Jaleel Leblanc MD [facility] Apr 01, 2015 Practice Allergies, Adverse [...] mg for 4 days then discontinue CORTISPORIN 3.5-00673-2 SOLN Apply 2 drops in nail border [...] May 29, sodium, serum SODIUM 139 mmol/L [phone] May 29, potassium, serum POTASSIUM 4.2 mmol/L [...] 2013Sep 17, sodium, serum SODIUM 140 mmol/L [phone] Sep 17, potassium, serum POTASSIUM 4.1 mmol/L 3.3-5.0 2013Sep 17, urea nitrogen, blood BUN 24 mg/dL 8-20 High 2013Sep 17, creatinine, serum CREATININE 0.91 mg/dL 0.46-1.20 2013Sep 17, calcium, serum CALCIUM 9.3 mg/dL 8.8-10.0 2013Sep 17, hemoglobin A1C, HGBA1C 6.6 % 3.0-6.0 High 2013 blood, as % of total hemoglobin Dec 14, sodium, serum SODIUM 140 mmol/L [phone] Dec 14, potassium, serum POTASSIUM 4.4 mmol/L [...]
--- OUTSIDE RECORDS SUMMARY | 2019-03-20 11:22 | XMS REPORT | Continuity of Care Document ---
:1935 Author Organization [facility] Care Team Providers Name Role Phone MD Ly Zachary Unavailable Unavailable Insurance Providers Payer name Policy type / Policy ID Covered republican ID Policy Theodore Coverage type MEDICARE PRIMARY MEDICARE B-[place]: [employer] MEDICARE B-[place]: [employer] Encounters Encounter Performer Location Date Lab Report Geronimo Ly MD [facility] Jul 08, 2015 ([facility] Urology Allergies, Adverse Reactions, Alerts Type Substance [...] mg for 4 days then discontinue CORTISPORIN 3.5-66002-6 SOLN Apply 2 drops in nail border [...] 2014Jun 25, platelet count PLATELETS 260 K/CMM [phone] /mm3 March 07, microalbumin/total MICROALB URN 30 mg/l 2010 urine volume May 18, uric acid, serum URIC ACID 5.3 mg/dL 2.5-7.0 2014May 18, urea nitrogen, blood BUN 23 mg/dL 7-22 High 2014May 18, creatinine, serum CREATININE 1.1 mg/dL 0.5-1.4 2014May 18, sodium, serum SODIUM 140 MEQ/L [phone] mmol/L May 18, potassium, serum POTASSIUM 4.4 [...] hemoglobin May 29, sodium, serum SODIUM 139 [phone] mmol/L May 29, potassium, serum POTASSIUM 4.2 [...] 41-145 2013Sep 17, sodium, serum SODIUM 140 [phone] mmol/L Sep 17, potassium, serum POTASSIUM 4.1 3.3-5.0 2013 mmol/L Sep 17, urea nitrogen, blood BUN 24 mg/dL -20 High 2013Sep 17, creatinine, serum CREATININE 0.91 0.46-1.20 2013 mg/dL Sep 17, calcium, serum CALCIUM 9.3 mg/dL 8.8-10.0 2013Sep 17, hemoglobin A1C, HGBA1C 6.6 % 3.0-6.0 High 2013 blood, as % of total hemoglobin Dec 14, sodium, serum SODIUM 140 [phone] mmol/L Dec 14, potassium, serum POTASSIUM 4.4 [...] 2014May 18, sodium, serum SODIUM 140 MEQ/L [phone] mmol/L May 18, potassium, serum POTASSIUM 4.4 [...] Jun 25, sodium, serum SODIUM 140 MEQ/L [phone] mmol/L Jun 25, potassium, serum POTASSIUM 4.6 [...]
--- OUTSIDE RECORDS SUMMARY | 2019-03-20 11:27 | XMS REPORT ---
:1935 [facility] Address [address] [place] [address] [address]. R[address] [place] [address] Care Team Providers Name Role Phone TIMOTHY, DR CRUZ Unavailable Unavailable RANDY, DR SORTO Unavailable Unavailable Problems This patient has no known problems. Allergies, Adverse Reactions, Alerts This patient has no known allergies or adverse reactions. Medications This patient has no known medications. Encounters Start End Encounter Admission Attending Care Care Encounter Date/Time Date/Time Type Type Clinicians Facility Department ID 2017-12-31 2018-01-11 Inpatient Avi TIMOTHY [facility] [id number] 21:30:00 14:30:00 ANTHONY 2017-12-25 2017-12-31 Inpatient Aiv AGUIRRE [facility] [id number] 07:44:00 18:00:00 ANTHONY 2017-12-19 2017-12-24 Inpatient vAi RANDY [facility] [id number] 17:27:00 17:15:00 NOREEN 2017-12-16 2017-12-19 [facility] [id number] 21:47:00 17:33:00 NOREEN Results Test Description Test Time Test Comments Text Results Atomic Results Result Comments GLUCOMETER GLUCOSE- LAB USE ONLY 2018-01-11 12:08:00 Test Item Value Reference Range Comments GLUCOMETER (test code=GMG) 149 mg/dL 70-100 Meter ID: [id number]: 4170 FERNANDO MENDOZA GLUCOMETER GLUCOSE- LAB USE [id number] 07:53:00 Test Item Value Reference Range Comments GLUCOMETER (test code=GMG) 125 mg/dL 70-100 Meter ID: [id number]: 4170 FERNANDO MENDOZA BASIC METABOLIC [id number] 06:54:00 Test Item Value Reference Range Comments [...] 12-20 CALCIUM (test code=09D) 7.8 mg/dL 8.3-9.5 [id number] 06:34:00 Test Item Value Reference Range Comments [...] 9.9 fL 9.4-12.4 GLUCOMETER GLUCOSE- LAB USE [id number] 20:41:00 Test Item Value Reference Range Comments GLUCOMETER (test code=GMG) 224 mg/dL 70-100 Meter ID: [id number]: 9130 RUIZ KILTR GLUCOMETER GLUCOSE- LAB USE [id number] 17:09:00 Test Item Value Reference Range Comments GLUCOMETER (test code=GMG) 163 mg/dL 70-100 CLEANED METERMeter ID: [id number]: 3950 DANN SHINE GLUCOMETER GLUCOSE- LAB USE [id number] 10:43:00 Test Item Value Reference Range Comments GLUCOMETER (test code=GMG) 186 mg/dL 70-100 CLEANED METERMeter ID: [id number]: 3950 DANN SHINE GLUCOMETER GLUCOSE- LAB USE [id number] 08:01:00 Test Item Value Reference Range Comments GLUCOMETER (test code=GMG) 118 mg/dL 70-100 CLEANED METERMeter ID: [id number]: 3950 DANN SHINE [id number] 06:37:00 Test Item Value Reference Range Comments MAGNESIUM (test code=48A) 1.3 mg/dL 1.8-2.4 BASIC METABOLIC [id number] 06:33:00 Test Item Value Reference Range Comments [...] 9.7 fL 9.4-12.4 GLUCOMETER GLUCOSE- LAB USE [id number] 20:39:00 Test Item Value Reference Range Comments GLUCOMETER (test code=GMG) 210 mg/dL 70-100 Meter ID: [id number]: 3465 GORGE CADE GLUCOMETER GLUCOSE- LAB USE [id number] 15:41:00 Test Item Value Reference Range Comments GLUCOMETER (test code=GMG) 137 mg/dL 70-100 CLEANED METERMeter ID: [id number]: 3950 DANN SHINE GLUCOMETER GLUCOSE- LAB USE [id number] 11:25:00 Test Item Value Reference Range Comments GLUCOMETER (test code=GMG) 166 mg/dL 70-100 CLEANED METERMeter ID: [id number]: 3950 DANN SHINE GLUCOMETER GLUCOSE- LAB USE [id number] 08:08:00 Test Item Value Reference Range Comments GLUCOMETER (test code=GMG) 124 mg/dL 70-100 CLEANED METERMeter ID: [id number]: 3950 DANN SHINE HEMOGRAM (CBC WITHOUT DIFFERENTIAL)2018-01-09 [...] (test code=MPV) 10.1 fL 9.4-12.4 BASIC METABOLIC [id number] 04:57:00 Test Item Value Reference Range Comments [...] 8.2 mg/dL 8.3-9.5 GLUCOMETER GLUCOSE- LAB USE [id number] 20:08:00 Test Item Value Reference Range Comments GLUCOMETER (test code=GMG) 142 mg/dL 70-100 Meter ID: [id number]: 4233 CYNTHIA MARGO JAY GLUCOMETER GLUCOSE- LAB USE [id number] 16:20:00 Test Item Value Reference Range Comments GLUCOMETER (test code=GMG) 121 mg/dL 70-100 Meter ID: [id number]: 9218 YASMINE PEÑA GLUCOMETER GLUCOSE- LAB USE [id number] 11:03:00 Test Item Value Reference Range Comments GLUCOMETER (test code=GMG) 204 mg/dL 70-100 Meter ID: [id number]: 5231 [facility] USE [id number] 07:11:00 Test Item Value Reference Range Comments GLUCOMETER (test code=GMG) 123 mg/dL 70-100 Meter ID: [id number]: 5231 [facility] BASIC METABOLIC [id number] 05:06:00 Test Item Value Reference Range Comments [...] 10.3 fL 9.4-12.4 GLUCOMETER GLUCOSE- LAB USE [id number] 20:15:00 Test Item Value Reference Range Comments GLUCOMETER (test code=GMG) 135 mg/dL 70-100 Meter ID: [id number]: 5331 DIANA LINDSAY GLUCOMETER GLUCOSE- LAB USE [id number] 16:04:00 Test Item Value Reference Range Comments GLUCOMETER (test code=GMG) 124 mg/dL 70-100 Meter ID: [id number]: 5231 [facility]- LAB USE [id number] 11:11:00 Test Item Value Reference Range Comments GLUCOMETER (test code=GMG) 168 mg/dL 70-100 CLEANED METERMeter ID: [id number]: 4941 MARLEEN PATINO URINE [id number] 09:07:00 Test Item Value Reference Range Comments Culture Observations (test NO GROWTH (<1,000 CFU/ML) code=COB1) GLUCOMETER GLUCOSE- LAB USE [id number] 07:26:00 Test Item Value Reference Range Comments GLUCOMETER (test code=GMG) 140 mg/dL 70-100 Meter ID: [id number]: 5231 [facility] BASIC METABOLIC [id number] 06:19:00 Test Item Value Reference Range Comments [...] 10.3 fL 9.4-12.4 GLUCOMETER GLUCOSE- LAB USE [id number] 20:31:00 Test Item Value Reference Range Comments GLUCOMETER (test code=GMG) 187 mg/dL 70-100 Meter ID: [id number]: 9130 RUIZ FERMIN GLUCOMETER GLUCOSE- LAB USE [id number] 16:15:00 Test Item Value Reference Range Comments GLUCOMETER (test code=GMG) 134 mg/dL 70-100 CLEANED METERMeter ID: [id number]: 3950 DANN SHINE GLUCOMETER GLUCOSE- LAB USE [id number] 11:44:00 Test Item Value Reference Range Comments GLUCOMETER (test code=GMG) 146 mg/dL 70-100 CLEANED METERMeter ID: [id number]: 3950 DANN SHINE XR CHEST 1 VIEW [id number] 08:41:28Exam: Chest portable erectLocation: E0Yxnlmfo: R05: COUGHComparison: 01/05/2018Findings:No change has occurred in the aeration of the lungs. The heart size is mildlyenlarged. The mediastinal silhouetteis unremarkable. The bony thorax isintact. A right arm PICC line remains in place.Impression:Stable chest/no change.GLUCOMETER GLUCOSE- LAB USE [id number] 07:50:00 Test Item Value Reference Range Comments GLUCOMETER (test code=GMG) 232 mg/dL 70-100 CLEANED METERMeter ID: [id number]: 3950 DANN SHINE BASIC METABOLIC [id number] 06:14:00 Test Item Value Reference Range Comments [...] 10.3 fL 9.4-12.4 GLUCOMETER GLUCOSE- LAB USE [id number] 20:07:00 Test Item Value Reference Range Comments GLUCOMETER (test code=GMG) 156 mg/dL 70-100 Meter ID: [id number]: 3465 GORGE CADE GLUCOMETER GLUCOSE- LAB USE [id number] 16:18:00 Test Item Value Reference Range Comments GLUCOMETER (test code=GMG) 167 mg/dL 70-100 CLEANED METERMeter ID: [id number]: 9135 DANN SHINE URINALYSIS WITH [id number] 14:56:00 Test Item Value Reference Range Comments [...] code=USPERM) /HPF NONE GLUCOMETER GLUCOSE- LAB USE [id number] 11:39:00 Test Item Value Reference Range Comments GLUCOMETER (test code=GMG) 182 mg/dL 70-100 CLEANED METERMeter ID: [id number]: 3955 RAINA HADLEYROSANNA XR CHEST 1 VIEW [id number] 11:15:45Exam: Chest portable erectLocation: D4.History: R05: COUGHComparison: 12/24/2017Findings:Bibasilar infiltrates are present. Central pulmonary congestion is seen due toa shallow inspiration. The heart size is mildly enlarged. Atherosclerosisinvolves the aorta. The mediastinal silhouette is unremarkable. The bony thoraxis intact with degenerative changes noted. A right arm PICC line is in place.Impression: Bibasilar infiltrates.GLUCOMETER GLUCOSE- LAB USE [id number] 07:57:00 Test Item Value Reference Range Comments GLUCOMETER (test code=GMG) 120 mg/dL 70-100 CLEANED METERMeter ID: [id number]: 0194 DANN SHINE BASIC METABOLIC [id number] 06:30:00 Test Item Value Reference Range Comments [...] 9.4-12.4 NM LUNG (V/Q ) SCAN W [id number] 21:37:00HISTORY: Shortness of breath, new onset A. fibLocation: Y1Dqxewteapq to a chest x-ray 12/24/2017TECHNIQUE: 5.9 mCi [...] probability for pulmonary embolismGLUCOMETER GLUCOSE- LAB USE [id number] 21:10:00 Test Item Value Reference Range Comments GLUCOMETER (test code=GMG) 132 mg/dL 70-100 Meter ID: [id number]: 3465 GORGE CADE GLUCOMETER GLUCOSE- LAB USE [id number] 16:04:00 Test Item Value Reference Range Comments GLUCOMETER (test code=GMG) 119 mg/dL 70-100 Meter ID: [id number]: 3950 DANN SHINE GLUCOMETER GLUCOSE- LAB USE [id number] 11:28:00 Test Item Value Reference Range Comments GLUCOMETER (test code=GMG) 251 mg/dL 70-100 CLEANED METERMeter ID: [id number]: 3950 DANN SHINE GLUCOMETER GLUCOSE- LAB USE [id number] 08:00:00 Test Item Value Reference Range Comments GLUCOMETER (test code=GMG) 155 mg/dL 70-100 CLEANED METERMeter ID: [id number]: 3950 DANN SHINE [id number] 06:32:00 Test Item Value Reference Range Comments D-DIMER (test code=DDI) 4017 ng/mL D-DU 0-234 D-DIMER COMMENT (test *Level to rule out DVT or PE: code=DDCOM) <235 ng/mL D-DU* BASIC METABOLIC [id number] 04:44:00 Test Item Value Reference Range Comments [...] 10.5 fL 9.4-12.4 GLUCOMETER GLUCOSE- LAB USE [id number] 20:16:00 Test Item Value Reference Range Comments GLUCOMETER (test code=GMG) 179 mg/dL 70-100 CLEANED METERMeter ID: [id number]: 4233 FEBRUARY MARGO THOMPSON CARDIAC [id number] 20:13:00 Test Item Value Reference Range Comments TROPONIN I (test code=A84) 0.179 ng/mL 0.000-0.045 CKMB (test code=A49) 1.0 ng/mL <=3.6 CPK (test code=32A) 40 IU/L 26-192 GLUCOMETER GLUCOSE- LAB USE [id number] 16:13:00 Test Item Value Reference Range Comments GLUCOMETER (test code=GMG) 205 mg/dL 70-100 Meter ID: [id number]: 5231 [facility] GLUCOMETER GLUCOSE- LAB USE [id number] 11:20:00 Test Item Value Reference Range Comments GLUCOMETER (test code=GMG) 227 mg/dL 70-100 CLEANED METERMeter ID: [id number]: 4941 MARLEEN PATINO GLUCOMETER GLUCOSE- LAB USE [id number] 07:17:00 Test Item Value Reference Range Comments GLUCOMETER (test code=GMG) 165 mg/dL 70-100 Meter ID: [id number]: 5231 DENISE [facility] GLUCOMETER GLUCOSE- LAB USE [id number] 06:50:00 Test Item Value Reference Range Comments GLUCOMETER (test code=GMG) 169 mg/dL 70-100 BASIC METABOLIC [id number] 04:47:00 Test Item Value Reference Range Comments [...] 10.9 fL 9.4-12.4 GLUCOMETER GLUCOSE- LAB USE [id number] 20:33:00 Test Item Value Reference Range Comments GLUCOMETER (test code=GMG) 134 mg/dL 70-100 Meter ID: [id number]: 4233 FEBRUARY MARGO THOMPSON GLUCOMETER GLUCOSE- LAB USE [id number] 16:10:00 Test Item Value Reference Range Comments GLUCOMETER (test code=GMG) 156 mg/dL 70-100 Meter ID: [id number]: 5231 DENISE VICKI GLUCOMETER GLUCOSE- LAB USE [id number] 11:09:00 Test Item Value Reference Range Comments GLUCOMETER (test code=GMG) 199 mg/dL 70-100 Meter ID: [id number]: 5231 DENISE VICKI GLUCOMETER GLUCOSE- LAB USE [id number] 07:58:00 Test Item Value Reference Range Comments GLUCOMETER (test code=GMG) 154 mg/dL 70-100 Meter ID: [id number]: 5231 DENISE VICKI BLOOD [id number] 07:42:00 Test Item Value Reference Range Comments [...] (test code=MPV) 10.7 fL 9.4-12.4 BASIC METABOLIC [id number] 06:04:00 Test Item Value Reference Range Comments [...] mg/dL 8.3-9.5 U/S VENOUS DOPPLER YUNI LOW [id number] 19:10:07HISTORY: leg swellingLocation : N9EAYXBNT: Real time banegas scale, color flow and [...] x 4 cm. ExtremityGLUCOMETER GLUCOSE- LAB USE [id number] 16:09:00 Test Item Value Reference Range Comments GLUCOMETER (test code=GMG) 158 mg/dL 70-100 CLEANED METERMeter ID: [id number]: 5959 DENZEL CRUZ C-REACTIVE PROTEIN [id number] 12:07:00 Test Item Value Reference Range Comments CARDIO CRP(R) (test 358.0 mg/L Verified by repeat [id number]) analysis.Persistent elevation, upon retesting, may be associatedwith [...] be associated with infection and inflammation.TEST PERFORMED AT:[facility]MTJMNI88[facility].RUDI LUND 44711UCSDYSSAMAN JOSEPH MD GLUCOMETER GLUCOSE- LAB USE [id number] 11:11:00 Test Item Value Reference Range Comments GLUCOMETER (test code=GMG) 243 mg/dL 70-100 CLEANED METERMeter ID: [id number]: 3953 RAINA KUBAN HEMOGRAM (CBC WITHOUT DIFFERENTIAL)2018-01-01 [...] 11.0 fL 9.4-12.4 GLUCOMETER GLUCOSE- LAB USE [id number] 07:13:00 Test Item Value Reference Range Comments GLUCOMETER (test code=GMG) 172 mg/dL 70-100 CLEANED METERMeter ID: [id number]: 5959 DENZEL CRUZ GLUCOMETER GLUCOSE- LAB USE [id number] 07:02:00 Test Item Value Reference Range Comments GLUCOMETER (test code=GMG) 183 mg/dL 70-100 GLUCOMETER GLUCOSE- LAB USE [id number] 15:18:00 Test Item Value Reference Range Comments GLUCOMETER (test code=GMG) 181 mg/dL 70-100 DAILY MAINTENANCECLEANED METERMeter ID: [id number]: 9136 [place] GLUCOMETER GLUCOSE- LAB USE [id number] 05:48:00 Test Item Value Reference Range Comments GLUCOMETER (test code=GMG) 125 mg/dL 70-100 CLEANED METERMeter ID: [id number]: 9271 JAM ROBERT BASIC METABOLIC [id number] 04:52:00 Test Item Value Reference Range Comments [...] (test code=RBCMOR) NORMAL GLUCOMETER GLUCOSE- LAB USE [id number] 19:55:00 Test Item Value Reference Range Comments GLUCOMETER (test code=GMG) 246 mg/dL 70-100 Meter ID: [id number]: 9227 JAM VAZQUEZIWOT GLUCOMETER GLUCOSE- LAB USE [id number] 16:06:00 Test Item Value Reference Range Comments GLUCOMETER (test code=GMG) 187 mg/dL 70-100 CLEANED METERMeter ID: [id number]: 9253 MONCARLAA MINGER GLUCOMETER GLUCOSE- LAB USE [id number] 11:26:00 Test Item Value Reference Range Comments GLUCOMETER (test code=GMG) 261 mg/dL 70-100 CLEANED METERMeter ID: [id number]: [address] CERVICAL SPINE W/O [id number] 10:17:46CT cervical spine without contrastHISTORY: Neck pain, [...] stenosis.3. Mild spondylosis at C3-4 and C6-7URINE [id number] 10:09:00 Test Item Value Reference Range Comments Culture Observations (test NO GROWTH (<1,000 CFU/ML) code=COB1) CT HEAD W/O [id number] 09:31:29CT brain without contrastHISTORY: Headache COMPARISON: CT scan 12/24/17Location code: R4APFPANUHI: Contiguous 5 mm axial images of the [...] changes, with sequelae of microvascular ischemicdisease.BASIC METABOLIC [id number] 05:51:00 Test Item Value Reference Range Comments [...] (test code=RBCMOR) NORMAL GLUCOMETER GLUCOSE- LAB USE [id number] 05:23:00 Test Item Value Reference Range Comments GLUCOMETER (test code=GMG) 172 mg/dL 70-100 CLEANED METERMeter ID: [id number]: 9227 [employer] GLUCOMETER GLUCOSE- LAB USE [id number] 20:23:00 Test Item Value Reference Range Comments GLUCOMETER (test code=GMG) 190 mg/dL 70-100 CLEANED METERMeter ID: [id number]: 9227 [employer] ERYTHROCYTE SED [id number] 18:23:00 Test Item Value Reference Range Comments SED RATE (test code=SEDR) 120 mm/hr 0-30 URIC [id number] 17:50:00 Test Item Value Reference Range Comments URIC ACID (test code=41A) 5.5 mg/dL 2.6-6.0 CT EXTREM UPPER W/O CONTR [id number] 16:34:13CT left upper extremity without contrastIndication: Pain, [...] the anterior joint space.GLUCOMETER GLUCOSE- LAB USE [id number] 15:39:00 Test Item Value Reference Range Comments GLUCOMETER (test code=GMG) 191 mg/dL 70-100 CLEANED METERMeter ID: [id number]: 9253 [facility] [employer] CT LUMBAR SPINE W/O [id number] 13:35:26CT OF THE lumbar spine without contrastLocation [...] from L2 through L5.GLUCOMETER GLUCOSE- LAB USE [id number] 11:48 :00 Test Item Value Reference Range Comments GLUCOMETER (test code=GMG) 222 mg/dL 70-100 CLEANED METERMeter ID: [id number]: 9253 [facility] CBC WITH MANUAL [id number] 05:43:00 Test Item Value Reference Range Comments [...] (4-7 um) NORMAL GLUCOMETER GLUCOSE- LAB USE [id number] 05:38:00 Test Item Value Reference Range Comments GLUCOMETER (test code=GMG) 135 mg/dL 70-100 CLEANED METERMeter ID: [id number]: 9227 [facility] BASIC METABOLIC [id number] 05:22:00 Test Item Value Reference Range Comments [...] code=09D) 8.3 mg/dL 8.3-9.5 PRO TIME AND [id number] 05:04:00 Test Item Value Reference Range Comments [...] LMW Heparin. Order Code is ANTI-XA BLOOD [id number] 03:37:00 Test Item Value Reference Range Comments Culture Observations (test code=COB1) NO GROWTH AFTER 5 DAYS GLUCOMETER GLUCOSE- LAB USE [id number] 20:32:00 Test Item Value Reference Range Comments GLUCOMETER (test code=GMG) 191 mg/dL 70-100 CLEANED METERMeter ID: [id number]: 9227 [facility]I [facility] GLUCOMETER GLUCOSE- LAB USE [id number] 16:04:00 Test Item Value Reference Range Comments GLUCOMETER (test code=GMG) 199 mg/dL 70-100 CLEANED METERMeter ID: [id number]: 9253 KARELY PARKSGER U/S [id number] 15:51:42EXAMINATION: Fluoroscopic and ultrasound-guided PICC line placement.LOCATION: D4.HISTORY: picc line insertionSEDATION: The patient did not require conscious sedation for the procedure.RADIATION DOSE: Fluoroscopy time:6.7 sec. Images obtained: 1.ANTIBIOTICS: None. Not indicated.TECHNIQUE: The risks, benefits, and alternatives were discussed and informedconsent was obtained. Prior to beginning the procedure, [place] Protocol wasused to confirm the patient's identity [...] according to standard hospitalprotocol.XR PICC LINE INSERTION [id number] 15:51:42EXAMINATION: Fluoroscopic and ultrasound-guided PICC line placement.LOCATION: D4.HISTORY: picc line insertionSEDATION: The patient did not require conscious sedation for the procedure.RADIATION DOSE: Fluoroscopy time:6.7 sec. Images obtained: 1.ANTIBIOTICS: None. Not indicated.TECHNIQUE: The risks, benefits, and alternatives were discussed and informedconsent was obtained. Prior to beginning the procedure, [place] Protocol wasused to confirm the patient's identity [...] to standard hospitalprotocol.CT ABDOMEN AND PELVIS W/O [id number] 15:15:33CT abdomen and pelvis without contrastLocation Code: B5LGYGQFAX HISTORY: R41.82: ALTERED MENTAL STATUS, UNSPECIFIED, N15.1: [...] and/or pneumonia with traceeffusions.GLUCOMETER GLUCOSE- LAB USE [id number] 12:55: 00 Test Item Value Reference Range Comments GLUCOMETER (test code=GMG) 182 mg/dL 70-100 CLEANED METERMeter ID: [id number]: 9253 KARELY INGRAM GLUCOMETER GLUCOSE- LAB USE [id number] 06:00:00 Test Item Value Reference Range Comments GLUCOMETER (test code=GMG) 142 mg/dL 70-100 Meter ID: [id number]: 5935 MÓNICA CHRISTOPHER CBC WITH MANUAL [id number] 05:40:00 Test Item Value Reference Range Comments [...] code=CRENA) 1+ NONE GLUCOMETER GLUCOSE- LAB USE [id number] 01:20:00 Test Item Value Reference Range Comments GLUCOMETER (test code=GMG) 127 mg/dL 70-100 Meter ID: [id number]: 5935 MÓNICA ASHWIN GLUCOMETER GLUCOSE- LAB USE [id number] 01:19:00 Test Item Value Reference Range Comments GLUCOMETER (test code=GMG) 201 mg/dL 70-100 CLEANED METERMeter ID: [id number]: 5959 DENZEL CRUZ GLUCOMETER GLUCOSE- LAB USE [id number] 01:18:00 Test Item Value Reference Range Comments GLUCOMETER (test code=GMG) 250 mg/dL 70-100 CLEANED METERMeter ID: [id number]: 5959 DENZEL CRUZ URINE [id number] 08:30:00 Test Item Value Reference Range Comments Isolate 1 (test GRAM NEGATIVE [place] SENSITIVITY NOT INDICATED code=ISO1) GLUCOMETER GLUCOSE- LAB USE [id number] 06:34:00 Test Item Value Reference Range Comments GLUCOMETER (test code=GMG) 134 mg/dL 70-100 Meter ID: [id number]: 3465 GORGE CADE CBC (INCLUDES AUTOMATED DIFFERENTIAL)2017-12-27 [...] RBC MORPH (test code=RBCMOR) NORMAL BASIC METABOLIC [id number] 05:58:00 Test Item Value Reference Range Comments [...] 9.0 mg/dL 8.3-9.5 GLUCOMETER GLUCOSE- LAB USE [id number] 20:40:00 Test Item Value Reference Range Comments GLUCOMETER (test code=GMG) 179 mg/dL 70-100 Meter ID: [id number]: 3465 GORGE CADE LACTIC [id number] 16:09:00 Test Item Value Reference Range Comments LACTIC ACD (test code=LA) 1.5 mmol/L 0.4-2.0 GLUCOMETER GLUCOSE- LAB USE [id number] 16:03:00 Test Item Value Reference Range Comments GLUCOMETER (test code=GMG) 161 mg/dL 70-100 Meter ID: [id number]: [address] [facility] [address] CHEST W/O [id number] 13:58:45CT chest without contrastLocation Code: R6VRYLOTTA HISTORY: CoughCOMPARISON: NoneTechnique: Helical CT of the [...] fractures.4. Left renal atrophy.GLUCOMETER GLUCOSE- LAB USE [id number] 11:50:00 Test Item Value Reference Range Comments GLUCOMETER (test code=GMG) 193 mg/dL 70-100 DAILY MAINTENANCEMeter ID: [id number]: 5354 [facility] BASIC METABOLIC [id number] 06:24:00 Test Item Value Reference Range Comments [...] 8.6 mg/dL 8.3-9.5 GLUCOMETER GLUCOSE- LAB USE [id number] 05:53:00 Test Item Value Reference Range Comments GLUCOMETER (test code=GMG) 161 mg/dL 70-100 CLEANED METERMeter ID: [id number]: 4538 CHAGO VÁSQUEZ CBC (INCLUDES AUTOMATED DIFFERENTIAL)2017-12-26 [...] (test code=RBCMOR) NORMAL GLUCOMETER GLUCOSE- LAB USE [id number] 20:55:00 Test Item Value Reference Range Comments GLUCOMETER (test code=GMG) 164 mg/dL 70-100 Meter ID: [id number]: 4538 [address] GLUCOMETER GLUCOSE- LAB USE [id number] 15:37:00 Test Item Value Reference Range Comments GLUCOMETER (test code=GMG) 128 mg/dL 70-100 Meter ID: [id number]: 5354 Thinkr[employer]GO GLUCOMETER GLUCOSE- LAB USE [id number] 11:57:00 Test Item Value Reference Range Comments GLUCOMETER (test code=GMG) 200 mg/dL 70-100 Meter ID: [id number]: 5354 [employer] GLUCOMETER GLUCOSE- LAB USE [id number] 08:24:00 Test Item Value Reference Range Comments GLUCOMETER (test code=GMG) 319 mg/dL 70-100 URINE [id number] 08:21:00 Test Item Value Reference Range Comments [...] Silver catheter in place.GLUCOMETER GLUCOSE- LAB USE [id number] 04:56:00 Test Item Value Reference Range Comments GLUCOMETER (test code=GMG) 120 mg/dL 70-100 CLEANED METERMeter ID: [id number]: [address] [facility] BASIC METABOLIC [id number] 00:58:00 Test Item Value Reference Range Comments [...] code=09D) 8.9 mg/dL 8.3-9.5 XR CHEST 2 [id number] 21:57:12LOCATION: [id number]: 82-year-old female who presents with a cough.COMMENT:Frontal and lateral chestradiographs are compared to a prior study of12/18/17.Patchy atelectasis is seen in the lung bases. The cardiac silhouette is mildlyenlarged with a left ventricular configuration. A mildly prominent aortic archis again noted. The skeleton and soft tissues are unremarkable.hospital monitor leads are present.IMPRESSION:Patchy atelectasis is seen in this patient's lung bases.CT HEAD W/O [id number] 21:47: 34LOCATION: [id number]: 82-year-old female who presents with alteration of [...] noncontrast head CT examination.GLUCOMETER GLUCOSE- LAB USE [id number] 16:32:00 Test Item Value Reference Range Comments GLUCOMETER (test code=GMG) 131 mg/dL 70-100 CLEANED METERMeter ID: [id number]: 4941 MARLE[address]VI[address] PATINO GLUCOMETER GLUCOSE- LAB USE [id number] 11:21:00 Test Item Value Reference Range Comments GLUCOMETER (test code=GMG) 215 mg/dL 70-100 CLEANED METERMeter ID: [id number]: 2471 FRANCIS PATHAK GLUCOMETER GLUCOSE- LAB USE [id number] 08:25:00 Test Item Value Reference Range Comments GLUCOMETER (test code=GMG) 173 mg/dL 70-100 CLEANED METERMeter ID: [id number]: 2471 FRANCIS PATHAK COMPREHENSIVE METABOLIC [id number] 06:35:00 Test Item Value Reference Range Comments [...] (test code=RBCMOR) NORMAL GLUCOMETER GLUCOSE- LAB USE [id number] 20:09:00 Test Item Value Reference Range Comments GLUCOMETER (test code=GMG) 258 mg/dL 70-100 Meter ID: [id number]: 3465 GORGE CADE GLUCOMETER GLUCOSE- LAB USE [id number] 16:29:00 Test Item Value Reference Range Comments GLUCOMETER (test code=GMG) 210 mg/dL 70-100 CLEANED METERMeter ID: [id number]: 3950 DANN SHINE [id number] 15:07:00 Test Item Value Reference Range Comments [...] code=LEUK) NEGATIVE NEGATIVE GLUCOMETER GLUCOSE- LAB USE [id number] 11:45:00 Test Item Value Reference Range Comments GLUCOMETER (test code=GMG) 239 mg/dL 70-100 CLEANED METERMeter ID: [id number]: 3950 DANN SHINE GLUCOMETER GLUCOSE- LAB USE [id number] 07:56:00 Test Item Value Reference Range Comments GLUCOMETER (test code=GMG) 118 mg/dL 70-100 CLEANED METERMeter ID: [id number]: 3950 DANN SHINE GLUCOMETER GLUCOSE- LAB USE [id number] 20:43:00 Test Item Value Reference Range Comments GLUCOMETER (test code=GMG) 203 mg/dL 70-100 Meter ID: [id number]: 9130 CHEVYMARY FERMIN GLUCOMETER GLUCOSE- LAB USE [id number] 16:44:00 Test Item Value Reference Range Comments GLUCOMETER (test code=GMG) 168 mg/dL 70-100 CLEANED METERMeter ID: [id number]: 3953 RAINA CRAVEN GLUCOMETER GLUCOSE- LAB USE [id number] 11:39:00 Test Item Value Reference Range Comments GLUCOMETER (test code=GMG) 245 mg/dL 70-100 CLEANED METERMeter ID: [id number]: 3950 DANN SHINE GLUCOMETER GLUCOSE- LAB USE [id number] 07:55:00 Test Item Value Reference Range Comments GLUCOMETER (test code=GMG) 96 mg/dL 70-100 CLEANED METERMeter ID: [id number]: 3950 DANN SHINE COMPREHENSIVE METABOLIC [id number] 06:23:00 Test Item Value Reference Range Comments [...] (test code=RBCMOR) NORMAL GLUCOMETER GLUCOSE- LAB USE [id number] 22:14:00 Test Item Value Reference Range Comments GLUCOMETER (test code=GMG) 214 mg/dL 70-100 Meter ID: [id number]: 3465 GORGE CADE GLUCOMETER GLUCOSE- LAB USE [id number] 16:35:00 Test Item Value Reference Range Comments GLUCOMETER (test code=GMG) 181 mg/dL 70-100 CLEANED METERMeter ID: [id number]: 3950 DANN SHINE GLUCOMETER GLUCOSE- LAB USE [id number] 11:22:00 Test Item Value Reference Range Comments GLUCOMETER (test code=GMG) 222 mg/dL 70-100 CLEANED METERMeter ID: [id number]: 3950 DANN SHINE GLUCOMETER GLUCOSE- LAB USE [id number] 07:59:00 Test Item Value Reference Range Comments GLUCOMETER (test code=GMG) 142 mg/dL 70-100 CLEANED METERMeter ID: [id number]: 3950 DANN SHINE GLUCOMETER GLUCOSE- LAB USE [id number] 19:57:00 Test Item Value Reference Range Comments GLUCOMETER (test code=GMG) 222 mg/dL 70-100 Meter ID: [id number]: 4233 CYNTHIA THOMPSON GLUCOMETER GLUCOSE- LAB USE [id number] 16:10:00 Test Item Value Reference Range Comments GLUCOMETER (test code=GMG) 196 mg/dL 70-100 Meter ID: [id number]: 5231 [facility] USE [id number] 12:19:00 Test Item Value Reference Range Comments GLUCOMETER (test code=GMG) 144 mg/dL 70-100 Meter ID: [id number]: 5231 [facility] [id number] 04:45:00 Test Item Value Reference Range Comments [...] (test code=RBCMOR) NORMAL GLUCOMETER GLUCOSE- LAB USE [id number] 20:58:00 Test Item Value Reference Range Comments GLUCOMETER (test code=GMG) 168 mg/dL 70-100 Meter ID: [id number]: 4233 [facility] JAY GLUCOMETER GLUCOSE- LAB USE [id number] 15:23:00 Test Item Value Reference Range Comments GLUCOMETER (test code=GMG) 225 mg/dL 70-100 CLEANED METERMeter ID: [id number]: 4773 [facility] GLUCOMETER GLUCOSE- LAB USE [id number] 11:46:00 Test Item Value Reference Range Comments GLUCOMETER (test code=GMG) 145 mg/dL 70-100 CLEANED METERMeter ID: [id number]: 4773 [facility] [id number] 07:03:00 Test Item Value Reference Range Comments [...] (test code=RBCMOR) NORMAL GLUCOMETER GLUCOSE- LAB USE [id number] 05:44:00 Test Item Value Reference Range Comments GLUCOMETER (test code=GMG) 116 mg/dL 70-100 CLEANED METERMeter ID: [id number]: 4736 JANIE ALMONTE GLUCOMETER GLUCOSE- LAB USE [id number] 20:45:00 Test Item Value Reference Range Comments GLUCOMETER (test code=GMG) 188 mg/dL 70-100 CLEANED METERMeter ID: [id number]: 4736 JANIE ALMONTE GLUCOMETER GLUCOSE- LAB USE [id number] 15:49:00 Test Item Value Reference Range Comments GLUCOMETER (test code=GMG) 262 mg/dL 70-100 CLEANED METERMeter ID: [id number]: 9086 [employer] GLUCOMETER GLUCOSE- LAB USE [id number] 10:35:00 Test Item Value Reference Range Comments GLUCOMETER (test code=GMG) 173 mg/dL 70-100 CLEANED METERMeter ID: [id number]: 9086 [employer] XR CHEST 1 VIEW [id number] 08:15:56Portable AP chest, 1 viewLocation Code: K5TTGGHKDG HISTORY: R05: COUGHCOMPARISON: 12/16/17COMMENT: The heart size [...] RBC MORPH (test code=RBCMOR) NORMAL BASIC METABOLIC [id number] 07:04:00 Test Item Value Reference Range Comments [...] 8.9 mg/dL 8.3-9.5 GLUCOMETER GLUCOSE- LAB USE [id number] 05:39:00 Test Item Value Reference Range Comments GLUCOMETER (test code=GMG) 115 mg/dL 70-100 CLEANED METERMeter ID: [id number]: 4074 SHAN REKHA GLUCOMETER GLUCOSE- LAB USE [id number] 19:48:00 Test Item Value Reference Range Comments GLUCOMETER (test code=GMG) 171 mg/dL 70-100 CLEANED METERMeter ID: [id number]: 4074 SHAN REKHA GLUCOMETER GLUCOSE- LAB USE [id number] 15:46:00 Test Item Value Reference Range Comments GLUCOMETER (test code=GMG) 269 mg/dL 70-100 CLEANED METERMeter ID: [id number]: 4787 STEVEN SHEEHAN GLUCOMETER GLUCOSE- LAB USE [id number] 11:10:00 Test Item Value Reference Range Comments GLUCOMETER (test code=GMG) 174 mg/dL 70-100 CLEANED METERMeter ID: [id number]: 4787 STEVEN SHEEHAN CBC (INCLUDES AUTOMATED DIFFERENTIAL)2017-12-17 [...] RBC MORPH (test code=RBCMOR) NORMAL BASIC METABOLIC [id number] 06:06:00 Test Item Value Reference Range Comments [...] 8.7 mg/dL 8.3-9.5 GLUCOMETER GLUCOSE- LAB USE [id number] 05:14:00 Test Item Value Reference Range Comments GLUCOMETER (test code=GMG) 129 mg/dL 70-100 Meter ID: [id number]: 4333 [facility] GLUCOMETER GLUCOSE- LAB USE [id number] 19:53:00 Test Item Value Reference Range Comments GLUCOMETER (test code=GMG) 128 mg/dL 70-100 Meter ID: [id number]: 5304 [facility] LUNG (V/Q ) SCAN W [id number] 19:30:38VENTILATION PERFUSION LUNG SCANLOCATION: [id number] INFORMATION: [id number]: DyspneaCOMPARISON STUDIES: Chest radiograph 12/16/2017DISCUSSION: Xenon-133 gas [...] acute pulmonary embolic disease.GLUCOMETER GLUCOSE- LAB USE [id number] 16:22:00 Test Item Value Reference Range Comments GLUCOMETER (test code=GMG) 199 mg/dL 70-100 Meter ID: [id number]: 3966 ARIANA RAJU GLUCOMETER GLUCOSE- LAB USE [id number] 11:29:00 Test Item Value Reference Range Comments GLUCOMETER (test code=GMG) 198 mg/dL 70-100 Meter ID: [id number]: 3966 ARIANA RAJU BASIC METABOLIC [id number] 07:10:00 Test Item Value Reference Range Comments [...] code=09D) 8.3 mg/dL 8.3-9.5 XR CHEST 1 [id number] 07:03:23Portable AP chest, 1 viewLocation Code: F8FMGBXHHO HISTORY: [id number]: DyspneaCOMPARISON: 12/13/17COMMENT: Mild central congestion remains. There is slight worsening of bibasilarairspace disease with development of likely small effusions. Thecardiomediastinal silhouette is unchanged. There is no acute osseousabnormality.IMPRESSION: 1. Interval development of bibasilar atelectasis and/or pneumonia and likelysmall effusions.2. Cardiomegaly with mild central congestion.GLUCOMETER GLUCOSE- LAB USE [id number] 05:51:00 Test Item Value Reference Range Comments GLUCOMETER (test code=GMG) 145 mg/dL 70-100 CLEANED METERMeter ID: [id number]: 4496 JOVAN PATHAK CBC (INCLUDES AUTOMATED DIFFERENTIAL)2017-12-16 [...] (test code=RBCMOR) NORMAL GLUCOMETER GLUCOSE- LAB USE [id number] 19:53:00 Test Item Value Reference Range Comments GLUCOMETER (test code=GMG) 219 mg/dL 70-100 CLEANED METERMeter ID: [id number]: 2417 GRAEME MD [employer] GLUCOMETER GLUCOSE- LAB USE [id number] 16:11:00 Test Item Value Reference Range Comments GLUCOMETER (test code=GMG) 186 mg/dL 70-100 Meter ID: [id number]: 3966 ARIANA RAJU GLUCOMETER GLUCOSE- LAB USE [id number] 11:42:00 Test Item Value Reference Range Comments GLUCOMETER (test code=GMG) 145 mg/dL 70-100 Meter ID: [id number]: 3966 ARIANA RAJU CBC WITH MANUAL [id number] 07:49:00 Test Item Value Reference Range Comments [...] (1.5-3 um) NORMAL GLUCOMETER GLUCOSE- LAB USE [id number] 05:43:00 Test Item Value Reference Range Comments GLUCOMETER (test code=GMG) 172 mg/dL 70-100 CLEANED METERMeter ID: [id number]: 2417 GRAEME MOTA BASIC METABOLIC [id number] 05:30:00 Test Item Value Reference Range Comments [...] 8.4 mg/dL 8.3-9.5 GLUCOMETER GLUCOSE- LAB USE [id number] 20:07:00 Test Item Value Reference Range Comments GLUCOMETER (test code=GMG) 324 mg/dL 70-100 CLEANED METERMeter ID: [id number]: 2417 GRAEME MOTA GLUCOMETER GLUCOSE- LAB USE [id number] 16:25:00 Test Item Value Reference Range Comments GLUCOMETER (test code=GMG) 153 mg/dL 70-100 Meter ID: [id number]: 3966 ARIANA RAJU GLUCOMETER GLUCOSE- LAB USE [id number] 12:03:00 Test Item Value Reference Range Comments GLUCOMETER (test code=GMG) 215 mg/dL 70-100 Meter ID: [id number]: 3966 ARIANA RAJU [id number] 11:16:00 Test Item Value Reference Range Comments Hb A1C % (test code=HBA) 6.8 % 4.2-6.3 GLUCOMETER GLUCOSE- LAB USE [id number] 05:42:00 Test Item Value Reference Range Comments GLUCOMETER (test code=GMG) 202 mg/dL 70-100 CLEANED METERMeter ID: [id number]: 4074 SHAN DA SILVA BASIC METABOLIC [id number] 04:07:00 Test Item Value Reference Range Comments [...] (test code=RBCMOR) NORMAL CT LUMBAR SPINE W/O [id number] 23:38:57CT LUMBAR SPINE W/O CONTRASTLocation:C0Wpdvq hours services are provided 12/13/2017 11:29 PMIndication:M54.16: [...] spinous process degenerative changesGLUCOMETER GLUCOSE- LAB USE [id number] 23:26:00 Test Item Value Reference Range Comments GLUCOMETER (test code=GMG) 230 mg/dL 70-100 CLEANED METERMeter ID: [id number]: 4074 SHAN DA SILVA CARDIAC [id number] 21:53:00 Test Item Value Reference Range Comments TROPONIN I (test code=A84) 0.278 ng/mL 0.000-0.045 CKMB (test code=A49) 1.8 ng/mL <=3.6 CPK (test code=32A) 46 IU/L 26-192 XR CHEST 1 [id number] 21:44:22EXAM: Portable chest x-rayLocation: [id number]: NoneINDICATION: R05: COUGHDISCUSSION:No consolidation or pleural effusion is seen. The cardiac silhouette is withinnormal limits. Mild central vascular congestion is noted. No acute bonyabnormalities are identified. There is a remote ununited mid shaft leftclavicular fracture.IMPRESSION: Mild central vascular congestion. No evidence of pneumonia orpleural effusion.BRAIN NATRIURETIC [id number] 16:58:00 Test Item Value Reference Range Comments proBNP (test code=PBNP) 4167 pg/mL <=450 [id number] 15:52:00 Test Item Value Reference Range Comments CPK (test code=32A) 51 IU/L 26-192 AMYLASE AND [id number] 15:52:00 Test Item Value Reference Range Comments AMYLASE (test code=10A) 36 U/L 28-100 LIPASE (test code=60A) 114 IU/L 73-393 COMPREHENSIVE METABOLIC [id number] 15:52:00 Test Item Value Reference Range Comments [...] code=31A) 13 IU/L <=78 CT PELVIS BONE [id number] 15:48:45EXAM: CT pelvis without contrastLocation: [id number]: Fracture, painTECHNIQUE: Axial 2 mm images of [...] reconstruction technique.DLP: 548 mGy-cm CTDI 19 mGyTROPONIN [id number] 15:48:00 Test Item Value Reference Range Comments TROPONIN I (test code=A84) 0.278 ng/mL 0.000-0.045 PRO TIME AND [id number] 15:38:00 Test Item Value Reference Range Comments [...]
--- NOTE | 2019-03-20 11:49 | RAD REPORT ---
EXAM DESCRIPTION: Aayush Single View03/20/2019 11:39 am CLINICAL HISTORY: Chest pain COMPARISON: March 16 FINDINGS: Small left pleural effusion. Possible small right pleural effusion. Opacities within the left lung base probably represents atelectasis, less likely pneumonia. Upper lobes are clear. Heart is mildly enlarged
[2019-03-20 11:51] LABS: Absolute Neutrophil 8.9 K/uL (1.8-8.0); Basophils % 0.9 % (0-1.3); Eosinophils % 1.9 % (0-4.4); Hematocrit 39.5 % (36.0-45.0); Lymphocytes % 9.2 % (15.3-44.8); MPV 9.8 fL (7.6-11.3); Monocytes % 8.7 % (3.3-12.3); Protime INR 1.63; RBC Red Blood Cell Count 4.28 M/uL (3.86-4.86)
[2019-03-20 12:33] LABS: Albumin 3.7 g/dL (3.4-5.0); Bilirubin Direct 0.4 mg/dL (0-0.2); Bilirubin Total 1.2 mg/dL (0.2-1.0); Magnesium 2.3 mg/dL (1.8-2.4); Potassium 3.8 mmol/L (3.5-5.1); Protein, Total 8.3 g/dL (6.4-8.2)
[2019-03-20 12:37] LABS: Troponin (Emerg Dept Use Only) 0.64 ng/mL (0.0-0.045)
[2019-03-20] MEDS ORDERED: ASPIRIN 81 MG CHEWABLE TABLET ONE (13:37)
--- NOTE | 2019-03-20 14:33 | ER ---
Nurse's Notes [facility] Name: Goldie Martinez Age: 83 yrs Sex: Female : 1935 Arrival Date: 03/20/2019 Time: 11:05 Bed 8 Private MD: Lenny Castaneda R Diagnosis: Dyspnea;NSTEMI Presentation: 03/20 11:09 Presenting complaint: Child states: she was in the hospital yesterday and they let her tw2 go home, she was here for sob and wheezing, and she was hurting, they said that has CHF, and now Dr. Castaneda suggested we come here because she might have pneumonia. Transition of care: patient was not received from another setting of care. Onset of symptoms was March 20, 2019. Risk Assessment: Do you want to hurt yourself or someone else? Patient reports no desire to harm self or others. Initial Sepsis Screen: Does the patient meet any 2 criteria? RR > 20 per min. No. Patient's initial sepsis screen is negative. Does the patient have a suspected source of infection? Yes: Productive cough/pneumonia. Note pt placed on o2 via 2l NC at this time. Care prior to arrival: None. 11:09 Method Of Arrival: Wheelchair tw2 11:09 Acuity: ZAIRE 2 tw2 Triage Assessment: 11:12 General: Appears in no apparent distress. Behavior is calm, cooperative, appropriate tw2 for age. Pain: Complains of pain in all over. Respiratory: Reports shortness of breath at rest on exertion cough that is non-productive, labored breathing Onset: The symptoms/episode began/occurred yesterday, the patient has moderate shortness of breath. Historical: - Allergies: 11:14 Sulfa (Sulfonamide Antibiotics); tw2 - Home Meds: 11:14 furosemide 40 mg Oral tab 1 tab once daily [Active]; calcitonin [Active]; potassium tw2 chloride 10 mEq Oral cpER 1 cap once daily [Active]; sertraline 50 mg Oral tab 1 tab once daily [Active]; tramadol 50 mg Oral tab 1 tab 3 times daily prn [Active]; Vitamin D 5000 unit Oral twice a day [Active]; metoprolol tartrate 25 mg Oral tab 1 tab 2 times per day [Active]; Lyrica 50mg Oral 1 cap 3 times per day [Active]; Protonix 40 mg Oral grps 1 packet once daily [Active]; Eliquis 2.5 mg Oral tab 1 tab 2 times per day [Active]; - PMHx: 11:14 Asthma; CHF; tw2 - PSHx: 11:14 left kidney removed; Appendectomy; Heart stents; left ovary removed; tw2 - Immunization history:: Adult Immunizations. - Social history:: Smoking status: . - Ebola Screening: : Patient denies travel to an Ebola-affected area in the 21 days before illness onset. Screenin:38 Abuse screen: Denies threats or abuse. Denies injuries from another. Nutritional hb screening: No deficits noted. Tuberculosis screening: No symptoms or risk factors identified. Fall Risk Total Read Fall Scale indicates Low Risk Score (25-44 pts). Fall prevention measures have been instituted. Side Rails Up X 2 Frequent Obs/Assesments occuring Family Present and informed to notify staff if they need to leave bedside As available Patient and Family Educated on Fall Prevention Program and strategies. Assessment: 11:20 General: Appears in no apparent distress. Behavior is calm, cooperative. Pain: Pain hb currently is 10 out of 10 on a pain scale. Neuro: Level of Consciousness is awake, alert, obeys commands, Oriented to person, place, time, situation. Cardiovascular: Heart tones S1 S2 present Capillary refill < 3 seconds Patient's skin is warm and dry. Rhythm is regular. Respiratory: Airway is patent Respiratory effort is even, mildly labored Respiratory pattern is tachypnea Breath sounds are coarse bilaterally. GI: No signs and/or symptoms were reported involving the gastrointestinal system. : No signs and/or symptoms were reported regarding the genitourinary system. EENT: No signs and/or symptoms were reported regarding the EENT system. Derm: Skin is intact, is healthy with good turgor, Skin is pink, warm \T\ dry. Musculoskeletal: No signs and/or symptoms reported regarding the musculoskeletal system. 12:30 Reassessment: Patient appears in no apparent distress at this time. No changes from hb previously documented assessment. Patient and/or family updated on plan of care and expected duration. Pain level reassessed. 13:30 Reassessment: Patient appears in no apparent distress at this time. No changes from hb previously documented assessment. Patient and/or family updated on plan of care and expected duration. Pain level reassessed. 14:30 Reassessment: Patient appears in no apparent distress at this time. No changes from hb previously documented assessment. Patient and/or family updated on plan of care and expected duration. Pain level reassessed. Patient is alert, oriented x 3, equal unlabored respirations, skin warm/dry/pink. 15:00 Reassessment: Patient appears in no apparent distress at this time. No changes from hb previously documented assessment. Patient and/or family updated on plan of care and expected duration. Pain level reassessed. Patient is alert, oriented x 3, equal unlabored respirations, skin warm/dry/pink. 16:00 Reassessment: Patient appears in no apparent distress at this time. No changes from hb previously documented assessment. Patient and/or family updated on plan of care and expected duration. Pain level reassessed. Patient is alert, oriented x 3, equal unlabored respirations, skin warm/dry/pink. 17:00 Reassessment: Patient appears in no apparent distress at this time. Patient and/or family updated on plan of care and expected duration. Pain level reassessed. Patient is alert, oriented x 3, equal unlabored respirations, skin warm/dry/pink. Vital Signs: 11:11 BP 140 / 65; Pulse 64; Resp 20; Temp 98.7(O); Pulse Ox 82% on R/A; Weight 81.65 kg (R); tw2 Height 5 ft. 1 in. (154.94 cm); Pain 10/10; 11:32 BP 133 / 62; Pulse 58; Resp 25; Pulse Ox 96% ; sv 13:00 BP 139 / 89; Pulse 68; Resp 16; Pulse Ox 93% 2 lpm ; hb 13:41 BP 131 / 74; Pulse 74; Resp 15; Pulse Ox 94% on 2 lpm NC; sv 15:00 BP 156 / 76; Pulse 77; Resp 18; Pulse Ox 95% 2 lpm ; hb 15:45 Pulse Ox 86% on 2 lpm NC; hb 16:00 BP 163 / 83; Pulse 66; Resp 14; Pulse Ox 94% on 3 lpm NC; hb 17:30 BP 148 / 78; Pulse 68; Resp 19; Temp 98.2; Pulse Ox 94% on 4 lpm NC; Pain 0/10; hb 11:11 Body Mass Index 34.01 (81.65 kg, 154.94 cm) tw2 11:11 pt placed on o2 via 2l nc at this time, pt at 91%, Dr. Boggs notified. tw2 ED Course: 11:05 Patient arrived in ED. mr 11:05 Lenny Castaneda MD is Private Physician. mr 11:11 Triage completed. tw2 11:13 Arm band placed on. tw2 11:15 Elieser Boggs MD is Attending Physician. kdr 11:18 Cassy Shelby, TED is Primary Nurse. hb 11:26 EKG done, by dealer support technician. reviewed by Elieser Boggs MD. at1 11:28 Patient has correct armband on for positive identification. Bed in low position. Call hb light in reach. Side rails up X2. personnel monitor on. Pulse ox on. NIBP on. 11:30 Missed attempt(s): 20 gauge in right antecubital area. Bleeding controlled, band aid hb applied, catheter tip intact. 11:34 Inserted saline lock: 20 gauge in right antecubital area, using aseptic technique. hb Blood collected. 11:38 X-ray completed. Portable x-ray completed in exam room. Patient tolerated procedure sw well. 11:39 XRAY Chest (1 view) In Process Unspecified. EDMS 13:58 Basic Metabolic Panel Sent. sv 13:58 CBC with Diff Sent. sv 14:31 Lenny Castaneda MD is Hospitalizing Provider. kdr 14:[address] Bryant notified of consult as requested by . He says that Dr. gustavo Castano will see thee patient in the morning and if anything changes to call him. 16:53 by me, repeat trop sent. hb 17:37 No provider procedures requiring assistance completed. Patient admitted, IV remains in hb place. Administered Medications: 13:30 Drug: Aspirin Chewable Tablet 324 mg Route: PO; hb 14:00 Follow up: Response: No adverse reaction hb 14:35 Drug: Zofran 4 mg Route: IVP; Site: right antecubital; sv 15:20 Follow up: Response: No adverse reaction hb 14:37 Drug: morphine 2 mg Route: IVP; Site: right antecubital; sv 15:20 Follow up: Response: No adverse reaction; Pain is decreased hb 14:37 CANCELLED (Duplicate Order): Xopenex (3) 1.25 mg Inhalation once sv 14:37 CANCELLED (Duplicate Order): morphine 2 mg IVP once sv 14:37 CANCELLED (Duplicate Order): Zofran 4 mg IVP once; over 2 minutes sv 14:38 Drug: Xopenex (3) 1.25 mg Route: Inhalation; sv 15:22 Follow up: Response: No adverse reaction hb 15:40 Drug: PlaVIX 300 mg Route: PO; hb 16:30 Follow up: Response: No adverse reaction hb Output: 13:42 Stool: 1 (Formed Stool) ; Total: 0ml. lt1 Outcome: 14:31 Decision to Hospitalize by Provider. kdr 17:37 Admitted to Tele accompanied by nurse, family with patient, via stretcher, room 429, hb with oxygen, with chart, Report called to Marilee JEAN 17:37 Condition: stable 17:37 Instructed on the need for admit, Demonstrated understanding of instructions. 17:39 Patient left the ED. hb Signatures: Dispatcher [employer] Machelle Dover, RN RN Elieser Boggs MD MD [facility] Adam, Elizabeth mr Leonarda Dean, track car operator EKG Tat1 Karina Love Heather, RN RN Sally Tejeda RN RN tw2 Mavis Parada Leah lt1
--- NOTE | 2019-03-20 14:33 | EDPHYS ---
Physician Documentation [facility] Name: Goldie Martinez Age: 83 yrs Sex: Female : 1935 Arrival Date: 03/20/2019 Time: 11:05 Bed 8 Private MD: Lenny Castaneda R ED Physician Elieser Boggs HPI: 03/20 16:20 This 83 yrs old Female presents to ER via Wheelchair with complaints of kdr Cough, Chest Congestion, Breathing Difficulty. 16:20 The patient or guardian reports airway noise, cough, that is intermittent, described as kdr moderate, with no sputum, difficulty breathing, hoarse voice. Onset: The symptoms/episode began/occurred The patient was discharged yesterday and arrived home between 4-6 PM yesterday. She was SOB over the evening with cough, significant upper airway noise, gagging and coughing. Her son states that she had very coarse and wet sounding breath sounds last night and the patient was not able to sleep last night. She continues to be dyspneic today with mild intermittent but persistent chest pain. Severity of symptoms: At their worst the symptoms were moderate, severe, last night, in the emergency department the symptoms have improved, mildly. Modifying factors: The symptoms are alleviated by nothing, the symptoms are aggravated by exertion, talking. Associated signs and symptoms: Pertinent positives: chest pain, with cough, with breathing, nausea, Pertinent negatives: diarrhea, ear ache, rhinorrhea, sore throat, vomiting. The patient has experienced similar episodes in the past, a few times. The patient has been recently seen by a physician: The patient has been recently been admitted at [facility], was discharged yesterday. Historical: - Allergies: 11:14 Sulfa (Sulfonamide Antibiotics); tw2 - Home Meds: 11:14 furosemide 40 mg Oral tab 1 tab once daily [Active]; calcitonin [Active]; potassium tw2 chloride 10 mEq Oral cpER 1 cap once daily [Active]; sertraline 50 mg Oral tab 1 tab once daily [Active]; tramadol 50 mg Oral tab 1 tab 3 times daily prn [Active]; Vitamin D 5000 unit Oral twice a day [Active]; metoprolol tartrate 25 mg Oral tab 1 tab 2 times per day [Active]; Lyrica 50mg Oral 1 cap 3 times per day [Active]; Protonix 40 mg Oral grps 1 packet once daily [Active]; Eliquis 2.5 mg Oral tab 1 tab 2 times per day [Active]; - PMHx: 11:14 Asthma; CHF; tw2 - PSHx: 11:14 left kidney removed; Appendectomy; Heart stents; left ovary removed; tw2 - Immunization history:: Adult Immunizations. - Social history:: Smoking status: . - Ebola Screening: : Patient denies travel to an Ebola-affected area in the 21 days before illness onset. ROS: 16:20 Constitutional: Negative for fever, chills, and weight loss, Eyes: Negative for injury, kdr pain, redness, and discharge, ENT: Negative for injury, pain, and discharge, Neck: Negative for injury, pain, and swelling, Abdomen/GI: Negative for abdominal pain, nausea, vomiting, diarrhea, and constipation, Back: Negative for injury and pain, : Negative for injury, bleeding, discharge, and swelling, MS/Extremity: Negative for injury and deformity, She report increased bylateral swelling Skin: Negative for injury, rash, and discoloration, Neuro: Negative for headache, weakness, numbness, tingling, and seizure activity. Psych: Negative for depression, anxiety, suicide ideation, homicidal ideation, and hallucinations, Allergy/Immunology: Negative for hives, rash, and allergies, Endocrine: Negative for neck swelling, polydipsia, polyuria, polyphagia, and marked weight changes, Hematologic/Lymphatic: Negative for swollen nodes, abnormal bleeding, and unusual bruising. 16:20 Cardiovascular: Positive for chest pain, with movement, edema, palpitations, paroxysmal nocturnal dyspnea. 16:20 Respiratory: Positive for cough, "sounds productive", dyspnea on exertion, shortness of breath, wheezing, inspiratory, expiratory. Exam: 16:20 Constitutional: This is a well developed, well nourished patient who is awake, alert, kdr and in no acute distress. Head/Face: Normocephalic, atraumatic. Eyes: Pupils equal round and reactive to light, extra-ocular motions intact. Lids and lashes normal. Conjunctiva and sclera are non-icteric and not injected. Cornea within normal limits. Periorbital areas with no swelling, redness, or edema. MS/ Extremity: Pulses equal, no cyanosis. Neurovascular intact. Full, normal range of motion except for 3+ pitting edema in both lower extremities 16:20 Respiratory: mild respiratory distress is noted, Respirations: normal, Breath sounds: rales, bronchial sounds, that are mild, are scattered, are heard diffusely, rhonchi, that are mild, are scattered, are located in both bases, stridor, is not appreciated. Vital Signs: 11:11 BP 140 / 65; Pulse 64; Resp 20; Temp 98.7(O); Pulse Ox 82% on R/A; Weight 81.65 kg (R); tw2 Height 5 ft. 1 in. (154.94 cm); Pain 10/10; 11:32 BP 133 / 62; Pulse 58; Resp 25; Pulse Ox 96% ; sv 13:00 BP 139 / 89; Pulse 68; Resp 16; Pulse Ox 93% 2 lpm ; hb 13:41 BP 131 / 74; Pulse 74; Resp 15; Pulse Ox 94% on 2 lpm NC; sv 15:00 BP 156 / 76; Pulse 77; Resp 18; Pulse Ox 95% 2 lpm ; hb 15:45 Pulse Ox 86% on 2 lpm NC; hb 16:00 BP 163 / 83; Pulse 66; Resp 14; Pulse Ox 94% on 3 lpm NC; hb 17:30 BP 148 / 78; Pulse 68; Resp 19; Temp 98.2; Pulse Ox 94% on 4 lpm NC; Pain 0/10; hb 11:11 Body Mass Index 34.01 (81.65 kg, 154.94 cm) tw2 11:11 pt placed on o2 via 2l nc at this time, pt at 91%, Dr. Boggs notified. tw2 MDM: 14:31 Patient medically screened. kdr 16:20 Data reviewed: vital signs, nurses notes, lab test result(s), EKG, radiologic studies. kdr Counseling: I had a detailed discussion with the patient and/or guardian regarding: the historical points, exam findings, and any diagnostic results supporting the discharge/admit diagnosis, lab results, radiology results. 03/20 11:16 Order name: Basic Metabolic Panel kdr 03/20 11:16 Order name: CBC with Diff kdr 03/20 11:16 Order name: LFT's; Complete Time: 13:18 kdr 03/20 11:16 Order name: Magnesium; Complete Time: 13:18 [facility] 03/20 11:16 Order name: NT PRO-BNP; Complete Time: 13:18 [facility] 03/20 11:16 Order name: PT-INR; Complete Time: 13:18 [facility] 03/20 11:16 Order name: Troponin (emerg Dept Use Only); Complete Time: 13:18 [facility] 03/20 11:16 Order name: XRAY Chest (1 view); Complete Time: 13:18 [facility] 03/20 11:16 Order name: Basic Metabolic Panel; Complete Time: 13:18 [facility] 03/20 11:16 Order name: CBC with Automated Diff; Complete Time: 13:18 [facility] 03/20 14:41 Order name: Troponin I [facility] 03/20 14:41 Order name: Troponin I [facility] 03/20 11:16 Order name: EKG; Complete Time: 11:17 [facility] 03/20 11:16 Order name: Cardiac monitoring; Complete Time: 13:10 [facility] 03/20 11:16 Order name: EKG - Nurse/Tech; Complete Time: 13:10 [facility] 03/20 13:59 Order name: Diet Regular; Complete Time: 14:00 03/20 14:40 Order name: Regular [facility] 03/20 14:41 Order name: CONS Physician Consult [facility] 03/20 14:41 Order name: EKG Electrocardiogram [facility] 03/20 14:41 Order name: EKG Electrocardiogram [facility] 03/20 14:41 Order name: EKG Electrocardiogram [facility] 03/20 14:41 Order name: EKG Electrocardiogram [facility] 03/20 11:16 Order name: IV Saline Lock; Complete Time: 13:11 [facility] 03/20 11:16 Order name: Labs collected and sent; Complete Time: 13:10 [facility] 03/20 11:16 Order name: O2 Per Protocol; Complete Time: 13:10 [facility] 03/20 11:16 Order name: O2 Sat Monitoring; Complete Time: 13:10 kdr Administered Medications: 13:30 Drug: Aspirin Chewable Tablet 324 mg Route: PO; hb 14:00 Follow up: Response: No adverse reaction hb 14:35 Drug: Zofran 4 mg Route: IVP; Site: right antecubital; sv 15:20 Follow up: Response: No adverse reaction hb 14:37 Drug: morphine 2 mg Route: IVP; Site: right antecubital; sv 15:20 Follow up: Response: No adverse reaction; Pain is decreased hb 14:37 CANCELLED (Duplicate Order): Xopenex (3) 1.25 mg Inhalation once sv 14:37 CANCELLED (Duplicate Order): morphine 2 mg IVP once sv 14:37 CANCELLED (Duplicate Order): Zofran 4 mg IVP once; over 2 minutes sv 14:38 Drug: Xopenex (3) 1.25 mg Route: Inhalation; sv 15:22 Follow up: Response: No adverse reaction hb 15:40 Drug: PlaVIX 300 mg Route: PO; hb 16:30 Follow up: Response: No adverse reaction hb Disposition: 03/20/19 14:31 Hospitalization ordered by Lenny Castaneda for Observation. Preliminary diagnosis are Dyspnea, NSTEMI. - Bed requested for Telemetry/MedSurg (observation). - Status is Observation. hb - Condition is Fair. - Problem is an acute exacerbation. - Symptoms have improved. UTI on Admission? No Signatures: Dispatcher [employer] EDMachelle Woods RN RN Poly Alfaro RN RN Elieser Boggs MD MD [facility] Cassy Shelby RN RN Sally Tejeda RN RN tw2 Corrections: (The following items were deleted from the chart) 14:37 14:26 Xopenex (3) 1.25 mg Inhalation once ordered. kdr sv 14:37 14:26 morphine 2 mg IVP once ordered. kdr sv 14:37 14:26 Zofran 4 mg IVP once; over 2 minutes ordered. kdr sv 17:04 14:31 Hospitalization Ordered by Lenny Castaneda MD for Observation. Preliminary diagnosis dw is Dyspnea; NSTEMI. Bed requested for Telemetry/MedSurg (observation). Status is Observation. Condition is Fair. Problem is an acute exacerbation. Symptoms have improved. UTI on Admission? No. kdr 17:39 17:04 03/20/2019 14:31 Hospitalization Ordered by Lenny Castaneda MD for Observation. hb Preliminary diagnosis is Dyspnea; NSTEMI. Bed requested for Telemetry/MedSurg (observation). Status is Observation. Condition is Fair. Problem is an acute exacerbation. Symptoms have improved. UTI on Admission? No. dw
[2019-03-20] MEDS ORDERED: ONDANSETRON 4 MG/2 ML VIAL IV PRN (14:34)
[2019-03-20] MEDS ORDERED: MORPHINE 2 MG/ML SYR ONE (14:40)
[2019-03-20] MEDS ORDERED: ONDANSETRON 4 MG/2 ML VIAL ONE (14:40)
[2019-03-20] MEDS ORDERED: LEVALBUTEROL 1.25 MG/3 ML NEB ONE (14:40)
[2019-03-20] MEDS ORDERED: CLOPIDOGREL 75 MG TABLET ONE (15:46)
--- NOTE | 2019-03-20 16:30 | EKG ---
Test Date: 2019-03-20 Test Time: 11:23:42 Addiction Treatment Counselor: SHERWIN MEASUREMENT RESULTS: Intervals: Rate: 63 [place]: 164 QRSD: 170 QT: 446 QTc: 456 [place]: P: 68 [place]: 164 QRS: -55 T: 78 INTERPRETIVE STATEMENTS: Normal sinus rhythm Possible Left atrial enlargement Left axis deviation Left bundle branch block Abnormal ECG Compared to ECG 03/16/2019 10:12:46 No significant changes Electronically Signed On 03-20-19 16:29:26 CDT by Ronni Bryant
[2019-03-20] MEDS: LEVALBUTEROL 1.25 MG/3 ML NEB NEB PRN (19:35)
[2019-03-21] MEDS: ACETAMINOPHEN 500 MG TAB PO PRN (02:39)
[2019-03-21 03:09] LABS: Urine Appearance CLOUDY; Urine Bilirubin NEGATIVE (NEG); Urine Blood NEGATIVE (NEG); Urine Color YELLOW; Urine Glucose NEGATIVE (NEG); Urine Protein NEGATIVE (NEG); Urine Specific Gravity 1.015 (1.005-1.030)
[2019-03-21 03:10] LABS: Urine Microscopic Reflex ORDER UMIC
[2019-03-21 03:36] LABS: Urine Culture Reflex Order REFLEXED
[2019-03-21 03:37] LABS: Calcium Oxalate Crystals- Ur FEW (NONE SEEN); Urine Bacteria 20-50 /HPF (<20); Urine RBC NONE SEEN /HPF (NONE SEEN)
[2019-03-21 06:05] LABS: Potassium 4.2 mmol/L (3.5-5.1)
[2019-03-21 06:11] LABS: Absolute Lymphocytes (CBC) 1.4 K/uL (0.7-4.9); Absolute Monocytes 0.9 K/uL (0.1-1.3); Absolute Neutrophil 8.6 K/uL (1.8-8.0); Basophils % 0.7 % (0-1.3); Eosinophils % 1.7 % (0-4.4); Hematocrit 34.7 % (36.0-45.0); Lymphocytes % 12.2 % (15.3-44.8); MPV 9.5 fL (7.6-11.3); Monocytes % 8.4 % (3.3-12.3); RBC Red Blood Cell Count 3.74 M/uL (3.86-4.86)
[2019-03-21] MEDS ORDERED: D50W 25 GM/50 ML SYRINGE IV PRN (07:11)
[2019-03-21] MEDS ORDERED: GLUCAGON 1 MG/VIAL IM PRN (07:11)
[2019-03-21] MEDS: LEVALBUTEROL 1.25 MG/3 ML NEB NEB PRN (07:29)
[2019-03-21] MEDS: INSULIN -REGULAR HUMAN 50 UNIT/0.5 ML ML SQ SCH ×4 (07:30→20:15)
[2019-03-21] MEDS: PANTOPRAZOLE 40MG TABLET PO SCH (08:26)
[2019-03-21] MEDS: POTASSIUM CL SA 10 MEQ TAB PO SCH (08:26)
[2019-03-21] MEDS: METOPROLOL TAR 25 MG TAB PO SCH ×2 (08:27→20:15)
[2019-03-21] MEDS: PREGABALIN 50 MG CAP PO SCH ×3 (08:27→20:16)
[2019-03-21] MEDS: CLOPIDOGREL 75 MG TABLET PO SCH (08:27)
[2019-03-21] MEDS: ASPIRIN EC 81 MG TAB PO SCH (08:27)
[2019-03-21] MEDS: FUROSEMIDE 40 MG TABLET PO SCH (08:28)
[2019-03-21] MEDS: APIXABAN 2.5 MG TABLET PO SCH ×2 (08:31→20:16)
[2019-03-21] MEDS: SERTRALINE HCL 50 MG TAB PO SCH (08:31)
--- NOTE | 2019-03-21 10:36 | P.CNS ---
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 technician is fully anti coagulated chronic renal insufficiency quit smoking a long time ago Allergies Sulfa (Sulfonamide Antibiotics) Allergy (Intermediate, Verified 03/20/19 19:36) Itching/Hives/Rash Home Medications: Apixaban [Eliquis] 2.5 mg PO BID 03/16/19 Cholecalciferol (Vitamin D3) [Vitamin D 5,000 Iu Cap] 5,000 unit PO BID Furosemide [Lasix] 40 mg PO DAILY 03/16/19 Metoprolol Tartrate [Lopressor] 0.5 tab PO BID 03/16/19 Pantoprazole Sodium [Protonix] 40 mg PO DAILY 03/16/19 Potassium Chloride [Klor-Con 10] 10 meq PO DAILY 03/16/19 Pregabalin [Lyrica] 50 mg PO TID 03/16/19 Sertraline [Zoloft] 50 mg PO DAILY 03/16/19 Tramadol HCl [Ultram] 50 mg PO TID PRN 03/16/19 - Past Medical/Surgical History Diabetic: No -: CHF -: 1 kidney -: asthma -: borderline diabetes -: [place] -: heart stents -: balloon pump legs -: oopherectomy -: appendectomy - Family History Father Medical History: Other (see notes) Notes: Pneumonia Brother Medical History: Heart disease - Social History Alcohol use: No CD- Drugs: No Caffeine use: Yes Place of Residence: Home Review of Systems 10-point ROS is otherwise unremarkable General: Weakness Respiratory: Cough Physical Examination Temp Pulse Resp BP Pulse Ox 97.0 F 61 18 137/65 96 03/21/19 08:00 03/21/19 08:28 03/21/19 08:00 03/21/19 08:28 03/21/19 08:00 General: Alert, Oriented x2, Other (Patient is drowsy wakes intermittently to answer questions) HEENT: Atraumatic Neck: Supple Cardiovascular: No edema, Regular rate/rhythm, Normal S1 S2 Gastrointestinal: Normal bowel sounds, Soft and benign Musculoskeletal: No clubbing, No swelling Integumentary: No rashes, No breakdown Laboratory Data (last 24 hrs) 03/20/19 11:33: PT 18.9 H, INR 1.63 03/20/19 11:33: WBC 11.2 H, Hgb 13.3, Hct 39.5, Plt Count 262 D 03/20/19 11:33: Sodium 136, Potassium 3.8, BUN 51 H, Creatinine 1.60 H, Glucose 150 H, Magnesium 2.3, Total Bilirubin 1.2 H, AST 30, ALT 19, Alkaline Phosphatase 147 H - Problems (1) Cough Current Visit: Yes Status: Acute Plan: Patient is 83 years of age a poor historian drowsy answers questions intermittently falls back to sleep complaining of cough shortness of breath some wheezing prior history of tobacco abuse labs reviewed acute on chronic renal insufficiency mildly elevated white count saturation satisfactory standing 6% on 3 L no fever blood pressure stable patient has some opacities in the left lung base will need a PA and lateral chest x-ray room-air blood gas echocardiogram shows decreased ejection fraction patient is on Lasix fully anti coagulated I recommended trial of steroids bronchodilators
[2019-03-21] MEDS: predniSONE 20 MG TAB PO SCH ×2 (11:18→20:16)
--- NOTE | 2019-03-21 11:27 | RAD REPORT ---
EXAM DESCRIPTION: RAD - Chest Pa And Lat (2 Views) - 03/21/2019 11:21 am CLINICAL HISTORY: Pneumonia, shortness of breath COMPARISON: March 20, March 16 TECHNIQUE: PA and lateral views of the chest were obtained. FINDINGS: The lungs are normal volume. Left base pleural effusion is present similar to comparison. Left base parenchymal infiltrate and/ or atelectasis noted and stable. Overall lung markings are prom inent. No new or progressive right lung field finding suspected. Upper lobe vasculature within normal limits. Heart size normal. Left heart border is obscured. No pneumothorax. No new or enlarging righ t pleural effusion. No acute bony finding noted. No aortic abnormality. IMPRESSION: Small left pleural effusion with left base infiltrate and/ or atelectasis unchanged from March 20.
[2019-03-21 12:24] LABS: Arterial Blood Carboxyhemoglob 1.4 % (0-1.5); Blood Gas Oxyhemoglobin 79.6 % (94-97); Blood O2 Saturation 81.3 % (92-98.5)
[2019-03-21] MEDS: IPRATROPIUM BROM 0.5MG/2.5ML NEB SCH ×2 (13:28→20:00)
--- NOTE | 2019-03-21 16:46 | EKG ---
Test Date: 2019-03-21 Test Time: 07:41:59 Chief Accountant: SHERWIN MEASUREMENT RESULTS: Intervals: Rate: 67 VT: 166 QRSD: 160 QT: 432 QTc: 456 [place]: P: 73 VT: 166 QRS: -63 T: 77 INTERPRETIVE STATEMENTS: Sinus rhythm with premature atrial complexes Left axis deviation Left bundle branch block Abnormal ECG Compared to ECG 03/20/2019 11:23:42 Atrial premature complex(es) now present Electronically Signed On 03-21-19 16:43:04 CDT by Niko Meredith
--- NOTE | 2019-03-21 18:02 | HP ---
Date of Admission: 03/20/2019 Chief Complaint: Dyspnea. History Of Present Illness: An 83-year-old female who was in the hospital recently for decompensated heart failure, was treated with IV Lasix and discharged. The patient was seen by Cardiology Service . She had echocardiogram done while she was in the hospital. The patient's family however brought h er to the emergency room saying she had dyspnea and evaluation was done in the emergency room. There was atelectasis in the base. The patient is admitted. There is no history of fever, chills, rigors. The patient used to smoke many, many years ago. She c laims to have been using albuterol at home. The patient denied any chest pain. She has been having pain in the shoulders, back, and multiple sit es, and for which she takes Ultram. Past Medical History: Includes history of COPD/asthma, history of congestive heart failure. Past Surgical History: Positive for coronary angioplasty, appendix surgery, and kidney removal, and ovary removal on the left side. Home Medicines: Please refer to the chart. The patient also has history of atrial fibrillation, for which she is on Eliquis. Family History: Noncontributory. Personal History: Currently nonsmoker. Allergies: ALLERGIES TO SULFA DRUGS. Review of Systems: The patient denied any history of fever, chills, rigors. Physical Examination: General: Revealed an 83-year-old female, comfortable at rest. Afebrile. HEENT: Otherwise negative. Neck: Supple. JVD negative. Chest: Few scattered wheezes. Heart: Irregularity noted. Abdomen: Soft, nontender. Extremities: No edema. Laboratory Data: White count 11.2. Chem profile; BUN 51, creatinine 1.6. BNP 20337. Assessment: 1.Dyspnea. 2.Atelectasis. 3.Congestive heart failure. 4.Azotemia related to diuresis. 5.Single kidney status. 6.Intermittent atrial fibrillation. 7.Osteoarthritis. 8.Chronic obstructive pulmonary disease, asthma. Plan: In view of her worsening of renal function, the patient will not receive additional IV Lasix. Cardiology consult has been done to see whether any additional cardiac workup is needed. The patien t also will be seen by Pulmonary Service to receive additional recommendations. CHELSIE/MAGALY Voice ID: [id number]
[2019-03-21] MEDS: ARFORMOTEROL TARTRATE 15 MCG/2 ML VIAL.NEB NEB SCH (20:00)
[2019-03-22] MEDS: IPRATROPIUM BROM 0.5MG/2.5ML NEB SCH ×5 (02:00→20:00)
[2019-03-22] MEDS: INSULIN -REGULAR HUMAN 50 UNIT/0.5 ML ML SQ SCH ×4 (07:30→20:35)
[2019-03-22] MEDS: ARFORMOTEROL TARTRATE 15 MCG/2 ML VIAL.NEB NEB SCH ×2 (07:35→20:00)
[2019-03-22] MEDS: predniSONE 20 MG TAB PO SCH ×2 (08:13→20:34)
[2019-03-22] MEDS: POTASSIUM CL SA 10 MEQ TAB PO SCH (08:13)
[2019-03-22] MEDS: ASPIRIN EC 81 MG TAB PO SCH (08:13)
[2019-03-22] MEDS: APIXABAN 2.5 MG TABLET PO SCH ×2 (08:13→20:35)
[2019-03-22] MEDS: PREGABALIN 50 MG CAP PO SCH ×3 (08:13→20:34)
[2019-03-22] MEDS: PANTOPRAZOLE 40MG TABLET PO SCH (08:13)
[2019-03-22] MEDS: FUROSEMIDE 40 MG TABLET PO SCH (08:14)
[2019-03-22] MEDS: SERTRALINE HCL 50 MG TAB PO SCH (08:14)
[2019-03-22] MEDS: CLOPIDOGREL 75 MG TABLET PO SCH (08:14)
[2019-03-22] MEDS: METOPROLOL TAR 25 MG TAB PO SCH ×2 (08:17→20:35)
--- NOTE | 2019-03-22 09:43 | P.PN ---
Subjective Date of Service: 03/22/19 Chief Complaint: Exacerbation of obstructive airways disease Subjective: Improving (Patient is slightly better she has been complaining of progressive cough and shortness of breath on minimal exertion history of asthma use uses albuterol at home patient is feeling somewhat better more alert and responsive) Review of Systems Respiratory: Cough, Shortness of Breath Physical Examination - Vital Signs Temperature: 96.9 F Blood Pressure: 134/71 Pulse: 60 Respirations: 18 Pulse Ox (%): 97 - Physical Exam General: Alert, Oriented x3, Mild distress Respiratory: Expiratory wheezes Cardiovascular: No edema, Normal S1 S2 Assessment & Plan - Problems (Diagnosis) (1) COPD exacerbation Current Visit: Yes Status: Acute Plan: Patient is hypoxic hypercapnic I suspect that she has underlying obstructive airways disease most likely chronic severe obstructive asthma he quit smoking in 1954 uses albuterol at home continue with the prednisone patient will need bronchodilators at home may qualify for oxygen will check room air pulse ox I recommend Advair 251 puff twice a day prednisone 10 mg twice a day and the time of discharge in addition to oxygen if needed and to follow with me as an outpatient she will require outpatient pulmonary function testing
--- NOTE | 2019-03-22 12:47 | CON ---
Date of Consultation: 03/20/2019 Reason For Consultation: Non-ST elevation myocardial infarction. History Of Present Illness: The patient is an 83-year-old white woman who was just in the hospital f or congestive heart failure exacerbation and was discharged only to come back a day later with dyspne a on exertion, weakness. At this time, she had a troponin of 0.82. Her BNP was 11,158. Her glucose was 205. Her creatinine was 2.14. She had chest tightness, shortness of breath, PND, orthopnea, pe tobin edema. No specific chest pain, but has been feeling weak and nauseated and diaphoretic. Symptom s have been going on for about 24 hours. Echocardiogram which was done last week showed decreased le ft ventricular compliance with normal ejection fraction. Review of Systems: Positive for cough and congestion. No fever. No chills. Social History: Negative. Family History: Noncontributory. Allergies: INCLUDE SULFA. Medications: At home include Eliquis, Lasix, metoprolol, Protonix, potassium, Lyrica, Zoloft, and Ul tram. Physical Examination: Vital Signs: Stable. Sinus rhythm. Mild respiratory distress. General: Alert and oriented x3. HEENT: Negative. Neck: Supple without any bruit, lymphadenopathy, JVD, or thyromegaly. Chest: Reveals some rales both bases. Cardiac: Exam revealed a regular rhythm and rate with an S4 gallops. No murmurs or rubs. Abdomen: Obese, but benign. Extremities: Revealed 1+ edema. Diagnostic Data: As stated earlier. EKG was normal. Chest x-ray showed bilateral pleural effusion with possible atelectasis versus pneumonia. Impression And Plan: 1.Non-ST elevation myocardial infarction. 2.Acute exacerbation of chronic diastolic congestive heart failure. 3.Asthma. 4.History of coronary artery disease, status post stent. 5.History of peripheral artery disease, status post SFA stent. The patient is on Eliquis. I am assuming she is taking it because of history of atrial fibrillation. She is in normal rhythm right now. She has diabetes that is poorly controlled. She also has a his tory of gastroesophageal reflux, depression, and neuropathy. Her renal insufficiency is significant at 2.14. We may have to give her some Mucomyst before we do a heart catheterization on her and after . We will have to hold her Eliquis, but I think a heart catheterization is indicated, this is her se cond admission within the last month with positive troponin and cardiac symptoms. I will discuss the case further with Dr. Castaneda. MYRANDA/MAGALY Voice ID: [id number] Report ID: [id number]
[2019-03-22] MEDS: LEVALBUTEROL 0.63 MG/3 ML NEB NEB PRN (13:20)
--- NOTE | 2019-03-22 13:44 | P.PN ---
Subjective Date of Service: 03/22/19 Chief Complaint: Exacerbation of obstructive airways disease Patient seen and examined at bedside. No family at bedside. Chart reviewed and case discussed with nursing staff. No acute events noted overnight. Patient complaining of chest pain that has been unchanged since admission, worsened with cough. Review of Systems 10-point ROS is otherwise unremarkable Physical Examination - Vital Signs Temperature: 97.9 F Blood Pressure: 136/63 Pulse: 65 Respirations: 20 Pulse Ox (%): 98 - Physical Exam General: Alert, In no apparent distress, Oriented x3, Other (Elderly, frail) HEENT: Atraumatic, PERRLA, EOMI Neck: Supple, JVD not distended Respiratory: Normal air movement, Expiratory wheezes Cardiovascular: Regular rate/rhythm, Normal S1 S2 Gastrointestinal: Normal bowel sounds, No tenderness Musculoskeletal: No tenderness Integumentary: No rashes Neurological: Normal speech, Normal tone, Normal affect Lymphatics: No axilla or inguinal lymphadenopathy Assessment And Plan - Plan This is an 83-year-old female with: 1.Dyspnea. 2.Atelectasis. 3.Congestive heart failure. 4.Azotemia related to diuresis. 5.Single kidney status. 6.Intermittent atrial fibrillation. 7.Osteoarthritis. 8.Chronic obstructive pulmonary disease, asthma. Plan: Patient is pending a cardiac catheterization, per cardiology recommendations. Unfortunately this will not be able to be done until Sunday. We will continue to monitor patient, continue breathing treatments and provide oxygen as needed. She continues remain hemodynamically stable at this time.
[2019-03-22] MEDS: TRAMADOL HCL 50 MG TAB PO PRN (14:08)
[2019-03-22] MEDS: BENZONATATE 100 MG CAP PO PRN (16:39)
[2019-03-23] MEDS: IPRATROPIUM BROM 0.5MG/2.5ML NEB SCH ×4 (02:00→20:00)
[2019-03-23] MEDS: ARFORMOTEROL TARTRATE 15 MCG/2 ML VIAL.NEB NEB SCH ×2 (07:24→20:00)
[2019-03-23] MEDS: INSULIN -REGULAR HUMAN 50 UNIT/0.5 ML ML SQ SCH ×5 (07:30→20:12)
[2019-03-23] MEDS: POTASSIUM CL SA 10 MEQ TAB PO SCH (08:10)
[2019-03-23] MEDS: CLOPIDOGREL 75 MG TABLET PO SCH (08:10)
[2019-03-23] MEDS: PREGABALIN 50 MG CAP PO SCH ×3 (08:10→20:11)
[2019-03-23] MEDS: METOPROLOL TAR 25 MG TAB PO SCH ×2 (08:10→20:11)
[2019-03-23] MEDS: SERTRALINE HCL 50 MG TAB PO SCH (08:10)
[2019-03-23] MEDS: predniSONE 20 MG TAB PO SCH ×2 (08:11→20:11)
[2019-03-23] MEDS: ASPIRIN EC 81 MG TAB PO SCH (08:11)
[2019-03-23] MEDS: FUROSEMIDE 40 MG TABLET PO SCH (08:11)
[2019-03-23] MEDS: TRAMADOL HCL 50 MG TAB PO PRN ×2 (08:17→20:10)
[2019-03-23] MEDS: PANTOPRAZOLE 40MG TABLET PO SCH (08:19)
[2019-03-23 10:24] LABS: Absolute Lymphocytes (CBC) 1.3 K/uL (0.7-4.9); Absolute Monocytes 0.7 K/uL (0.1-1.3); Absolute Neutrophil 9.3 K/uL (1.8-8.0); Basophils % 0.3 % (0-1.3); Eosinophils % 0.2 % (0-4.4); Hematocrit 36.6 % (36.0-45.0); Lymphocytes % 11.2 % (15.3-44.8); MPV 9.6 fL (7.6-11.3); RBC Red Blood Cell Count 3.88 M/uL (3.86-4.86)
[2019-03-23 10:43] LABS: Potassium 4.4 mmol/L (3.5-5.1)
--- NOTE | 2019-03-23 11:37 | P.PN ---
Subjective Date of Service: 03/23/19 Chief Complaint: Exacerbation of obstructive airways disease Subjective: No C/O voiced Patient seen and examined at bedside. No family at bedside. Chart reviewed and case discussed with nursing staff. No acute events noted overnight. Patient reports improved pain in the chest. Reports improved coughing as well. Patient denies any urinary complaints including dysuria, abdominal pain, urinary frequency, urgency or foul smell. Review of Systems 10-point ROS is otherwise unremarkable Genitourinary: As per HPI, Unremarkable Physical Examination - Vital Signs Temperature: 96.2 F Blood Pressure: 145/73 Pulse: 66 Respirations: 16 Pulse Ox (%): 96 - Physical Exam General: Alert, In no apparent distress HEENT: Atraumatic, PERRLA, EOMI Neck: Supple, JVD not distended Respiratory: Clear to auscultation bilaterally, Normal air movement Cardiovascular: Regular rate/rhythm, Normal S1 S2 Gastrointestinal: Normal bowel sounds, No tenderness Musculoskeletal: No tenderness Integumentary: No rashes Neurological: Normal speech, Normal tone, Normal affect Lymphatics: No axilla or inguinal lymphadenopathy Assessment And Plan - Plan This is an 83-year-old female with: 1.Dyspnea. 2.Atelectasis. 3.Congestive heart failure. 4.Azotemia related to diuresis. 5.Single kidney status. 6.Intermittent atrial fibrillation. 7.Osteoarthritis. 8.Chronic obstructive pulmonary disease, asthma. 9. Asymptomatic bacteriuria with Proteus mirabilis, ESBL Plan: Patient is pending a cardiac catheterization, per cardiology recommendations. Unfortunately this will not be able to be done until Sunday. Patient currently not endorsing any UTI symptoms, vital signs were stable, she is afebrile and there is no WBC count. There is no altered mentation, therefore antibiotics not started at this time. We will continue to monitor patient, continue breathing treatments and provide oxygen as needed. She continues remain hemodynamically stable at this time.
--- NOTE | 2019-03-23 13:02 | P.PN ---
Subjective Date of Service: 03/23/19 Chief Complaint: Exacerbation of obstructive airways disease Subjective: Improving (Doing much better still has some coughing shortness of breath has improved no chest pain) Review of Systems General: Weakness Respiratory: Cough, Shortness of Breath Physical Examination - Vital Signs Temperature: 96.2 F Blood Pressure: 145/73 Pulse: 66 Respirations: 16 Pulse Ox (%): 96 - Physical Exam General: Alert, Oriented x3 Neck: Supple Respiratory: Clear to auscultation bilaterally Cardiovascular: No edema, Normal S1 S2 Assessment & Plan - Problems (Diagnosis) (1) COPD exacerbation Current Visit: Yes Status: Acute Plan: Patient admitted with COPD exacerbation troponins are mildly elevated she was very hypoxic hypercapnic also has renal failure troponins mildly elevated EKG shows left bundle branch block is possible that she has underlying coronary artery disease in view of for elevated creatinine I suggest a stress test 1st he could be that troponins elevated due to hypoxemia from her COPD will discuss with cardiology
[2019-03-23] MEDS: BENZONATATE 100 MG CAP PO PRN (13:20)
[2019-03-23] MEDS: LEVALBUTEROL 0.63 MG/3 ML NEB NEB PRN (13:41)
--- NOTE | 2019-03-23 15:00 | PN ---
Date of Progress Note: 03/23/2019 Ms. Lechuga is progressing. She is feeling better. She is not having much in the way of shortness of breath. Remains in sinus rhythm. Continues to have some chest pain radiating to the back. Tropo nins were significantly elevated when she came in. She is not having any arrhythmia. Examination do es not reveal any active congestive heart failure, but she is still getting very dyspneic on exertion . Eliquis is held. We will plan to do a heart catheterization on 03/25/2019. She understand the ri sks and the benefits of the procedure, and she agrees to proceed. MYRANDA/MAGALY Voice ID: [id number] Report ID: [id number]
--- NOTE | 2019-03-23 15:00 | PN ---
Date of Progress Note: 03/22/2019 Ms. Lechuga was admitted for subendocardial [place]. Today, continues to feel weak and short of breath w ith exertion, having some sharp chest pain radiating to the back when she moves. Denied any palpitat ion or syncope. Oxygen saturation is adequate. Blood pressure is adequate. She remains in sinus [facility]. I will hold her Eliquis after today for at least Sunday and Sunday, and we will plan to do the catheterization on her on Sunday, the . MYRANDA/MAGALY Voice ID: [id number] Report ID: [id number]
[2019-03-23] MEDS ORDERED: GUAIFENESIN/CODEINE 5ML UCUP PO ONE (22:49)
[2019-03-24] MEDS: IPRATROPIUM BROM 0.5MG/2.5ML NEB SCH ×4 (02:00→20:10)
[2019-03-24] MEDS: INSULIN -REGULAR HUMAN 50 UNIT/0.5 ML ML SQ SCH ×4 (07:30→21:00)
[2019-03-24] MEDS: ARFORMOTEROL TARTRATE 15 MCG/2 ML VIAL.NEB NEB SCH ×2 (08:05→20:10)
[2019-03-24] MEDS: ASPIRIN EC 81 MG TAB PO SCH (08:47)
[2019-03-24] MEDS: SERTRALINE HCL 50 MG TAB PO SCH (08:47)
[2019-03-24] MEDS: predniSONE 20 MG TAB PO SCH ×2 (08:47→20:03)
[2019-03-24] MEDS: POTASSIUM CL SA 10 MEQ TAB PO SCH (08:47)
[2019-03-24] MEDS: CLOPIDOGREL 75 MG TABLET PO SCH (08:47)
[2019-03-24] MEDS: PREGABALIN 50 MG CAP PO SCH ×3 (08:47→20:04)
[2019-03-24] MEDS: PANTOPRAZOLE 40MG TABLET PO SCH (08:47)
[2019-03-24] MEDS: METOPROLOL TAR 25 MG TAB PO SCH ×2 (08:51→20:03)
[2019-03-24] MEDS: FUROSEMIDE 40 MG TABLET PO SCH (08:52)
--- NOTE | 2019-03-24 10:30 | P.PN ---
Subjective Date of Service: 03/24/19 Chief Complaint: Exacerbation of obstructive airways disease Patient is not feeling any better complaining of worsening shortness of breath cough congestion still wheezing qualifies for home O2 severe obstructive airways disease denies any chest pain Review of Systems General: Weakness Respiratory: Cough, Shortness of Breath Physical Examination - Vital Signs Temperature: 97.5 F Blood Pressure: 143/91 Pulse: 61 Respirations: 17 Pulse Ox (%): 95 - Physical Exam General: Alert, Moderate distress Respiratory: Expiratory wheezes Cardiovascular: No edema, Regular rate/rhythm Assessment & Plan - Problems (Diagnosis) (1) COPD exacerbation Current Visit: Yes Status: Acute Plan: Patient admitted with COPD exacerbation maximum bronchodilator therapy I have added Dalresp continue with steroids high risk for cardiac catheterization discuss with cardiology troponins are probably elevated due to hypoxemia kidney function has improved patient will qualify for home O2 plan for discharge
[2019-03-24] MEDS: ROFLUMILAST 500 MCG TABLET PO SCH (11:41)
[2019-03-24] MEDS: TRAMADOL HCL 50 MG TAB PO PRN (11:45)
[2019-03-24] MEDS: LEVALBUTEROL 0.63 MG/3 ML NEB NEB PRN (15:00)
--- NOTE | 2019-03-24 16:22 | P.PN ---
Subjective Date of Service: 03/24/19 Chief Complaint: Exacerbation of obstructive airways disease Subjective: Improving Patient seen and examined at bedside. No family at bedside. Chart reviewed and case discussed with nursing staff. No acute events noted overnight. Patient reports improved pain in the chest. Reports improved coughing as well. Patient denies any urinary complaints including dysuria, abdominal pain, urinary frequency, urgency or foul smell. Review of Systems 10-point ROS is otherwise unremarkable Physical Examination - Vital Signs Temperature: 97.5 F Blood Pressure: 143/91 Pulse: 61 Respirations: 17 Pulse Ox (%): 95 - Physical Exam General: Alert, In no apparent distress, Oriented x3 HEENT: Atraumatic, PERRLA, EOMI Neck: Supple, JVD not distended Respiratory: Clear to auscultation bilaterally, Normal air movement Cardiovascular: Regular rate/rhythm, Normal S1 S2 Gastrointestinal: Normal bowel sounds, No tenderness Musculoskeletal: No tenderness Integumentary: No rashes Neurological: Normal speech, Normal tone, Normal affect Lymphatics: No axilla or inguinal lymphadenopathy Assessment And Plan - Plan This is an 83-year-old female with: 1.Dyspnea. 2.Atelectasis. 3.Congestive heart failure. 4.Azotemia related to diuresis. 5.Single kidney status. 6.Intermittent atrial fibrillation. 7.Osteoarthritis. 8.Chronic obstructive pulmonary disease, asthma. 9. Asymptomatic bacteriuria with Proteus mirabilis, ESBL Plan: cardiac catheterization cancelled, per cardiology recommendations. Patient currently not endorsing any UTI symptoms, vital signs were stable, she is afebrile and there is no WBC count. There is no altered mentation, therefore antibiotics not started at this time. We will continue to monitor patient, continue breathing treatments and provide oxygen as needed. She continues remain hemodynamically stable at this time. Discharge is pending home oxygen set up.
[2019-03-24] MEDS: BENZONATATE 100 MG CAP PO PRN (23:34)
[2019-03-25] MEDS: IPRATROPIUM BROM 0.5MG/2.5ML NEB SCH ×4 (01:25→20:15)
[2019-03-25] MEDS: INSULIN -REGULAR HUMAN 50 UNIT/0.5 ML ML SQ SCH ×4 (07:30→20:35)
--- NOTE | 2019-03-25 07:57 | EKG ---
Test Date: 2019-03-25 Test Time: 05:07:48 Sleeve Setter Safety Stitch: RT Zelaya MEASUREMENT RESULTS: Intervals: Rate: 83 [place]: QRSD: 164 QT: 384 QTc: 451 [place]: P: WI: QRS: -56 T: 86 INTERPRETIVE STATEMENTS: Atrial fibrillation Left axis deviation Left bundle branch block Abnormal ECG Compared to ECG 03/21/2019 07:41:59 Sinus rhythm no longer present Atrial premature complex(es) no longer present Electronically Signed On 03-25-19 07:56:46 CDT by Niko Meredith
[2019-03-25] MEDS: ARFORMOTEROL TARTRATE 15 MCG/2 ML VIAL.NEB NEB SCH ×2 (08:15→20:15)
[2019-03-25] MEDS: PREGABALIN 50 MG CAP PO SCH ×3 (09:00→20:00)
[2019-03-25] MEDS: predniSONE 20 MG TAB PO SCH (09:08)
[2019-03-25] MEDS: ASPIRIN EC 81 MG TAB PO SCH (09:08)
[2019-03-25] MEDS: SERTRALINE HCL 50 MG TAB PO SCH (09:08)
[2019-03-25] MEDS: APIXABAN 2.5 MG TABLET PO SCH ×2 (09:08→20:00)
[2019-03-25] MEDS: CLOPIDOGREL 75 MG TABLET PO SCH (09:08)
[2019-03-25] MEDS: METOPROLOL TAR 25 MG TAB PO SCH ×2 (09:09→19:58)
[2019-03-25] MEDS: FUROSEMIDE 40 MG TABLET PO SCH (09:09)
[2019-03-25] MEDS: POTASSIUM CL SA 10 MEQ TAB PO SCH (09:09)
[2019-03-25] MEDS: ROFLUMILAST 500 MCG TABLET PO SCH (09:09)
[2019-03-25] MEDS: PANTOPRAZOLE 40MG TABLET PO SCH (09:14)
[2019-03-25 11:11] LABS: Albumin 3.6 g/dL (3.4-5.0); Bilirubin Total 0.9 mg/dL (0.2-1.0); Potassium 4.4 mmol/L (3.5-5.1); Protein, Total 7.9 g/dL (6.4-8.2)
[2019-03-25] MEDS ORDERED: PROMETHAZINE-DM 5 ML OSYR PO PRN (12:59)
--- NOTE | 2019-03-25 13:00 | P.PN ---
Subjective Date of Service: 03/25/19 Chief Complaint: Exacerbation of obstructive airways disease No change still complaining of chronic cough which is worse during the day time Review of Systems General: Weakness Respiratory: Cough, Shortness of Breath Physical Examination - Vital Signs Temperature: 97.6 F Blood Pressure: 138/70 Pulse: 87 Respirations: 20 Pulse Ox (%): 97 - Physical Exam General: Alert, In no apparent distress, Oriented x3 Respiratory: Expiratory wheezes Cardiovascular: No edema, Normal S1 S2 Assessment & Plan - Problems (Diagnosis) (1) COPD exacerbation Current Visit: Yes Status: Acute Plan: No change in patient's condition despite optimal bronchodilator therapy reduce the dose of prednisone continue with nebulized bronchodilators the setup for home O2 patient is hypoxic hypercapnic possible urosepsis add Augmentin renal function stable
--- NOTE | 2019-03-25 16:51 | PN ---
Date of Progress Note: 03/25/2019 History: The patient seen and examined. Chart reviewed and case discussed with RN. The patient den ies any significant chest pain. Still having some shortness of breath. Medications: List reviewed. Code Status: Full. Physical Examination: Vital Signs: Temperature 97.6, heart rate 87, blood pressure 138/70, respirations 20, O2 of 97% on 2 L via nasal cannula. General: Awake, alert, and oriented x3. Elderly female, obese, in some mild distress. CV: S1 and S2. Regular rate and rhythm. Peripheral pulses present. Respiratory: Diminished breath sounds. No wheezing or stridor. Gastrointestinal: Abdomen is soft, nontender, nondistended. Positive bowel sounds. Extremities: No clubbing, cyanosis, or edema. Neurologic: Cranial nerves 2-12 intact grossly. No focal neurological deficit. Speech is normal. Skin: No rashes. Normal skin turgor. Laboratory Data: Sodium 137, potassium 4.4, chloride 96, CO2 39, BUN 63, creatinine 1.64, glucose 15 5, calcium 9.3. Cultures, urine culture growing out Proteus mirabilis, ESBL producing. Assessment And Plan: An 83-year-old female with: 1.Dyspnea secondary to chronic obstructive pulmonary disease. 2.Non-ST elevation myocardial infarction. Will continue with medical management. Appreciate Dr. Darwin lomax's input. Does not recommend cardiac catheterization until kidney function and pulmonary functi on has improved. 3.Congestive heart failure, chronic. Echocardiogram shows EF of 51%, diastolic dysfunction. 4.Acute kidney injury on chronic kidney disease stage 3. Creatinine has improved. We will continue to monitor. Continue IV fluids. 5.Solitary kidney. 6.Atrial fibrillation, intermittent. We will continue Eliquis. Continue rate control. 7.Osteoarthritis, generalized. Continue pain medications. 8.Chronic obstructive pulmonary disease. Continue nebulizer treatments. Supplemental oxygen as nee ded. 9.Asymptomatic bacteriuria with Proteus mirabilis ESBL. The patient is not on antibiotics due to la ck of symptoms including dysuria, hematuria, or urgency. However, white blood cell count from the was elevated, may be colonization. We will repeat CBC, ESR, CRP, if elevated we will need to star t on antibiotics, currently waiting home O2 set up for discharge. Dr. Castaneda to resume care this even ing. SA/MODL Voice ID: [id number] Report ID: [id number]
[2019-03-25] MEDS: predniSONE 10 MG TAB PO SCH (20:00)
[2019-03-25] MEDS: AMOX/K CLAV 500 MG TAB PO SCH (20:00)
[2019-03-25] MEDS: TRAMADOL HCL 50 MG TAB PO PRN (21:31)
[2019-03-25] MEDS ORDERED: MELATONIN 3 MG TABLET PO PRN (21:41)
[2019-03-26] MEDS ORDERED: NITROGLYCERIN 0.4 MG/TAB SL ONE ×2 (00:55→01:46)
[2019-03-26] MEDS: LEVALBUTEROL 0.63 MG/3 ML NEB NEB PRN (01:16)
[2019-03-26] MEDS: IPRATROPIUM BROM 0.5MG/2.5ML NEB SCH ×4 (01:16→20:00)
[2019-03-26] MEDS ORDERED: TRAMADOL HCL 50 MG TAB PO ONE (02:37)
[2019-03-26 04:42] LABS: Absolute Lymphocytes (CBC) 1.8 K/uL (0.7-4.9); Absolute Monocytes 1.7 K/uL (0.1-1.3); Basophils % 0.4 % (0-1.3); Eosinophils % 0.1 % (0-4.4); Hematocrit 37.6 % (36.0-45.0); Lymphocytes % 11.4 % (15.3-44.8); MPV 9.6 fL (7.6-11.3); Monocytes % 11.1 % (3.3-12.3); RBC Red Blood Cell Count 4.04 M/uL (3.86-4.86)
[2019-03-26 04:50] LABS: Potassium 4.1 mmol/L (3.5-5.1)
[2019-03-26] MEDS: INSULIN -REGULAR HUMAN 50 UNIT/0.5 ML ML SQ SCH ×4 (07:30→21:00)
--- NOTE | 2019-03-26 07:32 | EKG ---
Test Date: 2019-03-25 Test Time: 05:08:22 Sheet Metal Duct Installer Helper: RT Zelaya MEASUREMENT RESULTS: Intervals: Rate: 97 CT: QRSD: 162 QT: 384 QTc: 487 [place]: P: CT: QRS: -56 T: 90 INTERPRETIVE STATEMENTS: Atrial fibrillation with premature ventricular or aberrantly conducted complexes Left axis deviation Left bundle branch block Abnormal ECG Compared to ECG 03/25/2019 05:07:48 Ventricular premature complex(es) now present Electronically Signed On 03-26-19 07:31:44 CDT by Ronni Bryant
[2019-03-26] MEDS: ARFORMOTEROL TARTRATE 15 MCG/2 ML VIAL.NEB NEB SCH ×2 (08:09→20:00)
[2019-03-26] MEDS: SERTRALINE HCL 50 MG TAB PO SCH (09:00)
[2019-03-26] MEDS: PANTOPRAZOLE 40MG TABLET PO SCH (09:29)
[2019-03-26] MEDS: PREGABALIN 50 MG CAP PO SCH ×3 (09:29→21:00)
[2019-03-26] MEDS: AMOX/K CLAV 500 MG TAB PO SCH ×2 (09:29→22:01)
[2019-03-26] MEDS: POTASSIUM CL SA 10 MEQ TAB PO SCH (09:29)
[2019-03-26] MEDS: METOPROLOL TAR 25 MG TAB PO SCH ×2 (09:30→22:01)
[2019-03-26] MEDS: ASPIRIN EC 81 MG TAB PO SCH (09:30)
[2019-03-26] MEDS: ROFLUMILAST 500 MCG TABLET PO SCH (09:31)
[2019-03-26] MEDS: CLOPIDOGREL 75 MG TABLET PO SCH (09:31)
[2019-03-26] MEDS: APIXABAN 2.5 MG TABLET PO SCH ×2 (09:31→22:01)
[2019-03-26] MEDS: predniSONE 10 MG TAB PO SCH ×2 (09:32→22:01)
[2019-03-26] MEDS: FUROSEMIDE 40 MG TABLET PO SCH (09:32)
[2019-03-26] MEDS: TRAMADOL HCL 50 MG TAB PO PRN ×2 (09:39→22:48)
--- NOTE | 2019-03-26 12:25 | PN ---
Ms. Lechuga has chronic atrial fibrillation. We think she has some CAD, but we decided not to do a heart catheterization immediately. While I was convinced that better pulmonary toilet will relieve all of her symptoms, that does not wo rk, we will do a heart catheterization later. She has runs of atrial fibrillation with wider complex tachycardia and sometimes I doubt if it is ventricular tachycardia with I do not recommend any cortes e in her heart medicines at this point. CLEM/MAGALY Voice ID: [id number] Report ID: [id number]
[2019-03-27] MEDS: IPRATROPIUM BROM 0.5MG/2.5ML NEB SCH ×4 (02:00→20:15)
[2019-03-27 06:28] VITALS: BMI 33.5
[2019-03-27] MEDS: INSULIN -REGULAR HUMAN 50 UNIT/0.5 ML ML SQ SCH ×4 (07:30→21:59)
[2019-03-27] MEDS: ARFORMOTEROL TARTRATE 15 MCG/2 ML VIAL.NEB NEB SCH ×2 (07:35→20:15)
[2019-03-27] MEDS: SERTRALINE HCL 50 MG TAB PO SCH (10:29)
[2019-03-27] MEDS: predniSONE 10 MG TAB PO SCH ×2 (10:29→21:59)
[2019-03-27] MEDS: FUROSEMIDE 40 MG TABLET PO SCH (10:30)
[2019-03-27] MEDS: ASPIRIN EC 81 MG TAB PO SCH (10:30)
[2019-03-27] MEDS: APIXABAN 2.5 MG TABLET PO SCH ×2 (10:30→22:00)
[2019-03-27] MEDS: ROFLUMILAST 500 MCG TABLET PO SCH (10:30)
[2019-03-27] MEDS: PANTOPRAZOLE 40MG TABLET PO SCH (10:31)
[2019-03-27] MEDS: PREGABALIN 50 MG CAP PO SCH ×3 (10:31→21:59)
[2019-03-27] MEDS: CLOPIDOGREL 75 MG TABLET PO SCH (10:31)
[2019-03-27] MEDS: POTASSIUM CL SA 10 MEQ TAB PO SCH (10:32)
[2019-03-27] MEDS: AMOX/K CLAV 500 MG TAB PO SCH (10:34)
[2019-03-27] MEDS: METOPROLOL TAR 25 MG TAB PO SCH ×2 (10:35→22:00)
[2019-03-27] MEDS: LEVALBUTEROL 0.63 MG/3 ML NEB NEB PRN (11:00)
[2019-03-27] MEDS: ACETAMINOPHEN 500 MG TAB PO PRN (11:07)
[2019-03-27] MEDS: TRAMADOL HCL 50 MG TAB PO PRN ×2 (11:07→21:59)
[2019-03-27] MEDS ORDERED: FUROSEMIDE 20 MG/ 2ML VIAL IV ONE (11:16)
[2019-03-27] MEDS ORDERED: FUROSEMIDE 20 MG/ 2ML VIAL ONE (11:33)
--- NOTE | 2019-03-27 11:39 | EKG ---
Test Date: 2019-03-26 Test Time: 00:38:46 Ratoprinter: RT-O MEASUREMENT RESULTS: Intervals: Rate: 106 [place]: QRSD: 148 QT: 352 QTc: 467 [place]: P: TN: QRS: -60 T: 78 INTERPRETIVE STATEMENTS: Atrial fibrillation with rapid ventricular response Left axis deviation Left bundle branch block Abnormal ECG Compared to ECG 03/25/2019 05:08:22 Ventricular premature complex(es) no longer present Electronically Signed On 03-27-19 07:41:39 CDT by Ronni Bryant
[2019-03-27 12:22] LABS: Arterial Blood Carboxyhemoglob 1.6 % (0-1.5); Blood Gas Oxyhemoglobin 81.8 % (94-97); Blood O2 Saturation 83.6 % (92-98.5)
--- NOTE | 2019-03-27 12:35 | RAD REPORT ---
EXAM DESCRIPTION: RAD - Chest Single View - 03/27/2019 12:27 pm CLINICAL HISTORY: fluid overload v. atelectasis Chest pain. COMPARISON: Chest Pa And Lat (2 Views) dated 03/21/2019; Chest Single View dated 03/20/2019; Chest Sin gle View dated 03/16/2019 FINDINGS: Portable technique limits examination quality. Since the 03/21/2019 comparative study, there has been improvement in left basilar lung aeration. A s mall left pleural effusion is present. However, there is ill-defined opacity in the medial right lung base no apparent which may represent infiltrate or atelectasis. The heart is moderately enlarged in size. No displaced fractures.
--- NOTE | 2019-03-27 13:02 | P.PN ---
Subjective Date of Service: 03/27/19 Chief Complaint: Respiratory failure Patient is not improving still having shortness of breath cough congestion no change despite my maximum bronchodilator therapy chest x-ray yesterday was clear patient has significant distress today Review of Systems General: Weakness Respiratory: Cough, Shortness of Breath Physical Examination - Vital Signs Temperature: 98.2 F Blood Pressure: 158/92 Pulse: 111 Respirations: 24 Pulse Ox (%): 92 - Physical Exam General: Alert, Moderate distress Respiratory: Expiratory wheezes Cardiovascular: No edema, Normal S1 S2 Assessment & Plan - Problems (Diagnosis) (1) COPD exacerbation Current Visit: Yes Status: Acute Plan: Patient's condition is worse is not improving hypoxic hypercapnic change to IV Lasix kidney function is stable agree agree with BiPAP I have added Zithromax 250 mg daily for the possibility of underlying bronchiolitis
[2019-03-27] MEDS: AZITHROMYCIN 250 MG TAB PO SCH (14:03)
[2019-03-27] MEDS ORDERED: LEVALBUTEROL 0.63 MG/3 ML NEB NEB PRN (17:00)
--- NOTE | 2019-03-27 23:29 | PN ---
Patient again started having dyspnea. I spoke to Dr. Trejo, the customer contact specialist, regarding h er care. 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 Social Service has been consulted for that reason. She would be transferred to [facility] as [facility] is accepted. The patient meanwhile does not have any fever. Her sputum is clear. I discuss ed this with the family members. CHELSIE/MAGALY Voice ID: [id number] Report ID: [id number]
[2019-03-28] MEDS: IPRATROPIUM BROM 0.5MG/2.5ML NEB SCH ×3 (01:10→15:00)
[2019-03-28] MEDS: BENZONATATE 100 MG CAP PO PRN (01:18)
[2019-03-28] MEDS: ARFORMOTEROL TARTRATE 15 MCG/2 ML VIAL.NEB NEB SCH (08:00)
[2019-03-28] MEDS ORDERED: FUROSEMIDE 40 MG/4 ML VIAL IV SCH (09:00)
[2019-03-28] MEDS: APIXABAN 2.5 MG TABLET PO SCH (09:14)
[2019-03-28] MEDS: PANTOPRAZOLE 40MG TABLET PO SCH (09:14)
[2019-03-28] MEDS: ROFLUMILAST 500 MCG TABLET PO SCH (09:14)
[2019-03-28] MEDS: AZITHROMYCIN 250 MG TAB PO SCH (09:14)
[2019-03-28] MEDS: POTASSIUM CL SA 10 MEQ TAB PO SCH (09:14)
[2019-03-28] MEDS: ASPIRIN EC 81 MG TAB PO SCH (09:14)
[2019-03-28] MEDS: CLOPIDOGREL 75 MG TABLET PO SCH (09:14)
[2019-03-28] MEDS: predniSONE 10 MG TAB PO SCH (09:14)
[2019-03-28] MEDS: METOPROLOL TAR 25 MG TAB PO SCH (09:15)
[2019-03-28] MEDS: PREGABALIN 50 MG CAP PO SCH ×2 (09:15→14:00)
[2019-03-28] MEDS: SERTRALINE HCL 50 MG TAB PO SCH (09:15)
[2019-03-28 10:12] VITALS: O2SAT 97
--- NOTE | 2019-03-28 11:22 | P.PN ---
Subjective Date of Service: 03/28/19 Chief Complaint: COPD exacerbation Patient is doing much better today shortness of breath cough congestion has improved Review of Systems General: Weakness Respiratory: Cough, Shortness of Breath Physical Examination - Vital Signs Temperature: 97.0 F Blood Pressure: 132/80 Pulse: 68 Respirations: 19 Pulse Ox (%): 95 - Physical Exam General: Alert, In no apparent distress, Oriented x3 Respiratory: Clear to auscultation bilaterally, Diminished Assessment & Plan - Problems (Diagnosis) (1) COPD exacerbation Current Visit: Yes Status: Acute Plan: Patient is doing much better possible discharge home on oxygen continue with Zithromax she had a dramatic improvement possibly underlying bronchiolitis as to continue with bronchodilators and steroids at home and follow up with me in 2 weeks
[2019-03-28 12:13] VITALS: TEMP 96.5
[2019-03-28] MEDS: TRAMADOL HCL 50 MG TAB PO PRN (14:17)
[2019-03-28 17:02] VITALS: BP 126/68
== END 2019-03-28 17:23 | DRG 190 ==
LOC: ER 11:03 → ERHOLD 16:06 → 4TH 17:28 → OBSVTOIN 03-24 10:30
PROVIDERS: ADMIT Internal Medicine; ATTEND Internal Medicine
DX: J44.1 Chronic obstructive pulmonary disease with (acute) exacerbation (principal); I21.4 Non-ST elevation (NSTEMI) myocardial infarction; I50.33 Acute on chronic diastolic (congestive) heart failure; J98.11 Atelectasis; N17.9 Acute kidney failure, unspecified; I48.2 Chronic atrial fibrillation; R82.71 Bacteriuria; B96.4 Proteus (mirabilis) (morganii) as the cause of diseases classified elsewhere; Z16.12 Extended spectrum beta lactamase (ESBL) resistance; N18.3 Chronic kidney disease, stage 3 (moderate); E11.51 Type 2 diabetes mellitus with diabetic peripheral angiopathy without gangrene; E11.40 Type 2 diabetes mellitus with diabetic neuropathy, unspecified; E11.65 Type 2 diabetes mellitus with hyperglycemia; F32.9 Major depressive disorder, single episode, unspecified; K21.9 Gastro-esophageal reflux disease without esophagitis; M19.90 Unspecified osteoarthritis, unspecified site; I25.2 Old myocardial infarction; Z79.01 Long term (current) use of anticoagulants; Z87.891 Personal history of nicotine dependence; Z98.61 Coronary angioplasty status; Z95.820 Peripheral vascular angioplasty status with implants and grafts; Z90.5 Acquired absence of kidney; Z88.2 Allergy status to sulfonamides
CPT/HCPCS: 36415; 71045; 71046; 80048; 80053; 80076; 81003; 81015; 82805; 82962; 83735; 83880; 84145; 84484; 85025; 85610; 87077; 87086; 87088; 87186; 93005; 94640; 94660; 96374; 96375; 99285; G0378; J1940; J2270; J2405; J7512; J7605